=== PATIENT | male | born 1950 | race Caucasian/White ===

== ENCOUNTER → 2017-08-01 | Outpatient (CLI) | payer OTHER ==
--- NOTE | 2017-08-04 07:20 | PE ---
EXAMINATION TYPE: PET CT fusion skull to thigh DATE OF EXAM: 08/01/2017 COMPARISON: 11/01/2016 and priors HISTORY: Lymphoma follow-up examination TECHNIQUE: Following the intravenous administration of 13.95 mCi of F-18 FDG, whole body images are performed from the skull base to the midthigh. Images are reviewed on the computer in the coronal, a xial, and sagittal planes. Reconstructed rotating images are created on independent workstation and reviewed on the computer. A localization and attenuation correction CT is performed in conjunction with the PET scan. FINDINGS: SKULL BASE AND NECK: Cervical adenopathy is again present with hypermetabolic uptake overall decreas ed with a maximum SUV on the right of 2.1 (previously 3.5) and on the left is 2.46 (previously not me asured). Hypermetabolic uptake is again seen diffusely throughout the thyroid gland with a maximum HADLEY V decreased from the prior exam measuring 2.17 and previously measuring 7.3. CHEST, MEDIASTINUM, AND HILAR REGION: Mediastinal background measures a maximum SUV of 1.77. There is overall improvement in the adenopathy within the chest and abdomen. Subcarinal lymph node has a maximum SUV of 1.88 and measures 9 mm in short axis. This previously javier ured max SUV of 10.0 on the prior examination. Mildly prominent lymph node within the prevascular space measures a maximum SUV of 1.15 and is not h ypermetabolic in comparison to the mediastinal background. This measures 6 mm in short axis. Right paratracheal lymph nodes measure maximum SUV of 1.17 and 1.46 with short axis dimensions of 6 m m and 8 mm respectively. Right hilar lymph nodes demonstrate maximum SUV of 1.72 with the largest measuring 9 mm in short axis . Previously described enlarged left internal mammary lymph node is no longer visualized. ABDOMEN AND PELVIS: Hepatic background uptake measures a maximum SUV of 2.78. No enlarged lymph nodes are seen within the abdomen or pelvis. Periaortic lymph nodes are subcentimeter in size, nonenlarged and not hypermetabolic with a maximum SUV of 1.17. No superficial inguinal adenopathy is seen. Uptak e within the bowel is thought to be physiologic. Physiologic excretion within the renal collecting sy stems and urinary bladder is noted. Retrocrural nodes are nonenlarged with no hypermetabolic activity . The spleen is not enlarged with a maximum SUV of 2.13, less than background hepatic uptake. Scatter ed calcifications are seen within the splenic parenchyma. OSSEOUS STRUCTURES: No hypermetabolic uptake. IMPRESSION: Mixed response to treatment -overall improvement from the prior exam. Partial metabolic r esponse in regards to this single subcarinal lymph node with a decrease in avidity of greater than 50 % in comparison to the prior exam of 11/01/2016 and near partial metabolic response of the cervical a denopathy. The remainder of the exam shows complete response with the thoracic adenopathy uptake less than that of mediastinal background and nonenlarged non-FDG avid abdominal nodes.
== END ==
LOC: RADPETMAIN 08:04
PROVIDERS: ATTEND Internal Medicine Hematology & Oncology
DX: C85.98 Non-Hodgkin lymphoma, unspecified, lymph nodes of multiple sites (principal); C83.17 Mantle cell lymphoma, spleen
CPT/HCPCS: 78815; A9552

== ENCOUNTER 2018-01-19 07:51 | Day surgery (SDC) | payer MEDICARE, OTHER ==
[~2018-01-19 07:51] MED LIST: LACTATED RINGERS 1,000 ML IV SCH
[2018-01-19] MEDS ORDERED: LIDOCAINE 1% 20 ML VIAL (10MG/ML) FOR IV START INTRADERMA ONE (08:14)
[2018-01-19 08:25] VITALS: RESP 16; TEMP 96.9
[2018-01-19] MEDS ORDERED: GLYCOPYRROLATE 0.2 MG/ML 2 ML VIAL ONE (09:05)
[2018-01-19] MEDS ORDERED: LIDOCAINE 1% INJ 10MG/ML (20 ML MDV) ONE (09:05)
[2018-01-19] MEDS ORDERED: PROPOFOL 10 MG/ML 20 ML VIAL IV ONE (09:05)
--- NOTE | 2018-01-19 09:36 | P.PCN ---
Date of Procedure: 01/19/18 Procedure(s) Performed: Procedure: Esophagogastroduodenoscopy and biopsy. Preoperative diagnosis: Upper GI complaints and atypical chest pains and suspected reflux disease. Postoperative diagnosis: 1. Small sliding hiatal hernia with LA grade C esophagitis. 2. Mild gastritis and duodenitis. 3. Biopsies obtained from the duodenum, antrum and esophagus. Brief clinical history: The patient is a 67-year-old male who has been experiencing for the last 5-6 months atypical chest pains as well as nausea and stomach upset whenever he is working up his upper body including bending or lifting. Stress test was negative. He has not responded to few months of treatment with [id number] omeprazole. Initially it was thought that perhaps some of his symptoms are related to his chemotherapy which he was receiving for lymphoma. As his symptoms persisted after he successfully completed his treatment, this evaluation is requested to assess for esophagitis , complicated reflux disease or other pathology. Procedure: With the patient on his left lateral decubitus position and after informed consent and adequate sedation, I passed the Olympus-GIF 160 video upper endoscope through the cricopharyngeus down the esophagus. GE junction was around 42-43 cm from the incisors and there was a small sliding hiatal hernia. The esophagus showed multiple linear erosions and short punctate ulcerations consistent with LA grade C esophagitis involving the mid and lower esophagus but there was no strictures, West's esophagus or bleeding. The endoscope was then passed into the stomach which was insufflated with air and inspected in detail including the retroflex view in the cardia. There was some mottling and erythema in the antrum but no ulcers or erosions. Pyloric channel did not show any ulcers. Duodenal bulb, post bulbar area and descending duodenum showed some erythema and minimal friability. I obtained biopsies from the duodenum, antrum and esophagus then the endoscope was withdrawn. The patient tolerated the procedure well. Plan: The patient was reassured. Will await pathology results. In the meantime , I suggested that he continue antireflux diet and measures and to try intensive medical therapy for reflux and make further decisions based on his course and biopsy results.
[2018-01-19 09:58] VITALS: BP 133/86; PULSE 88
== END 2018-01-19 10:22 | disposition home or self-care (01) ==
LOC: ORWHC2ENDO 07:51
DX: K29.80 Duodenitis without bleeding (principal); K29.50 Unspecified chronic gastritis without bleeding; K21.0 Gastro-esophageal reflux disease with esophagitis; K44.9 Diaphragmatic hernia without obstruction or gangrene; E78.5 Hyperlipidemia, unspecified; C85.90 Non-Hodgkin lymphoma, unspecified, unspecified site; H91.92 Unspecified hearing loss, left ear; Z88.1 Allergy status to other antibiotic agents; Z87.01 Personal history of pneumonia (recurrent); Z92.21 Personal history of antineoplastic chemotherapy; Z79.82 Long term (current) use of aspirin; Z79.899 Other long term (current) drug therapy
CPT/HCPCS: 43239; J2001; J2704; 88305; 88312

== ENCOUNTER → 2018-05-05 | Outpatient (CLI) | payer MEDICARE ==
--- NOTE | 2018-05-05 09:22 | CT ---
EXAMINATION TYPE: CT soft tissue neck w con DATE OF EXAM: 05/05/2018 COMPARISON: PET CT 08/01/2017 and 11/01/2016 HISTORY: 67-year-old male Non Hodgkin's Lymphoma TECHNIQUE: Contiguous axial scanning of the soft tissues of the neck performed with IV Contrast, cristina ent injected with 100 ml mL of Isovue 300. Coronal/sagittal reconstructions performed. CT DLP: 381.60 mGycm Automated exposure control for dose reduction was used. FINDINGS: Visualized intracranial structures, orbits and globes, and mastoid air cells appear clear. There is m oderate to severe mucosal thickening left maxillary sinus and suggestion of small air-fluid level in the right maxillary sinus. Correlation can be made for symptoms of sinusitis. The nasopharynx is clear. Slight asymmetric fullness in the region of the left palatine tonsils but without discrete enhancing mass. Dental amalgam artifact is present causing limitation in assessment. The epiglottis and prevertebral soft tissues are normal. Tiny 2 to 3 mm area of mural based nodularity along the mucosal space of the uppermost left lateral t grover wall, axial image 36 is not well seen on the coronal or sagittal reconstructions and probably represents some minimal adherent secretion. Otherwise, the glottic and subglottic structures appear clear. The tracheal column is clear and there is some mild biapical pleural parenchymal scarring noted. The 1 cm area of hypodensity in the mid right lobe of the thyroid gland. Thyroid gland otherwise sati sfactory. The submandibular and bilateral parotid glands are mildly atrophic. A prominent 1.1 cm right supraclavicular lymph node lateral to the internal jugular vein, axial image 32 appears unchanged from 08/01/17. Otherwise, no cervical lymphadenopathy seen. Bones: Moderate disc/endplate degenerative change at C3-C4 with grade 1 retrolisthesis at this level. IMPRESSION: 1. A SOLITARY PROMINENT 1.1 CM RIGHT SUPRACLAVICULAR LYMPH NODE IS STABLE FROM 08/01/2017 AND WAS NOT HYPERMETABOLIC AT THAT TIME. NO NEW CERVICAL LYMPHADENOPATHY. 2. THERE IS SLIGHT ASYMMETRIC FULLNESS TO THE LEFT PALATINE TONSILS BUT WITHOUT DISCRETE MASS, LIKELY SECONDARY TO MILD TONSILLAR HYPERTROPHY. 3. TINY 2 TO 3 MM MURAL BASED NODULARITY ALONG THE MUCOSAL SPACE OF THE UPPER MOST LEFT LATERAL TRACH EAL WALL SUSPECTED TO REPRESENT SOME MINIMAL ADHERENT SECRETIONS. CONSIDER SIX-MONTH FOLLOW-UP IF CLI NICALLY INDICATED. 4. CHRONIC LEFT MAXILLARY SINUS DISEASE. A SMALL AIR FLUID LEVEL IN THE RIGHT MAXILLARY SINUS COULD R EPRESENT ACUTE SINUSITIS.
== END | disposition home or self-care (01) ==
LOC: RADCTMAIN 08:05
PROVIDERS: ATTEND Dentist
DX: C85.90 Non-Hodgkin lymphoma, unspecified, unspecified site (principal)
CPT/HCPCS: 70491; Q9967

== ENCOUNTER → 2018-06-12 | Outpatient (CLI) | payer MEDICARE ==
--- NOTE | 2018-06-14 16:28 | PE ---
EXAMINATION TYPE: PET CT fusion skull to thigh DATE OF EXAM: 06/12/2018 COMPARISON: PET CTs dated 08/01/2017, 11/01/2016 and 09/29/2015. CT soft tissue neck dated 05/05/2018 HISTORY: Follow-up for non-Hodgkin lymphoma. Subsequent treatment strategy. TECHNIQUE: Following the intravenous administration of 14.3 mCi of F-18 FDG, whole body images ar e performed from the skull base to the midthigh. Images are reviewed on the computer in the coronal, axial, and sagittal planes. Reconstructed rotating images are created on independent workstation an d reviewed on the computer. A localization and attenuation correction CT is performed in conjunctio n with the PET scan. SCAN: Subsequent. Ninth seen at this institution dating back to 2010. FINDINGS: Mediastinal background: 1.99 Abdominal background: 2.39 SKULL BASE AND NECK: Within the right buccinator muscle lateral to the right mandible there is focal new hypermetabolic activity with a maximum SUV of 9.0. There is no appreciable abnormality on CT. Ad ditionally along the left lateral aspect of the tongue and within the floor the mouth there is focal hypermetabolic uptake with no corresponding CT abnormality with a maximum SUV of 5.88. CHEST, MEDIASTINUM, AND HILAR REGION: There is hypermetabolic activity in the extensor musculature of the upper extremity with a maximum SUV of 2.56. This could relate to myositis or muscular usage duri ng the examination. There is no discrete CT lesions seen. No other areas of hypermetabolic activity. ABDOMEN AND PELVIS: No suspicious hypermetabolic uptake. OSSEOUS STRUCTURES: No suspicious hypermetabolic uptake. OTHER CT: There is moderate circumferential mucosal thickening of the right maxillary sinus and mild circumferential mucosal thickening of the left maxillary sinus. Remaining paranasal sinuses and masto id air cells are well aerated. Multilevel degenerative change of the spine is seen. No new suspicious osseous lesion is noted. Nonhypermetabolic left common iliac and periaortic lymph nodes are seen with the largest on series 3 image 211 measuring 6 mm in short axis. No increasing or new adenopathy within the abdomen or pelvis. The unenhanced solid viscera of the abdomen are grossly unremarkable other than a punctate benign spl enic granulomatous calcification. Few colonic diverticula are seen without pericolonic fat stranding. Urinary bladder show preferential wall thickening is likely related to incomplete distention althoug h correlation with urinalysis could be performed if there is clinical symptomatology. Ascending thoracic aorta is mildly enlarged measuring 4.3 cm. Mild to moderate coronary calcification s are noted. Scattered shotty mediastinal lymph nodes are seen throughout with no hypermetabolic acti vity. The largest is seen in the right perihilar region measuring 8 mm in short axis on series 3 imag e 107. Calcified right hilar lymph nodes are also noted. Heart is not enlarged. No pericardial effusi on. Multifocal subsegmental atelectasis and biapical pleural parenchymal scarring are present. No new foc al consolidation or pulmonary mass. IMPRESSION: 1. Focal new hypermetabolic activity within the right buccinator muscle and along the left lateral ma rgin of the mid tongue and buckle surface of the floor the mouth. Although findings could relate to m uscular usage during the examination given the maximum SUV of 9.0, direct visualization is recommende d to exclude metastatic involvement or lymph nodes within this region not appreciated on CT. 2. No hypermetabolic adenopathy within the chest, abdomen, or pelvis indicating complete lymphatic re sponse to treatment. 3. No new evidence of visceral or osseous metastasis within the chest, abdomen, or pelvis.
== END | disposition home or self-care (01) ==
LOC: RADPETMAIN 07:54
PROVIDERS: ATTEND Internal Medicine Hematology & Oncology
DX: C85.98 Non-Hodgkin lymphoma, unspecified, lymph nodes of multiple sites (principal); R93.7 Abnormal findings on diagnostic imaging of other parts of musculoskeletal system
CPT/HCPCS: 78815; A9552

== ENCOUNTER 2019-01-04 19:11 | Inpatient (IN) | payer MEDICARE ==
[2019-01-04] MEDS ORDERED: SODIUM CHLORIDE 0.9% 1,000 ML IV STA (19:55)
--- NOTE | 2019-01-04 20:42 | ED ---
GI Bleed HPI - General Source: EMS Mode of arrival: EMS Limitations: no limitations <Adia Arredondo - Last Filed: 01/04/19 22:57> <Yunior Ramirez - Last Filed: 01/06/19 09:06> - General Chief complaint: GI Bleed Stated complaint: GI Bleed Time Seen by Provider: 01/04/19 19:22 - History of Present Illness Initial comments: 68-year-old male patient presents to the emergency department today after having 3 bloody stools. Patient states for the last 3 weeks he has been having lower abdominal pain. Patient states that the pain seemed to resolve yesterday however today had sudden onset of increased cramping to the lower abdomen at 4: 00 and then had 2 bowel movements with bright red and dark red blood present. Patient denies any increased weakness or dizziness. States he does have history of lymphoma so he does generally have malaise. He gets IV immunotherapy every 2 months. Patient states he also has a wound in his mouth and recently developed sore throat with increased mucus production over the last 3 days. Patient states the wound in his mouth occurred when he bit his cheek 3 weeks ago and hasn't healed. Patient does report fever or night sweats. States the temperature has been around 100 degrees on a nightly basis for the last 3 weeks. States he has had a mild irritating cough but denies any sputum production. Patient denies any recent rash, shortness breath, chest pain , nausea, vomiting, diarrhea, constipation, back pain, numbness, tingling, hematuria, dysuria, urinary urgency, urinary frequency, headache, visual changes , or any other complaints. (Adia Arredondo) - Related Data Home Medications Medication Instructions Recorded Confirmed Ascorbic Acid [Vitamin C] 1,000 mg PO DAILY 01/18/18 01/04/19 Aspirin [Adult Low Dose Aspirin EC] 81 mg PO DAILY 01/18/18 01/04/19 Multivitamins, Thera [Multivitamin 1 tab PO DAILY 01/18/18 01/04/19 (formulary)] [place]-3 Fatty Acids/Fish Oil [Fish 1 tab PO DAILY 01/18/18 01/04/19 Oil 1,000 mg Softgel] Simvastatin [Zocor] 20 mg PO HS 01/18/18 01/04/19 Zinc 50 mg PO DAILY 01/18/18 01/04/19 diphenhydrAMINE [Benadryl] 25 mg PO DAILY PRN 01/18/18 01/04/19 Acetaminophen/Diphenhydramine 1 tab PO HS PRN 01/04/19 01/04/19 [Tylenol PM 500-25mg] Guaifen/Phenyleph/Acetaminophn 1 tab PO Q6H PRN 01/04/19 01/04/19 [Tylenol Sinus Severe Caplet] Omeprazole [PriLOSEC] 20 mg PO HS 01/04/19 01/04/19 Allergies Allergy/AdvReac Type Severity Reaction Status Date / Time cephalexin [From Keflex] Allergy Rash/Hives Verified 01/04/19 20:03 Review of Systems ROS Other: All systems not noted in ROS Statement are negative. <Adia Arredondo - Last Filed: 01/04/19 22:57> ROS Other: All systems not noted in ROS Statement are negative. <Yunior Ramirez - Last Filed: 01/06/19 09:06> ROS Statement: Those systems with pertinent positive or pertinent negative responses have been documented in the HPI. Past Medical History Past Medical History: Cancer, GI Bleed, Hearing Disorder / Deafness, Hyperlipidemia, Pneumonia Additional Past Medical History / Comment(s): CURRENT: N & V. 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 cystoscopy History of Any Multi-Drug Resistant Organisms: None Reported Past Surgical History: Orthopedic Surgery Additional Past Surgical History / Comment(s): RIGHT ROTATOR CUFF. VEIN STRIPPING LEFT. spot on tongue removed, sinus surgery Past Anesthesia/Blood Transfusion Reactions: No Reported Reaction Past Psychological History: No Psychological Hx Reported Smoking Status: Never smoker Past Alcohol Use History: Rare Past Drug Use History: None Reported - Past Family History Mother Family Medical History: Unable to Obtain <Adia Arredondo - Last Filed: 01/04/19 22:57> General Exam Limitations: no limitations General appearance: alert, in no apparent distress, other (Physical well- developed, well-nourished, pale appearing adult male patient in no acute distress. Vital signs upon presentation are temperature 101.0F, pulse 94, respirations 18, blood pressure 115/78, pulse ox 100% on room air.) Eye exam: Present: normal appearance, PERRL, EOMI. Absent: scleral icterus, conjunctival injection, periorbital swelling ENT exam: Present: mucous membranes moist, other (Patient has a wound to the left cheek, white plaque noted over this. No drainage.). Absent: normal exam, normal oropharynx (Pharyngeal erythema, white plaques noted to the pharyngeal area, however the uvula.) Respiratory exam: Present: normal lung sounds bilaterally. Absent: respiratory distress, wheezes, rales, rhonchi, stridor Cardiovascular Exam: Present: regular rate, normal rhythm, normal heart sounds. Absent: systolic murmur, diastolic murmur, rubs, gallop, clicks GI/Abdominal exam: Present: soft, normal bowel sounds. Absent: distended, tenderness, guarding, rebound, rigid Neurological exam: Present: alert, oriented X3, CN II-XII intact Psychiatric exam: Present: normal affect, normal mood Skin exam: Present: warm, dry, intact, normal color. Absent: rash <Adia Arredondo - Last Filed: 01/04/19 22:57> Vital Signs 01/04/19 01/04/19 01/04/19 19:16 21:34 23:22 Temperature 101.0 F H 100.3 F H Pulse Rate 94 82 80 Respiratory 18 18 18 Rate Blood Pressure 115/78 113/71 106/71 O2 Sat by Pulse 100 99 98 Oximetry 01/05/19 00:39 Temperature 99.6 F Pulse Rate 78 Respiratory 18 Rate Blood Pressure 106/66 O2 Sat by Pulse 99 Oximetry Medical Decision Making - Lab Data Result diagrams: 01/04/19 19:29 01/04/19 19:29 - Radiology Data Radiology results: report reviewed, image reviewed <Adia Arredondo - Last Filed: 01/04/19 22:57> - Lab Data Result diagrams: 01/06/19 05:27 01/06/19 05:27 <Yunior Ramirez - Last Filed: 01/06/19 09:06> - Medical Decision Making 68-year-old male patient presents to the emergency department today for evaluation of 3 episodes of bloody bowel movements. Patient reports low abdominal pain for the last 3 weeks. Patient is also reporting sore throat and a wound to his mouth. He is had fevers nightly for the last 3 weeks as well. Physical examination did reveal pharyngeal erythema with white plaques. Patient has wound to the left bucchal mucosa. Labs reviewed and did reveal white blood cell count of 3.0, lactic acid 2.2. Chest x-ray negative for any acute cardiopulmonary process. Urinalysis negative for any evidence of infection. He is negative for influenza and straps. Occult blood was positive. Did start Protonix. We'll start IV Zosyn and Levaquin. We'll admit to the hospital as he is immunocompromised due to history of lymphoma and current immune therapy. I did discuss findings, results, plan with the patient , he is agreeable. (Adia Arredondo) I saw this patient in conjunction with the physician wellness assistant. I performed independent history and physical exam. Agree with case management. (Yunior Ramirez) - Lab Data Lab Results 01/04/19 01/04/19 01/04/19 Range/Units 19:29 19:29 19:29 WBC 3.0 L (3.8-10.6) k/uL RBC 3.79 L (4.30-5.90) m/uL Hgb 11.5 L (13.0-17.5) gm/dL Hct 35.8 L (39.0-53.0) % MCV 94.3 (80.0-100.0) fL MCH 30.4 (25.0-35.0) pg MCHC 32.2 (31.0-37.0) g/dL RDW 12.9 (11.5-15.5) % Plt Count 286 (150-450) k/uL Neutrophils % (Manual) 32 % Band Neutrophils % 24 % Lymphocytes % (Manual) 11 % Monocytes % (Manual) 24 % Eosinophils % (Manual) 3 % Metamyelocytes % 2 % Myelocytes % 7 % Neutrophils # (Manual) 1.60 (1.3-7.7) k/uL Lymphocytes # (Manual) 0.33 L (1.0-4.8) k/uL Monocytes # (Manual) 0.72 (0-1.0) k/uL Eosinophils # (Manual) 0.09 (0-0.7) k/uL Metamyelocytes # (Man) 0.06 H (0) k/uL Myelocytes # (Manual) 0.21 H (0) k/uL Nucleated RBCs 0 (0-0) /100 WBC Manual Slide Review Performed Toxic Granulation Present PT (9.0-12.0) sec INR (<1.2) APTT (22.0-30.0) sec Sodium 138 (137-145) mmol/L Potassium 4.5 (3.5-5.1) mmol/L Chloride 105 (98-107) mmol/L Carbon Dioxide 23 (22-30) mmol/L Anion Gap 10 mmol/L BUN 17 (9-20) mg/dL Creatinine 0.95 (0.66-1.25) mg/dL Est GFR (CKD-EPI)AfAm >90 (>60 ml/min/1.73 sqM) Est GFR (CKD-EPI)NonAf 84 (>60 ml/min/1.73 sqM) Glucose 105 H (74-99) mg/dL Lactic Ac Sepsis Rflx Plasma Lactic Acid Ramses (0.7-2.0) mmol/L Calcium 8.6 (8.4-10.2) mg/dL Total Bilirubin 0.8 (0.2-1.3) mg/dL AST 16 L (17-59) U/L ALT 22 (21-72) U/L Alkaline Phosphatase 85 (38-126) U/L Total Creatine Kinase 22 L (55-170) U/L CK-MB (CK-2) <0.2 (0.0-2.4) ng/mL CK-MB (CK-2) Rel Index Troponin I <0.012 (0.000-0.034) ng/mL Total Protein 6.3 (6.3-8.2) g/dL Albumin 3.4 L (3.5-5.0) g/dL Urine Color Urine Appearance (Clear) Urine pH (5.0-8.0) Ur Specific [place] (1.001-1.035) Urine Protein (Negative) Urine Glucose (UA) (Negative) Urine Ketones (Negative) Urine Blood (Negative) Urine Nitrite (Negative) Urine Bilirubin (Negative) Urine Urobilinogen (<2.0) mg/dL Ur Leukocyte Esterase (Negative) Stool Occult Blood (Negative) Influenza Type A RNA (Not Detectd) Influenza Type B (PCR) (Not Detectd) Group A Strep Rapid (Negative) 01/04/19 01/04/19 01/04/19 Range/Units 19:29 20:00 20:00 WBC (3.8-10.6) k/uL RBC (4.30-5.90) m/uL Hgb (13.0-17.5) gm/dL Hct (39.0-53.0) % MCV (80.0-100.0) fL MCH (25.0-35.0) pg MCHC (31.0-37.0) g/dL RDW (11.5-15.5) % Plt Count (150-450) k/uL Neutrophils % (Manual) % Band Neutrophils % % Lymphocytes % (Manual) % Monocytes % (Manual) % Eosinophils % (Manual) % Metamyelocytes % % Myelocytes % % Neutrophils # (Manual) (1.3-7.7) k/uL Lymphocytes # (Manual) (1.0-4.8) k/uL Monocytes # (Manual) (0-1.0) k/uL Eosinophils # (Manual) (0-0.7) k/uL Metamyelocytes # (Man) (0) k/uL Myelocytes # (Manual) (0) k/uL Nucleated RBCs (0-0) /100 WBC Manual Slide Review Toxic Granulation PT 11.0 (9.0-12.0) sec INR 1.0 (<1.2) APTT 22.9 (22.0-30.0) sec Sodium (137-145) mmol/L Potassium (3.5-5.1) mmol/L Chloride (98-107) mmol/L Carbon Dioxide (22-30) mmol/L Anion Gap mmol/L BUN (9-20) mg/dL Creatinine (0.66-1.25) mg/dL Est GFR (CKD-EPI)AfAm (>60 ml/min/1.73 sqM) Est GFR (CKD-EPI)NonAf (>60 ml/min/1.73 sqM) Glucose (74-99) mg/dL Lactic Ac Sepsis Rflx Plasma Lactic Acid Ramses (0.7-2.0) mmol/L Calcium (8.4-10.2) mg/dL Total Bilirubin (0.2-1.3) mg/dL AST (17-59) U/L ALT (21-72) U/L Alkaline Phosphatase (38-126) U/L Total Creatine Kinase (55-170) U/L CK-MB (CK-2) (0.0-2.4) ng/mL CK-MB (CK-2) Rel Index Troponin I (0.000-0.034) ng/mL Total Protein (6.3-8.2) g/dL Albumin (3.5-5.0) g/dL Urine Color Urine Appearance (Clear) Urine pH (5.0-8.0) Ur Specific [place] (1.001-1.035) Urine Protein (Negative) Urine Glucose (UA) (Negative) Urine Ketones (Negative) Urine Blood (Negative) Urine Nitrite (Negative) Urine Bilirubin (Negative) Urine Urobilinogen (<2.0) mg/dL Ur Leukocyte Esterase (Negative) Stool Occult Blood Positive (Negative) Influenza Type A RNA (Not Detectd) Influenza Type B (PCR) (Not Detectd) Group A Strep Rapid Negative (Negative) 01/04/19 01/04/19 01/04/19 Range/Units 20:30 20:30 21:08 WBC (3.8-10.6) k/uL RBC (4.30-5.90) m/uL Hgb (13.0-17.5) gm/dL Hct (39.0-53.0) % MCV (80.0-100.0) fL MCH (25.0-35.0) pg MCHC (31.0-37.0) g/dL RDW (11.5-15.5) % Plt Count (150-450) k/uL Neutrophils % (Manual) % Band Neutrophils % % Lymphocytes % (Manual) % Monocytes % (Manual) % Eosinophils % (Manual) % Metamyelocytes % % Myelocytes % % Neutrophils # (Manual) (1.3-7.7) k/uL Lymphocytes # (Manual) (1.0-4.8) k/uL Monocytes # (Manual) (0-1.0) k/uL Eosinophils # (Manual) (0-0.7) k/uL Metamyelocytes # (Man) (0) k/uL Myelocytes # (Manual) (0) k/uL Nucleated RBCs (0-0) /100 WBC Manual Slide Review Toxic Granulation PT (9.0-12.0) sec INR (<1.2) APTT (22.0-30.0) sec Sodium (137-145) mmol/L Potassium (3.5-5.1) mmol/L Chloride (98-107) mmol/L Carbon Dioxide (22-30) mmol/L Anion Gap mmol/L BUN (9-20) mg/dL Creatinine (0.66-1.25) mg/dL Est GFR (CKD-EPI)AfAm (>60 ml/min/1.73 sqM) Est GFR (CKD-EPI)NonAf (>60 ml/min/1.73 sqM) Glucose (74-99) mg/dL Lactic Ac Sepsis Rflx Y Plasma Lactic Acid Ramses 2.2 H* (0.7-2.0) mmol/L Calcium (8.4-10.2) mg/dL Total Bilirubin (0.2-1.3) mg/dL AST (17-59) U/L ALT (21-72) U/L Alkaline Phosphatase (38-126) U/L Total Creatine Kinase (55-170) U/L CK-MB (CK-2) (0.0-2.4) ng/mL CK-MB (CK-2) Rel Index Troponin I (0.000-0.034) ng/mL Total Protein (6.3-8.2) g/dL Albumin (3.5-5.0) g/dL Urine Color Yellow Urine Appearance Clear (Clear) Urine pH 8.0 (5.0-8.0) Ur Specific [place] 1.011 (1.001-1.035) Urine Protein Negative (Negative) Urine Glucose (UA) Negative (Negative) Urine Ketones 1+ H (Negative) Urine Blood Negative (Negative) Urine Nitrite Negative (Negative) Urine Bilirubin Negative (Negative) Urine Urobilinogen <2.0 (<2.0) mg/dL Ur Leukocyte Esterase Negative (Negative) Stool Occult Blood (Negative) Influenza Type A RNA (Not Detectd) Influenza Type B (PCR) (Not Detectd) Group A Strep Rapid (Negative) 01/04/19 Range/Units 21:52 WBC (3.8-10.6) k/uL RBC (4.30-5.90) m/uL Hgb (13.0-17.5) gm/dL Hct (39.0-53.0) % MCV (80.0-100.0) fL MCH (25.0-35.0) pg MCHC (31.0-37.0) g/dL RDW (11.5-15.5) % Plt Count (150-450) k/uL Neutrophils % (Manual) % Band Neutrophils % % Lymphocytes % (Manual) % Monocytes % (Manual) % Eosinophils % (Manual) % Metamyelocytes % % Myelocytes % % Neutrophils # (Manual) (1.3-7.7) k/uL Lymphocytes # (Manual) (1.0-4.8) k/uL Monocytes # (Manual) (0-1.0) k/uL Eosinophils # (Manual) (0-0.7) k/uL Metamyelocytes # (Man) (0) k/uL Myelocytes # (Manual) (0) k/uL Nucleated RBCs (0-0) /100 WBC Manual Slide Review Toxic Granulation PT (9.0-12.0) sec INR (<1.2) APTT (22.0-30.0) sec Sodium (137-145) mmol/L Potassium (3.5-5.1) mmol/L Chloride (98-107) mmol/L Carbon Dioxide (22-30) mmol/L Anion Gap mmol/L BUN (9-20) mg/dL Creatinine (0.66-1.25) mg/dL Est GFR (CKD-EPI)AfAm (>60 ml/min/1.73 sqM) Est GFR (CKD-EPI)NonAf (>60 ml/min/1.73 sqM) Glucose (74-99) mg/dL Lactic Ac Sepsis Rflx Plasma Lactic Acid Ramses (0.7-2.0) mmol/L Calcium (8.4-10.2) mg/dL Total Bilirubin (0.2-1.3) mg/dL AST (17-59) U/L ALT (21-72) U/L Alkaline Phosphatase (38-126) U/L Total Creatine Kinase (55-170) U/L CK-MB (CK-2) (0.0-2.4) ng/mL CK-MB (CK-2) Rel Index Troponin I (0.000-0.034) ng/mL Total Protein (6.3-8.2) g/dL Albumin (3.5-5.0) g/dL Urine Color Urine Appearance (Clear) Urine pH (5.0-8.0) Ur Specific [place] (1.001-1.035) Urine Protein (Negative) Urine Glucose (UA) (Negative) Urine Ketones (Negative) Urine Blood (Negative) Urine Nitrite (Negative) Urine Bilirubin (Negative) Urine Urobilinogen (<2.0) mg/dL Ur Leukocyte Esterase (Negative) Stool Occult Blood (Negative) Influenza Type A RNA Not Detected (Not Detectd) Influenza Type B (PCR) Not Detected (Not Detectd) Group A Strep Rapid (Negative) - Radiology Data Two-view x-ray of the chest is obtained. Report was reviewed in its entirety. Impression by Dr. Nikki Weinberg shows no acute process. Thoracic aortic tortuosity noted. (Adia Arredondo) Disposition Decision to Admit Reason: Admit from EC Decision Date: 01/04/19 Decision Time: 23:01 <Adia Arredondo - Last Filed: 01/04/19 22:57> <Yunior Ramirez - Last Filed: 01/06/19 09:06> Clinical Impression: Fever, Sepsis, Pharyngitis, GI bleed Disposition: ADMITTED IP TO THIS [facility] Condition: Serious Addendum entered and electronically signed by Adia Arredondo, MAGAZINE DESIGNER-BC, AGACNP -BC 01/04/19 23:43: EKG DOCUMENTATION: EKG obtained at 2036 shows normal sinus rhythm with an incomplete right bundle branch block. Ventricular rate is 86, VA interval 182, QRS duration 94, QT 378, QTC 452. No evidence of ST elevation or depression
[2019-01-04 20:49] LABS: HCT 35.8 % (39.0-53.0); HGB 11.5 gm/dL (13.0-17.5); MCH 30.4 pg (25.0-35.0); MCHC 32.2 g/dL (31.0-37.0); MCV 94.3 fL (80.0-100.0); Mean Platelet Volume 6.7; Platelet Count 286 k/uL (150-450); RBC 3.79 m/uL (4.30-5.90); RDW 12.9 % (11.5-15.5)
[2019-01-04 20:59] LABS: Partial Thromboplastin Time 22.9 sec (22.0-30.0)
[2019-01-04 20:59] LABS: Appearance,Urine Clear (Clear); Bilirubin,Urine Negative (Negative); Blood,Urine Negative (Negative); Color,Urine Yellow; Glucose,Urine (UA) Negative (Negative); Ketones,Urine 1+ (Negative); Leukocyte Esterase,Urine Negative (Negative); Nitrite,Urine Negative (Negative); Protein,Urine Negative (Negative); Specific Gravity,Urine 1.011 (1.001-1.035); Urobilinogen,Urine <2.0 mg/dL (<2.0)
[2019-01-04 21:03] LABS: ALT 22 U/L (21-72); AST 16 U/L (17-59); Albumin 3.4 g/dL (3.5-5.0); Alkaline Phosphatase 85 U/L (38-126); Anion Gap 10 mmol/L; Blood Urea Nitrogen 17 mg/dL (9-20); Calcium 8.6 mg/dL (8.4-10.2); Carbon Dioxide 23 mmol/L (22-30); Chloride 105 mmol/L (98-107); Glucose 105 mg/dL (74-99); Potassium 4.5 mmol/L (3.5-5.1); Sodium 138 mmol/L (137-145); Total Bilirubin 0.8 mg/dL (0.2-1.3); Total Protein 6.3 g/dL (6.3-8.2)
[2019-01-04 21:04] LABS: Creatine Kinase 22 U/L (55-170)
[2019-01-04 21:15] LABS: Creatine Kinase MB <0.2 ng/mL (0.0-2.4); Troponin I <0.012 ng/mL (0.000-0.034)
[2019-01-04 21:26] LABS: Band Neutrophils % 24 %; Eosinophils # (M) 0.09 k/uL (0-0.7); Lymphocytes # (M) 0.33 k/uL (1.0-4.8); Metamyelocytes # (M) 0.06 k/uL (0); Metamyelocytes % 2 %; Monocytes # (M) 0.72 k/uL (0-1.0); Myelocytes # (M) 0.21 k/uL (0); Myelocytes % 7 %; Neutrophils % (M) 32 %; Nucleated Red Blood Cells 0 /100 WBC (0-0); Total Cells Counted 200
--- NOTE | 2019-01-04 21:33 | XR ---
EXAMINATION: XR chest 2V DATE AND TIME: 01/04/2019 9:02 PM CLINICAL INDICATION: PHH; pain TECHNIQUE: Departmental protocol COMPARISON: None FINDINGS: The lungs are clear. The pleural spaces are negative. The cardiac silhouette is not enlarged. Thoracic aorta tortuosity noted. The skeletal structures and soft tissues are negative for acute findings. IMPRESSION: 1. NO ACUTE PROCESS. 2. THORACIC AORTIC TORTUOSITY NOTED.
[2019-01-04] MEDS ORDERED: ACETAMINOPHEN TAB 500 MG TAB PO STA (21:40)
[2019-01-04 21:41] LABS: Toxic Granulation Present
[2019-01-04] MEDS ORDERED: PANTOPRAZOLE 40 MG/10 ML VIAL IVP STA (22:52)
[2019-01-04] MEDS ORDERED: PIPERACILLIN-TAZOBACTAM 3.375 GM in SODIUM CHLORIDE 0.9% 100 ML IVPB STA (22:53)
[2019-01-04] MEDS ORDERED: LEVOFLOXACIN 750MG-D5W PMX 750 MG in DEXTROSE/WATER 1 150ML.BAG IVPB STA (22:55)
[2019-01-04] MEDS ORDERED: LEVOFLOXACIN 750MG-D5W PMX 750 MG in DEXTROSE/WATER 1 150ML.BAG IVPB SCH (23:00)
[2019-01-04] MEDS: SODIUM CHLORIDE 0.9% 1,000 ML IV SCH (23:16)
[2019-01-05] MEDS: PIPERACILLIN-TAZOBACTAM 3.375 GM in SODIUM CHLORIDE 0.9% 100 ML IVPB SCH ×3 (01:41→17:26)
[2019-01-05] MEDS: PANTOPRAZOLE 40 MG/10 ML VIAL IVP SCH (08:42)
--- NOTE | 2019-01-05 13:03 | P.CONS ---
History of Present Illness - Reason for Consult Consult date: 01/05/19 GI bleed Requesting physician: Ela Clement - Chief Complaint Bloody bowel movements abdominal pain - History of Present Illness 68-year-old male past medical history of non-Hodgkin's lymphoma admitted with fever 101, new onset bloody bowel movements 24 hours with lower abdominal pain 3 weeks. Denies hematemesis melena or chills. Patient receives intravenous therapy for his lymphoma every other month last treatment was in November. He is scheduled for PET scan early January to evaluate his lymphoma status. Colonoscopy more than 10 years ago. EGD January 2018 for evaluation of upper GI complaints atypical chest pain suspected reflux of findings of small sliding hiatal hernia with LA grade C esophagitis gastritis duodenitis. Admission hemoglobin 11.5 previously 14.4 in July. White count 3. Platelet 286. INR is 1.0. BUN 17. Creatinine 0.9. Lactic acid 2.2 with hydration 1.0. FOBT positive. Influenza not detected. No alcohol excessive usage of NSAIDs or aspirin. No history of lower GI bleed. No history of inflammatory bowel diseases or colitis. No recent travels changes in diet or weight loss. Review of Systems Constitutional: Admitted with fever, chills, denies sweats, weight gain, or loss. HEENT: Negative for migraines, blurred vision or loss, earaches, drainage, tinnitus, oral mucosal lesions, dysphagia, or odynophagia. Cardiac: Negative for chest pain, arrhythmias, or palpitation. Respiratory: Negative for shortness of breath, hemoptysis, cough, or sputum production. Gastrointestinal: See HPI for pertinent findings. Genitourinary: Negative for hematuria, urgency, frequency, polyuria, dysuria, or penile discharge. Musculoskeletal: Negative for muscle aches, swelling, arthritis, and arthralgias. Neurologic: Negative for stroke or TIA. Endocrine: Negative for thyroid problems. Skin: Negative for rash or itching. Psychiatric: Negative history for depression and anxiety Past Medical History Past Medical History: Cancer, GI Bleed, Hearing Disorder / Deafness, Hyperlipidemia, Pneumonia Additional Past Medical History / Comment(s): CURRENT: N & V. 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 cystoscopy History of Any Multi-Drug Resistant Organisms: None Reported Past Surgical History: Orthopedic Surgery Additional Past Surgical History / Comment(s): RIGHT ROTATOR CUFF. VEIN STRIPPING LEFT. spot on tongue removed, sinus surgery Past Anesthesia/Blood Transfusion Reactions: No Reported Reaction Past Psychological History: No Psychological Hx Reported Smoking Status: Never smoker Past Alcohol Use History: Rare Past Drug Use History: None Reported - Past Family History Mother Family Medical History: Unable to Obtain Medications and Allergies Home Medications Medication Instructions Recorded Confirmed Type Ascorbic Acid [Vitamin C] 1,000 mg PO DAILY 01/18/18 01/04/19 History Aspirin [Adult Low Dose Aspirin EC] 81 mg PO DAILY 01/18/18 01/04/19 History Multivitamins, Thera [Multivitamin 1 tab PO DAILY 01/18/18 01/04/19 History (formulary)] [place]-3 Fatty Acids/Fish Oil [Fish 1 tab PO DAILY 01/18/18 01/04/19 History Oil 1,000 mg Softgel] Simvastatin [Zocor] 20 mg PO HS 01/18/18 01/04/19 History Zinc 50 mg PO DAILY 01/18/18 01/04/19 History diphenhydrAMINE [Benadryl] 25 mg PO DAILY PRN 01/18/18 01/04/19 History Acetaminophen/Diphenhydramine 1 tab PO HS PRN 01/04/19 01/04/19 History [Tylenol PM 500-25mg] Guaifen/Phenyleph/Acetaminophn 1 tab PO Q6H PRN 01/04/19 01/04/19 History [Tylenol Sinus Severe Caplet] Omeprazole [PriLOSEC] 20 mg PO HS 01/04/19 01/04/19 History Allergies Allergy/AdvReac Type Severity Reaction Status Date / Time cephalexin [From Keflex] Allergy Rash/Hives Verified 01/04/19 20:03 Physical Exam Vitals: Vital Signs Temp Pulse Pulse Resp BP BP Pulse Ox 01/05/19 09:32 74 14 01/05/19 07:12 97.7 F 74 16 106/69 97 01/05/19 05:00 97.9 F 73 16 107/68 98 01/05/19 00:58 97.6 F 89 16 122/71 99 01/05/19 00:39 99.6 F 78 18 106/66 99 01/04/19 23:22 80 18 106/71 98 01/04/19 21:34 100.3 F H 82 18 113/71 99 01/04/19 19:16 101.0 F H 94 18 115/78 100 Intake and Output 01/04/19 01/05/19 01/05/19 22:59 06:59 14:59 Intake Total 750 Balance 750 Intake: Intake, IV Titration 650 Amount Levofloxacin 750Mg-D5w 150 Pmx 750 mg In Dextrose/ Water 1 150ml.bag @ 100 mls/hr IVPB Q24H [facility] Rx#: [id number] Piperacillin-Tazobactam 3 100 .375 gm In Sodium Chloride 0.9% 100 ml @ 25 mls/hr IVPB ONCE STA Rx# :[id number] Sodium Chloride 0.9% 1, 400 000 ml @ 100 mls/hr IV . Q10H [facility] Rx#:[id number] Oral 100 Other: Voiding Method Bedside Commode Weight 83.915 kg General appearance: The patient is alert, oriented, in no acute distress. HET: Head is normocephalic and atraumatic. Pupils are equal and reactive. Neck: Supple without lymphadenopathy. Trachea midline. Heart: S1 S2. Regular rate and rhythm. Lungs: No crackles or wheezes are heard. Abdomen: Soft, mildly tender in the bilateral lower abdomen, nondistended with bowel sounds. No peritoneal signs. No palpable organomegaly or masses. Extremities: Normal skin color and turgor. No cyanosis, rash, ulceration, clubbing, or edema. Radial and pedal pulses are 2/4 bilaterally. Neurological: No focal deficits. Strength and sensation are grossly intact. Results CBC & Chem 7: 01/06/19 12:11 01/06/19 05:27 Labs: Abnormal Lab Results - Last 24 Hours (Table) 01/04/19 01/04/19 01/04/19 Range/Units 19:29 19:29 19:29 WBC 3.0 L (3.8-10.6) k/uL RBC 3.79 L (4.30-5.90) m/uL Hgb 11.5 L (13.0-17.5) gm/dL Hct 35.8 L (39.0-53.0) % Lymphocytes # (Manual) 0.33 L (1.0-4.8) k/uL Metamyelocytes # (Man) 0.06 H (0) k/uL Myelocytes # (Manual) 0.21 H (0) k/uL Glucose 105 H (74-99) mg/dL Plasma Lactic Acid Ramses (0.7-2.0) mmol/L AST 16 L (17-59) U/L Total Creatine Kinase 22 L (55-170) U/L Albumin 3.4 L (3.5-5.0) g/dL Urine Ketones (Negative) 01/04/19 01/04/19 Range/Units 20:30 20:30 WBC (3.8-10.6) k/uL RBC (4.30-5.90) m/uL Hgb (13.0-17.5) gm/dL Hct (39.0-53.0) % Lymphocytes # (Manual) (1.0-4.8) k/uL Metamyelocytes # (Man) (0) k/uL Myelocytes # (Manual) (0) k/uL Glucose (74-99) mg/dL Plasma Lactic Acid Ramses 2.2 H* (0.7-2.0) mmol/L AST (17-59) U/L Total Creatine Kinase (55-170) U/L Albumin (3.5-5.0) g/dL Urine Ketones 1+ H (Negative) Microbiology - Last 24 Hours (Table) 01/04/19 20:30 Urine Culture - Preliminary Urine,Clean Catch 01/04/19 20:00 Group A Strep Throat Culture - Preliminary Throat Assessment and Plan (1) Hematochezia Narrative/Plan: 68-year-old male with a history of lymphoma presents with persistent bilateral lower abdominal pain 3 weeks with new onset of gross hematochezia fever differentials include but not limited to acute infectious colitis, ischemic colitis, inflammatory colitis, underlying neoplasm colonic diverticular bleed cannot be excluded. Current Visit: Yes Status: Acute Code(s): K92.1 - MELENA SNOMED Code(s): 143673288 (2) Acute blood loss anemia Current Visit: Yes Status: Acute Code(s): D62 - ACUTE POSTHEMORRHAGIC ANEMIA SNOMED Code(s): 988495159 (3) History of non-Hodgkin's lymphoma Current Visit: Yes Status: Acute Code(s): Z85.72 - PERSONAL HISTORY OF NON- HODGKIN LYMPHOMAS SNOMED Code(s): 917429265 (4) Fever Current Visit: Yes Status: Acute Code(s): R50.9 - FEVER, UNSPECIFIED SNOMED Code(s): 171384479 Plan: 1. Daily CBC monitoring. Protonix 40 mg daily. 2. Inpatient colonoscopy advised will schedule per clinical course. Stool studies. IV antibiotics. CT abdomen and pelvis today. Thank you for this kind referral and the opportunity to participate in the care of your patient. This consultation was discussed with Dr. Horan. The impression and plan of care have been directed as dictated.
[2019-01-05] MEDS ORDERED: GUAIFEN PO PRN (13:30)
[2019-01-05] MEDS ORDERED: NON-FORMULARY DRUG (Acetaminophen/Diphenhydramine [Tylenol Pm 500-25mg] 1 TAB) PO PRN (13:30)
[2019-01-05] MEDS ORDERED: ACETAMINOPHN PO PRN (13:30)
[2019-01-05] MEDS ORDERED: PHENYLEPH PO PRN (13:30)
[2019-01-05] MEDS ORDERED: diphenhydrAMINE 25 MG CAP PO PRN (13:30)
[2019-01-05] MEDS: IOPAMIDOL-300 CONTRAST 30 ML VIAL (ORAL USE) PO PRN ×2 (14:03→15:14)
[2019-01-05] MEDS: SODIUM CHLORIDE 0.9% 1,000 ML IV SCH ×2 (15:14→22:21)
[2019-01-05 15:18] LABS: HCT 32.2 % (39.0-53.0); HGB 10.4 gm/dL (13.0-17.5); MCV 95.4 fL (80.0-100.0); RBC 3.37 m/uL (4.30-5.90)
[2019-01-05 15:19] LABS: MCH 30.9 pg (25.0-35.0); MCHC 32.4 g/dL (31.0-37.0); Mean Platelet Volume 7.3; Platelet Count 248 k/uL (150-450)
[2019-01-05 15:21] LABS: Potassium 3.9 mmol/L (3.5-5.1)
[2019-01-05 15:22] LABS: Calcium 8.7 mg/dL (8.4-10.2)
[2019-01-05 15:56] LABS: Band Neutrophils % 10 %; Eosinophils # (M) 0.08 k/uL (0-0.7); Lymphocytes # (M) 0.24 k/uL (1.0-4.8); Metamyelocytes # (M) 0.02 k/uL (0); Metamyelocytes % 1 %; Myelocytes # (M) 0.08 k/uL (0); Myelocytes % 4 %; Neutrophils % (M) 56 %; Nucleated Red Blood Cells 1 /100 WBC (0-0); Total Cells Counted 200
[2019-01-05 15:58] LABS: Poikilocytosis (M) Present; Polychromasia Present
--- NOTE | 2019-01-05 16:39 | CT ---
EXAMINATION TYPE: CT abdomen pelvis w con DATE OF EXAM: 01/05/2019 COMPARISON: PET/CT dated 06/12/2018 HISTORY: Rectal bleeding, abdominal pain CT DLP: 1263 mGycm Automated exposure control for dose reduction was used. TECHNIQUE: Helical acquisition of images was performed from the lung bases through the pelvis. CONTRAST: Performed with Oral Contrast and with IV Contrast, patient injected with 100 mL of Isovue 300. FINDINGS: LUNG BASES: No significant abnormality is appreciated. LIVER/GB: Gallbladder is nearly hydropic in size measuring approximately 9.7 cm. No common bile duct dilatation is seen. PANCREAS: Slight pancreatic intimal atrophy is present without ductal dilatation to SPLEEN: No significant abnormality is seen. ADRENALS: No significant abnormality is seen. KIDNEYS: The kidneys enhance and excrete symmetrically without hydronephrosis. FREE AIR: No free air is visualized. ADENOPATHY: No greater than 1 cm short axis lymph node is seen in the abdomen or pelvis. REPRODUCTIVE ORGANS: No significant abnormality is seen URINARY BLADDER: Left posterior lateral urinary bladder diverticulum is incidentally noted. OSSEOUS STRUCTURES: Mild multilevel degenerative change of the lumbar spine most pronounced at L4-L5 is noted. BOWEL: Very subtle and mild pericolonic fat stranding is seen adjacent to the sigmoid colon on coron al series 5 image 42. No dilated large or small bowel. Colon is suboptimally evaluated without progre ssion of contrast through the small bowel into the colon. Gastric antrum is decompressed likely secon karen to peristalsis. IMPRESSION: VERY SUBTLE MINIMAL INFLAMMATORY FAT STRANDING SURROUNDING THE SIGMOID COLON RELATE TO VERY MILD COLI TIS OR UNCOMPLICATED DIVERTICULITIS. CORRELATE WITH CLINICAL SYMPTOMS.
--- NOTE | 2019-01-05 17:51 | P.CONS ---
History of Present Illness - Reason for Consult Consult date: 01/05/19 Mantel Cell Lymphoma Requesting physician: Adia Arredondo - Chief Complaint Mouth Sores, GI Bleeding - History of Present Illness Mr. Hilton is a pleasant patient of Dr. 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 He presented to the hospital with difficulty swallowing, throat and mouth pain, and dark tarry stools. His baseline Hemoglobin is greater than 12, 10.4 today. He complains of black tarry stools and bloating the past couple days , no emesis. Review of Systems A 14 point review of systems assessed and completed and all negative except HPI. Past Medical History Past Medical History: Cancer, GI Bleed, Hearing Disorder / Deafness, Hyperlipidemia, Pneumonia Additional Past Medical History / Comment(s): CURRENT: N & V. 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 cystoscopy History of Any Multi-Drug Resistant Organisms: None Reported Past Surgical History: Orthopedic Surgery Additional Past Surgical History / Comment(s): RIGHT ROTATOR CUFF. VEIN STRIPPING LEFT. spot on tongue removed, sinus surgery Past Anesthesia/Blood Transfusion Reactions: No Reported Reaction Past Psychological History: No Psychological Hx Reported Smoking Status: Never smoker Past Alcohol Use History: Rare Past Drug Use History: None Reported - Past Family History Mother Family Medical History: Unable to Obtain Medications and Allergies Home Medications Medication Instructions Recorded Confirmed Type Ascorbic Acid [Vitamin C] 1,000 mg PO DAILY 01/18/18 01/04/19 History Aspirin [Adult Low Dose Aspirin EC] 81 mg PO DAILY 01/18/18 01/04/19 History Multivitamins, Thera [Multivitamin 1 tab PO DAILY 01/18/18 01/04/19 History (formulary)] [place]-3 Fatty Acids/Fish Oil [Fish 1 tab PO DAILY 01/18/18 01/04/19 History Oil 1,000 mg Softgel] Simvastatin [Zocor] 20 mg PO HS 01/18/18 01/04/19 History Zinc 50 mg PO DAILY 01/18/18 01/04/19 History diphenhydrAMINE [Benadryl] 25 mg PO DAILY PRN 01/18/18 01/04/19 History Acetaminophen/Diphenhydramine 1 tab PO HS PRN 01/04/19 01/04/19 History [Tylenol PM 500-25mg] Guaifen/Phenyleph/Acetaminophn 1 tab PO Q6H PRN 01/04/19 01/04/19 History [Tylenol Sinus Severe Caplet] Omeprazole [PriLOSEC] 20 mg PO HS 01/04/19 01/04/19 History Allergies Allergy/AdvReac Type Severity Reaction Status Date / Time cephalexin [From Keflex] Allergy Rash/Hives Verified 01/04/19 20:03 Physical Exam Vitals: Vital Signs Temp Pulse Pulse Resp BP BP Pulse Ox 01/05/19 12:14 98.2 F 76 16 106/67 97 01/05/19 09:32 74 14 01/05/19 07:12 97.7 F 74 16 106/69 97 01/05/19 05:00 97.9 F 73 16 107/68 98 01/05/19 00:58 97.6 F 89 16 122/71 99 01/05/19 00:39 99.6 F 78 18 106/66 99 01/04/19 23:22 80 18 106/71 98 01/04/19 21:34 100.3 F H 82 18 113/71 99 01/04/19 19:16 101.0 F H 94 18 115/78 100 Intake and Output 01/05/19 01/05/19 01/05/19 06:59 14:59 22:59 Intake Total 750 800 Balance 750 800 Intake: Intake, IV Titration 650 800 Amount Levofloxacin 750Mg-D5w 150 Pmx 750 mg In Dextrose/ Water 1 150ml.bag @ 100 mls/hr IVPB Q24H [facility] Rx#: [id number] Piperacillin-Tazobactam 3 100 .375 gm In Sodium Chloride 0.9% 100 ml @ 25 mls/hr IVPB ONCE [facility] Rx# :[id number] Sodium Chloride 0.9% 1, 400 800 000 ml @ 100 mls/hr IV . Q10H [facility] Rx#:[id number] Oral 100 Other: Voiding Method Bedside Commode Gen: Alert, No acute distress Head: NC, NT Neck: No Lymphadenopathy on palpation Mouth: +Left open vesical and posterior pharynx with Oral Candidas Lungs: DIminished bibasilar, No wheezing Heart: Tachy, Reg Abdomen: Soft, ND, NT Ext: Minimal Gen Edema, Pulses notes x4 Neuro: Non Focal Results CBC & Chem 7: 01/05/19 14:53 01/05/19 14:53 Labs: Abnormal Lab Results - Last 24 Hours (Table) 01/04/19 01/04/19 01/04/19 Range/Units 19:29 19:29 19:29 WBC 3.0 L (3.8-10.6) k/uL RBC 3.79 L (4.30-5.90) m/uL Hgb 11.5 L (13.0-17.5) gm/dL Hct 35.8 L (39.0-53.0) % Lymphocytes # (Manual) 0.33 L (1.0-4.8) k/uL Metamyelocytes # (Man) 0.06 H (0) k/uL Myelocytes # (Manual) 0.21 H (0) k/uL Nucleated RBCs (0-0) /100 WBC Chloride (98-107) mmol/L Glucose 105 H (74-99) mg/dL Plasma Lactic Acid Ramses (0.7-2.0) mmol/L AST 16 L (17-59) U/L Total Creatine Kinase 22 L (55-170) U/L Albumin 3.4 L (3.5-5.0) g/dL Urine Ketones (Negative) 01/04/19 01/04/19 01/05/19 Range/Units 20:30 20:30 14:53 WBC 2.0 L (3.8-10.6) k/uL RBC 3.37 L (4.30-5.90) m/uL Hgb 10.4 L (13.0-17.5) gm/dL Hct 32.2 L (39.0-53.0) % Lymphocytes # (Manual) 0.24 L (1.0-4.8) k/uL Metamyelocytes # (Man) 0.02 H (0) k/uL Myelocytes # (Manual) 0.08 H (0) k/uL Nucleated RBCs 1 H (0-0) /100 WBC Chloride (98-107) mmol/L Glucose (74-99) mg/dL Plasma Lactic Acid Ramses 2.2 H* (0.7-2.0) mmol/L AST (17-59) U/L Total Creatine Kinase (55-170) U/L Albumin (3.5-5.0) g/dL Urine Ketones 1+ H (Negative) 01/05/19 Range/Units 14:53 WBC (3.8-10.6) k/uL RBC (4.30-5.90) m/uL Hgb (13.0-17.5) gm/dL Hct (39.0-53.0) % Lymphocytes # (Manual) (1.0-4.8) k/uL Metamyelocytes # (Man) (0) k/uL Myelocytes # (Manual) (0) k/uL Nucleated RBCs (0-0) /100 WBC Chloride 108 H (98-107) mmol/L Glucose (74-99) mg/dL Plasma Lactic Acid Ramses (0.7-2.0) mmol/L AST (17-59) U/L Total Creatine Kinase (55-170) U/L Albumin (3.5-5.0) g/dL Urine Ketones (Negative) Microbiology - Last 24 Hours (Table) 01/04/19 20:30 Urine Culture - Preliminary Urine,Clean Catch 01/04/19 20:00 Group A Strep Throat Culture - Preliminary Throat Chest x-ray: report reviewed Assessment and Plan Plan: Assessment and Recommendations: 1. Mantel Cell Lymphoma: - Status POst Maintenance Rituxan 12/13/18 - Stable 2. Oral Polly: - PO Diflucan 3. Acute Blood Loss Anemia: - GI Blood Loss, Dark Tarry Stools - GI FOllowing and planning on Colonoscopy inpatient - Monitor CBC daily - Check Iron Studies, LDH 4. Oral Mucocytis: - Vinny Physician Attest: I have completed the full history and physical of this patient and developed the complete impression and plan, agree with above dictation, dictated as a scribe.
[2019-01-05 18:52] LABS: Uric Acid 4.3 mg/dL (3.5-8.5)
[2019-01-05] MEDS ORDERED: FUROSEMIDE 10 MG/ML 2 ML VIAL IV ONE (20:15)
[2019-01-05 20:57] LABS: HCT 30.3 % (39.0-53.0); HGB 9.9 gm/dL (13.0-17.5); MCH 30.7 pg (25.0-35.0); MCHC 32.7 g/dL (31.0-37.0); MCV 93.9 fL (80.0-100.0); Mean Platelet Volume 6.5; Platelet Count 245 k/uL (150-450); RBC 3.23 m/uL (4.30-5.90); RDW 12.9 % (11.5-15.5)
[2019-01-05] MEDS ORDERED: PANTOPRAZOLE 40 MG TABLET PO SCH (21:00)
[2019-01-05 21:15] LABS: Glucose,Whole Blood 88 mg/dL (75-99)
[2019-01-05 21:20] LABS: Band Neutrophils % 6 %; Eosinophils # (M) 0.08 k/uL (0-0.7); Lymphocytes # (M) 0.34 k/uL (1.0-4.8); Metamyelocytes # (M) 0.02 k/uL (0); Metamyelocytes % 1 %; Monocytes # (M) 0.46 k/uL (0-1.0); Myelocytes # (M) 0.06 k/uL (0); Myelocytes % 3 %; Neutrophils % (M) 48 %; Nucleated Red Blood Cells 0 /100 WBC (0-0); Total Cells Counted 200
[2019-01-05 21:24] LABS: Poikilocytosis (M) Present; Polychromasia Present
[2019-01-05] MEDS: ATORVASTATIN 10 MG TAB PO SCH (22:19)
[2019-01-05 23:02] LABS: Iron Saturation 40.1 (15.00-50.00)
--- NOTE | 2019-01-05 23:05 | P.HPIM ---
History of Present Illness H&P Date: 01/05/19 Chief Complaint: Fever and generalized weakness Patient is a 68 old male with a known history of non-Hodgkin lymphoma currently on chemotherapy every month last in November 2018, history of GI bleed, hyperlipidemia and hearing disorder/deafness was initially presented to ER with complaints of blood in the stool. Patient says that he had bright red blood in the stool and also followed by dark-colored stool as well. Patient says that he has been having lower abdominal pain for the past 3 weeks. Around 4 PM yesterday patient did have increased lower abdominal pain, cramping type and did have 2 bright red blood and dark red blood. Patient felt some lightheaded dizziness. Patient did have fever and night sweats. T-max was 101.6 on admission. Patient did have cough without sputum production. No chest pain or shortness of breath. No nausea vomiting or diarrhea. No hematemesis. No numbness or tingling. Denied any dysuria or hematuria. Patient does take baby aspirin at home. Denied any other [id number] pain medication use Lactic acid 2.2, WBC 3.0, hemoglobin 11.5 and platelets 286 on admission. T-max 101.6 FOBT positive Chest x-ray showed no acute process. Tortuous thoracic aorta CT of the abdomen pelvis showed very subtle minimal instrumented fast stranding surrounding the sigmoid colon correlate to very mild colitis are uncomplicated diverticulitis. Correlate with clinical symptoms. Review of Systems Constitutional: Patient denies any fever or chills . No generalized weakness or weight loss. Abdomen: Patient denied nausea vomiting and diarrhea . Patient does have cramping abdominal pain. Cardiovascular: Patient denies any chest pain or short of breath no palpitations. Respiratory: patient denied any cough is from production. No shortness of breath Neurologic: Patient denied any numbness or tingling headache. Musculoskeletal: Patient denies any complaints of joint swelling or deformity. Skin: Negative Psychiatric: Negative Endocrine: No heat or cold intolerance. No recent weight gain. Genitourinary: No dysuria or hematuria. All other 14 point ROS negative except the above Past Medical History Past Medical History: Cancer, GI Bleed, Hearing Disorder / Deafness, Hyperlipidemia, Pneumonia Additional Past Medical History / Comment(s): CURRENT: N & V. 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 cystoscopy History of Any Multi-Drug Resistant Organisms: None Reported Past Surgical History: Orthopedic Surgery Additional Past Surgical History / Comment(s): RIGHT ROTATOR CUFF. VEIN STRIPPING LEFT. spot on tongue removed, sinus surgery Past Anesthesia/Blood Transfusion Reactions: No Reported Reaction Past Psychological History: No Psychological Hx Reported Smoking Status: Never smoker Past Alcohol Use History: Rare Past Drug Use History: None Reported - Past Family History Mother Family Medical History: Unable to Obtain Medications and Allergies Home Medications Medication Instructions Recorded Confirmed Type Ascorbic Acid [Vitamin C] 1,000 mg PO DAILY 01/18/18 01/04/19 History Aspirin [Adult Low Dose Aspirin EC] 81 mg PO DAILY 01/18/18 01/04/19 History Multivitamins, Thera [Multivitamin 1 tab PO DAILY 01/18/18 01/04/19 History (formulary)] [place]-3 Fatty Acids/Fish Oil [Fish 1 tab PO DAILY 01/18/18 01/04/19 History Oil 1,000 mg Softgel] Simvastatin [Zocor] 20 mg PO HS 01/18/18 01/04/19 History Zinc 50 mg PO DAILY 01/18/18 01/04/19 History diphenhydrAMINE [Benadryl] 25 mg PO DAILY PRN 01/18/18 01/04/19 History Acetaminophen/Diphenhydramine 1 tab PO HS PRN 01/04/19 01/04/19 History [Tylenol PM 500-25mg] Guaifen/Phenyleph/Acetaminophn 1 tab PO Q6H PRN 01/04/19 01/04/19 History [Tylenol Sinus Severe Caplet] Omeprazole [PriLOSEC] 20 mg PO HS 01/04/19 01/04/19 History Allergies Allergy/AdvReac Type Severity Reaction Status Date / Time cephalexin [From Keflex] Allergy Rash/Hives Verified 01/04/19 20:03 Physical Exam Vitals: Vital Signs Temp Pulse Pulse Resp BP BP Pulse Ox 01/05/19 12:14 98.2 F 76 16 106/67 97 01/05/19 09:32 74 14 01/05/19 07:12 97.7 F 74 16 106/69 97 01/05/19 05:00 97.9 F 73 16 107/68 98 01/05/19 00:58 97.6 F 89 16 122/71 99 01/05/19 00:39 99.6 F 78 18 106/66 99 01/04/19 23:22 80 18 106/71 98 01/04/19 21:34 100.3 F H 82 18 113/71 99 01/04/19 19:16 101.0 F H 94 18 115/78 100 Intake and Output 01/04/19 01/05/19 01/05/19 22:59 06:59 14:59 Intake Total 750 800 Balance 750 800 Intake: Intake, IV Titration 650 800 Amount Levofloxacin 750Mg-D5w 150 Pmx 750 mg In Dextrose/ Water 1 150ml.bag @ 100 mls/hr IVPB Q24H [facility] Rx#: [id number] Piperacillin-Tazobactam 3 100 .375 gm In Sodium Chloride 0.9% 100 ml @ 25 mls/hr IVPB ONCE [facility] Rx# :[id number] Sodium Chloride 0.9% 1, 400 800 000 ml @ 100 mls/hr IV . Q10H [facility] Rx#:[id number] Oral 100 Other: Voiding Method Bedside Commode Weight 83.915 kg PHYSICAL EXAMINATION: Patient is lying in the bed comfortably, no acute distress, awake alert and oriented. Feels weak.. HEENT: Normocephalic. Neck is supple. Pupils reactive. Nostrils clear. Oral cavity is moist. Ears reveal no drainage. Neck reveals no JVD, carotid bruits, or thyromegaly. CHEST EXAMINATION: Trachea is central. Symmetrical expansion. Lung garnica clear to auscultation and percussion. CARDIAC: Normal S1, S2 with no gallops. No murmurs ABDOMEN: Soft. Bowel sounds normal. No organomegaly. No abdominal bruits. Extremities: reveal no edema. No clubbing or cyanosis Neurologically awake, alert, oriented x3 with well-coordinated movements. Hard of hearing. No focal deficits noted Skin: No rash or skin lesions. Psychiatric: Coperative. Nonsuicidal Musculoskeletal: No joint swelling or deformity. Normal range of motion. Results CBC & Chem 7: 01/05/19 20:30 01/05/19 14:53 Labs: Abnormal Lab Results - Last 24 Hours (Table) 01/04/19 01/04/19 01/04/19 Range/Units 19:29 19:29 19:29 WBC 3.0 L (3.8-10.6) k/uL RBC 3.79 L (4.30-5.90) m/uL Hgb 11.5 L (13.0-17.5) gm/dL Hct 35.8 L (39.0-53.0) % Lymphocytes # (Manual) 0.33 L (1.0-4.8) k/uL Metamyelocytes # (Man) 0.06 H (0) k/uL Myelocytes # (Manual) 0.21 H (0) k/uL Glucose 105 H (74-99) mg/dL Plasma Lactic Acid Ramses (0.7-2.0) mmol/L AST 16 L (17-59) U/L Total Creatine Kinase 22 L (55-170) U/L Albumin 3.4 L (3.5-5.0) g/dL Urine Ketones (Negative) 01/04/19 01/04/19 Range/Units 20:30 20:30 WBC (3.8-10.6) k/uL RBC (4.30-5.90) m/uL Hgb (13.0-17.5) gm/dL Hct (39.0-53.0) % Lymphocytes # (Manual) (1.0-4.8) k/uL Metamyelocytes # (Man) (0) k/uL Myelocytes # (Manual) (0) k/uL Glucose (74-99) mg/dL Plasma Lactic Acid Ramses 2.2 H* (0.7-2.0) mmol/L AST (17-59) U/L Total Creatine Kinase (55-170) U/L Albumin (3.5-5.0) g/dL Urine Ketones 1+ H (Negative) Microbiology - Last 24 Hours (Table) 01/04/19 20:30 Urine Culture - Preliminary Urine,Clean Catch 01/04/19 20:00 Group A Strep Throat Culture - Preliminary Throat Thrombosis Risk Factor Assmnt - DVT/VTE Prophylaxis DVT/VTE Prophylaxis: Pharmacologic Prophylaxis ordered - Choose All That Apply Any of the Below Risk Factors Present?: No Other Risk Factors: Yes Each Risk Factor Represents 2 Points: Age 61-74 years, Malignancy Other congenital or acquired thrombophilia - If yes, enter type in comment: No Thrombosis Risk Factor Assessment Total Risk Factor Score: 4 Thrombosis Risk Factor Assessment Level: Moderate Risk Assessment and Plan Assessment: Mild acute blood loss anemia secondary to GI bleed likely lower Abdominal pain likely secondary to Mild colitis and diverticulitis as per CT Sepsis secondary to above Lactic acidosis 2.2 on admission Neutropenia with WBC count 3.0 likely due to chemotherapy Non-Hodgkin lymphoma/mantle lymphoma last chemotherapy with rituximab on 2018 Hyperlipidemia Hearing Disorder / Deafness DVT prophylaxis Plan: Patient be continued on IV hydration. Continue with broad-spectrum antibiotics in the form of Levaquin and Zosyn. Follow up H&H. GI and oncology has been consulted. Continue the current management and follow closely. Further conditions based on the clinical course. Prognosis is guarded. Discussed with the family at bedside in detail. Time with Patient: Greater than 30
[2019-01-05] MEDS: LEVOFLOXACIN 750MG-D5W PMX 750 MG in DEXTROSE/WATER 1 150ML.BAG IVPB SCH (23:49)
[2019-01-06] MEDS: FLUCONAZOLE 100 MG TAB PO SCH ×2 (00:44→09:06)
[2019-01-06] MEDS: PIPERACILLIN-TAZOBACTAM 3.375 GM in SODIUM CHLORIDE 0.9% 100 ML IVPB SCH ×3 (01:53→17:03)
[2019-01-06 05:56] LABS: Basophils % (A) 1 %; Eosinophils # (A) 0.1 k/uL (0-0.7); Eosinophils % (A) 5 %; HGB 11.6 gm/dL (13.0-17.5); Lymphocytes # (A) 0.2 k/uL (1.0-4.8); Lymphocytes % (A) 10 %; MCH 30.9 pg (25.0-35.0); MCHC 33.3 g/dL (31.0-37.0); Mean Platelet Volume 5.9; Monocytes # (A) 0.4 k/uL (0-1.0); Monocytes % (A) 18 %; Neutrophils # (A) 1.5 k/uL (1.3-7.7); Neutrophils % (A) 64 %; Platelet Count 239 k/uL (150-450); RBC 3.76 m/uL (4.30-5.90); RDW 14.1 % (11.5-15.5); WBC 2.4 k/uL (3.8-10.6)
[2019-01-06 06:06] LABS: Albumin 3.5 g/dL (3.5-5.0); Calcium 8.8 mg/dL (8.4-10.2); Potassium 3.8 mmol/L (3.5-5.1); Total Bilirubin 1.5 mg/dL (0.2-1.3); Total Protein 6.2 g/dL (6.3-8.2)
[2019-01-06] MEDS: ASCORBIC ACID 500 MG TAB PO SCH (09:06)
[2019-01-06] MEDS: PANTOPRAZOLE 40 MG/10 ML VIAL IVP SCH (09:07)
[2019-01-06] MEDS: MULTIVITAMINS, THERA 1 EACH TAB PO SCH (09:07)
[2019-01-06] MEDS: ZINC SULFATE 220 MG CAP PO SCH (09:08)
[2019-01-06] MEDS: SODIUM CHLORIDE 0.9% 1,000 ML IV SCH ×2 (09:12→18:45)
[2019-01-06] MEDS: FISH OIL 1000MG PO SCH (09:12)
--- NOTE | 2019-01-06 09:58 | P.CNPUL ---
History of Present Illness Consult date: 01/06/19 Requesting physician: Lucero Montano Reason for consult: other Chief complaint: Lower GI bleeding, symptomatic blood loss anemia History of present illness: This is a 68-year-old white male patient with past medical history of non- Hodgkin's lymphoma receiving immunotherapy in the form of Rituxan, last treatment was in November 2018. Previous history of lower GI bleeding in 2002, hyperlipidemia, hearing disorder, who came into the hospital on 2018 for evaluation of passing some red colored and dark black stools at home. Started on Thursday of this week, she was having some abdominal cramping, feeling weak. He was also having a sore throat, does have a poorly healing ulcer on the inside of his left buccal cavity after he bit the side of his cheek. Was experiencing some lightheadedness and dizziness. Denied any fever or chills. However he was febrile on presentation with a T-max of 101.6 Fahrenheit. Cough , no chest congestion, no complaints of chest pain, shortness of breath, or palpitations, no nausea or vomiting. Patient did have a EGD and colonoscopy back in [address] Aarti Ro, and he was reportedly negative. His GI bleeding at that time resolved on its own. Not on any anticoagulation other than one baby aspirin, does take occasional ibuprofen and Tylenol for general body aches. No excessive amounts of Tylenol or NSAIDs. Chest x-ray showed no acute pulmonary process. It showed thoracic aortic tortuosity. On admission his hemoglobin was 11.5, patient's stools while in the hospital are more red in color, and last night patient started passing larger volume of bright red colored stools with some clotting in it. He was also becoming quite symptomatic, dizzy, lightheaded, pale and clammy, and was transferred to the intensive care unit where he received 2 units of packed red blood cells for hemoglobin of 9.9. Through the night in the intensive care unit he did pass 3 more small bright red colored stools. His hemoglobin this morning is 11.6, white blood cell count is 2.4. Electrolytes were within normal limits, BUN is 12, creatinine is 1.31. LFTs showed total bilirubin of 1.5, AST is 15, ALT was 23. C. difficile was negative. On admission patient did have an elevated lactic acid of 2.2 which improved with IV hydration. Patient does have some white patches on his uvula, throat strep culture was sent, pending. Blood, urine and stool cultures are in process. It is my patient seen in the intensive care unit, resting comfortably in bed, room air pulse ox is 95%, hemodynamically he is stable, no tachycardia, sinus rhythm on the monitor with a rate of 82 BPM, afebrile. Antibiotic coverage includes Diflucan, Levaquin and Zosyn. Maintenance IV fluid is 0.9 normal saline at a rate of 100 ML per hour, patient is on a PPI therapy, GI service is following. No hematemesis. No chest pain, no shortness of breath. Patient has been up to the bedside commode, denied any lightheadedness or dizziness. Review of Systems All systems: negative Constitutional: Reports weakness, Denies chills, Denies fever Eyes: denies blurred vision, denies pain Ears, nose, mouth and throat: Denies headache, Denies sore throat Cardiovascular: Denies chest pain, Denies shortness of breath Respiratory: Denies cough Gastrointestinal: Reports abdominal pain, Denies diarrhea, Denies nausea, Denies vomiting Musculoskeletal: Denies myalgias Integumentary: Denies pruritus, Denies rash Neurological: Denies numbness, Denies weakness Psychiatric: Denies anxiety, Denies depression Endocrine: Denies fatigue, Denies weight change Past Medical History Past Medical History: Cancer, GI Bleed, Hearing Disorder / Deafness, Hyperlipidemia, Pneumonia Additional Past Medical History / Comment(s): CURRENT: N & V. 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 cystoscopy History of Any Multi-Drug Resistant Organisms: None Reported Past Surgical History: Orthopedic Surgery Additional Past Surgical History / Comment(s): RIGHT ROTATOR CUFF. VEIN STRIPPING LEFT. spot on tongue removed, sinus surgery Past Anesthesia/Blood Transfusion Reactions: No Reported Reaction Past Psychological History: No Psychological Hx Reported Smoking Status: Never smoker Past Alcohol Use History: Rare Past Drug Use History: None Reported - Past Family History Mother Family Medical History: Unable to Obtain Medications and Allergies Home Medications Medication Instructions Recorded Confirmed Type Ascorbic Acid [Vitamin C] 1,000 mg PO DAILY 01/18/18 01/04/19 History Aspirin [Adult Low Dose Aspirin EC] 81 mg PO DAILY 01/18/18 01/04/19 History Multivitamins, Thera [Multivitamin 1 tab PO DAILY 01/18/18 01/04/19 History (formulary)] Lesage-3 Fatty Acids/Fish Oil [Fish 1 tab PO DAILY 01/18/18 01/04/19 History Oil 1,000 mg Softgel] Simvastatin [Zocor] 20 mg PO HS 01/18/18 01/04/19 History Zinc 50 mg PO DAILY 01/18/18 01/04/19 History diphenhydrAMINE [Benadryl] 25 mg PO DAILY PRN 01/18/18 01/04/19 History Acetaminophen/Diphenhydramine 1 tab PO HS PRN 01/04/19 01/04/19 History [Tylenol PM 500-25mg] Guaifen/Phenyleph/Acetaminophn 1 tab PO Q6H PRN 01/04/19 01/04/19 History [Tylenol Sinus Severe Caplet] Omeprazole [PriLOSEC] 20 mg PO HS 01/04/19 01/04/19 History Allergies Allergy/AdvReac Type Severity Reaction Status Date / Time cephalexin [From Keflex] Allergy Rash/Hives Verified 01/04/19 20:03 Physical Exam Vitals: Vital Signs Temp Pulse Pulse Resp BP BP Pulse Ox 01/06/19 09:00 99 24 134/97 01/06/19 08:00 98.3 F 16 132/92 95 01/06/19 07:00 82 12 137/87 94 L 01/06/19 06:00 98 20 124/84 96 01/06/19 05:35 98.0 F 79 16 124/84 96 01/06/19 05:00 82 11 L 115/77 95 01/06/19 04:30 83 20 115/77 95 01/06/19 04:00 98.0 F 82 20 130/92 96 01/06/19 03:30 79 20 124/89 96 01/06/19 03:00 78 12 128/84 95 01/06/19 02:41 97.3 F L 85 16 128/64 97 01/06/19 02:30 78 22 135/83 95 01/06/19 02:11 97.9 F 80 14 135/83 97 01/06/19 02:01 97.7 F 86 20 139/91 96 01/06/19 02:00 78 14 137/83 96 01/06/19 01:57 97.6 F 84 16 137/83 97 01/06/19 01:30 76 18 132/84 95 01/06/19 01:00 87 18 111/81 96 01/06/19 00:30 90 12 135/84 96 01/06/19 00:16 98.3 F 85 16 135/84 96 01/06/19 00:00 98.3 F 83 16 123/81 97 01/05/19 23:46 97.6 F 88 16 123/81 95 01/05/19 23:36 98.2 F 90 14 127/83 98 01/05/19 23:30 86 15 133/87 96 01/05/19 23:00 82 14 123/109 96 01/05/19 22:30 90 14 97 01/05/19 22:00 105 H 20 01/05/19 21:30 110 H 20 151/85 98 01/05/19 12:14 98.2 F 76 16 106/67 97 Intake and Output 01/05/19 01/06/19 01/06/19 22:59 06:59 14:59 Intake Total 100 1980 600 Output Total 2275 Balance 100 -295 600 Intake: IV 100 800 300 0.9 100 800 300 Oral 250 300 Blood Product 930 Rc As-1 Unit 310 [id number] Rc Cpda-1 Unit 310 [id number] Output: Urine 2275 Other: Voiding Method Toilet Urinal # Voids 1 1 # Bowel Movements 1 1 Weight 84.8 kg GENERAL EXAM: Alert, pleasant, 68-year-old white male comfortable in no apparent distress. HEAD: Normocephalic/atraumatic. EYES: Normal reaction of pupils, equal size. Conjunctiva pink, sclera white. NOSE: Clear with pink turbinates. THROAT: No erythema, but large white patches noted on the anterior uvula, ulceration on his right inner buccal mucosa noted NECK: No masses, no JVD, no thyroid enlargement, no adenopathy. CHEST: No chest wall deformity. Symmetrical expansion. LUNGS: Equal air entry with no crackles, wheeze, rhonchi or dullness. CVS: Regular rate and rhythm, normal S1 and S2, no gallops, no murmurs, no rubs ABDOMEN: Soft, nontender. No hepatosplenomegaly, normal bowel sounds, no guarding or rigidity. EXTREMITIES: No clubbing, no edema, no cyanosis, 2+ pulses and upper and lower extremities. MUSCULOSKELETAL: Muscle strength and tone normal. SPINE: No scoliosis or deformity SKIN: No rashes CENTRAL NERVOUS SYSTEM: Alert and oriented -3. No focal deficits, tone is normal in all 4 extremities. PSYCHIATRIC: Alert and oriented -3. Appropriate affect. Intact judgment and insight. Results - Laboratory Findings CBC and BMP: 01/06/19 05:27 01/06/19 05:27 PT/INR, D-dimer PT 11.0 sec (9.0-12.0) 01/04/19 19: INR 1.0 (<1.2) 01/04/19 19:29 Abnormal lab findings: Abnormal Labs 01/04/19 01/04/19 01/04/19 19:29 19:29 19:29 WBC 3.0 L RBC 3.79 L Hgb 11.5 L Hct 35.8 L Neutrophils # (Manual) Lymphocytes # Lymphocytes # (Manual) 0.33 L Metamyelocytes # (Man) 0.06 H Myelocytes # (Manual) 0.21 H Nucleated RBCs Chloride Creatinine Glucose 105 H Plasma Lactic Acid Ramses TIBC Ferritin Total Bilirubin AST 16 L Lactate Dehydrogenase Total Creatine Kinase 22 L Total Protein Albumin 3.4 L Urine Ketones Crossmatch 01/04/19 01/04/19 01/05/19 20:30 20:30 14:43 WBC RBC Hgb Hct Neutrophils # (Manual) Lymphocytes # Lymphocytes # (Manual) Metamyelocytes # (Man) Myelocytes # (Manual) Nucleated RBCs Chloride Creatinine Glucose Plasma Lactic Acid Ramses 2.2 H* TIBC Ferritin Total Bilirubin AST Lactate Dehydrogenase 254 L Total Creatine Kinase Total Protein Albumin Urine Ketones 1+ H Crossmatch 01/05/19 01/05/19 01/05/19 14:43 14:53 14:53 WBC 2.0 L RBC 3.37 L Hgb 10.4 L Hct 32.2 L Neutrophils # (Manual) Lymphocytes # Lymphocytes # (Manual) 0.24 L Metamyelocytes # (Man) 0.02 H Myelocytes # (Manual) 0.08 H Nucleated RBCs 1 H Chloride 108 H Creatinine Glucose Plasma Lactic Acid Ramses TIBC 197 L Ferritin 364.9 H Total Bilirubin AST Lactate Dehydrogenase Total Creatine Kinase Total Protein Albumin Urine Ketones Crossmatch 01/05/19 01/05/19 01/06/19 20:30 20:30 05:27 WBC 2.0 L 2.4 L RBC 3.23 L 3.76 L Hgb 9.9 L 11.6 L Hct 30.3 L 35.0 L Neutrophils # (Manual) 1.00 L Lymphocytes # 0.2 L Lymphocytes # (Manual) 0.34 L Metamyelocytes # (Man) 0.02 H Myelocytes # (Manual) 0.06 H Nucleated RBCs Chloride Creatinine Glucose Plasma Lactic Acid Ramses TIBC Ferritin Total Bilirubin AST Lactate Dehydrogenase Total Creatine Kinase Total Protein Albumin Urine Ketones Crossmatch See Detail 01/06/19 05:27 WBC RBC Hgb Hct Neutrophils # (Manual) Lymphocytes # Lymphocytes # (Manual) Metamyelocytes # (Man) Myelocytes # (Manual) Nucleated RBCs Chloride Creatinine 1.31 H Glucose Plasma Lactic Acid Ramses TIBC Ferritin Total Bilirubin 1.5 H AST 15 L Lactate Dehydrogenase Total Creatine Kinase Total Protein 6.2 L Albumin Urine Ketones Crossmatch - Diagnostic Findings Chest x-ray: report reviewed Additional studies: Abdomen/pelvis CT noted, EKG noted Assessment and Plan Plan: Assessment: #1. Acute symptomatic blood loss anemia, secondary to lower GI bleeding. Abdomen/pelvis CT showed minimal inflammatory fat stranding around the sigmoid colon, could relate to mild colitis or uncomplicated diverticulitis #2. Acute kidney injury related to the above #3. Mild lactic acidosis on admission, resolved with IV hydration, rule out infectious cause, could be related to acute GI bleeding #4. Neutropenia #5. Non-Hodgkin's lymphoma/Mantel cell lymphoma, on the Rituxan therapy, asked treatment on 12/13/2018 #6. Oral buccal mucosal ulcer #7. Possible oral candidiasis, large white patch on patient's uvula noted #8. Hyperlipidemia #9. Previous episode of lower GI bleeding back in 2003 and EGD and colonoscopy were reportedly within normal limits #10. Hearing disorder in the left ear #11. Lifetime nonsmoker, no history of EtOH abuse Plan: Patient is currently hemodynamically stable, no lightheadedness or dizziness, no couplets or shortness of breath or chest pain. This morning's hemoglobin is 11.6. Will await recommendations from the GI service for possibility of colonoscopy. Continue PPI therapy, he knew IV fluids, culture data is negative thus far. Continue empiric antibiotics. Will order Piotr's solution, continue Diflucan. I performed a history & physical examination of the patient and discussed their management with my nurse practitioner, Myla Adrian. I reviewed the nurse practitioner's note and agree with the documented findings and plan of care. Lung sounds are positive for clear breath sounds. The findings and the impression was discussed with the patient. I attest to the documentation by the nurse practitioner. Time with Patient: Greater than 30
[2019-01-06] MEDS: ASPIRIN 81 MG PO SCH (10:24)
[2019-01-06] MEDS: ONDANSETRON 4 MG/2 ML VIAL IVP PRN ×2 (10:43→17:04)
[2019-01-06] MEDS: [UNRECOGNIZED DRUG - OTHER] PO SCH ×9 (10:52→21:24)
[2019-01-06] MEDS: DIPHENHYDRAMINE PO SCH ×9 (10:52→21:24)
[2019-01-06] MEDS: SIMETH PO SCH ×9 (10:52→21:24)
[2019-01-06] MEDS: AL HYDROX PO SCH ×9 (10:52→21:24)
[2019-01-06] MEDS: MAG HYDROX PO SCH ×9 (10:52→21:24)
--- NOTE | 2019-01-06 11:02 | P.PN ---
Subjective Progress Note Date: 01/06/19 Principal diagnosis: GI bleed Overnight patient was passing bright red large volumed stools with clots per nursing, he complained of associated symptoms pallor, dizziness, and diaphoretic. He therefore was transferred to ICU for closer management and two units of PRBC transfused. Objective - Vital Signs Vital signs: Vital Signs Temp 98.3 F 01/06/19 08:00 Pulse 86 01/06/19 10:00 Resp 19 01/06/19 10:00 BP 132/93 01/06/19 10:00 Pulse Ox 97 01/06/19 10:00 Intake & Output 01/05/19 01/06/19 01/06/19 18:59 06:59 18:59 Intake Total 800 2080 700 Output Total 2275 100 Balance 800 -195 600 Weight 84.8 kg Intake: IV 900 400 0.9 900 400 Intake, IV Titration 800 Amount Sodium Chloride 0.9% 1, 800 000 ml @ 100 mls/hr IV . Q10H [facility] Rx#:[id number] Oral 250 300 Blood Product 930 Rc As-1 Unit 310 [id number] Rc Cpda-1 Unit 310 [id number] Output: Urine 2275 100 Other: Voiding Method Bedside Commode Toilet Toilet Urinal Urinal # Voids 1 1 # Bowel Movements 1 1 - Exam Gen: Alert, No acute distress Head: NC, NT Neck: No Lymphadenopathy on palpation Mouth: +Left open vesical and posterior pharynx with Oral Candidas Lungs: DIminished bibasilar, No wheezing Heart: Tachy, Reg Abdomen: Soft, ND, NT Ext: Minimal Gen Edema, Pulses notes x4 Neuro: Non Focal - Labs CBC & Chem 7: 01/06/19 05:27 01/06/19 05:27 Labs: Abnormal Lab Results - Last 24 Hours (Table) 01/05/19 01/05/19 01/05/19 Range/Units 14:43 14:43 14:53 WBC 2.0 L (3.8-10.6) k/uL RBC 3.37 L (4.30-5.90) m/uL Hgb 10.4 L (13.0-17.5) gm/dL Hct 32.2 L (39.0-53.0) % Neutrophils # (Manual) (1.3-7.7) k/uL Lymphocytes # (1.0-4.8) k/uL Lymphocytes # (Manual) 0.24 L (1.0-4.8) k/uL Metamyelocytes # (Man) 0.02 H (0) k/uL Myelocytes # (Manual) 0.08 H (0) k/uL Nucleated RBCs 1 H (0-0) /100 WBC Chloride (98-107) mmol/L Creatinine (0.66-1.25) mg/dL TIBC 197 L (228-460) ug/dL Ferritin 364.9 H (22.0-322.0) ng/mL Total Bilirubin (0.2-1.3) mg/dL AST (17-59) U/L Lactate Dehydrogenase 254 L (313-618) U/L Total Protein (6.3-8.2) g/dL Crossmatch 01/05/19 01/05/19 01/05/19 Range/Units 14:53 20:30 20:30 WBC 2.0 L (3.8-10.6) k/uL RBC 3.23 L (4.30-5.90) m/uL Hgb 9.9 L (13.0-17.5) gm/dL Hct 30.3 L (39.0-53.0) % Neutrophils # (Manual) 1.00 L (1.3-7.7) k/uL Lymphocytes # (1.0-4.8) k/uL Lymphocytes # (Manual) 0.34 L (1.0-4.8) k/uL Metamyelocytes # (Man) 0.02 H (0) k/uL Myelocytes # (Manual) 0.06 H (0) k/uL Nucleated RBCs (0-0) /100 WBC Chloride 108 H (98-107) mmol/L Creatinine (0.66-1.25) mg/dL TIBC (228-460) ug/dL Ferritin (22.0-322.0) ng/mL Total Bilirubin (0.2-1.3) mg/dL AST (17-59) U/L Lactate Dehydrogenase (313-618) U/L Total Protein (6.3-8.2) g/dL Crossmatch See Detail 01/06/19 01/06/19 Range/Units 05:27 05:27 WBC 2.4 L (3.8-10.6) k/uL RBC 3.76 L (4.30-5.90) m/uL Hgb 11.6 L (13.0-17.5) gm/dL Hct 35.0 L (39.0-53.0) % Neutrophils # (Manual) (1.3-7.7) k/uL Lymphocytes # 0.2 L (1.0-4.8) k/uL Lymphocytes # (Manual) (1.0-4.8) k/uL Metamyelocytes # (Man) (0) k/uL Myelocytes # (Manual) (0) k/uL Nucleated RBCs (0-0) /100 WBC Chloride (98-107) mmol/L Creatinine 1.31 H (0.66-1.25) mg/dL TIBC (228-460) ug/dL Ferritin (22.0-322.0) ng/mL Total Bilirubin 1.5 H (0.2-1.3) mg/dL AST 15 L (17-59) U/L Lactate Dehydrogenase (313-618) U/L Total Protein 6.2 L (6.3-8.2) g/dL Crossmatch Microbiology - Last 24 Hours (Table) 01/04/19 20:30 Urine Culture - Final Urine,Clean Catch 01/04/19 20:00 Group A Strep Throat Culture - Final Throat 01/05/19 19:50 Stool Culture - Preliminary Stool 01/04/19 20:30 Blood Culture - Preliminary Blood No Growth after 24 hours Assessment and Plan Plan: Assessment and Recommendations: 1. Mantel Cell Lymphoma: - Status POst Maintenance Rituxan 12/13/18 - Stable 2. Oral Polly: - PO Diflucan 3. Acute Blood Loss Anemia: - GI Blood Loss, Dark Tarry Stools then to bright red stools with clots overnight, now in care of ICU. - GI Following and planning on Colonoscopy inpatient - Monitor CBC daily - Check Iron Studies, LDH 4. Oral Mucocytis: - Kools 5. Febrile on admission: - Carreon cultures pending. - Improving, afebrile since admission 6. Leukopenia with mild Neutropenia: - Neutrophils decreased to 1 today - Monitor neutrophils, if less than 1 will add GCSF, lymphoctopenia and leukopenia. Plan: - Await Colonoscopy - Await IgA, IgG, IgM Levels for the potential addition of IVIG to assist in immunity - Monitor Neutrophils and WBC, if concern for infectious etiology continue and Neutrophils fall below 1, will add GCSF - Monitor CBC and GI Bleeding, Transfuse active bleeding with 2 point loss or if less than 7. Physician Attest: I have discussed the completed the full history and physical of this patient and developed the complete impression and plan, agree with above dictation, dictated as a scribe.
[2019-01-06] MEDS ORDERED: PEG 3350-NA SULF,BICARB,CL/KCL 4,000 ML BOTTLE PO ONE ×2 (11:33→17:00)
[2019-01-06] MEDS ORDERED: TRIMETHOBENZAMIDE 300 MG CAP PO PRN (11:33)
[2019-01-06] MEDS ORDERED: PROCHLORPERAZINE 10 MG TAB PO PRN (11:33)
[2019-01-06 12:37] LABS: Immunoglobulin M 29.4 mg/dL (40.0-280.0)
[2019-01-06 12:38] LABS: HCT 34.8 % (39.0-53.0); HGB 11.9 gm/dL (13.0-17.5); MCH 31.8 pg (25.0-35.0); MCHC 34.2 g/dL (31.0-37.0); Mean Platelet Volume 5.9; Platelet Count 260 k/uL (150-450); RBC 3.74 m/uL (4.30-5.90); RDW 14.3 % (11.5-15.5); WBC 2.5 k/uL (3.8-10.6)
[2019-01-06] MEDS ORDERED: LIDOCAINE VISCOUS 2% 15 ML CUP MUCOUS MEM PRN (16:30)
--- NOTE | 2019-01-06 16:40 | P.GSCN ---
History of Present Illness Consult date: 01/06/19 Reason for Consult: Oral lesions Requesting physician: Rolando Medina History of present illness: This is a 68-year-old white male who tells me that about a month ago he bit his left cheek and it has not healed. He also has developed a soreness to the back of his throat. He is currently being treated for lymphoma with Rituxan. His last dose of Rituxan was in November. His mouth is sore because of this lesion. He is scheduled to undergo a PET scan and his next round of Rituxan is in January. He denies any bleeding from the mouth where he denies any hemoptysis. He does have some pain when he swallows. Review of Systems - Constitutional Reports anorexia, Reports chronic pain, Reports lethargy - EENT Ears, nose, mouth and throat: Reports mouth pain - Cardiovascular Denies chest pain - Respiratory Denies cough - Gastrointestinal Denies bloating - Genitourinary Reports as per HPI - Musculoskeletal Reports atrophy - Integumentary Denies boils - Neurological Reports as per HPI - Psychiatric Reports as per HPI - Endocrine Reports as per HPI - Hematologic/Lymphatic Reports as per HPI - Allergic/Immunologic Reports as per HPI Past Medical History Past Medical History: Cancer, GI Bleed, Hearing Disorder / Deafness, Hyperlipidemia, Pneumonia Additional Past Medical History / Comment(s): CURRENT: N & V. 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 cystoscopy History of Any Multi-Drug Resistant Organisms: None Reported Past Surgical History: Orthopedic Surgery Additional Past Surgical History / Comment(s): RIGHT ROTATOR CUFF. VEIN STRIPPING LEFT. spot on tongue removed, sinus surgery Past Anesthesia/Blood Transfusion Reactions: No Reported Reaction Past Psychological History: No Psychological Hx Reported Smoking Status: Never smoker Past Alcohol Use History: Rare Past Drug Use History: None Reported - Past Family History Mother Family Medical History: Unable to Obtain Medications and Allergies Home Medications Medication Instructions Recorded Confirmed Type Ascorbic Acid [Vitamin C] 1,000 mg PO DAILY 01/18/18 01/04/19 History Aspirin [Adult Low Dose Aspirin EC] 81 mg PO DAILY 01/18/18 01/04/19 History Multivitamins, Thera [Multivitamin 1 tab PO DAILY 01/18/18 01/04/19 History (formulary)] [place]-3 Fatty Acids/Fish Oil [Fish 1 tab PO DAILY 01/18/18 01/04/19 History Oil 1,000 mg Softgel] Simvastatin [Zocor] 20 mg PO HS 01/18/18 01/04/19 History Zinc 50 mg PO DAILY 01/18/18 01/04/19 History diphenhydrAMINE [Benadryl] 25 mg PO DAILY PRN 01/18/18 01/04/19 History Acetaminophen/Diphenhydramine 1 tab PO HS PRN 01/04/19 01/04/19 History [Tylenol PM 500-25mg] Guaifen/Phenyleph/Acetaminophn 1 tab PO Q6H PRN 01/04/19 01/04/19 History [Tylenol Sinus Severe Caplet] Omeprazole [PriLOSEC] 20 mg PO HS 01/04/19 01/04/19 History Allergies Allergy/AdvReac Type Severity Reaction Status Date / Time cephalexin [From Keflex] Allergy Rash/Hives Verified 01/04/19 20:03 Surgical - Exam Osteopathic Statement: *. No significant issues noted on an osteopathic structural exam other than those noted in the History and Physical/Consult. Vital Signs Temp Pulse Resp BP Pulse Ox 101.0 F H 94 18 115/78 100 01/04/19 19:16 01/04/19 19:16 01/04/19 19:16 01/04/19 19:16 01/04/19 19:16 - General well developed, well nourished, no distress, moderate pain, chronically ill - Eyes PERRL, normal ocular movement - ENT Patient demonstrates mucositis of the uvula on the left side along with a nonhealing mucositis an ulcerative lesion of the left posterior buccal space measuring approximately 1-1/2 cm. No specific tumors or masses are noted. No friability is seen. normal pinna, normal nares - Neck no masses - Respiratory normal expansion, normal respiratory effort - Integumentary no rash - Neurologic normal coordination - Musculoskeletal normal gait - Psychiatric oriented to time, oriented to person, oriented to place, speech is normal Results - Labs 01/06/19 12:11 01/06/19 05:27 Abnormal Lab Results - Last 24 Hours (Table) 01/05/19 01/05/19 01/05/19 Range/Units 14:43 14:43 19:50 WBC (3.8-10.6) k/uL RBC (4.30-5.90) m/uL Hgb (13.0-17.5) gm/dL Hct (39.0-53.0) % Neutrophils # (Manual) (1.3-7.7) k/uL Lymphocytes # (1.0-4.8) k/uL Lymphocytes # (Manual) (1.0-4.8) k/uL Metamyelocytes # (Man) (0) k/uL Myelocytes # (Manual) (0) k/uL Creatinine (0.66-1.25) mg/dL TIBC 197 L (228-460) ug/dL Ferritin 364.9 H (22.0-322.0) ng/mL Total Bilirubin (0.2-1.3) mg/dL AST (17-59) U/L Lactate Dehydrogenase 254 L (313-618) U/L Total Protein (6.3-8.2) g/dL Stool Lactoferrin POSITIVE H (NEGATIVE) IgM 29.4 L (40.0-280.0) mg/dL Crossmatch 01/05/19 01/05/19 01/06/19 Range/Units 20:30 20:30 05:27 WBC 2.0 L 2.4 L (3.8-10.6) k/uL RBC 3.23 L 3.76 L (4.30-5.90) m/uL Hgb 9.9 L 11.6 L (13.0-17.5) gm/dL Hct 30.3 L 35.0 L (39.0-53.0) % Neutrophils # (Manual) 1.00 L (1.3-7.7) k/uL Lymphocytes # 0.2 L (1.0-4.8) k/uL Lymphocytes # (Manual) 0.34 L (1.0-4.8) k/uL Metamyelocytes # (Man) 0.02 H (0) k/uL Myelocytes # (Manual) 0.06 H (0) k/uL Creatinine (0.66-1.25) mg/dL TIBC (228-460) ug/dL Ferritin (22.0-322.0) ng/mL Total Bilirubin (0.2-1.3) mg/dL AST (17-59) U/L Lactate Dehydrogenase (313-618) U/L Total Protein (6.3-8.2) g/dL Stool Lactoferrin (NEGATIVE) IgM (40.0-280.0) mg/dL Crossmatch See Detail 01/06/19 01/06/19 Range/Units 05:27 12:11 WBC 2.5 L (3.8-10.6) k/uL RBC 3.74 L (4.30-5.90) m/uL Hgb 11.9 L (13.0-17.5) gm/dL Hct 34.8 L (39.0-53.0) % Neutrophils # (Manual) (1.3-7.7) k/uL Lymphocytes # (1.0-4.8) k/uL Lymphocytes # (Manual) (1.0-4.8) k/uL Metamyelocytes # (Man) (0) k/uL Myelocytes # (Manual) (0) k/uL Creatinine 1.31 H (0.66-1.25) mg/dL TIBC (228-460) ug/dL Ferritin (22.0-322.0) ng/mL Total Bilirubin 1.5 H (0.2-1.3) mg/dL AST 15 L (17-59) U/L Lactate Dehydrogenase (313-618) U/L Total Protein 6.2 L (6.3-8.2) g/dL Stool Lactoferrin (NEGATIVE) IgM (40.0-280.0) mg/dL Crossmatch Microbiology - Last 24 Hours (Table) 01/04/19 20:30 Urine Culture - Final Urine,Clean Catch 01/04/19 20:00 Group A Strep Throat Culture - Final Throat 01/05/19 19:50 Stool Culture - Preliminary Stool 01/04/19 20:30 Blood Culture - Preliminary Blood No Growth after 24 hours Diabetes panel 01/06/19 Range/Units 05:27 Sodium 142 (137-145) mmol/L Potassium 3.8 (3.5-5.1) mmol/L Chloride 105 (98-107) mmol/L Carbon Dioxide 27 (22-30) mmol/L BUN 12 (9-20) mg/dL Creatinine 1.31 H (0.66-1.25) mg/dL Glucose 95 (74-99) mg/dL Calcium 8.8 (8.4-10.2) mg/dL AST 15 L (17-59) U/L ALT 23 (21-72) U/L Alkaline Phosphatase 72 (38-126) U/L Total Protein 6.2 L (6.3-8.2) g/dL Albumin 3.5 (3.5-5.0) g/dL Calcium panel 01/06/19 Range/Units 05:27 Calcium 8.8 (8.4-10.2) mg/dL Albumin 3.5 (3.5-5.0) g/dL Pituitary panel 01/06/19 Range/Units 05:27 Sodium 142 (137-145) mmol/L Potassium 3.8 (3.5-5.1) mmol/L Chloride 105 (98-107) mmol/L Carbon Dioxide 27 (22-30) mmol/L BUN 12 (9-20) mg/dL Creatinine 1.31 H (0.66-1.25) mg/dL Glucose 95 (74-99) mg/dL Calcium 8.8 (8.4-10.2) mg/dL Adrenal panel 01/06/19 Range/Units 05:27 Sodium 142 (137-145) mmol/L Potassium 3.8 (3.5-5.1) mmol/L Chloride 105 (98-107) mmol/L Carbon Dioxide 27 (22-30) mmol/L BUN 12 (9-20) mg/dL Creatinine 1.31 H (0.66-1.25) mg/dL Glucose 95 (74-99) mg/dL Calcium 8.8 (8.4-10.2) mg/dL Total Bilirubin 1.5 H (0.2-1.3) mg/dL AST 15 L (17-59) U/L ALT 23 (21-72) U/L Alkaline Phosphatase 72 (38-126) U/L Total Protein 6.2 L (6.3-8.2) g/dL Albumin 3.5 (3.5-5.0) g/dL Assessment and Plan (1) Mucositis due to chemotherapy Current Visit: Yes Status: Acute Code(s): K12.31 - ORAL MUCOSITIS ( ULCERATIVE) DUE TO ANTINEOPLASTIC THERAPY SNOMED Code(s): 474634760 Plan: This patient's mucositis appears to be from his Rituxan. If this lesion does not heal of the left buccal mucosa I would recommend a biopsy on outpatient basis. He is to follow-up with me in the office after discharge. In the meantime we will treat him symptomatically with viscous lidocaine. Over-the- counter benzocaine and the use of Chloraseptic throat lozenges as another option. He is to rest with his head elevated. No crunchy foods. No hot foods. Again follow-up is recommended after discharge at my office. Time with Patient: Greater than 30
[2019-01-06 20:13] LABS: HCT 36.3 % (39.0-53.0); HGB 11.8 gm/dL (13.0-17.5); MCH 30.6 pg (25.0-35.0); MCHC 32.6 g/dL (31.0-37.0); MCV 93.9 fL (80.0-100.0); Mean Platelet Volume 6.9; Platelet Count 286 k/uL (150-450); RBC 3.86 m/uL (4.30-5.90); RDW 14.5 % (11.5-15.5); WBC 2.5 k/uL (3.8-10.6)
[2019-01-06] MEDS: BISACODYL 10 MG SUPP RECTAL SCH (21:23)
[2019-01-06] MEDS: ATORVASTATIN 10 MG TAB PO SCH (21:23)
--- NOTE | 2019-01-06 21:26 | P.PN ---
Subjective Progress Note Date: 01/06/19 Principal diagnosis: Hematochezia Patient is seen lying in bed. He reports multiple episodes of blood per rectum overnight. Does report some lower abdominal cramping. Objective - Vital Signs Vital signs: Vital Signs Temp 98.0 F 01/06/19 16:00 Pulse 90 01/06/19 19:00 Resp 16 01/06/19 19:00 BP 137/85 01/06/19 19:00 Pulse Ox 93 L 01/06/19 19:00 Intake & Output 01/06/19 01/06/19 01/07/19 06:59 18:59 06:59 Intake Total 2080 1960 700 Output Total 2275 1050 Balance -195 910 700 Weight 84.8 kg Intake: IV 900 1200 100 0.9 900 1200 100 Intake, IV Titration 200 Amount Piperacillin-Tazobactam 3 200 .375 gm In Sodium Chloride 0.9% 100 ml @ 25 mls/hr IVPB Q8H [facility] Rx#: [id number] Oral 250 560 600 Blood Product 930 Rc As-1 Unit 310 [id number] Rc Cpda-1 Unit 310 [id number] Output: Urine 2275 450 Urine/Stool Mix 600 Other: Voiding Method Toilet Toilet Urinal Urinal # Voids 1 1 # Bowel Movements 1 3 - Exam On physical examination, patient appears comfortable in no apparent distress. HEAD: Normocephalic, atraumatic. EYES: No scleral icterus. No conjunctival injection. MOUTH: No lesions, tongue midline. NECK: Trachea midline, no gross abnormalities. CHEST: Clear to auscultation with no wheezing or rhonchi appreciated. HEART: Regular rate and rhythm. ABDOMEN: Soft, obese. Bowel sounds are positive. No organomegaly. No guarding or rigidity. EXTREMITIES: No pedal edema. SKIN: No rashes, no jaundice. NEUROLOGIC: Alert and oriented x3. No focal deficits. - Labs CBC & Chem 7: 01/06/19 20:00 01/06/19 05:27 Labs: Abnormal Lab Results - Last 24 Hours (Table) 01/05/19 01/05/19 01/05/19 Range/Units 14:43 19:50 20:30 WBC (3.8-10.6) k/uL RBC (4.30-5.90) m/uL Hgb (13.0-17.5) gm/dL Hct (39.0-53.0) % Neutrophils # (Manual) (1.3-7.7) k/uL Lymphocytes # (1.0-4.8) k/uL Lymphocytes # (Manual) (1.0-4.8) k/uL Metamyelocytes # (Man) (0) k/uL Myelocytes # (Manual) (0) k/uL Creatinine (0.66-1.25) mg/dL TIBC 197 L (228-460) ug/dL Ferritin 364.9 H (22.0-322.0) ng/mL Total Bilirubin (0.2-1.3) mg/dL AST (17-59) U/L Total Protein (6.3-8.2) g/dL Stool Lactoferrin POSITIVE H (NEGATIVE) IgM 29.4 L (40.0-280.0) mg/dL Crossmatch See Detail 01/05/19 01/06/19 01/06/19 Range/Units 20:30 05:27 05:27 WBC 2.4 L (3.8-10.6) k/uL RBC 3.76 L (4.30-5.90) m/uL Hgb 11.6 L (13.0-17.5) gm/dL Hct 35.0 L (39.0-53.0) % Neutrophils # (Manual) 1.00 L (1.3-7.7) k/uL Lymphocytes # 0.2 L (1.0-4.8) k/uL Lymphocytes # (Manual) 0.34 L (1.0-4.8) k/uL Metamyelocytes # (Man) 0.02 H (0) k/uL Myelocytes # (Manual) 0.06 H (0) k/uL Creatinine 1.31 H (0.66-1.25) mg/dL TIBC (228-460) ug/dL Ferritin (22.0-322.0) ng/mL Total Bilirubin 1.5 H (0.2-1.3) mg/dL AST 15 L (17-59) U/L Total Protein 6.2 L (6.3-8.2) g/dL Stool Lactoferrin (NEGATIVE) IgM (40.0-280.0) mg/dL Crossmatch 01/06/19 01/06/19 Range/Units 12:11 20:00 WBC 2.5 L 2.5 L (3.8-10.6) k/uL RBC 3.74 L 3.86 L (4.30-5.90) m/uL Hgb 11.9 L 11.8 L (13.0-17.5) gm/dL Hct 34.8 L 36.3 L (39.0-53.0) % Neutrophils # (Manual) (1.3-7.7) k/uL Lymphocytes # (1.0-4.8) k/uL Lymphocytes # (Manual) (1.0-4.8) k/uL Metamyelocytes # (Man) (0) k/uL Myelocytes # (Manual) (0) k/uL Creatinine (0.66-1.25) mg/dL TIBC (228-460) ug/dL Ferritin (22.0-322.0) ng/mL Total Bilirubin (0.2-1.3) mg/dL AST (17-59) U/L Total Protein (6.3-8.2) g/dL Stool Lactoferrin (NEGATIVE) IgM (40.0-280.0) mg/dL Crossmatch Microbiology - Last 24 Hours (Table) 01/04/19 20:30 Urine Culture - Final Urine,Clean Catch 01/04/19 20:00 Group A Strep Throat Culture - Final Throat 01/05/19 19:50 Stool Culture - Preliminary Stool 01/04/19 20:30 Blood Culture - Preliminary Blood No Growth after 24 hours Assessment and Plan (1) Hematochezia Narrative/Plan: Multiple episodes of hematochezia reported. Differential including diverticular bleed, AVM, ischemic colitis or other etiology. Current Visit: Yes Status: Acute Code(s): K92.1 - MELENA SNOMED Code(s): 177105018 (2) Acute blood loss anemia Current Visit: Yes Status: Acute Code(s): D62 - ACUTE POSTHEMORRHAGIC ANEMIA SNOMED Code(s): 157429670 Plan: Supportive care Clear liquid diet Nothing by mouth after midnight Bowel prep ordered Plan for EGD and colonoscopy for further investigation of GI bleeding Continue Protonix therapy Further recommendations pending findings of endoscopic evaluation Thank you for allowing us to participate in the care of this patient we will continue to follow
--- NOTE | 2019-01-06 22:04 | P.GSCN ---
History of Present Illness Consult date: 01/06/19 Reason for Consult: Rectal bleeding History of present illness: Patient presents to the hospital with complaints of rectal bleeding. No melanotic stools. No abdominal pain. History of similar events 10-15 years ago. No recent endoscopy. Patient was given 2 units of blood during this hospitalization. Hemoglobin has stabilized in the mid 11 range. Scheduled for upper and lower endoscopy tomorrow. Review of Systems The patient denies any acute changes in his vision or hearing, no dysphagia or odynophagia, no chest pain or shortness of breath, no dysuria or hematuria, no headache, no runny nose, no melena, no unexplained weight loss Past Medical History Past Medical History: Cancer, GI Bleed, Hearing Disorder / Deafness, Hyperlipidemia, Pneumonia Additional Past Medical History / Comment(s): CURRENT: N & V. 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 cystoscopy History of Any Multi-Drug Resistant Organisms: None Reported Past Surgical History: Orthopedic Surgery Additional Past Surgical History / Comment(s): RIGHT ROTATOR CUFF. VEIN STRIPPING LEFT. spot on tongue removed, sinus surgery Past Anesthesia/Blood Transfusion Reactions: No Reported Reaction Past Psychological History: No Psychological Hx Reported Smoking Status: Never smoker Past Alcohol Use History: Rare Past Drug Use History: None Reported - Past Family History Mother Family Medical History: Unable to Obtain Medications and Allergies Home Medications Medication Instructions Recorded Confirmed Type Ascorbic Acid [Vitamin C] 1,000 mg PO DAILY 01/18/18 01/04/19 History Aspirin [Adult Low Dose Aspirin EC] 81 mg PO DAILY 01/18/18 01/04/19 History Multivitamins, Thera [Multivitamin 1 tab PO DAILY 01/18/18 01/04/19 History (formulary)] [place]-3 Fatty Acids/Fish Oil [Fish 1 tab PO DAILY 01/18/18 01/04/19 History Oil 1,000 mg Softgel] Simvastatin [Zocor] 20 mg PO HS 01/18/18 01/04/19 History Zinc 50 mg PO DAILY 01/18/18 01/04/19 History diphenhydrAMINE [Benadryl] 25 mg PO DAILY PRN 01/18/18 01/04/19 History Acetaminophen/Diphenhydramine 1 tab PO HS PRN 01/04/19 01/04/19 History [Tylenol PM 500-25mg] Guaifen/Phenyleph/Acetaminophn 1 tab PO Q6H PRN 01/04/19 01/04/19 History [Tylenol Sinus Severe Caplet] Omeprazole [PriLOSEC] 20 mg PO HS 01/04/19 01/04/19 History Allergies Allergy/AdvReac Type Severity Reaction Status Date / Time cephalexin [From Keflex] Allergy Rash/Hives Verified 01/04/19 20:03 Surgical - Exam Vital Signs Temp Pulse Resp BP Pulse Ox 101.0 F H 94 18 115/78 100 01/04/19 19:16 01/04/19 19:16 01/04/19 19:16 01/04/19 19:16 01/04/19 19:16 Physical exam: General: Well-developed, well-nourished HEENT: Normocephalic, sclerae nonicteric Abdomen: Nontender, nondistended Extremities: No edema Neuro: Alert and oriented Results - Labs 01/06/19 20:00 01/06/19 05:27 Abnormal Lab Results - Last 24 Hours (Table) 01/05/19 01/05/19 01/05/19 Range/Units 14:43 19:50 20:30 WBC (3.8-10.6) k/uL RBC (4.30-5.90) m/uL Hgb (13.0-17.5) gm/dL Hct (39.0-53.0) % Lymphocytes # (1.0-4.8) k/uL Creatinine (0.66-1.25) mg/dL TIBC 197 L (228-460) ug/dL Ferritin 364.9 H (22.0-322.0) ng/mL Total Bilirubin (0.2-1.3) mg/dL AST (17-59) U/L Total Protein (6.3-8.2) g/dL Stool Lactoferrin POSITIVE H (NEGATIVE) IgM 29.4 L (40.0-280.0) mg/dL Crossmatch See Detail 01/06/19 01/06/19 01/06/19 Range/Units 05:27 05:27 12:11 WBC 2.4 L 2.5 L (3.8-10.6) k/uL RBC 3.76 L 3.74 L (4.30-5.90) m/uL Hgb 11.6 L 11.9 L (13.0-17.5) gm/dL Hct 35.0 L 34.8 L (39.0-53.0) % Lymphocytes # 0.2 L (1.0-4.8) k/uL Creatinine 1.31 H (0.66-1.25) mg/dL TIBC (228-460) ug/dL Ferritin (22.0-322.0) ng/mL Total Bilirubin 1.5 H (0.2-1.3) mg/dL AST 15 L (17-59) U/L Total Protein 6.2 L (6.3-8.2) g/dL Stool Lactoferrin (NEGATIVE) IgM (40.0-280.0) mg/dL Crossmatch 01/06/19 Range/Units 20:00 WBC 2.5 L (3.8-10.6) k/uL RBC 3.86 L (4.30-5.90) m/uL Hgb 11.8 L (13.0-17.5) gm/dL Hct 36.3 L (39.0-53.0) % Lymphocytes # (1.0-4.8) k/uL Creatinine (0.66-1.25) mg/dL TIBC (228-460) ug/dL Ferritin (22.0-322.0) ng/mL Total Bilirubin (0.2-1.3) mg/dL AST (17-59) U/L Total Protein (6.3-8.2) g/dL Stool Lactoferrin (NEGATIVE) IgM (40.0-280.0) mg/dL Crossmatch Microbiology - Last 24 Hours (Table) 01/04/19 20:30 Urine Culture - Final Urine,Clean Catch 01/04/19 20:00 Group A Strep Throat Culture - Final Throat 01/05/19 19:50 Stool Culture - Preliminary Stool 01/04/19 20:30 Blood Culture - Preliminary Blood No Growth after 24 hours Diabetes panel 01/06/19 Range/Units 05:27 Sodium 142 (137-145) mmol/L Potassium 3.8 (3.5-5.1) mmol/L Chloride 105 (98-107) mmol/L Carbon Dioxide 27 (22-30) mmol/L BUN 12 (9-20) mg/dL Creatinine 1.31 H (0.66-1.25) mg/dL Glucose 95 (74-99) mg/dL Calcium 8.8 (8.4-10.2) mg/dL AST 15 L (17-59) U/L ALT 23 (21-72) U/L Alkaline Phosphatase 72 (38-126) U/L Total Protein 6.2 L (6.3-8.2) g/dL Albumin 3.5 (3.5-5.0) g/dL Calcium panel 01/06/19 Range/Units 05:27 Calcium 8.8 (8.4-10.2) mg/dL Albumin 3.5 (3.5-5.0) g/dL Pituitary panel 01/06/19 Range/Units 05:27 Sodium 142 (137-145) mmol/L Potassium 3.8 (3.5-5.1) mmol/L Chloride 105 (98-107) mmol/L Carbon Dioxide 27 (22-30) mmol/L BUN 12 (9-20) mg/dL Creatinine 1.31 H (0.66-1.25) mg/dL Glucose 95 (74-99) mg/dL Calcium 8.8 (8.4-10.2) mg/dL Adrenal panel 01/06/19 Range/Units 05:27 Sodium 142 (137-145) mmol/L Potassium 3.8 (3.5-5.1) mmol/L Chloride 105 (98-107) mmol/L Carbon Dioxide 27 (22-30) mmol/L BUN 12 (9-20) mg/dL Creatinine 1.31 H (0.66-1.25) mg/dL Glucose 95 (74-99) mg/dL Calcium 8.8 (8.4-10.2) mg/dL Total Bilirubin 1.5 H (0.2-1.3) mg/dL AST 15 L (17-59) U/L ALT 23 (21-72) U/L Alkaline Phosphatase 72 (38-126) U/L Total Protein 6.2 L (6.3-8.2) g/dL Albumin 3.5 (3.5-5.0) g/dL Assessment and Plan (1) GI bleed Narrative/Plan: Patient with presentation of rectal bleeding. Await findings upper and lower endoscopy tomorrow. We'll remain on surgical standby. Current Visit: Yes Status: Acute Code(s): K92.2 - GASTROINTESTINAL HEMORRHAGE, UNSPECIFIED SNOMED Code(s): 37216978
[2019-01-06] MEDS: LEVOFLOXACIN 750MG-D5W PMX 750 MG in DEXTROSE/WATER 1 150ML.BAG IVPB SCH (22:26)
--- NOTE | 2019-01-06 23:22 | P.PN ---
Subjective Progress Note Date: 01/06/19 Principal diagnosis: Acute GI bleed Patient is a 68 old male with a known history of non-Hodgkin lymphoma currently on chemotherapy every month last in November 2018, history of GI bleed, hyperlipidemia and hearing disorder/deafness was initially presented to ER with complaints of blood in the stool. Patient says that he had bright red blood in the stool and also followed by dark-colored stool as well. Patient says that he has been having lower abdominal pain for the past 3 weeks. Around 4 PM yesterday patient did have increased lower abdominal pain, cramping type and did have 2 bright red blood and dark red blood. Patient felt some lightheaded dizziness. Patient did have fever and night sweats. T-max was 101.6 on admission. Patient did have cough without sputum production. No chest pain or shortness of breath. No nausea vomiting or diarrhea. No hematemesis. No numbness or tingling. Denied any dysuria or hematuria. Patient does take baby aspirin at home. Denied any other [id number] pain medication use Lactic acid 2.2, WBC 3.0, hemoglobin 11.5 and platelets 286 on admission. T-max 101.6 FOBT positive Chest x-ray showed no acute process. Tortuous thoracic aorta CT of the abdomen pelvis showed very subtle minimal instrumented fast stranding surrounding the sigmoid colon correlate to very mild colitis are uncomplicated diverticulitis. Correlate with clinical symptoms. 01/06/2019 Patient did have a large bowel movement while in the medical floor yesterday evening and patient was transferred to MICU due to possible active GI bleed. Otherwise hemoglobin is fairly stable at 11.9. Patient denied any complaints of chest pain or shortness of breath. Patient was complaining of pain over the oral ulcers with improvement of symptoms with cool solution. Denied any abdominal pain. No nausea vomiting or hematemesis.. Patient does have maroon colored lying in the stool. GI is planning for EGD and colonoscopy today. Tolerating clear liquids. Patient was seen by ENT as well. Pulmonary and GI on board. No fever no chills. Current medications reviewed. Objective - Vital Signs Vital signs: Vital Signs Temp 98.0 F 01/06/19 20:00 Pulse 97 01/06/19 23:00 Resp 20 01/06/19 23:00 BP 139/93 01/06/19 23:00 Pulse Ox 97 01/06/19 23:00 Intake & Output 01/06/19 01/06/19 01/07/19 06:59 18:59 06:59 Intake Total 2080 1960 1100 Output Total 2275 1050 Balance -039 599 9843 Weight 84.8 kg Intake: IV 900 1200 500 0.9 900 1200 500 Intake, IV Titration 200 Amount Piperacillin-Tazobactam 3 200 .375 gm In Sodium Chloride 0.9% 100 ml @ 25 mls/hr IVPB Q8H [facility] Rx#: [id number] Oral 250 560 600 Blood Product 930 Rc As-1 Unit 310 [id number] Rc Cpda-1 Unit 310 [id number] Output: Urine 2275 450 Urine/Stool Mix 600 Other: Voiding Method Toilet Toilet Toilet Urinal Urinal Urinal # Voids 1 1 # Bowel Movements 1 3 - Exam PHYSICAL EXAMINATION: Patient is lying in the bed comfortably, no acute distress, awake alert and oriented. Feels weak.. HEENT: Normocephalic. Neck is supple. Pupils reactive. Nostrils clear. Oral cavity is moist. Ears reveal no drainage. Neck reveals no JVD, carotid bruits, or thyromegaly. CHEST EXAMINATION: Trachea is central. Symmetrical expansion. Lung garnica clear to auscultation and percussion. CARDIAC: Normal S1, S2 with no gallops. No murmurs ABDOMEN: Soft. Bowel sounds normal. No organomegaly. No abdominal bruits. Extremities: reveal no edema. No clubbing or cyanosis Neurologically awake, alert, oriented x3 with well-coordinated movements. Hard of hearing. No focal deficits noted Skin: No rash or skin lesions. Psychiatric: Coperative. Nonsuicidal Musculoskeletal: No joint swelling or deformity. Normal range of motion. - Labs CBC & Chem 7: 01/06/19 20:00 01/06/19 05:27 Labs: Abnormal Lab Results - Last 24 Hours (Table) 01/05/19 01/05/19 01/05/19 Range/Units 14:43 19:50 20:30 WBC (3.8-10.6) k/uL RBC (4.30-5.90) m/uL Hgb (13.0-17.5) gm/dL Hct (39.0-53.0) % Lymphocytes # (1.0-4.8) k/uL Creatinine (0.66-1.25) mg/dL Ferritin 364.9 H (22.0-322.0) ng/mL Total Bilirubin (0.2-1.3) mg/dL AST (17-59) U/L Total Protein (6.3-8.2) g/dL Stool Lactoferrin POSITIVE H (NEGATIVE) IgM 29.4 L (40.0-280.0) mg/dL Crossmatch See Detail 01/06/19 01/06/19 01/06/19 Range/Units 05:27 05:27 12:11 WBC 2.4 L 2.5 L (3.8-10.6) k/uL RBC 3.76 L 3.74 L (4.30-5.90) m/uL Hgb 11.6 L 11.9 L (13.0-17.5) gm/dL Hct 35.0 L 34.8 L (39.0-53.0) % Lymphocytes # 0.2 L (1.0-4.8) k/uL Creatinine 1.31 H (0.66-1.25) mg/dL Ferritin (22.0-322.0) ng/mL Total Bilirubin 1.5 H (0.2-1.3) mg/dL AST 15 L (17-59) U/L Total Protein 6.2 L (6.3-8.2) g/dL Stool Lactoferrin (NEGATIVE) IgM (40.0-280.0) mg/dL Crossmatch 01/06/19 Range/Units 20:00 WBC 2.5 L (3.8-10.6) k/uL RBC 3.86 L (4.30-5.90) m/uL Hgb 11.8 L (13.0-17.5) gm/dL Hct 36.3 L (39.0-53.0) % Lymphocytes # (1.0-4.8) k/uL Creatinine (0.66-1.25) mg/dL Ferritin (22.0-322.0) ng/mL Total Bilirubin (0.2-1.3) mg/dL AST (17-59) U/L Total Protein (6.3-8.2) g/dL Stool Lactoferrin (NEGATIVE) IgM (40.0-280.0) mg/dL Crossmatch Microbiology - Last 24 Hours (Table) 01/04/19 20:30 Blood Culture - Preliminary Blood No Growth after 48 hours 01/04/19 20:30 Urine Culture - Final Urine,Clean Catch 01/04/19 20:00 Group A Strep Throat Culture - Final Throat 01/05/19 19:50 Stool Culture - Preliminary Stool Assessment and Plan Assessment: Mild acute blood loss anemia secondary to GI bleed likely lower. Abdominal pain likely secondary to Mild colitis and diverticulitis as per CT Sepsis secondary to above Oral/buccal mucosal aphthous ulcer Lactic acidosis 2.2 on admission. 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 Continue with broad-spectrum antibiotics in the form of Levaquin and Zosyn. Follow up H&H. GI and oncology has been consulted. GI is planning for EGD and colonoscopy tomorrow. Continue the current management and follow closely. Further conditions based on the clinical course. Prognosis is guarded. Discussed with the family at bedside in detail. Time with Patient: Greater than 30
[2019-01-07] MEDS: PIPERACILLIN-TAZOBACTAM 3.375 GM in SODIUM CHLORIDE 0.9% 100 ML IVPB SCH ×3 (00:45→16:31)
[2019-01-07 01:18] LABS: HCT 36.3 % (39.0-53.0); HGB 11.7 gm/dL (13.0-17.5); Hypochromasia Slight; MCH 30.7 pg (25.0-35.0); MCHC 32.2 g/dL (31.0-37.0); MCV 95.5 fL (80.0-100.0); Platelet Count 283 k/uL (150-450); RBC 3.81 m/uL (4.30-5.90); RDW 14.2 % (11.5-15.5); WBC 2.4 k/uL (3.8-10.6)
[2019-01-07 05:04] LABS: Basophils % (A) 1 %; Eosinophils # (A) 0.1 k/uL (0-0.7); Eosinophils % (A) 6 %; HCT 32.6 % (39.0-53.0); HGB 10.7 gm/dL (13.0-17.5); Lymphocytes # (A) 0.2 k/uL (1.0-4.8); Lymphocytes % (A) 8 %; MCH 30.5 pg (25.0-35.0); MCHC 32.8 g/dL (31.0-37.0); MCV 93.1 fL (80.0-100.0); Mean Platelet Volume 6.6; Monocytes # (A) 0.4 k/uL (0-1.0); Neutrophils # (A) 1.5 k/uL (1.3-7.7); Neutrophils % (A) 66 %; Platelet Count 234 k/uL (150-450); RDW 14.5 % (11.5-15.5); WBC 2.2 k/uL (3.8-10.6)
[2019-01-07 05:07] LABS: Monocytes % (A) 16 %
[2019-01-07 05:34] LABS: Calcium 8.5 mg/dL (8.4-10.2); Magnesium 1.8 mg/dL (1.6-2.3); Potassium 3.3 mmol/L (3.5-5.1)
[2019-01-07] MEDS: POTASSIUM CHLORIDE 10 MEQ in WATER FOR INJECTION 1 100ML.BAG IVPB SCH ×4 (06:55→12:38)
[2019-01-07] MEDS: SODIUM CHLORIDE 0.9% 1,000 ML IV SCH ×2 (06:57→14:22)
[2019-01-07] MEDS: PANTOPRAZOLE 40 MG/10 ML VIAL IVP SCH (11:16)
--- NOTE | 2019-01-07 13:30 | P.PN ---
Subjective Progress Note Date: 01/07/19 Principal diagnosis: GI bleed Patient underwent his bowel prep last night. No further bleeding. Hemoglobin today is 10.7. No pain. Endoscopies pending. Objective - Vital Signs Vital signs: Vital Signs Temp 98.2 F 01/07/19 08:00 Pulse 70 01/07/19 11:00 Resp 13 01/07/19 12:00 BP 123/81 01/07/19 11:00 Pulse Ox 97 01/07/19 11:00 Intake & Output 01/06/19 01/07/19 01/07/19 18:59 06:59 18:59 Intake Total 1960 5760 1000 Output Total 1050 5200 500 Balance 910 560 500 Weight 87.9 kg Intake: IV 1200 1200 600 0.9 1200 1200 600 Intake, IV Titration 200 400 Amount Piperacillin-Tazobactam 3 200 100 .375 gm In Sodium Chloride 0.9% 100 ml @ 25 mls/hr IVPB Q8H [facility] Rx#: [id number] Potassium Chloride 10 meq 300 In Water For Injection 1 100ml.bag @ 100 mls/hr IVPB Q1HR [facility] Rx#: [id number] Oral 560 4560 Output: Urine 450 500 Stool 200 0 Urine/Stool Mix 600 4500 500 Other: Voiding Method Toilet Toilet Toilet Urinal Urinal Urinal # Voids 1 1 0 # Bowel Movements 3 - Exam Abdomen: Soft, nontender, nondistended - Labs CBC & Chem 7: 01/07/19 04:25 01/07/19 04:25 Labs: Abnormal Lab Results - Last 24 Hours (Table) 01/05/19 01/06/19 01/07/19 Range/Units 19:50 20:00 00:48 WBC 2.5 L 2.4 L (3.8-10.6) k/uL RBC 3.86 L 3.81 L (4.30-5.90) m/uL Hgb 11.8 L 11.7 L (13.0-17.5) gm/dL Hct 36.3 L 36.3 L (39.0-53.0) % Lymphocytes # (1.0-4.8) k/uL Potassium (3.5-5.1) mmol/L BUN (9-20) mg/dL Stool Lactoferrin POSITIVE H (NEGATIVE) 01/07/19 01/07/19 Range/Units 04:25 04:25 WBC 2.2 L (3.8-10.6) k/uL RBC 3.50 L (4.30-5.90) m/uL Hgb 10.7 L (13.0-17.5) gm/dL Hct 32.6 L (39.0-53.0) % Lymphocytes # 0.2 L (1.0-4.8) k/uL Potassium 3.3 L (3.5-5.1) mmol/L BUN 7 L (9-20) mg/dL Stool Lactoferrin (NEGATIVE) Microbiology - Last 24 Hours (Table) 01/04/19 20:30 Blood Culture - Preliminary Blood No Growth after 48 hours 01/04/19 20:30 Urine Culture - Final Urine,Clean Catch 01/04/19 20:00 Group A Strep Throat Culture - Final Throat Assessment and Plan (1) GI bleed Narrative/Plan: Await upper and lower endoscopy findings. Continue antiacids. Current Visit: Yes Status: Acute Code(s): K92.2 - GASTROINTESTINAL HEMORRHAGE, UNSPECIFIED SNOMED Code(s): 10099769
[2019-01-07 14:23] VITALS: BMI 26.2
[2019-01-07] MEDS ORDERED: PROPOFOL 10 MG/ML 20 ML VIAL IV ONE (14:44)
--- NOTE | 2019-01-07 15:06 | P.PN ---
Subjective Progress Note Date: 01/07/19 This is a 68-year-old white male patient with past medical history of non- Hodgkin's lymphoma receiving immunotherapy in the form of Rituxan, last treatment was in November 2018. Previous history of lower GI bleeding in 2002, hyperlipidemia, hearing disorder, who came into the hospital on 2018 for evaluation of passing some red colored and dark black stools at home. Started on Thursday of this week, she was having some abdominal cramping, feeling weak. He was also having a sore throat, does have a poorly healing ulcer on the inside of his left buccal cavity after he bit the side of his cheek. Was experiencing some lightheadedness and dizziness. Denied any fever or chills. However he was febrile on presentation with a T-max of 101.6 Fahrenheit. Cough , no chest congestion, no complaints of chest pain, shortness of breath, or palpitations, no nausea or vomiting. Patient did have a EGD and colonoscopy back in [address] [place] [address] Aarti Ro, and he was reportedly negative. His GI bleeding at that time resolved on its own. Not on any anticoagulation other than one baby aspirin, does take occasional ibuprofen and Tylenol for general body aches. No excessive amounts of Tylenol or NSAIDs. Chest x-ray showed no acute pulmonary process. It showed thoracic aortic tortuosity. On admission his hemoglobin was 11.5, patient's stools while in the hospital are more red in color, and last night patient started passing larger volume of bright red colored stools with some clotting in it. He was also becoming quite symptomatic, dizzy, lightheaded, pale and clammy, and was transferred to the intensive care unit where he received 2 units of packed red blood cells for hemoglobin of 9.9. Through the night in the intensive care unit he did pass 3 more small bright red colored stools. His hemoglobin this morning is 11.6, white blood cell count is 2.4. Electrolytes were within normal limits, BUN is 12, creatinine is 1.31. LFTs showed total bilirubin of 1.5, AST is 15, ALT was 23. C. difficile was negative. On admission patient did have an elevated lactic acid of 2.2 which improved with IV hydration. Patient does have some white patches on his uvula, throat strep culture was sent, pending. Blood, urine and stool cultures are in process. It is my patient seen in the intensive care unit, resting comfortably in bed, room air pulse ox is 95%, hemodynamically he is stable, no tachycardia, sinus rhythm on the monitor with a rate of 82 BPM, afebrile. Antibiotic coverage includes Diflucan, Levaquin and Zosyn. Maintenance IV fluid is 0.9 normal saline at a rate of 100 ML per hour, patient is on a PPI therapy, GI service is following. No hematemesis. No chest pain, no shortness of breath. Patient has been up to the bedside commode, denied any lightheadedness or dizziness. On today's evaluation of 01/07/2019 on seeing this patient for a follow-up. I' m glad to reported the patient not having any further episodes of GI bleeding. Patient is still nothing by mouth. The patient will be having a median a colonoscopy today. The patient remains on PPI. This procedure without in the afternoon. The patient will be kept in the ICU. He was seen by Dr. Park. Oral findings are essentially related to mucositis and there was no need for any further intervention or biopsies. The patient's hemoglobin remains stable at 10.7. White cell count stable at 2.2. Platelet counts are also stable at 234. No respiratory distress. No cough sputum production. No hemodynamic instability. The lung Diflucan for mucositis. Still on IV Zosyn. Objective - Vital Signs Vital signs: Vital Signs Temp 97.8 F 01/07/19 12:00 Pulse 70 01/07/19 14:00 Resp 12 01/07/19 14:00 BP 125/86 01/07/19 14:00 Pulse Ox 96 01/07/19 14:00 Intake & Output 01/06/19 01/07/19 01/07/19 18:59 06:59 18:59 Intake Total 1960 5760 1300 Output Total 1050 5200 500 Balance 910 560 800 Weight 87.9 kg 87.9 kg Intake: IV 1200 1200 800 0.9 1200 1200 800 Intake, IV Titration 200 500 Amount Piperacillin-Tazobactam 3 200 100 .375 gm In Sodium Chloride 0.9% 100 ml @ 25 mls/hr IVPB Q8H [facility] Rx#: [id number] Potassium Chloride 10 meq 400 In Water For Injection 1 100ml.bag @ 100 mls/hr IVPB Q1HR [facility] Rx#: [id number] Oral 560 4560 Output: Urine 450 500 Stool 200 0 Urine/Stool Mix 600 4500 500 Other: Voiding Method Toilet Toilet Toilet Urinal Urinal Urinal # Voids 1 1 0 # Bowel Movements 3 - Exam GENERAL EXAM: Alert, pleasant, 68-year-old white male comfortable in no apparent distress. HEAD: Normocephalic/atraumatic. EYES: Normal reaction of pupils, equal size. Conjunctiva pink, sclera white. NOSE: Clear with pink turbinates. THROAT: No erythema, but large white patches noted on the anterior uvula, ulceration on his right inner buccal mucosa noted NECK: No masses, no JVD, no thyroid enlargement, no adenopathy. CHEST: No chest wall deformity. Symmetrical expansion. LUNGS: Equal air entry with no crackles, wheeze, rhonchi or dullness. CVS: Regular rate and rhythm, normal S1 and S2, no gallops, no murmurs, no rubs ABDOMEN: Soft, nontender. No hepatosplenomegaly, normal bowel sounds, no guarding or rigidity. EXTREMITIES: No clubbing, no edema, no cyanosis, 2+ pulses and upper and lower extremities. MUSCULOSKELETAL: Muscle strength and tone normal. SPINE: No scoliosis or deformity SKIN: No rashes CENTRAL NERVOUS SYSTEM: Alert and oriented -3. No focal deficits, tone is normal in all 4 extremities. PSYCHIATRIC: Alert and oriented -3. Appropriate affect. Intact judgment and insight. - Labs CBC & Chem 7: 01/07/19 04:25 01/07/19 04:25 Labs: Abnormal Lab Results - Last 24 Hours (Table) 01/05/19 01/06/19 01/07/19 Range/Units 19:50 20:00 00:48 WBC 2.5 L 2.4 L (3.8-10.6) k/uL RBC 3.86 L 3.81 L (4.30-5.90) m/uL Hgb 11.8 L 11.7 L (13.0-17.5) gm/dL Hct 36.3 L 36.3 L (39.0-53.0) % Lymphocytes # (1.0-4.8) k/uL Potassium (3.5-5.1) mmol/L BUN (9-20) mg/dL Stool Lactoferrin POSITIVE H (NEGATIVE) 01/07/19 01/07/19 Range/Units 04:25 04:25 WBC 2.2 L (3.8-10.6) k/uL RBC 3.50 L (4.30-5.90) m/uL Hgb 10.7 L (13.0-17.5) gm/dL Hct 32.6 L (39.0-53.0) % Lymphocytes # 0.2 L (1.0-4.8) k/uL Potassium 3.3 L (3.5-5.1) mmol/L BUN 7 L (9-20) mg/dL Stool Lactoferrin (NEGATIVE) Microbiology - Last 24 Hours (Table) 01/04/19 20:30 Blood Culture - Preliminary Blood No Growth after 48 hours 01/04/19 20:30 Urine Culture - Final Urine,Clean Catch 01/04/19 20:00 Group A Strep Throat Culture - Final Throat Assessment and Plan Plan: #1. Acute symptomatic blood loss anemia, secondary to lower GI bleeding. Abdomen/pelvis CT showed minimal inflammatory fat stranding around the sigmoid colon, could relate to mild colitis or uncomplicated diverticulitis. The patient's bleeding is most consistent with a diverticular bleed. The patient would have a EGD and colonoscopy today. Note that the patient has not had over the past 24 hours. Hemoglobin stable at 10.7. #2. Acute kidney injury related to the above, improving and the patient's creatinine is normalized down to 1.1 #3. Mild lactic acidosis on admission, resolved with IV hydration, rule out infectious cause, could be related to acute GI bleeding, improved #4. Neutropenia #5. Non-Hodgkin's lymphoma/Mantel cell lymphoma, on the Rituxan therapy, asked treatment on 12/13/2018 #6. Oral buccal mucosal ulcer, and the patient also has evidence of mucositis #7. Possible oral candidiasis, large white patch on patient's uvula noted #8. Hyperlipidemia #9. Previous episode of lower GI bleeding back in 2002 and EGD and colonoscopy were reportedly within normal limits #10. Hearing disorder in the left ear #11. Lifetime nonsmoker, no history of EtOH abuse pLAN Keep in ICU. Continue colonoscopy today. May leave the ICU following his endoscopies. Till then, keep the patient nothing by mouth. We'll continue to follow. Hemodynamically stable.
[2019-01-07] MEDS ORDERED: IV FLUID CONTINUATION 1,000 ML IV ONE (15:22)
--- NOTE | 2019-01-07 16:06 | P.PCN ---
Date of Procedure: 01/07/19 Description of Procedure: Brief history: Patient is a pleasant 68-year-old male who presented to the hospital with multiple episodes of blood per rectum. The patient reports some associated cramping but denies any jonnie pain with the episodes. He reports maroon and bright red blood per rectum. Initially the patient had reported improvement of his symptoms after hospitalization, however had further episodes yesterday and decision was made for colon prep and to proceed with EGD and colonoscopy for further investigation. The patient also suffers from reflux at baseline and has had upper endoscopy in the past. The patient had associated fall in his hemoglobin. Procedure performed: Esophagogastroduodenoscopy with biopsy Colonoscopy Estimated blood loss: Minimal. Preoperative diagnosis: Hematochezia, anemia of acute blood loss Anesthesia: MAC Procedure: After informed consent was obtained from the patient was brought into the endoscopy unit and IV sedation was administered by anesthesia under continuous monitoring. Initially upper endoscopy was done. The Olympus GF 180 video endoscope was inserted inserted into the mouth and esophagus intubated without any difficulty and was gradually advanced into the stomach and duodenum and carefully examined. The bulb and second part of the duodenum appeared normal. The scope was then withdrawn into the stomach adequately insufflated with air and upon careful examination the antrum and body, cardia and fundus appeared grossly normal, except for some mild scattered erythema in the antrum and body suggestive of mild gastritis which was biopsied. The patient had a small hiatal hernia. The scope was then withdrawn into the esophagus. The GE junction was located at 40 cm to the incisors. It appeared regular with no erythema erosions or ulcerations. Rest of the esophagus appeared normal. Patient tolerated the procedure well. At this time the patient continued to remain sedation. Initial digital rectal examination was normal. Olympus CF 190 video colonoscope was then inserted into the rectum and gradually advanced to the cecum without any difficulty. Careful examination was performed as the scope was gradually being withdrawn. The prep was excellent. The cecum, ascending colon, transverse colon, descending colon, sigmoid colon and rectum appeared normal. Retroflexion was performed in the rectum and no lesions were noted, mild internal hemorrhoids seen. Patient tolerated the procedure well. Impression: 1. Mild gastritis of the antrum and body, biopsies taken. Small hiatal hernia. 2. Mild internal hemorrhoids. 3. No old blood or active bleeding noted. Recommendations: Findings of this examination were discussed with the patient as well as his family. Okay for full liquid diet, advance to GI soft as tolerated. Continue to monitor hemoglobin and hematocrit. Consider video capsule endoscopy if patient has further signs or symptoms of GI bleeding. Suspicion is for diverticular bleed given the patient's symptoms.
[2019-01-07] MEDS: ASPIRIN 81 MG PO SCH (16:17)
[2019-01-07] MEDS: ASCORBIC ACID 500 MG TAB PO SCH (16:29)
[2019-01-07] MEDS: FLUCONAZOLE 100 MG TAB PO SCH (16:30)
[2019-01-07] MEDS: ZINC SULFATE 220 MG CAP PO SCH (16:30)
[2019-01-07] MEDS: MULTIVITAMINS, THERA 1 EACH TAB PO SCH (16:30)
[2019-01-07] MEDS: DIPHENHYDRAMINE PO SCH ×9 (16:41→22:49)
[2019-01-07] MEDS: AL HYDROX PO SCH ×9 (16:41→22:49)
[2019-01-07] MEDS: MAG HYDROX PO SCH ×9 (16:41→22:49)
[2019-01-07] MEDS: SIMETH PO SCH ×9 (16:41→22:49)
[2019-01-07] MEDS: [UNRECOGNIZED DRUG - OTHER] PO SCH ×9 (16:41→22:49)
[2019-01-07] MEDS: FISH OIL 1000MG PO SCH (16:42)
--- NOTE | 2019-01-07 18:31 | P.PN ---
Subjective Progress Note Date: 01/07/19 Principal diagnosis: GI bleed Plan for Endoscopy today, bleeding has improved and labs stable today Objective - Vital Signs Vital signs: Vital Signs Temp 97.5 F L 01/07/19 16:00 Pulse 70 01/07/19 18:15 Resp 13 01/07/19 18:15 BP 127/87 01/07/19 18:15 Pulse Ox 97 01/07/19 18:15 Intake & Output 01/06/19 01/07/19 01/07/19 18:59 06:59 18:59 Intake Total 1960 5760 1600 Output Total 1050 5200 500 Balance 898 306 9877 Weight 87.9 kg 87.9 kg Intake: IV 1200 1200 1100 0.9 1200 1200 800 Intake, IV Titration 200 500 Amount Piperacillin-Tazobactam 3 200 100 .375 gm In Sodium Chloride 0.9% 100 ml @ 25 mls/hr IVPB Q8H [facility] Rx#: [id number] Potassium Chloride 10 meq 400 In Water For Injection 1 100ml.bag @ 100 mls/hr IVPB Q1HR [facility] Rx#: [id number] Oral 560 4560 Output: Urine 450 500 Stool 200 0 Urine/Stool Mix 600 4500 500 Other: Voiding Method Toilet Toilet Toilet Urinal Urinal Urinal # Voids 1 1 0 # Bowel Movements 3 - Exam Gen: Alert, No acute distress Head: NC, NT Neck: No Lymphadenopathy on palpation Mouth: +Left open vesical and posterior pharynx with Oral Cand[place] Lungs: DIminished bibasilar, No wheezing Heart: Tachy, Reg Abdomen: Soft, ND, NT Ext: Minimal Gen Edema, Pulses notes x4 Neuro: Non Focal - Labs CBC & Chem 7: 01/07/19 04:25 01/07/19 04:25 Labs: Abnormal Lab Results - Last 24 Hours (Table) 01/06/19 01/07/19 01/07/19 Range/Units 20:00 00:48 04:25 WBC 2.5 L 2.4 L 2.2 L (3.8-10.6) k/uL RBC 3.86 L 3.81 L 3.50 L (4.30-5.90) m/uL Hgb 11.8 L 11.7 L 10.7 L (13.0-17.5) gm/dL Hct 36.3 L 36.3 L 32.6 L (39.0-53.0) % Lymphocytes # 0.2 L (1.0-4.8) k/uL Potassium (3.5-5.1) mmol/L BUN (9-20) mg/dL 01/07/19 Range/Units 04:25 WBC (3.8-10.6) k/uL RBC (4.30-5.90) m/uL Hgb (13.0-17.5) gm/dL Hct (39.0-53.0) % Lymphocytes # (1.0-4.8) k/uL Potassium 3.3 L (3.5-5.1) mmol/L BUN 7 L (9-20) mg/dL Microbiology - Last 24 Hours (Table) 01/04/19 20:30 Blood Culture - Preliminary Blood No Growth after 48 hours Assessment and Plan Plan: Assessment and Recommendations: 1. Mantel Cell Lymphoma: - Status POst Maintenance Rituxan 12/13/18 - Stable 2. Oral Polly: - PO Diflucan 3. Acute Blood Loss Anemia: - GI Blood Loss, Dark Tarry Stools then to bright red stools with clots overnight, now in care of ICU. - GI Following and planning on Colonoscopy inpatient - Monitor CBC daily - Check Iron Studies, LDH 4. Oral Mucocytis: - Kools 5. Febrile on admission: - Carreon cultures pending. - Improving, afebrile since admission 6. Leukopenia with mild Neutropenia: - Neutrophils decreased to 1 today - Monitor neutrophils, if less than 1 will add GCSF, lymphoctopenia and leukopenia. Plan: - Await Colonoscopy planned today - Continue to monitor daily CBC and Transfusion support for hemoglobin less than 7 or active bleeding. Physician Attest: I have discussed the completed the full history and physical of this patient and developed the complete impression and plan, agree with above dictation, dictated as a scribe.
[2019-01-07 21:40] VITALS: RESP 16
[2019-01-07] MEDS: ATORVASTATIN 10 MG TAB PO SCH (22:48)
[2019-01-07] MEDS: LEVOFLOXACIN 750MG-D5W PMX 750 MG in DEXTROSE/WATER 1 150ML.BAG IVPB SCH (22:49)
[2019-01-07] MEDS: BISACODYL 10 MG SUPP RECTAL SCH (22:49)
[2019-01-08] MEDS: SODIUM CHLORIDE 0.9% 1,000 ML IV SCH ×2 (00:24→09:01)
[2019-01-08] MEDS: PIPERACILLIN-TAZOBACTAM 3.375 GM in SODIUM CHLORIDE 0.9% 100 ML IVPB SCH ×2 (00:24→10:17)
[2019-01-08 08:00] LABS: Basophils % (A) 1 %; Eosinophils # (A) 0.2 k/uL (0-0.7); Eosinophils % (A) 7 %; HGB 11.1 gm/dL (13.0-17.5); Lymphocytes # (A) 0.2 k/uL (1.0-4.8); Lymphocytes % (A) 8 %; MCH 31.3 pg (25.0-35.0); MCHC 33.5 g/dL (31.0-37.0); MCV 93.3 fL (80.0-100.0); Mean Platelet Volume 6.1; Monocytes # (A) 0.2 k/uL (0-1.0); Monocytes % (A) 8 %; Neutrophils # (A) 1.8 k/uL (1.3-7.7); Neutrophils % (A) 75 %; Platelet Count 229 k/uL (150-450); RBC 3.53 m/uL (4.30-5.90); WBC 2.4 k/uL (3.8-10.6)
[2019-01-08] MEDS: FISH OIL 1000MG PO SCH (08:55)
[2019-01-08] MEDS: PANTOPRAZOLE 40 MG/10 ML VIAL IVP SCH (09:02)
[2019-01-08] MEDS: ASPIRIN 81 MG PO SCH (09:03)
[2019-01-08] MEDS: FLUCONAZOLE 100 MG TAB PO SCH (09:03)
[2019-01-08] MEDS: ASCORBIC ACID 500 MG TAB PO SCH (09:03)
[2019-01-08] MEDS: MULTIVITAMINS, THERA 1 EACH TAB PO SCH (09:03)
[2019-01-08] MEDS: MAG HYDROX PO SCH ×6 (09:04→15:46)
[2019-01-08] MEDS: [UNRECOGNIZED DRUG - OTHER] PO SCH ×6 (09:04→15:46)
[2019-01-08] MEDS: DIPHENHYDRAMINE PO SCH ×6 (09:04→15:46)
[2019-01-08] MEDS: AL HYDROX PO SCH ×6 (09:04→15:46)
[2019-01-08] MEDS: SIMETH PO SCH ×6 (09:04→15:46)
[2019-01-08] MEDS: ZINC SULFATE 220 MG CAP PO SCH (09:04)
--- NOTE | 2019-01-08 09:52 | P.PN ---
Subjective Progress Note Date: 01/08/19 Principal diagnosis: GI bleed Patient doing well today. No further bleeding. Hemoglobin stable at 11.1. Objective - Vital Signs Vital signs: Vital Signs Temp 97.4 F L 01/08/19 04:56 Pulse 77 01/08/19 04:56 Resp 16 01/08/19 04:56 BP 175/89 01/08/19 04:56 Pulse Ox 96 01/08/19 04:56 Intake & Output 01/07/19 01/08/19 01/08/19 18:59 06:59 18:59 Intake Total 1600 900 Output Total 500 700 450 Balance 1100 200 -450 Weight 87.9 kg Intake: IV 1100 0.9 800 Intake, IV Titration 500 900 Amount Piperacillin-Tazobactam 3 100 100 .375 gm In Sodium Chloride 0.9% 100 ml @ 25 mls/hr IVPB Q8H [facility] Rx#: [id number] Potassium Chloride 10 meq 400 In Water For Injection 1 100ml.bag @ 100 mls/hr IVPB Q1HR [facility] Rx#: [id number] Sodium Chloride 0.9% 1, 800 000 ml @ 100 mls/hr IV . Q10H [facility] Rx#:[id number] Output: Urine 700 450 Stool 0 Urine/Stool Mix 500 Other: Voiding Method Toilet Urinal # Voids 0 - Exam Abdomen: Soft, nontender, nondistended - Labs CBC & Chem 7: 01/08/19 07:06 01/07/19 04:25 Labs: Abnormal Lab Results - Last 24 Hours (Table) 01/08/19 Range/Units 07:06 WBC 2.4 L (3.8-10.6) k/uL RBC 3.53 L (4.30-5.90) m/uL Hgb 11.1 L (13.0-17.5) gm/dL Hct 33.0 L (39.0-53.0) % Microbiology - Last 24 Hours (Table) 01/04/19 20:30 Blood Culture - Preliminary Blood No Growth after 72 hours Assessment and Plan (1) GI bleed Narrative/Plan: Continue diet as tolerated. Patient's endoscopy showed no obvious source of bleeding. We'll sign off at this point. Please call if needed. Current Visit: Yes Status: Acute Code(s): K92.2 - GASTROINTESTINAL HEMORRHAGE, UNSPECIFIED SNOMED Code(s): 61020917
[2019-01-08 12:16] VITALS: BP 116/69; PULSE 67; TEMP 97.5
--- NOTE | 2019-01-08 15:00 | P.PN ---
Subjective Progress Note Date: 01/08/19 Principal diagnosis: Hematochezia The patient is seen lying in bed, reporting no further bowel movements or blood per rectum since colonoscopy and EGD. He has tolerated his diet. Hemoglobin remained stable. Objective - Vital Signs Vital signs: Vital Signs Temp 97.5 F L 01/08/19 12:00 Pulse 67 01/08/19 12:00 Resp 16 01/08/19 12:00 BP 116/69 01/08/19 12:00 Pulse Ox 94 L 01/08/19 12:00 Intake & Output 01/07/19 01/08/19 01/08/19 18:59 06:59 18:59 Intake Total 1600 900 700 Output Total 500 700 650 Balance 1100 200 50 Weight 87.9 kg Intake: IV 1100 0.9 800 Intake, IV Titration 500 900 700 Amount Piperacillin-Tazobactam 3 100 100 .375 gm In Sodium Chloride 0.9% 100 ml @ 25 mls/hr IVPB Q8H [facility] Rx#: [id number] Potassium Chloride 10 meq 400 In Water For Injection 1 100ml.bag @ 100 mls/hr IVPB Q1HR [facility] Rx#: [id number] Sodium Chloride 0.9% 1, 800 700 000 ml @ 100 mls/hr IV . Q10H [facility] Rx#:[id number] Output: Urine 700 650 Stool 0 Urine/Stool Mix 500 Other: Voiding Method Toilet Toilet Urinal Urinal # Voids 0 # Bowel Movements 0 - Exam On physical examination, patient appears comfortable in no apparent distress. HEAD: Normocephalic, atraumatic. EYES: No scleral icterus. No conjunctival injection. MOUTH: No lesions, tongue midline. NECK: Trachea midline, no gross abnormalities. CHEST: Clear to auscultation with no wheezing or rhonchi appreciated. HEART: Regular rate and rhythm. ABDOMEN: Soft, obese. Bowel sounds are positive. No organomegaly. No guarding or rigidity. EXTREMITIES: No pedal edema. SKIN: No rashes, no jaundice. NEUROLOGIC: Alert and oriented x3. No focal deficits. - Labs CBC & Chem 7: 01/08/19 07:06 01/07/19 04:25 Labs: Abnormal Lab Results - Last 24 Hours (Table) 01/08/19 Range/Units 07:06 WBC 2.4 L (3.8-10.6) k/uL RBC 3.53 L (4.30-5.90) m/uL Hgb 11.1 L (13.0-17.5) gm/dL Hct 33.0 L (39.0-53.0) % Lymphocytes # 0.2 L (1.0-4.8) k/uL Microbiology - Last 24 Hours (Table) 01/04/19 20:30 Blood Culture - Preliminary Blood No Growth after 72 hours Assessment and Plan (1) Hematochezia Narrative/Plan: Multiple episodes of hematochezia reported. EGD and colonoscopy performed with only findings of hiatal hernia, mild gastritis, and internal hemorrhoids. No active bleeding or old blood seen. Suspicion is for diverticular bleed, small bowel AVM or other etiology. Hemoglobin has remained stable and patient has remained asymptomatic. Current Visit: Yes Status: Acute Code(s): K92.1 - MELENA SNOMED Code(s): 635960678 (2) Acute blood loss anemia Current Visit: Yes Status: Acute Code(s): D62 - ACUTE POSTHEMORRHAGIC ANEMIA SNOMED Code(s): 193436397 Plan: Supportive care Diet advance today to GI soft Continue to monitor hemoglobin Continue to monitor for signs or symptoms GI bleeding Okay for discharge from GI standpoint Await pathology from gastric biopsy This patient has further episodes of bleeding inserted endoscopy for further evaluation Thank you for allowing us to participate in the care of this patient
--- NOTE | 2019-01-09 00:41 | P.PN ---
Subjective Progress Note Date: 01/07/19 Principal diagnosis: Acute GI bleed Patient is a 68 old male with a known history of non-Hodgkin lymphoma currently on chemotherapy every month last in November 2018, history of GI bleed, hyperlipidemia and hearing disorder/deafness was initially presented to ER with complaints of blood in the stool. Patient says that he had bright red blood in the stool and also followed by dark-colored stool as well. Patient says that he has been having lower abdominal pain for the past 3 weeks. Around 4 PM yesterday patient did have increased lower abdominal pain, cramping type and did have 2 bright red blood and dark red blood. Patient felt some lightheaded dizziness. Patient did have fever and night sweats. T-max was 101.6 on admission. Patient did have cough without sputum production. No chest pain or shortness of breath. No nausea vomiting or diarrhea. No hematemesis. No numbness or tingling. Denied any dysuria or hematuria. Patient does take baby aspirin at home. Denied any other aekh-eok-eoutjvx pain medication use Lactic acid 2.2, WBC 3.0, hemoglobin 11.5 and platelets 286 on admission. T-max 101.6 FOBT positive Chest x-ray showed no acute process. Tortuous thoracic aorta CT of the abdomen pelvis showed very subtle minimal instrumented fast stranding surrounding the sigmoid colon correlate to very mild colitis are uncomplicated diverticulitis. Correlate with clinical symptoms. 01/06/2019 Patient did have a large bowel movement while in the medical floor yesterday evening and patient was transferred to MICU due to possible active GI bleed. Otherwise hemoglobin is fairly stable at 11.9. Patient denied any complaints of chest pain or shortness of breath. Patient was complaining of pain over the oral ulcers with improvement of symptoms with cool solution. Denied any abdominal pain. No nausea vomiting or hematemesis.. Patient does have maroon colored lying in the stool. GI is planning for EGD and colonoscopy today. Tolerating clear liquids. Patient was seen by ENT as well. Pulmonary and GI on board. No fever no chills. 01/07/2019 Patient denied any complaints of abdominal pain. No nausea vomiting. No further episodes of blood in the stool. Patient underwent EGD and colonoscopy today. Patient was found have mild gastritis and internal hemorrhoids. No active bleeding noted. Hemoglobin is stable. Patient is being transferred to medical floor today. Cultures have been negative so far. Improved pain in the mouth sores. No fever no chills. Current medications reviewed. Objective - Vital Signs Vital signs: Vital Signs Temp 97.8 F 01/07/19 21:39 Pulse 75 01/07/19 21:39 Resp 16 01/07/19 21:39 BP 148/80 01/07/19 21:39 Pulse Ox 100 01/07/19 21:39 Intake & Output 01/07/19 01/07/19 01/08/19 06:59 18:59 06:59 Intake Total 5760 1600 Output Total 5200 500 Balance 560 1100 Weight 87.9 kg 87.9 kg Intake: IV 1200 1100 0.9 1200 800 Intake, IV Titration 500 Amount Piperacillin-Tazobactam 3 100 .375 gm In Sodium Chloride 0.9% 100 ml @ 25 mls/hr IVPB Q8H [facility] Rx#: [id number] Potassium Chloride 10 meq 400 In Water For Injection 1 100ml.bag @ 100 mls/hr IVPB Q1HR [facility] Rx#: [id number] Oral 4560 Output: Urine 500 Stool 200 0 Urine/Stool Mix 4500 500 Other: Voiding Method Toilet Toilet Urinal Urinal # Voids 1 0 - Exam PHYSICAL EXAMINATION: Patient is lying in the bed comfortably, no acute distress, awake alert and oriented. Feels weak.. HEENT: Normocephalic. Neck is supple. Pupils reactive. Nostrils clear. Oral cavity is moist. Ears reveal no drainage. Neck reveals no JVD, carotid bruits, or thyromegaly. CHEST EXAMINATION: Trachea is central. Symmetrical expansion. Lung garnica clear to auscultation and percussion. CARDIAC: Normal S1, S2 with no gallops. No murmurs ABDOMEN: Soft. Bowel sounds normal. No organomegaly. No abdominal bruits. Extremities: reveal no edema. No clubbing or cyanosis Neurologically awake, alert, oriented x3 with well-coordinated movements. Hard of hearing. No focal deficits noted Skin: No rash or skin lesions. Psychiatric: Coperative. Nonsuicidal Musculoskeletal: No joint swelling or deformity. Normal range of motion. - Labs CBC & Chem 7: 01/08/19 07:06 01/07/19 04:25 Labs: Abnormal Lab Results - Last 24 Hours (Table) 01/07/19 01/07/19 01/07/19 Range/Units 00:48 04:25 04:25 WBC 2.4 L 2.2 L (3.8-10.6) k/uL RBC 3.81 L 3.50 L (4.30-5.90) m/uL Hgb 11.7 L 10.7 L (13.0-17.5) gm/dL Hct 36.3 L 32.6 L (39.0-53.0) % Lymphocytes # 0.2 L (1.0-4.8) k/uL Potassium 3.3 L (3.5-5.1) mmol/L BUN 7 L (9-20) mg/dL Microbiology - Last 24 Hours (Table) 01/04/19 20:30 Blood Culture - Preliminary Blood No Growth after 48 hours Assessment and Plan Assessment: Mild acute blood loss anemia secondary to GI bleed likely lower. Status post EGD and colonoscopy showed mild gastritis and internal hemorrhoids. Hemoglobin stable. Abdominal pain likely secondary to Mild colitis and diverticulitis as per CT Sepsis secondary to above Oral/buccal mucosal aphthous ulcer Lactic acidosis 2.2 on admission. 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 Continue with broad-spectrum antibiotics in the form of Levaquin and Zosyn. Follow up H&H. GI and oncology has been consulted. GI is planning for EGD and colonoscopy tomorrow. Continue the current management and follow closely. Further conditions based on the clinical course. Prognosis is guarded. Discussed with the family at bedside in detail. Time with Patient: Greater than 30
--- NOTE | 2019-01-09 00:46 | P.DS ---
Providers Date of admission: 01/04/19 22:34 Expected date of discharge: 01/08/19 Attending physician: Ela Clement Consults: 01/04/19 22:56 Consult Physician Routine Consulting Provider: Navneet Bryant Consult Reason/Comments: Fever; Lymphoma Do you want consulting provider notified?: Yes Consult Physician Routine Consulting Provider: Chan Velasquez Consult Reason/Comments: GI bleed Do you want consulting provider notified?: Yes 01/05/19 20:06 Consult Physician Stat Consulting Provider: Rolando Medina Consult Reason/Comments: icu managment Do you want consulting provider notified?: Already Contacted Consult Physician Stat Consulting Provider: Elvin Chacon Consult Reason/Comments: gi bleed Do you want consulting provider notified?: Yes 01/06/19 14:01 Consult Physician Routine Consulting Provider: Chay Ghotra Consult Reason/Comments: oral/pharyngeal ulceration Do you want consulting provider notified?: Yes Primary care physician: Edward Dodd Hospital Course: Discharge diagnosis Mild acute blood loss anemia secondary to GI bleed likely lower. Status post EGD and colonoscopy showed mild gastritis and internal hemorrhoids. Hemoglobin stable. Abdominal pain likely secondary to Mild colitis and diverticulitis as per CT Sepsis secondary to above Oral/buccal mucosal aphthous ulcer Lactic acidosis 2.2 on admission. 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 Patient says that he had bright red blood in the stool and also followed by dark-colored stool as well. Patient says that he has been having lower abdominal pain for the past 3 weeks. Around 4 PM yesterday patient did have increased lower abdominal pain, cramping type and did have 2 bright red blood and dark red blood. Patient felt some lightheaded dizziness. Patient did have fever and night sweats. T-max was 101.6 on admission. Patient did have cough without sputum production. No chest pain or shortness of breath. No nausea vomiting or diarrhea. No hematemesis. No numbness or tingling. Denied any dysuria or hematuria. Patient does take baby aspirin at home. Denied any other ujvu-[id number] pain medication use Lactic acid 2.2, WBC 3.0, hemoglobin 11.5 and platelets 286 on admission. T-max 101.6 FOBT positive Chest x-ray showed no acute process. Tortuous thoracic aorta CT of the abdomen pelvis showed very subtle minimal instrumented fast stranding surrounding the sigmoid colon correlate to very mild colitis are uncomplicated diverticulitis. Correlate with clinical symptoms. 01/06/2019 Patient did have a large bowel movement while in the medical floor yesterday evening and patient was transferred to MICU due to possible active GI bleed. Otherwise hemoglobin is fairly stable at 11.9. Patient denied any complaints of chest pain or shortness of breath. Patient was complaining of pain over the oral ulcers with improvement of symptoms with cool solution. Denied any abdominal pain. No nausea vomiting or hematemesis.. Patient does have maroon colored lying in the stool. GI is planning for EGD and colonoscopy today. Tolerating clear liquids. Patient was seen by ENT as well. Pulmonary and GI on board. No fever no chills. 01/07/2019 Patient denied any complaints of abdominal pain. No nausea vomiting. No further episodes of blood in the stool. Patient underwent EGD and colonoscopy today. Patient was found have mild gastritis and internal hemorrhoids. No active bleeding noted. Hemoglobin is stable. Patient is being transferred to medical floor today. Cultures have been negative so far. Improved pain in the mouth sores. No fever no chills. Patient be continued on IV hydration. Continue with broad-spectrum antibiotics in the form of Levaquin and Zosyn. Hemoglobin is stable.. GI and oncology has been the patient. Patient is status post EGD and colonoscopy. Showed mild gastritis and internal hemorrhoids. No active bleeding currently. Cultures have been negative. Patient will be continued on 7 day course of antibiotics for colitis and diverticulitis as as per CT. Patient is otherwise stable to be discharged home. Discussed with the family at bedside in detail. PHYSICAL EXAMINATION: Patient is lying in the bed comfortably, no acute distress, awake alert and oriented.. HEENT: Normocephalic. Neck is supple. Pupils reactive. Nostrils clear. Oral cavity is moist. Ears reveal no drainage. Neck reveals no JVD, carotid bruits, or thyromegaly. CHEST EXAMINATION: Trachea is central. Symmetrical expansion. Lung garnica clear to auscultation and percussion. CARDIAC: Normal S1, S2 with no gallops. No murmurs ABDOMEN: Soft. Bowel sounds normal. No organomegaly. No abdominal bruits. Extremities: reveal no edema. No clubbing or cyanosis Neurologically awake, alert, oriented x3 with well-coordinated movements. No focal deficits noted Skin: No rash or skin lesions. Psychiatric: Coperative. Nonsuicidal Musculoskeletal: No joint swelling or deformity. Normal range of motion. Vital Signs - 24 hr 01/08/19 01/08/19 04:56 12:00 Temperature 97.4 F L 97.5 F L Pulse Rate [ 77 Bilateral Dorsalis Pedis] Pulse Rate [ 67 Pulse Oximetery ] Respiratory 16 16 Rate Blood Pressure 175/89 116/69 [Left Arm] O2 Sat by Pulse 96 94 L Oximetry Total time taken greater than 35 minutes including 18 minutes for counseling and coordination of care. Patient Condition at Discharge: Serious Plan - Discharge Summary Discharge Rx Participant: Yes New Discharge Prescriptions: New Lidocaine Viscous 2% [Xylocaine Viscous] 10 ml MUCOUS MEM Q1H PRN #1 bottle PRN Reason: Pain Levofloxacin [Levaquin] 500 mg PO DAILY 3 Days #3 tab metroNIDAZOLE [Flagyl] 500 mg PO Q8HR 3 Days #9 tab Continue diphenhydrAMINE [Benadryl] 25 mg PO DAILY PRN PRN Reason: Itching Simvastatin [Zocor] 20 mg PO HS [place]-3 Fatty Acids/Fish Oil [Fish Oil 1,000 mg Softgel] 1 tab PO DAILY Multivitamins, Thera [Multivitamin (formulary)] 1 tab PO DAILY Aspirin [Adult Low Dose Aspirin EC] 81 mg PO DAILY Ascorbic Acid [Vitamin C] 1,000 mg PO DAILY Zinc 50 mg PO DAILY Omeprazole [PriLOSEC] 20 mg PO HS Acetaminophen/Diphenhydramine [Tylenol PM 500-25mg] 1 tab PO HS PRN PRN Reason: Insomnia Guaifen/Phenyleph/Acetaminophn [Tylenol Sinus Severe Caplet] 1 tab PO Q6H PRN PRN Reason: Cold Symptoms Discharge Medication List Ascorbic Acid [Vitamin C] 1,000 mg PO DAILY 01/18/18 [History] Aspirin [Adult Low Dose Aspirin EC] 81 mg PO DAILY 01/18/18 [History] Multivitamins, Thera [Multivitamin (formulary)] 1 tab PO DAILY 01/18/18 [History ] [place]-3 Fatty Acids/Fish Oil [Fish Oil 1,000 mg Softgel] 1 tab PO DAILY [History] Simvastatin [Zocor] 20 mg PO HS 01/18/18 [History] Zinc 50 mg PO DAILY 01/18/18 [History] diphenhydrAMINE [Benadryl] 25 mg PO DAILY PRN 01/18/18 [History] Acetaminophen/Diphenhydramine [Tylenol PM 500-25mg] 1 tab PO HS PRN 01/04/19 [ History] Guaifen/Phenyleph/Acetaminophn [Tylenol Sinus Severe Caplet] 1 tab PO Q6H PRN [History] Omeprazole [PriLOSEC] 20 mg PO HS 01/04/19 [History] Lidocaine Viscous 2% [Xylocaine Viscous] 10 ml MUCOUS MEM Q1H PRN #1 bottle [Rx] Levofloxacin [Levaquin] 500 mg PO DAILY 3 Days #3 tab 01/09/19 [Rx] metroNIDAZOLE [Flagyl] 500 mg PO Q8HR 3 Days #9 tab 01/09/19 [Rx] Follow up Appointment(s)/Referral(s): Edward Dodd MD [Primary Care Provider] - 1-2 days (please call office on Thursday and schedule follow up appointment. Office is currently closed) Patient Instructions/Handouts: Gastrointestinal Bleeding (DC), Pharyngitis (GEN ), Low Fiber Diet (DC), Fever in Adults (GEN), Sepsis (GEN), Diverticulitis Diet (DC) Discharge Disposition: HOME SELF-CARE
== END 2019-01-08 17:26 | disposition home or self-care (01) | DRG 871 ==
LOC: EC 19:11 → 3NMEDONC 22:34 → 2SICU 01-05 21:04 → 3NMEDONC 01-07 21:03
PROVIDERS: ADMIT Hospitalist; ATTEND Hospitalist
PROC: 30233N1 Transfusion of Nonautologous Red Blood Cells into Peripheral Vein, Percutaneous Approach (ICD-10-PCS; 2019-01-05)
PROC: 0DB78ZX Excision of Stomach, Pylorus, Via Natural or Artificial Opening Endoscopic, Diagnostic (ICD-10-PCS; principal; 2019-01-07 09:20)
PROC: 0DJD8ZZ Inspection of Lower Intestinal Tract, Via Natural or Artificial Opening Endoscopic (ICD-10-PCS; 2019-01-07 09:20)
DX: A41.9 Sepsis, unspecified organism (principal); K57.33 Diverticulitis of large intestine without perforation or abscess with bleeding; K29.71 Gastritis, unspecified, with bleeding; N17.9 Acute kidney failure, unspecified; E87.2 Acidosis; C85.90 Non-Hodgkin lymphoma, unspecified, unspecified site; D62 Acute posthemorrhagic anemia; B37.0 Candidal stomatitis; D70.1 Agranulocytosis secondary to cancer chemotherapy; H91.90 Unspecified hearing loss, unspecified ear; E78.5 Hyperlipidemia, unspecified; J02.9 Acute pharyngitis, unspecified; I45.10 Unspecified right bundle-branch block; K52.9 Noninfective gastroenteritis and colitis, unspecified; K21.9 Gastro-esophageal reflux disease without esophagitis; K44.9 Diaphragmatic hernia without obstruction or gangrene; K64.8 Other hemorrhoids; K12.31 Oral mucositis (ulcerative) due to antineoplastic therapy; T45.1X5A Adverse effect of antineoplastic and immunosuppressive drugs, initial encounter; Z79.82 Long term (current) use of aspirin; Z79.899 Other long term (current) drug therapy; Z87.01 Personal history of pneumonia (recurrent); Z92.21 Personal history of antineoplastic chemotherapy; Z88.1 Allergy status to other antibiotic agents
CPT/HCPCS: 36415; 43239; 45378; 71046; 74177; 80048; 80053; 81003; 82272; 82550; 82553; 82728; 82784; 83540; 83550; 83605; 83615; 83630; 83735; 83993; 84484; 84550; 85025; 85027; 85610; 85730; 86850; 86900; 86901; 86920; 87040; 87045; 87046; 87081; 87086; 87324; 87430; 87502; 88305; 93005; 96360; 96365; 96366; 96375; 99285

== ENCOUNTER → 2019-02-05 | Outpatient (CLI) | payer MEDICARE ==
--- NOTE | 2019-02-05 15:40 | PE ---
EXAMINATION TYPE: PET CT fusion skull to thigh DATE OF EXAM: 02/05/2019 COMPARISON: Prior PET/CT June 12, 2018 and older studies. Most recent CT abdomen and pelvis January 05, 2019. HISTORY: History of lymphoma diagnosed 2010 with widespread involvement completed chemotherapy in Nov. TECHNIQUE: Following the intravenous administration of 14.0 mCi of F-18 FDG, whole body images are p erformed from the skull base to the midthigh. Images are reviewed on the computer in the coronal, ax ial, and sagittal planes. Reconstructed rotating images are created on independent workstation and r eviewed on the computer. A noncontrast CT is performed in conjunction with the PET scan. SCAN: Subsequent Scan FINDINGS: MEDIASTINUM MEAN SUV: 0.77 LIVER MEAN SUV: 1.76 SKULL BASE AND NECK: Symmetric uptake at level of vocal cords. Fairly symmetric uptake anterior lowe r cervical muscles. Interval improvement in right lateral muscular uptake. No new suspicious hypermet abolic uptake or adenopathy present. CHEST, MEDIASTINUM, AND HILAR REGION: Mild hypermetabolic uptake subcarinal region corresponding to s ubcentimeter on short axis lymph node axial image 83, max SUV is 3.11. No new areas of suspicious hyp ermetabolic uptake or adenopathy otherwise seen. ABDOMEN AND PELVIS: Liver and spleen remain normal in size without suspicious new focal increased hyp ermetabolic uptake. No new areas of suspicious hypermetabolic uptake or adenopathy including bilatera l groin region. OSSEOUS STRUCTURES: No new suspicious hypermetabolic uptake. OTHER CT: There are new small to moderate air-fluid levels bilateral maxillary sinuses, right greater than left. Cannot exclude acute sinusitis, correlate clinically. Multilevel spurring of the spine is redemonstrated. Ascending aorta measures up to 4.3 cm in diameter axial image 79. Mild coronary artery calcifications are redemonstrated. Calcified right hilar lymph nodes are redemonstrated. Bladder is poorly distended and thus suboptimally evaluated. IMPRESSION: New mild hypermetabolic uptake, cannot exclude new subcentimeter short axis subcarinal ly mph node otherwise no new suspicious adenopathy or hypermetabolic uptake to suggest active neoplastic progression.
== END | disposition home or self-care (01) ==
LOC: RADPETMAIN 09:57
PROVIDERS: ATTEND Internal Medicine Hematology & Oncology
DX: C85.98 Non-Hodgkin lymphoma, unspecified, lymph nodes of multiple sites (principal); C83.17 Mantle cell lymphoma, spleen; Z92.21 Personal history of antineoplastic chemotherapy
CPT/HCPCS: 78815; A9552

== ENCOUNTER → 2019-02-18 | Outpatient (CLI) | payer MEDICARE ==
[2019-02-21 02:55] LABS: Varicella IgM Antibody 0.22 INDEX (<=0.90)
[2019-02-21 05:49] LABS: Herpes simplex IgG I Ab 28.8 (< or = 0.90); Herpes simplex IgG II Ab 0.12 (< or = 0.90)
== END ==
LOC: LABWHC1 12:57
PROVIDERS: ATTEND Internal Medicine Infectious Disease
DX: K12.2 Cellulitis and abscess of mouth (principal); B01.9 Varicella without complication
CPT/HCPCS: 36415; 86694; 86695; 86696; 86787

== ENCOUNTER → 2019-04-08 | Outpatient (CLI) | payer MEDICARE ==
--- NOTE | 2019-04-08 12:22 | XR ---
EXAMINATION TYPE: XR hand complete RT DATE OF EXAM: 04/08/2019 CLINICAL HISTORY: pain TECHNIQUE: Frontal, lateral and oblique images of the right hand are obtained. COMPARISON: None. FINDINGS: There is no acute fracture/dislocation evident. Mild degenerative narrowing of various DIP joints. The overlying soft tissue appears unremarkable. IMPRESSION: There is no acute fracture or dislocation ICD 10 NO FRACTURE, INITIAL EVALUATION
--- NOTE | 2019-04-08 12:23 | XR ---
EXAMINATION TYPE: XR chest 2V DATE OF EXAM: 04/08/2019 COMPARISON: 01/04/2019 HISTORY: Shortness of breath TECHNIQUE: Frontal and lateral views of the chest are obtained. FINDINGS: Scattered senescent parenchymal changes noted. Hyperinflation compatible with COPD. No evidence for infiltrate. No evidence for atelectasis. Heart size is stable. Mediastinal structures are stable and grossly unremarkable. No evidence for hilar prominence. Degenerative changes dorsal spine. IMPRESSION: 1. No evidence for acute pulmonary disease.
== END | disposition home or self-care (01) ==
LOC: RADXRMAIN 12:01
PROVIDERS: ATTEND Internal Medicine Hematology & Oncology
DX: C85.98 Non-Hodgkin lymphoma, unspecified, lymph nodes of multiple sites (principal); C83.17 Mantle cell lymphoma, spleen; R51 Headache; E78.5 Hyperlipidemia, unspecified
CPT/HCPCS: 71046

== ENCOUNTER → 2019-08-09 | Outpatient (CLI) | payer MEDICARE ==
--- NOTE | 2019-08-09 15:32 | XR ---
EXAMINATION TYPE: XR chest 2V DATE OF EXAM: 08/09/2019 COMPARISON: 04/08/2019 HISTORY: Persistent shortness of breath TECHNIQUE: Frontal and lateral views of the chest are obtained. FINDINGS: There is no focal air space opacity, pleural effusion, or pneumothorax seen. The cardiac silhouette size is within normal limits. Thoracic aorta appears slightly enlarged measuring 4.3 cm. T he osseous structures are intact. Mild multilevel degenerative changes of the thoracic spine. Inciden patti note of pectus excavatum and diaphragmatic eventration. IMPRESSION: 1. No acute cardiopulmonary process. 2. 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 There are be co nsidered for more accurate assessment of degree of dilatation.
== END | disposition home or self-care (01) ==
LOC: RADXRMAIN 15:00
PROVIDERS: ATTEND Nurse Practitioner Adult Health
DX: R06.02 Shortness of breath (principal); D70.8 Other neutropenia; C85.98 Non-Hodgkin lymphoma, unspecified, lymph nodes of multiple sites; R51 Headache; C83.17 Mantle cell lymphoma, spleen
CPT/HCPCS: 71046

== ENCOUNTER → 2019-08-20 | Outpatient (CLI) | payer MEDICARE ==
--- NOTE | 2019-08-22 07:32 | PE ---
EXAMINATION TYPE: PET CT fusion skull to thigh DATE OF EXAM: 08/20/2019 COMPARISON: Prior PET/CT February 05, 2019 and older studies HISTORY: Lymphoma originally diagnosed in the neck 2010 completed chemotherapy December 05, 2018. TECHNIQUE: Following the intravenous administration of 11 mCi of F-18 FDG, whole body images are per formed from the skull base to the midthigh. Images are reviewed on the computer in the coronal, axia l, and sagittal planes. Reconstructed rotating images are created on independent workstation and rev iewed on the computer. A noncontrast CT is performed in conjunction with the PET scan. SCAN: Subsequent Scan FINDINGS: Mediastinum mean SUV: 1.91 Liver mean SUV : 2.02 SKULL BASE AND NECK: No new areas of suspicious hypermetabolic uptake. No suspicious adenopathy iden tified. CHEST, MEDIASTINUM, AND HILAR REGION: No new areas of suspicious hypermetabolic uptake. ABDOMEN AND PELVIS: No new areas of suspicious hypermetabolic uptake. OSSEOUS STRUCTURES: No new areas of suspicious hypermetabolic uptake. OTHER CT: There is some mucosal thickening bilateral maxillary sinuses. Multilevel spurring of the spine is redemonstrated. Ascending aorta measures up to 4.3 cm in diameter axial image 105. Mild coronary artery calcifications are redemonstrated. Calcified right hilar lymph nodes are redemonstrated. Bladder remains poorly distended and thus suboptimally evaluated. Disc space narrowing lower lumbar s pine is redemonstrated. IMPRESSION: No new areas of suspicious hypermetabolic uptake on current study.
== END | disposition home or self-care (01) ==
LOC: RADPETMAIN 07:28
PROVIDERS: ATTEND Internal Medicine Hematology & Oncology
DX: C85.88 Other specified types of non-Hodgkin lymphoma, lymph nodes of multiple sites (principal); C83.17 Mantle cell lymphoma, spleen
CPT/HCPCS: 78815; A9552

== ENCOUNTER 2019-09-08 18:14 | Inpatient (IN) | payer MEDICARE ==
[2019-09-08] MEDS ORDERED: ACETAMINOPHEN TAB 325 MG TAB PO STA (18:35)
[2019-09-08] MEDS: SODIUM CHLORIDE 0.9% 500 ML 500 ML IV SCH (18:49)
--- NOTE | 2019-09-08 19:02 | XR ---
EXAMINATION TYPE: XR chest 1V DATE OF EXAM: 09/08/2019 COMPARISON: 08/09/2019 HISTORY: Fever short of breath TECHNIQUE: Single frontal view of the chest is obtained. FINDINGS: Heart appears slightly enlarged. There is mild infiltrates in the left lower lobe. There i s some mild atelectasis and infiltrate right midlung. There is no heart failure. IMPRESSION: Bilateral pulmonary infiltrates are new compared to last exam and consistent with pneumo destiny. No heart failure.
[2019-09-08 19:03] LABS: Anisocytosis Slight; HCT 30.3 % (39.0-53.0); Hypochromasia Moderate; MCH 32.8 pg (25.0-35.0); MCHC 32.4 g/dL (31.0-37.0); Macrocytosis Moderate; Mean Platelet Volume 6.4; Platelet Count 181 k/uL (150-450); RDW 18.1 % (11.5-15.5)
[2019-09-08 19:06] LABS: WBC 0.2 k/uL (3.8-10.6)
[2019-09-08] MEDS ORDERED: PIPERACILLIN-TAZOBACTAM 3.375 GM in SODIUM CHLORIDE 0.9% 100 ML IVPB STA (19:07)
[2019-09-08] MEDS ORDERED: VANCOMYCIN IV PER PHARMACY 1 EACH MISC MISCELLANE PRN (19:07)
[2019-09-08] MEDS ORDERED: SODIUM CHLORIDE 0.9% 1,000 ML IV STA (19:08)
[2019-09-08] MEDS ORDERED: VANCOMYCIN 1,500 MG in SODIUM CHLORIDE 0.9% 250 ML IVPB STA (19:11)
[2019-09-08 19:16] LABS: Albumin 2.9 g/dL (3.5-5.0); Calcium 7.8 mg/dL (8.4-10.2); Potassium 4.2 mmol/L (3.5-5.1); Total Bilirubin 0.6 mg/dL (0.2-1.3); Total Protein 5.6 g/dL (6.3-8.2)
[2019-09-08 19:18] LABS: Appearance,Urine Clear (Clear); Bilirubin,Urine Negative (Negative); Blood,Urine Negative (Negative); Color,Urine Yellow; Glucose,Urine (UA) Negative (Negative); Granular Casts,Urine 5 /lpf (0); Ketones,Urine Negative (Negative); Leukocyte Esterase,Urine Negative (Negative); Mucus,Urine Rare /hpf; Nitrite,Urine Negative (Negative); PH, Urine 5.5 (5.0-8.0); Protein,Urine 1+ (Negative); RBC,Urine 1 /hpf (0-5); Specific Gravity,Urine 1.013 (1.001-1.035); Urobilinogen,Urine <2.0 mg/dL (<2.0); WBC,Urine 1 /hpf (0-5)
[2019-09-08 19:24] LABS: INR 1.1 (<1.2)
[2019-09-08 19:25] LABS: Prothrombin Time 11.7 sec (9.0-12.0)
[2019-09-08 19:28] LABS: Anisocytosis (M) Present
[2019-09-08 19:29] LABS: Polychromasia Present
[2019-09-08 19:31] LABS: HGB 9.8 gm/dL (13.0-17.5); MCV 101.1 fL (80.0-100.0)
[2019-09-08 19:33] LABS: D-Dimer 4.38 mg/L FEU (<0.60)
[2019-09-08] MEDS ORDERED: ACYCLOVIR SODIUM IV ONE (19:45)
[2019-09-08] MEDS ORDERED: SODIUM CHLORIDE 0.9% IV ONE (19:45)
--- NOTE | 2019-09-08 19:45 | ED ---
General Adult HPI - General Chief complaint: Fever Stated complaint: Sepsis Time Seen by Provider: 09/08/19 18:28 Source: patient, family, EMS, RN notes reviewed, old records reviewed Mode of arrival: EMS Limitations: no limitations - History of Present Illness Initial comments: 68-year-old male patient past history significant for lymphoma, currently in r emission, last chemotherapy November 2018 presents to ED for chief complaint of cough, fever. Patient reports she has not been feeling well the last 3 days, however, much worse today. Patient reports that he has had a cough. Denies any dysuria, chest pain, abdominal pain area patient reports that he has shortness of breath with exertion. He declined any other complaint this time. Patient family do report the patient has a history of neutropenia is currently on Neupogen. Systemic: Pt denies fatigue, rash. Pt denies weakness, night sweats, weight loss. Neuro: Pt denies headache, visual disturbances, syncope or pre-syncope. HEENT: Pt denies ocular discharge or irritation, otalgia, rhinorrhea, pharyngitis or notable lymphadenopathy. Cardiopulmonary: Pt denies chest pain, heart palpitations, dyspnea on exertion. Abdominal/GI: Pt denies abdominal pain, n/v/d. : Pt denies dysuria, burning w/ urination, frequency/urgency. Denies new onset urinary or bowel incontinence. MSK: Pt denies myalgia, loss of strength or function in extremities. Neuro: Pt denies new onset weakness, paresthesias. - Related Data Home Medications Medication Instructions Recorded Confirmed Ascorbic Acid [Vitamin C] 1,000 mg PO DAILY 01/18/18 09/08/19 Multivitamins, Thera [Multivitamin 1 tab PO DAILY 01/18/18 09/08/19 (formulary)] [place]-3 Fatty Acids/Fish Oil [Fish 1 tab PO DAILY 01/18/18 09/08/19 Oil 1,000 mg Softgel] diphenhydrAMINE [Benadryl] 25 mg PO DAILY PRN 01/18/18 09/08/19 Acetaminophen/Diphenhydramine 1 tab PO HS PRN 01/04/19 09/08/19 [Tylenol PM 500-25mg] Guaifen/Phenyleph/Acetaminophn 1 tab PO Q6H PRN 01/04/19 09/08/19 [Tylenol Sinus Severe Caplet] Omeprazole [PriLOSEC] 20 mg PO HS 01/04/19 09/08/19 Acetaminophen Tab [Tylenol Tab] 650 mg PO Q4H PRN 09/08/19 09/08/19 Dexamethasone [Decadron Oral Soln] 1 mg PO QID 09/08/19 09/08/19 Filgrastim Sndz [Neupogen] 480 mcg SQ SUWE 09/08/19 09/08/19 Sulfamethox-Tmp 800-160Mg [Bactrim 1 tab PO BID 09/08/19 09/08/19 DS 800-160 mg] valACYclovir HCL [Valtrex] 1,000 mg PO BID 09/08/19 09/08/19 Allergies Allergy/AdvReac Type Severity Reaction Status Date / Time cephalexin [From Keflex] Allergy Rash/Hives Verified 09/08/19 18:33 Review of Systems ROS Statement: Those systems with pertinent positive or pertinent negative responses have been documented in the HPI. ROS Other: All systems not noted in ROS Statement are negative. Past Medical History Past Medical History: Cancer, GI Bleed, Hearing Disorder / Deafness, Hyperlipidemia, Pneumonia Additional Past Medical History / Comment(s): CURRENT: N & V. LYMPHOMA, PAST CHEMO, last chemo 2016. 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 cystoscopy History of Any Multi-Drug Resistant Organisms: None Reported Past Surgical History: Orthopedic Surgery Additional Past Surgical History / Comment(s): RIGHT ROTATOR CUFF. VEIN STRIPPING LEFT. spot on tongue removed, sinus surgery Past Anesthesia/Blood Transfusion Reactions: No Reported Reaction Past Psychological History: No Psychological Hx Reported Smoking Status: Never smoker Past Alcohol Use History: Rare Past Drug Use History: None Reported - Past Family History Mother Family Medical History: Unable to Obtain General Exam - General Exam Comments Initial Comments: Constitutional: NAD, AOX3, Pt has pleasant affect. HEENT: NC/AT, trachea midline, neck supple, no lymphadenopathy. Posterior pharynx non erythematous, without exudates. External ears appear normal, without discharge. Mucous membranes moist. Eyes PERRLA, EOM intact. There is no scleral icterus. No pallor noted. Cardiopulmonary: RRR, no murmurs, rubs or gallops, no JVD noted. Rhonchi noted in left lower lung field. Moderate respiratory work noted. No peripheral edema. Abdominal exam: Abdomen soft and non-distended. Abdomen non-tender to palpation in all 4 quadrants. Bowel sounds active in LLQ. No hepatosplenomegaly. No ecchymosis Neuro: CN II-XII grossly intact. No nuchal rigidity. No raccon eyes, no johnson sign, no hemotympanum. No cervical spinal tenderness. MSK: No posterior calf tenderness bilaterally, homans sign negative bilaterally. Posterior tibialis and radial pulse +2 bilaterally. Sensation intact in upper and lower extremities. Full active ROM in upper and lower extremities, 5/5 stregnth. Limitations: no limitations Course Vital Signs 09/08/19 09/08/19 09/08/19 18:21 19:28 19:59 Temperature 99.6 F Pulse Rate 111 H 101 H 96 Respiratory 36 H 28 H 26 H Rate Blood Pressure 90/67 85/52 95/60 O2 Sat by Pulse 95 96 96 Oximetry 09/08/19 20:05 Temperature Pulse Rate 96 Respiratory 30 H Rate Blood Pressure 85/57 O2 Sat by Pulse 93 L Oximetry Medical Decision Making - Medical Decision Making 68-year-old male patient past history significant for lymphoma, currently in remission, last chemotherapy November 2018 presents to ED for chief complaint of cough, fever. Patient reports she has not been feeling well the last 3 days, however, much worse today. Patient reports that he has had a cough. Denies any dysuria, chest pain, abdominal pain area patient reports that he has shortness of breath with exertion. He declined any other complaint this time. Patient family do report the patient has a history of neutropenia is currently on Neupogen. Patient was signed displayed tachycardia, hypotension, tachypnea. Physical exam displayed rhonchi noted left lower lung field. Chest protocol initiated. Patient was is 2500 mL normal saline. Initiated on broad-spectrum antibiotics and antivirals. Laboratory investigations revealed neutropenia 0.2. Hemoglobin of 9.8. CMP revealed acute kidney injury, excessive 5. now, very mildly elevated troponin 0.035. UA negative, influenza negative. Chest x-ray displayed bilateral pulmonary infiltrates systemic pneumonia. EKG revealed sinus tachycardia. Central line was placed by turning physician Dr. Olivera. D-dimer is elevated at 4.38. Due to acute kidney injury, VQ scan was ordered. Source of patient's infection and sepsis likely pneumonia as opposed to PE. No chest pain. Patient will be admitted for pneumonia sepsis. Patient will be admitted to Dr. Chance with pulmonology consult. Case discussed in depth and pt evaluated by Dr. Olivera. - Lab Data Result diagrams: 09/08/19 18:40 09/08/19 18:40 Lab Results 09/08/19 09/08/19 09/08/19 Range/Units 18:40 18:40 18:40 WBC 0.2 L* (3.8-10.6) k/uL RBC 3.00 L (4.30-5.90) m/uL Hgb 9.8 L D (13.0-17.5) gm/dL Hct 30.3 L (39.0-53.0) % MCV 101.1 H D (80.0-100.0) fL MCH 32.8 (25.0-35.0) pg MCHC 32.4 (31.0-37.0) g/dL RDW 18.1 H (11.5-15.5) % Plt Count 181 (150-450) k/uL Neutrophils # [employer] Differential Comment Polychromasia Present Hypochromasia Moderate Anisocytosis Slight Anisocytosis (manual) Present Macrocytosis Moderate PT (9.0-12.0) sec INR (<1.2) APTT (22.0-30.0) sec D-Dimer (<0.60) mg/L FEU Sodium 135 L (137-145) mmol/L Potassium 4.2 (3.5-5.1) mmol/L Chloride 103 (98-107) mmol/L Carbon Dioxide 20 L (22-30) mmol/L Anion Gap 12 mmol/L BUN 27 H (9-20) mg/dL Creatinine 2.34 H (0.66-1.25) mg/dL Est GFR (CKD-EPI)AfAm 32 (>60 ml/min/1.73 sqM) Est GFR (CKD-EPI)NonAf 28 (>60 ml/min/1.73 sqM) Glucose 112 H (74-99) mg/dL Plasma Lactic Acid Ramses 5.0 H* (0.7-2.0) mmol/L Calcium 7.8 L (8.4-10.2) mg/dL Total Bilirubin 0.6 (0.2-1.3) mg/dL AST 32 (17-59) U/L ALT 17 L (21-72) U/L Alkaline Phosphatase 93 (38-126) U/L Troponin I (0.000-0.034) ng/mL Total Protein 5.6 L (6.3-8.2) g/dL Albumin 2.9 L (3.5-5.0) g/dL Urine Color Urine Appearance (Clear) Urine pH (5.0-8.0) Ur Specific [place] (1.001-1.035) Urine Protein (Negative) Urine Glucose (UA) (Negative) Urine Ketones (Negative) Urine Blood (Negative) Urine Nitrite (Negative) Urine Bilirubin (Negative) Urine Urobilinogen (<2.0) mg/dL Ur Leukocyte Esterase (Negative) Urine RBC (0-5) /hpf Urine WBC (0-5) /hpf Granular Casts (0) /lpf Urine Mucus (None) /hpf Influenza Type A RNA (Not Detectd) Influenza Type B (PCR) (Not Detectd) 09/08/19 09/08/19 09/08/19 Range/Units 18:40 18:40 19:00 WBC (3.8-10.6) k/uL RBC (4.30-5.90) m/uL Hgb (13.0-17.5) gm/dL Hct (39.0-53.0) % MCV (80.0-100.0) fL MCH (25.0-35.0) pg MCHC (31.0-37.0) g/dL RDW (11.5-15.5) % Plt Count (150-450) k/uL Neutrophils # Differential Comment Polychromasia Hypochromasia Anisocytosis Anisocytosis (manual) Macrocytosis PT 11.7 (9.0-12.0) sec INR 1.1 (<1.2) APTT 28.0 (22.0-30.0) sec D-Dimer 4.38 H (<0.60) mg/L FEU Sodium (137-145) mmol/L Potassium (3.5-5.1) mmol/L Chloride (98-107) mmol/L Carbon Dioxide (22-30) mmol/L Anion Gap mmol/L BUN (9-20) mg/dL Creatinine (0.66-1.25) mg/dL Est GFR (CKD-EPI)AfAm (>60 ml/min/1.73 sqM) Est GFR (CKD-EPI)NonAf (>60 ml/min/1.73 sqM) Glucose (74-99) mg/dL Plasma Lactic Acid Ramses (0.7-2.0) mmol/L Calcium (8.4-10.2) mg/dL Total Bilirubin (0.2-1.3) mg/dL AST (17-59) U/L ALT (21-72) U/L Alkaline Phosphatase (38-126) U/L Troponin I 0.035 H* (0.000-0.034) ng/mL Total Protein (6.3-8.2) g/dL Albumin (3.5-5.0) g/dL Urine Color Yellow Urine Appearance Clear (Clear) Urine pH 5.5 (5.0-8.0) Ur Specific [place] 1.013 (1.001-1.035) Urine Protein 1+ H (Negative) Urine Glucose (UA) Negative (Negative) Urine Ketones Negative (Negative) Urine Blood Negative (Negative) Urine Nitrite Negative (Negative) Urine Bilirubin Negative (Negative) Urine Urobilinogen <2.0 (<2.0) mg/dL Ur Leukocyte Esterase Negative (Negative) Urine RBC 1 (0-5) /hpf Urine WBC 1 (0-5) /hpf Granular Casts 5 (0) /lpf Urine Mucus Rare H (None) /hpf Influenza Type A RNA (Not Detectd) Influenza Type B (PCR) (Not Detectd) 09/08/19 Range/Units 19:00 WBC (3.8-10.6) k/uL RBC (4.30-5.90) m/uL Hgb (13.0-17.5) gm/dL Hct (39.0-53.0) % MCV (80.0-100.0) fL MCH (25.0-35.0) pg MCHC (31.0-37.0) g/dL RDW (11.5-15.5) % Plt Count (150-450) k/uL Neutrophils # Differential Comment Polychromasia Hypochromasia Anisocytosis Anisocytosis (manual) Macrocytosis PT (9.0-12.0) sec INR (<1.2) APTT (22.0-30.0) sec D-Dimer (<0.60) mg/L FEU Sodium (137-145) mmol/L Potassium (3.5-5.1) mmol/L Chloride (98-107) mmol/L Carbon Dioxide (22-30) mmol/L Anion Gap mmol/L BUN (9-20) mg/dL Creatinine (0.66-1.25) mg/dL Est GFR (CKD-EPI)AfAm (>60 ml/min/1.73 sqM) Est GFR (CKD-EPI)NonAf (>60 ml/min/1.73 sqM) Glucose (74-99) mg/dL Plasma Lactic Acid Ramses (0.7-2.0) mmol/L Calcium (8.4-10.2) mg/dL Total Bilirubin (0.2-1.3) mg/dL AST (17-59) U/L ALT (21-72) U/L Alkaline Phosphatase (38-126) U/L Troponin I (0.000-0.034) ng/mL Total Protein (6.3-8.2) g/dL Albumin (3.5-5.0) g/dL Urine Color Urine Appearance (Clear) Urine pH (5.0-8.0) Ur Specific [place] (1.001-1.035) Urine Protein (Negative) Urine Glucose (UA) (Negative) Urine Ketones (Negative) Urine Blood (Negative) Urine Nitrite (Negative) Urine Bilirubin (Negative) Urine Urobilinogen (<2.0) mg/dL Ur Leukocyte Esterase (Negative) Urine RBC (0-5) /hpf Urine WBC (0-5) /hpf Granular Casts (0) /lpf Urine Mucus (None) /hpf Influenza Type A RNA Not Detected (Not Detectd) Influenza Type B (PCR) Not Detected (Not Detectd) Disposition Clinical Impression: Sepsis, Hypotension Disposition: ADMITTED IP TO THIS HOSP Condition: Critical Is patient prescribed a controlled substance at d/c from ED?: No Referrals: Edward Dodd MD [Primary Care Provider] - 1-2 days
--- NOTE | 2019-09-08 19:46 | ED ---
General Adult HPI - General Chief complaint: Fever Stated complaint: Sepsis Time Seen by Provider: 09/08/19 18:28 Source: patient, family, EMS Mode of arrival: EMS Limitations: no limitations - History of Present Illness Initial comments: PA attestation: I, Dr. Tony Olivera, personally saw and examined the patient. I have reviewed and agree with the resident/PA findings, including all diagnostic interpretations and treatment plans as written unless otherwise stated. I was present for the jones portions of any procedures performed and inclusive time noted for any critical care statement. Patient was seen and evaluated with REBEKA Truong. Patient 68-year-old male with past medical history of lymphoma. He's been in and out of the hospital for sections. Most recently he was at [place]. Presents today with fevers 3 days. Patient is hypotensive with a blood pressure 8552 tachypnea of 28. Return evaluation obtained. Patient leukopenia with 0.2. Hemoglobin 9.8. Coag panel is unremarkable. Patient also has findings of acute kidney injury. Lactic acidosis 5.0 troponin 0.035. X-ray shows pneumonia. Clinical presentation concerning for pneumonia sepsis. Given that patient has history of lymphoma and leukopenic. We'll cover patient with broad-spectrum antibiotics and antivirals. Central line was placed. Patient started on IV pressors. - Related Data Home Medications Medication Instructions Recorded Confirmed Ascorbic Acid [Vitamin C] 1,000 mg PO DAILY 01/18/18 09/08/19 Multivitamins, Thera [Multivitamin 1 tab PO DAILY 01/18/18 09/08/19 (formulary)] [place]-3 Fatty Acids/Fish Oil [Fish 1 tab PO DAILY 01/18/18 09/08/19 Oil 1,000 mg Softgel] diphenhydrAMINE [Benadryl] 25 mg PO DAILY PRN 01/18/18 09/08/19 Acetaminophen/Diphenhydramine 1 tab PO HS PRN 01/04/19 09/08/19 [Tylenol PM 500-25mg] Guaifen/Phenyleph/Acetaminophn 1 tab PO Q6H PRN 01/04/19 09/08/19 [Tylenol Sinus Severe Caplet] Omeprazole [PriLOSEC] 20 mg PO HS 01/04/19 09/08/19 Acetaminophen Tab [Tylenol Tab] 650 mg PO Q4H PRN 09/08/19 09/08/19 Dexamethasone [Decadron Oral Soln] 1 mg PO QID 09/08/19 09/08/19 Filgrastim Sndz [Neupogen] 480 mcg SQ SUWE 09/08/19 09/08/19 Sulfamethox-Tmp 800-160Mg [Bactrim 1 tab PO BID 09/08/19 09/08/19 DS 800-160 mg] valACYclovir HCL [Valtrex] 1,000 mg PO BID 09/08/19 09/08/19 Allergies Allergy/AdvReac Type Severity Reaction Status Date / Time cephalexin [From Keflex] Allergy Rash/Hives Verified 09/08/19 18:33 Review of Systems ROS Statement: Those systems with pertinent positive or pertinent negative responses have been documented in the HPI. ROS Other: All systems not noted in ROS Statement are negative. Past Medical History Past Medical History: Cancer, GI Bleed, Hearing Disorder / Deafness, Hyperlipidemia, Pneumonia Additional Past Medical History / Comment(s): CURRENT: N & V. LYMPHOMA, PAST CHEMO, last chemo 2016. 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 cystoscopy History of Any Multi-Drug Resistant Organisms: None Reported Past Surgical History: Orthopedic Surgery Additional Past Surgical History / Comment(s): RIGHT ROTATOR CUFF. VEIN STRIPPING LEFT. spot on tongue removed, sinus surgery Past Anesthesia/Blood Transfusion Reactions: No Reported Reaction Past Psychological History: No Psychological Hx Reported Smoking Status: Never smoker Past Alcohol Use History: Rare Past Drug Use History: None Reported - Past Family History Mother Family Medical History: Unable to Obtain General Exam Limitations: no limitations Course Vital Signs 09/08/19 09/08/19 18:21 19:28 Temperature 99.6 F Pulse Rate 111 H 101 H Respiratory 36 H 28 H Rate Blood Pressure 90/67 85/52 O2 Sat by Pulse 95 96 Oximetry Procedures - Central Line Placement Left IJ Consent Obtained: verbal consent, written consent Patient Placed on Monitor/Pulse Ox: Yes MD Prep: mask, gown, gloves Central Line Prep: Povidone-Iodine 1% Local Anesthesia Used: Lidocaine 1%, with Epi Ultrasound Used for Placement: Yes Central Line Lumen Inserted: triple Bloods Obtained for Lab: No Central Line Position: good blood return, all ports aspirated, flushed, capped Dressing Applied: Tegaderm Post Procedure X-Ray: tip of catheter in good position Patient Tolerated Procedure: well Complications: none Medical Decision Making - Lab Data Result diagrams: 09/08/19 18:40 09/08/19 18:40 Lab Results 09/08/19 09/08/19 09/08/19 Range/Units 18:40 18:40 18:40 WBC 0.2 L* (3.8-10.6) k/uL RBC 3.00 L (4.30-5.90) m/uL Hgb 9.8 L D (13.0-17.5) gm/dL Hct 30.3 L (39.0-53.0) % MCV 101.1 H D (80.0-100.0) fL MCH 32.8 (25.0-35.0) pg MCHC 32.4 (31.0-37.0) g/dL RDW 18.1 H (11.5-15.5) % Plt Count 181 (150-450) k/uL Neutrophils # [employer] Differential Comment Polychromasia Present Hypochromasia Moderate Anisocytosis Slight Anisocytosis (manual) Present Macrocytosis Moderate PT (9.0-12.0) sec INR (<1.2) APTT (22.0-30.0) sec D-Dimer (<0.60) mg/L FEU Sodium 135 L (137-145) mmol/L Potassium 4.2 (3.5-5.1) mmol/L Chloride 103 (98-107) mmol/L Carbon Dioxide 20 L (22-30) mmol/L Anion Gap 12 mmol/L BUN 27 H (9-20) mg/dL Creatinine 2.34 H (0.66-1.25) mg/dL Est GFR (CKD-EPI)AfAm 32 (>60 ml/min/1.73 sqM) Est GFR (CKD-EPI)NonAf 28 (>60 ml/min/1.73 sqM) Glucose 112 H (74-99) mg/dL Plasma Lactic Acid Ramses 5.0 H* (0.7-2.0) mmol/L Calcium 7.8 L (8.4-10.2) mg/dL Total Bilirubin 0.6 (0.2-1.3) mg/dL AST 32 (17-59) U/L ALT 17 L (21-72) U/L Alkaline Phosphatase 93 (38-126) U/L Troponin I (0.000-0.034) ng/mL Total Protein 5.6 L (6.3-8.2) g/dL Albumin 2.9 L (3.5-5.0) g/dL Urine Color Urine Appearance (Clear) Urine pH (5.0-8.0) Ur Specific [place] (1.001-1.035) Urine Protein (Negative) Urine Glucose (UA) (Negative) Urine Ketones (Negative) Urine Blood (Negative) Urine Nitrite (Negative) Urine Bilirubin (Negative) Urine Urobilinogen (<2.0) mg/dL Ur Leukocyte Esterase (Negative) Urine RBC (0-5) /hpf Urine WBC (0-5) /hpf Granular Casts (0) /lpf Urine Mucus (None) /hpf Influenza Type A RNA (Not Detectd) Influenza Type B (PCR) (Not Detectd) 09/08/19 09/08/19 09/08/19 Range/Units 18:40 18:40 19:00 WBC (3.8-10.6) k/uL RBC (4.30-5.90) m/uL Hgb (13.0-17.5) gm/dL Hct (39.0-53.0) % MCV (80.0-100.0) fL MCH (25.0-35.0) pg MCHC (31.0-37.0) g/dL RDW (11.5-15.5) % Plt Count (150-450) k/uL Neutrophils # Differential Comment Polychromasia Hypochromasia Anisocytosis Anisocytosis (manual) Macrocytosis PT 11.7 (9.0-12.0) sec INR 1.1 (<1.2) APTT 28.0 (22.0-30.0) sec D-Dimer 4.38 H (<0.60) mg/L FEU Sodium (137-145) mmol/L Potassium (3.5-5.1) mmol/L Chloride (98-107) mmol/L Carbon Dioxide (22-30) mmol/L Anion Gap mmol/L BUN (9-20) mg/dL Creatinine (0.66-1.25) mg/dL Est GFR (CKD-EPI)AfAm (>60 ml/min/1.73 sqM) Est GFR (CKD-EPI)NonAf (>60 ml/min/1.73 sqM) Glucose (74-99) mg/dL Plasma Lactic Acid [place] (0.7-2.0) mmol/L Calcium (8.4-10.2) mg/dL Total Bilirubin (0.2-1.3) mg/dL AST (17-59) U/L ALT (21-72) U/L Alkaline Phosphatase (38-126) U/L Troponin I 0.035 H* (0.000-0.034) ng/mL Total Protein (6.3-8.2) g/dL Albumin (3.5-5.0) g/dL Urine Color Yellow Urine Appearance Clear (Clear) Urine pH 5.5 (5.0-8.0) Ur Specific [place] 1.013 (1.001-1.035) Urine Protein 1+ H (Negative) Urine Glucose (UA) Negative (Negative) Urine Ketones Negative (Negative) Urine Blood Negative (Negative) Urine Nitrite Negative (Negative) Urine Bilirubin Negative (Negative) Urine Urobilinogen <2.0 (<2.0) mg/dL Ur Leukocyte Esterase Negative (Negative) Urine RBC 1 (0-5) /hpf Urine WBC 1 (0-5) /hpf Granular Casts 5 (0) /lpf Urine Mucus Rare H (None) /hpf Influenza Type A RNA (Not Detectd) Influenza Type B (PCR) (Not Detectd) 09/08/19 Range/Units 19:00 WBC (3.8-10.6) k/uL RBC (4.30-5.90) m/uL Hgb (13.0-17.5) gm/dL Hct (39.0-53.0) % MCV (80.0-100.0) fL MCH (25.0-35.0) pg MCHC (31.0-37.0) g/dL RDW (11.5-15.5) % Plt Count (150-450) k/uL Neutrophils # Differential Comment Polychromasia Hypochromasia Anisocytosis Anisocytosis (manual) Macrocytosis PT (9.0-12.0) sec INR (<1.2) APTT (22.0-30.0) sec D-Dimer (<0.60) mg/L FEU Sodium (137-145) mmol/L Potassium (3.5-5.1) mmol/L Chloride (98-107) mmol/L Carbon Dioxide (22-30) mmol/L Anion Gap mmol/L BUN (9-20) mg/dL Creatinine (0.66-1.25) mg/dL Est GFR (CKD-EPI)AfAm (>60 ml/min/1.73 sqM) Est GFR (CKD-EPI)NonAf (>60 ml/min/1.73 sqM) Glucose (74-99) mg/dL Plasma Lactic Acid [place] (0.7-2.0) mmol/L Calcium (8.4-10.2) mg/dL Total Bilirubin (0.2-1.3) mg/dL AST (17-59) U/L ALT (21-72) U/L Alkaline Phosphatase (38-126) U/L Troponin I (0.000-0.034) ng/mL Total Protein (6.3-8.2) g/dL Albumin (3.5-5.0) g/dL Urine Color Urine Appearance (Clear) Urine pH (5.0-8.0) Ur Specific [place] (1.001-1.035) Urine Protein (Negative) Urine Glucose (UA) (Negative) Urine Ketones (Negative) Urine Blood (Negative) Urine Nitrite (Negative) Urine Bilirubin (Negative) Urine Urobilinogen (<2.0) mg/dL Ur Leukocyte Esterase (Negative) Urine RBC (0-5) /hpf Urine WBC (0-5) /hpf Granular Casts (0) /lpf Urine Mucus (None) /hpf Influenza Type A RNA Not Detected (Not Detectd) Influenza Type B (PCR) Not Detected (Not Detectd) Critical Care Time Critical Care Time: Yes Total Critical Care Time: 42 Disposition Clinical Impression: Sepsis, Hypotension Disposition: ADMITTED IP TO THIS HOSP Condition: Critical Referrals: Edward Dodd MD [Primary Care Provider] - 1-2 days Decision Time: 19:47
--- NOTE | 2019-09-08 20:04 | XR ---
EXAMINATION TYPE: XR chest 1V confirm line [facility] DATE OF EXAM: 09/08/2019 COMPARISON: Today HISTORY: Check line placement TECHNIQUE: Single frontal view of the chest is obtained. FINDINGS: There is left jugular catheter with the tip in the superior vena cava. There are bilateral patchy pulmonary infiltrates in the right midlung and left lower lobe increased slightly compared to exam one hour ago. There is no heart failure. There is no pneumothorax IMPRESSION: Bilateral pulmonary infiltrates increasing compared to recent exam.
[2019-09-08] MEDS: ACYCLOVIR SODIUM 900 MG in SODIUM CHLORIDE 0.9% 250 ML IV ONE ×2 (20:06→20:11)
[2019-09-08] MEDS: NOREPINEPHRINE 32 MG in SODIUM CHLORIDE 0.9% 218 ML IV SCH (20:06)
[2019-09-08] MEDS ORDERED: HYDROCORTISONE SUCCINATE 100 MG/2 ML VIAL IV STA (20:21)
[2019-09-08] MEDS: SODIUM CHLORIDE 0.9% 1,000 ML IV SCH (20:38)
--- NOTE | 2019-09-08 20:48 | CT ---
EXAMINATION TYPE: CT brain wo con DATE OF EXAM: 09/08/2019 COMPARISON: None HISTORY: Neutropenic fever. CT DLP: 1149.4 mGycm Automated exposure control for dose reduction was used. FINDINGS: There is cerebral atrophy. There is no mass effect nor midline shift. There is no sign of intracrania l hemorrhage. Calvarium is intact. There is mucosal thickening in the maxillary sinuses. There is eth moid sinus mucosal thickening. IMPRESSION: MILD CEREBRAL ATROPHY. NO ACUTE INTRACRANIAL ABNORMALITY. MAXILLARY SINUSITIS. ETHMOID SINUSITIS.
[2019-09-08 22:32] LABS: Glucose,Whole Blood 104 mg/dL (75-99)
[2019-09-09] MEDS: IPRATROPIUM-ALBUTEROL 3 ML NEB INHALATION SCH ×6 (04:27→23:08)
[2019-09-09] MEDS: PIPERACILLIN-TAZOBACTAM 3.375 GM in SODIUM CHLORIDE 0.9% 100 ML IVPB SCH ×2 (04:46→12:51)
[2019-09-09] MEDS: SODIUM CHLORIDE 0.9% 1,000 ML IV SCH ×2 (04:47→12:37)
[2019-09-09 05:37] LABS: Anisocytosis Slight; HCT 29.4 % (39.0-53.0); HGB 9.1 gm/dL (13.0-17.5); Hypochromasia Marked; MCH 32.1 pg (25.0-35.0); MCHC 30.8 g/dL (31.0-37.0); MCV 104.1 fL (80.0-100.0); Macrocytosis Moderate; Mean Platelet Volume 6.5; Platelet Count 131 k/uL (150-450); RBC 2.82 m/uL (4.30-5.90); RDW 18.3 % (11.5-15.5)
[2019-09-09 05:42] LABS: WBC 0.1 k/uL (3.8-10.6)
[2019-09-09 05:45] LABS: Calcium 7.3 mg/dL (8.4-10.2); Potassium 4.5 mmol/L (3.5-5.1)
[2019-09-09 06:30] LABS: Glucose,Whole Blood 147 mg/dL (75-99)
[2019-09-09] MEDS: INSULIN ASPART (NovoLOG) 100 UNIT/ML VIAL SQ SCH ×4 (06:31→20:35)
[2019-09-09] MEDS ORDERED: PANTOPRAZOLE 40 MG TABLET PO SCH (07:30)
[2019-09-09] MEDS ORDERED: SODIUM CHLORIDE 0.9% 1,000 ML IV ONE ×2 (08:17→09:25)
--- NOTE | 2019-09-09 08:31 | XR ---
EXAMINATION TYPE: XR chest 1V DATE OF EXAM: 09/09/2019 COMPARISON: Prior chest 09/08/2019 HISTORY: Pneumonia TECHNIQUE: Single frontal view of the chest is obtained. FINDINGS: Left jugular central venous catheter shows the distal tip overlying superior vena cava jeanie r the innominate vein confluence. No evident pneumothorax. Bilateral airspace disease is present. Hea rt size is enlarged and stable. Bones are unremarkable. IMPRESSION: Findings consistent with patient's history of pneumonia. Cardiomegaly. Follow-up recomme nded.
[2019-09-09] MEDS ORDERED: DEXAMETHASONE 0.5 MG TAB PO SCH (09:00)
[2019-09-09] MEDS ORDERED: SULFAMETHOX-TMP 800-160MG 1 EACH TAB PO SCH (09:00)
[2019-09-09 09:11] LABS: ABG Base Excess -7.5 mmol/L; ABG HCO3 17 mmol/L (21-25); ABG Oxygen Saturation 96.5 % (94-97); ABG PCO2 24 mmHg (35-45); ABG PH 7.45 (7.35-7.45); ABG PO2 77 mmHg (83-108); ABG TCO2 17 mmol/L (19-24); Allen Test Performed? Yes
--- NOTE | 2019-09-09 10:16 | P.CNPUL ---
History of Present Illness Consult date: 09/09/19 Requesting physician: Deangelo Chance Reason for consult: dyspnea, cough, hypoxemia, pneumonia Chief complaint: Fever, cough, hypoxemia History of present illness: This is a 68-year-old white male patient of Dr. Dodd, with a speckle history of non-Hodgkin's/Mantell lymphoma, with last treatment of Rituxan in November 2018, and patient has been in remission since then. 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 He states he had been hospitalized at [facility] in [place], he is unsure of the dates, but most recently with the neutropenic colitis. He is currently receiving filgrastim. He had been on Bactrim, Valtrex. Patient presents to the hospital with complaints of three-day history of weakness, fevers, difficulty breathing, cough and congestion. In addition he has had on and off watery diarrhea. Admission blood work revealed white blood cell count of 0.2, hemoglobin of 9.8, d-dimer was 4.38, sodium of 135, potassium is 4.2, chloride is 103, CO2 is 20, BUN of 27, creatinine is 2.34, plasma lactic acid was 4.0, troponins were positive at 0.035, and 0.246, and 0.536. Influenza was negative, urinalysis without signs of infection. he has a congested cough, shortness of breath, able to bring up much sputum. Chest x-ray revealed bilateral pulmonary infiltrates in the left lower lobe, and some atelectasis and infiltrate in the right midlung. EKG showed sinus tachycardia, without acute ischemic changes. Follow-up chest x-ray on 09/08/2019 at 8:00 showed increasing bilateral pulmonary infiltrates. Patient has been having low- grade fevers, and creasing shortness of breath and hypoxemia, and she was subsequently placed on Arava, currently at 55 L and FiO2 of 75%, his pulse ox is 97%. He was quite hypertensive on presentation, with the blood pressure of 67/43, he received a total of 3.5 L in fluid boluses, he did require Levophed for vasopressor support, which had since been weaned off, he received a dose of cortisone 50 mg IV push in the emergency department, he is on chronic dose of dexamethasone 1 mg 4 times a day. Seen in the intensive care unit this morning, he is tachypneic, has a congested cough, he remains on Airvo. The blood gas was reviewed, and revealed pO2 of 77, pCO2 of 24, and pH of 7.45, consistent with metabolic acidosis with respiratory compensation. Today's blood work shows white blood cell, 0.1, sodium of 137, potassium is 4.5, chloride is 109, CO2 is 18, BUN of 29 and creatinine 2.2. Patient is currently off the Levophed, continues on IV hydration, is making urine, Cohn catheter was inserted, denies any abdominal pain, did have an episode of diarrhea which was sent for cultures and C. diff. Cultures pending. Antibiotic coverage is in the form of Zosyn and vancomycin, patient continues on his home dose Valtrex, and Bactrim has been discontinued Review of Systems All systems: negative Constitutional: Denies chills, Denies fever Eyes: denies blurred vision, denies pain Ears, nose, mouth and throat: Denies headache, Denies sore throat Cardiovascular: Denies chest pain, Denies shortness of breath Respiratory: Reports dyspnea, Denies cough Gastrointestinal: Reports diarrhea, Denies abdominal pain, Denies nausea, Denies vomiting Musculoskeletal: Denies myalgias Integumentary: Denies pruritus, Denies rash Neurological: Denies numbness, Denies weakness Psychiatric: Denies anxiety, Denies depression Endocrine: Denies fatigue, Denies weight change Past Medical History Past Medical History: Cancer, GI Bleed, Hearing Disorder / Deafness, Hyperlipidemia, Pneumonia Additional Past Medical History / Comment(s): CURRENT: N & V. LYMPHOMA, PAST CHEMO, last chemo 2016. 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 cystoscopy History of Any Multi-Drug Resistant Organisms: None Reported Past Surgical History: Orthopedic Surgery Additional Past Surgical History / Comment(s): RIGHT ROTATOR CUFF. VEIN STRIPPING LEFT. spot on tongue removed, sinus surgery Past Anesthesia/Blood Transfusion Reactions: No Reported Reaction Past Psychological History: No Psychological Hx Reported Smoking Status: Never smoker Past Alcohol Use History: Rare Past Drug Use History: None Reported - Past Family History Mother Family Medical History: Unable to Obtain Medications and Allergies Home Medications Medication Instructions Recorded Confirmed Type Ascorbic Acid [Vitamin C] 1,000 mg PO DAILY 01/18/18 09/08/19 History Multivitamins, Thera [Multivitamin 1 tab PO DAILY 01/18/18 09/08/19 History (formulary)] [place]-3 Fatty Acids/Fish Oil [Fish 1 tab PO DAILY 01/18/18 09/08/19 History Oil 1,000 mg Softgel] diphenhydrAMINE [Benadryl] 25 mg PO DAILY PRN 01/18/18 09/08/19 History Acetaminophen/Diphenhydramine 1 tab PO HS PRN 01/04/19 09/08/19 History [Tylenol PM 500-25mg] Guaifen/Phenyleph/Acetaminophn 1 tab PO Q6H PRN 01/04/19 09/08/19 History [Tylenol Sinus Severe Caplet] Omeprazole [PriLOSEC] 20 mg PO HS 01/04/19 09/08/19 History Acetaminophen Tab [Tylenol Tab] 650 mg PO Q4H PRN 09/08/19 09/08/19 History Dexamethasone [Decadron Oral Soln] 1 mg PO QID 09/08/19 09/08/19 History Filgrastim Sndz [Neupogen] 480 mcg SQ SUWE 09/08/19 09/08/19 History Sulfamethox-Tmp 800-160Mg [Bactrim 1 tab PO BID 09/08/19 09/08/19 History DS 800-160 mg] valACYclovir HCL [Valtrex] 1,000 mg PO BID 09/08/19 09/08/19 History Allergies Allergy/AdvReac Type Severity Reaction Status Date / Time cephalexin [From Keflex] Allergy Rash/Hives Verified 09/08/19 18:33 Physical Exam Vitals: Vital Signs Temp Pulse Resp BP Pulse Ox 09/09/19 08:30 105 H 41 H 142/91 96 09/09/19 08:00 99.4 F 107 H 37 H 128/83 96 09/09/19 07:30 101 H 33 H 135/88 96 09/09/19 07:00 102 H 45 H 137/90 94 L 09/09/19 06:30 103 H 34 H 120/81 97 09/09/19 06:00 96 32 H 115/80 97 09/09/19 05:30 95 61 H 109/73 93 L 09/09/19 05:23 95 09/09/19 05:00 95 30 H 111/73 09/09/19 04:35 96 09/09/19 04:30 99 36 H 131/88 96 09/09/19 04:24 93 09/09/19 04:00 99.1 F 87 33 H 128/87 94 L 09/09/19 03:30 86 26 H 108/68 97 09/09/19 03:00 84 29 H 113/73 09/09/19 02:30 83 26 H 111/72 09/09/19 02:00 89 24 105/78 95 09/09/19 01:31 94 L 09/09/19 01:30 84 24 111/75 94 L 09/09/19 01:00 85 24 111/81 94 L 09/09/19 00:30 90 21 91/64 09/09/19 00:14 91 25 H 90/65 94 L 09/09/19 00:00 90 25 H 87/62 97 09/08/19 23:30 97 22 87/57 96 09/08/19 23:28 94 L 09/08/19 23:00 92 34 H 147/78 91 L 09/08/19 21:49 96 30 H 91/55 93 L 09/08/19 21:17 98 F 98 32 H 87/55 92 L 09/08/19 20:44 96 29 H 87/51 90 L 09/08/19 20:05 96 30 H 85/57 93 L 09/08/19 20:00 96 43 H 95/60 90 L 09/08/19 19:59 96 26 H 95/60 96 09/08/19 19:30 104 H 17 85/52 96 09/08/19 19:28 101 H 28 H 85/52 96 09/08/19 19:05 67/43 94 L 09/08/19 19:00 106 H 29 H 83/52 97 09/08/19 18:30 90/67 93 L 09/08/19 18:22 90 L 09/08/19 18:21 99.6 F 111 H 36 H 90/67 95 Intake and Output 09/08/19 09/09/19 09/09/19 22:59 06:59 14:59 Intake Total 1.327 6163.313 0498 Output Total 250 400 Balance 1.327 898.255 860 Intake: IV 1040 1260 0.9 IV bolus 1000 Sodium Chloride 0.9% 1, 1040 260 000 ml @ 130 mls/hr IV . [id number] [facility] Rx#:[id number] Intake, IV Titration 1.327 108.255 Amount Norepinephrine 32 mg In 1.327 8.255 Sodium Chloride 0.9% 218 ml @ 0.05 MCG/KG/MIN 2. 041 mls/hr IV .Q24H [facility] Rx#:[id number] Piperacillin-Tazobactam 3 100 .375 gm In Sodium Chloride 0.9% 100 ml @ 25 mls/hr IVPB Q8H [facility] Rx#: [id number] Output: Urine 250 400 Other: Weight 87.09 kg 91 kg GENERAL EXAM: Alert, pleasant, dyspneic, 68-year-old white male, on Airvo at 55l/min or 75% Fio2, tachypneic, with respirations in the upper 30s HEAD: Normocephalic/atraumatic. EYES: Normal reaction of pupils, equal size. Conjunctiva pink, sclera white. NOSE: Clear with pink turbinates. THROAT: No erythema or exudates. MOUTH: Reveals a nonhealing ulcer on the side of the tongue on the right NECK: No masses, no JVD, no thyroid enlargement, no adenopathy. CHEST: No chest wall deformity. Symmetrical expansion. LUNGS: Equal air entry with diffuse rhonchi CVS: Regular rate and rhythm, normal S1 and S2, no gallops, no murmurs, no rubs ABDOMEN: Soft, nontender. No hepatosplenomegaly, normal bowel sounds, no g uarding or rigidity. EXTREMITIES: No clubbing, no edema, no cyanosis, 2+ pulses and upper and lower extremities. MUSCULOSKELETAL: Muscle strength and tone normal. SPINE: No scoliosis or deformity SKIN: No rashes CENTRAL NERVOUS SYSTEM: Alert and oriented -3. No focal deficits, tone is normal in all 4 extremities. PSYCHIATRIC: Alert and oriented -3. Appropriate affect. Intact judgment and insight. Results - Laboratory Findings CBC and BMP: 09/09/19 05:13 09/09/19 05:13 PT/INR, D-dimer PT 11.7 sec (9.0-12.0) 09/08/19 18:40 INR 1.1 (<1.2) 09/08/19 18:40 D-Dimer 4.38 mg/L FEU (<0.60) H 09/08/19 18:40 Abnormal lab findings: Abnormal Labs 09/08/19 09/08/19 09/08/19 18:40 18:40 18:40 WBC 0.2 L* RBC 3.00 L Hgb 9.8 L D Hct 30.3 L MCV 101.1 H D MCHC RDW 18.1 H Plt Count D-Dimer Sodium 135 L Chloride Carbon Dioxide 20 L BUN 27 H Creatinine 2.34 H Glucose 112 H POC Glucose (mg/dL) Plasma Lactic Acid Ramses 5.0 H* Calcium 7.8 L ALT 17 L Troponin I Total Protein 5.6 L Albumin 2.9 L Urine Protein Urine Mucus 09/08/19 09/08/19 09/08/19 18:40 18:40 19:00 WBC RBC Hgb Hct MCV MCHC RDW Plt Count D-Dimer 4.38 H Sodium Chloride Carbon Dioxide BUN Creatinine Glucose POC Glucose (mg/dL) Plasma Lactic Acid Ramses Calcium ALT Troponin I 0.035 H* Total Protein Albumin Urine Protein 1+ H Urine Mucus Rare H 09/08/19 09/08/19 09/09/19 22:06 22:30 01:09 WBC RBC Hgb Hct MCV MCHC RDW Plt Count D-Dimer Sodium Chloride Carbon Dioxide BUN Creatinine Glucose POC Glucose (mg/dL) 104 H Plasma Lactic Acid Ramses 4.0 H* Calcium ALT Troponin I 0.246 H* Total Protein Albumin Urine Protein Urine Mucus 09/09/19 09/09/19 09/09/19 01:22 05:13 05:13 WBC 0.1 L* RBC 2.82 L Hgb 9.1 L Hct 29.4 L MCV 104.1 H MCHC 30.8 L RDW 18.3 H Plt Count 131 L D-Dimer Sodium Chloride Carbon Dioxide BUN Creatinine Glucose POC Glucose (mg/dL) Plasma Lactic Acid Ramses 2.1 H* Calcium ALT Troponin I 0.536 H* Total Protein Albumin Urine Protein Urine Mucus 09/09/19 09/09/19 09/09/19 05:13 05:13 06:28 WBC RBC Hgb Hct MCV MCHC RDW Plt Count D-Dimer Sodium Chloride 109 H Carbon Dioxide 18 L BUN 29 H Creatinine 2.20 H Glucose 147 H POC Glucose (mg/dL) 147 H Plasma Lactic Acid Ramses 3.1 H* Calcium 7.3 L ALT Troponin I Total Protein Albumin Urine Protein Urine Mucus - Diagnostic Findings Chest x-ray: report reviewed, image reviewed Additional studies: Chest x-rays reviewed, brain CT reviewed, EKG reviewed Assessment and Plan Plan: Assessment: #1. Septic shock, related to bilateral pneumonia, chest x-ray shows bilateral airspace disease #2. Neutropenia #3. Mild anion gap and non-anion gap metabolic acidosis, related to lactic acidosis and acute kidney injury #4. Acute kidney injury #5. Chronic anemia #6. Elevated d-dimer, nonspecific #7. Elevated troponin is likely related to sepsis and septic shock, EKG without acute ischemic changes #8. Recent neutropenic colitis #9. Frequent episodes of watery diarrhea, rule out C. diff #10. 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 History of non-Hodgkin's/Mantell cell lymphoma, status post Rituxan, in remission, most recent PET scan on 08/22/2019 showed no new areas of suspicious hypermetabolic uptake #12. Previous history of GI bleeding #13. Hyperlipidemia #14. History of pneumonia #15. Hard of hearing Plan: We'll give the patient and additional dose of IV fluids, for a total of 4,5 liters in fluid boluses, continue 0.9 normal saline at a rate of 25, we'll start D5W with 3 A of bicarbonate infusion at a rate of 100, oral Decadron has been discontinued and patient was placed on stress doses of hydrocortisone, continue with Zosyn and vancomycin, cultures are pending, continue Valtrex, and Bactrim has been discontinued, consult infectious disease service. Consult medical oncology. Chest x-rays have been reviewed, showing bilateral airspace disease related to pneumonia, blood gas has been reviewed showing compensated metabolic acidosis, will continue with Airvo for now, and to closely monitor for signs of decompensation. Patient is a full code. Continue breathing treatments, stool for C. diff has been sent, stool cultures and lactoferrin. Urine analysis without signs of infection, blood cultures and pending. I performed a history & physical examination of the patient and discussed their management with my nurse practitioner, Myla Adrian. I reviewed the nurse practitioner's note and agree with the documented findings and plan of care. Lung sounds are positive for diffuse rhonchi throughout the lung garnica. The findings and the impression was discussed with the patient. I attest to the documentation by the nurse practitioner. Time with Patient: Greater than 30
[2019-09-09] MEDS: ACETAMINOPHEN IV (For NPO) 1,000 MG in EMPTY BAG 1 BAG IVPB PRN ×2 (10:50→18:59)
[2019-09-09 11:52] LABS: Glucose,Whole Blood 130 mg/dL (75-99)
[2019-09-09] MEDS: DEXTROSE 5% IN WATER 1,000 ML with SODIUM BICARB (1 MEQ/ML) 150 ML IV SCH ×2 (11:52→20:33)
[2019-09-09] MEDS: ASCORBIC ACID 500 MG TAB PO SCH (12:37)
[2019-09-09] MEDS: diphenhydrAMINE 25 MG CAP PO SCH ×2 (12:38→20:34)
[2019-09-09] MEDS: MULTIVITAMINS, THERA 1 EACH TAB PO SCH (12:38)
[2019-09-09] MEDS: HEPARIN SODIUM,PORCINE 5,000 UNIT/ML 1 ML VIAL SQ SCH ×2 (12:38→16:52)
[2019-09-09] MEDS: valACYclovir 500 MG TAB PO SCH ×2 (12:51→20:49)
[2019-09-09] MEDS: FILGRASTIM-SNDZ 480 MCG/0.8 ML SYRINGE SQ SCH (15:35)
--- NOTE | 2019-09-09 15:50 | P.CONS ---
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 He then developed progressive disease, with course as noted below: 04/27: He was observed without intervention so far, but he is not feeling well now : C/O rapidly-developing night sweats, that can be severe at times, becoming anorexic, lost 8-10 lbs and is having increasing in cervical LN as he stated with developing LUQ Pain.Started on Rituxan Q wk x 4 with good tolerance, and resolution of symptoms. PET Scan ( Oct 2013) improved. 10/03/15 : Still having weakness and night sweats. PET Scan : definate progression. 11/06/15 : Treated with Rituxan X 4 : Night sweats resolved, feels much better. 09/03/16: Completed Rituxan X 4 1 11/04/16: Follow up PET Scan : Stable to slightly improved. 01/21/17: Not doing well, C/O increasing size of cervical lymph nodes, having dysphagia and feeling of choking. Night sweats are mild and stable. No anorexia or weight loss. He was started on Bendamustine and Rituxan, and completed 6 cycles by 08/02 with improvement. He was then placed on maintenance Rituxan 11/10/17: C/O hear burn & nausea with activities, cardiac work up negative (According to patient&), No B-Symptoms. 01/14/18: Feels Ok, still has severe heart burn, will have EGD next week, no B- Symptoms, tolerating Rituxan well. 03/17/18: Feels well, had EGD by Dr Velasquez: Hital hernia. On Prilosec 20mg Bid. No B-Symptoms. 05/26/18: Had lesion on L side of tongue initially biopsied by Dr Mahan > refered to an oral surgen at [place]> resected 1 week ago,Hyperkeratosis and acanthosis.Losing weight, but claims due to diet modification and eatin healthier. No fever or night sweats. 06/15/18: Feels Well, no B-symptoms, fully active : PET Scan negative (Except tongue area where he had recent surgery). 01/04 ; The pt completed maintenance Rituxan 01/28/19: Was admitted to [facility] with low-grade fever and lower GI bleed > Colonoscopy/EGD failed to identify bleeding site. Given 3 courses of oral antibiotics and continues to have low grade fever of 100-101 with chills, no night sweats. CT Scan of abdomen/Pelvis > No Lymphadenopathy seen on CT Scan. 02/03/19: Still not feeling well > having low-grade fever, sore mouth with open ulcers and now thick coating on tongue. Reported at least one episode of blood per rectum last few days. 02/08/19: Feels a bit better after starting Diflucan, no further chills. PET Scan negative for progressive Lymphoma. 03/22/19: Doing very poorly: progressive ulcerations of mucosa, seen by ENT : Bx : acute/chronic inflamation, no improvements by Valtrex prescribed by Dr White, continues to have fever of 100-102 with chills, decreased oral intake, weight loss. 04/08/19: Black has recently been discharged from [facility], after undergoing EGD, BM Bx, CT C/A/P, and receiving supportive care. He appears to begining to feel stronger, although still with struggles of ADLs and Exertional SOB. His hgb and Lymphocytes remain decreased. Lesions of his oral mucolsa are improved. Increasing PO Intake. No recent blood or dark tarry stools, last while in hospital. Bone Marrow Biopsy is negative for recurrent Lymphoma, 05/02/19: Continues to get stronger since improved lesions in oral mucosa. Although on 04/26/19 WBC decreased. He has been spiking fevers 100.8-101.4 T max 05/17/19: Feels well, gaining weight, stronger, no fever or night sweats. On G-CSF [address] twice weekly. 06/17/19: Feels Ok, continues to recover and gain weight, stronger. Had diffuse vesicular rash > resolved. 06.29.19: Recently Stopped antibiotic and anti-viral for skin rash and WBC was stable so off GCSF. Unfortunetly he presents with worsening and new fungal appearing rash, herpetic lip and tongue lesions and fevers, T-Max 100.4 in evening. 07.06.19: WBC improving, Systemic Rash and mouth sores clearing and afebrile. 07/20/19: C/O abdominal pain & weakness. WBC decreased despite Neupogen twice weekly 08.01.19: Returns with Leukopenia, Neutropenia, systemic rash, mouth sores, and fevers. 08/09/19: Skin biopsy showed suppurative folliculitis 08.16.19: Signs of infection are resolved, WBC and ANC resolved with Neupogen. Re-review of all medications and any potential bone marrow suppressor medications. 08/26/19: Feels a bit better, no further fever, but continues to be tired, anorexia improved and is gaining weight. He was evaluated by Dr Thornton, work up for connective tissue disorder was performed and came back without any definite AI condition defined. PET Scan negative. As above. The patient has had multiple issues, since 02/01, with leukopenia, mouth sores, and skin rash. He has developed recurrent leukopenia with whenever we have attempted to stop his growth factors. Workup for the exact etiology has been negative so far as noted above. The patient presented to the hospital with high fever and progressive weakness that, on over the last 1-2 days. In the hospital fever was up to 104. He was also hypotensive with systolic blood pressure in the 60s. He was noted to be in acute renal failure with creatinine in the 2 range whereas baseline is less than 1. He was also found to be markedly neutropenic. The patient was therefore admitted to the ICU. Workup so far revealed evidence of bilateral lung infiltrates suggestive of pneumonia. The patient states that he had had a cough that wastly dry with minor expectoration over the last few days. He had some upper airway congestion which was overall minor. He denied any specific sick contacts. Consult was therefore placed for further evaluation and recommendations. Review of Systems Constitutional: Reports fever, Reports malaise, Reports poor appetite, Reports weakness Eyes: denies blurred vision, denies pain Ears: deny: decreased hearing, ear discharge, earache, tinnitus Ears, nose, mouth and throat: Reports as per HPI, Reports nasal congestion, Reports sore throat Cardiovascular: Reports shortness of breath Respiratory: Reports cough, Reports dyspnea Gastrointestinal: Denies abdominal pain, Denies diarrhea, Denies nausea, Denies vomiting Genitourinary: Reports as per HPI Musculoskeletal: Reports muscle weakness Integumentary: Reports rash Neurological: Reports weakness Psychiatric: Denies anxiety, Denies depression Endocrine: Reports fatigue Hematologic/Lymphatic: Reports as per HPI Past Medical History Past Medical History: Cancer, GI Bleed, Hearing Disorder / Deafness, Hyperlipidemia, Pneumonia Additional Past Medical History / Comment(s): CURRENT: N & V. LYMPHOMA, PAST CHEMO, last chemo 2016. 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 cystoscopy History of Any Multi-Drug Resistant Organisms: None Reported Past Surgical History: Orthopedic Surgery Additional Past Surgical History / Comment(s): RIGHT ROTATOR CUFF. VEIN STRIPPING LEFT. spot on tongue removed, sinus surgery Past Anesthesia/Blood Transfusion Reactions: No Reported Reaction Past Psychological History: No Psychological Hx Reported Smoking Status: Never smoker Past Alcohol Use History: Rare Past Drug Use History: None Reported - Past Family History Mother Family Medical History: Unable to Obtain Medications and Allergies Home Medications Medication Instructions Recorded Confirmed Type Ascorbic Acid [Vitamin C] 1,000 mg PO DAILY 01/18/18 09/08/19 History Multivitamins, Thera [Multivitamin 1 tab PO DAILY 01/18/18 09/08/19 History (formulary)] [place]-3 Fatty Acids/Fish Oil [Fish 1 tab PO DAILY 01/18/18 09/08/19 History Oil 1,000 mg Softgel] diphenhydrAMINE [Benadryl] 25 mg PO DAILY PRN 01/18/18 09/08/19 History Acetaminophen/Diphenhydramine 1 tab PO HS PRN 01/04/19 09/08/19 History [Tylenol PM 500-25mg] Guaifen/Phenyleph/Acetaminophn 1 tab PO Q6H PRN 01/04/19 09/08/19 History [Tylenol Sinus Severe Caplet] Omeprazole [PriLOSEC] 20 mg PO HS 01/04/19 09/08/19 History Acetaminophen Tab [Tylenol Tab] 650 mg PO Q4H PRN 09/08/19 09/08/19 History Dexamethasone [Decadron Oral Soln] 1 mg PO QID 09/08/19 09/08/19 History Filgrastim Sndz [Neupogen] 480 mcg SQ SUWE 09/08/19 09/08/19 History Sulfamethox-Tmp 800-160Mg [Bactrim 1 tab PO BID 09/08/19 09/08/19 History DS 800-160 mg] valACYclovir HCL [Valtrex] 1,000 mg PO BID 09/08/19 09/08/19 History Allergies Allergy/AdvReac Type Severity Reaction Status Date / Time cephalexin [From Keflex] Allergy Rash/Hives Verified 09/08/19 18:33 Physical Exam Vitals: Vital Signs Temp Pulse Resp BP Pulse Ox 09/09/19 15:11 98 09/09/19 14:00 92 26 H 110/74 99 09/09/19 13:47 90 09/09/19 13:31 89 09/09/19 13:30 93 11 L 107/69 99 09/09/19 13:00 92 33 H 96/70 98 09/09/19 12:30 98 40 H 90/61 98 09/09/19 12:00 100.8 F H 99 36 H 84/57 97 09/09/19 11:50 98 09/09/19 11:30 105 H 32 H 96/59 97 09/09/19 11:00 112 H 30 H 124/74 98 09/09/19 10:30 107 H 20 123/83 95 09/09/19 10:00 104 F H 106 H 35 H 126/81 99 09/09/19 09:58 107 H 09/09/19 09:38 104 H 97 09/09/19 09:30 105 H 33 H 117/84 98 09/09/19 09:00 105 H 40 H 144/127 98 09/09/19 08:30 105 H 41 H 142/91 96 09/09/19 08:00 99.4 F 107 H 37 H 128/83 96 09/09/19 07:30 101 H 33 H 135/88 96 09/09/19 07:15 98 09/09/19 07:00 102 H 45 H 137/90 94 L 09/09/19 06:30 103 H 34 H 120/81 97 09/09/19 06:00 96 32 H 115/80 97 09/09/19 05:30 95 61 H 109/73 93 L 09/09/19 05:23 95 09/09/19 05:00 95 30 H 111/73 09/09/19 04:35 96 09/09/19 04:30 99 36 H 131/88 96 09/09/19 04:24 93 09/09/19 04:00 99.1 F 87 33 H 128/87 94 L 09/09/19 03:30 86 26 H 108/68 97 09/09/19 03:00 84 29 H 113/73 09/09/19 02:30 83 26 H 111/72 09/09/19 02:00 89 24 105/78 95 09/09/19 01:31 94 L 09/09/19 01:30 84 24 111/75 94 L 09/09/19 01:00 85 24 111/81 94 L 09/09/19 00:30 90 21 91/64 09/09/19 00:14 91 25 H 90/65 94 L 09/09/19 00:00 90 25 H 87/62 97 09/08/19 23:30 97 22 87/57 96 09/08/19 23:28 94 L 09/08/19 23:00 92 34 H 147/78 91 L 09/08/19 21:49 96 30 H 91/55 93 L 09/08/19 21:17 98 F 98 32 H 87/55 92 L 09/08/19 20:44 96 29 H 87/51 90 L 09/08/19 20:05 96 30 H 85/57 93 L 09/08/19 20:00 96 43 H 95/60 90 L 09/08/19 19:59 96 26 H 95/60 96 09/08/19 19:30 104 H 17 85/52 96 09/08/19 19:28 101 H 28 H 85/52 96 09/08/19 19:05 67/43 94 L 09/08/19 19:00 106 H 29 H 83/52 97 09/08/19 18:30 90/67 93 L 09/08/19 18:22 90 L 09/08/19 18:21 99.6 F 111 H 36 H 90/67 95 Intake and Output 09/09/19 09/09/19 09/09/19 06:59 14:59 22:59 Intake Total 4197.216 3588.042 Output Total 250 1390 Balance 200.203 8850.042 Intake: IV 1040 3040 0.9 IV bolus 2000 D%W 3 amp HCo3 400 Sodium Chloride 0.9% 1, 1040 640 000 ml @ 50 mls/hr IV . Q20H [facility] Rx#:[id number] Intake, IV Titration 108.255 55.042 Amount Norepinephrine 32 mg In 8.255 55.042 Sodium Chloride 0.9% 218 ml @ 0.05 MCG/KG/MIN 2. 041 mls/hr IV .Q24H [facility] Rx#:[id number] Piperacillin-Tazobactam 3 100 .375 gm In Sodium Chloride 0.9% 100 ml @ 25 mls/hr IVPB Q8H [facility] Rx#: [id number] Output: Urine 250 1390 Other: Weight 91 kg 91 kg - Constitutional General appearance: no acute distress - EENT Eyes: EOMI, PERRLA ENT: hearing grossly normal, normal oropharynx - Neck Neck: no lymphadenopathy Thyroid: bilateral: normal size - Respiratory Respiratory: bilateral: diminished - Cardiovascular Rhythm: regular Heart sounds: normal: S1, S2 - Gastrointestinal General gastrointestinal: normal bowel sounds, soft - Integumentary Integumentary: normal - Neurologic Neurologic: CNII-XII intact - Musculoskeletal Musculoskeletal: generalized weakness, strength equal bilaterally - Psychiatric Psychiatric: A&O x's 3, appropriate affect Results CBC & Chem 7: 09/09/19 05:13 09/09/19 05:13 Labs: Abnormal Lab Results - Last 24 Hours (Table) 09/08/19 09/08/19 09/08/19 Range/Units 18:40 18:40 18:40 WBC 0.2 L* (3.8-10.6) k/uL RBC 3.00 L (4.30-5.90) m/uL Hgb 9.8 L D (13.0-17.5) gm/dL Hct 30.3 L (39.0-53.0) % MCV 101.1 H D (80.0-100.0) fL MCHC (31.0-37.0) g/dL RDW 18.1 H (11.5-15.5) % Plt Count (150-450) k/uL D-Dimer (<0.60) mg/L FEU ABG pCO2 (35-45) mmHg ABG pO2 (83-108) mmHg ABG HCO3 (21-25) mmol/L ABG Total CO2 (19-24) mmol/L Sodium 135 L (137-145) mmol/L Chloride (98-107) mmol/L Carbon Dioxide 20 L (22-30) mmol/L BUN 27 H (9-20) mg/dL Creatinine 2.34 H (0.66-1.25) mg/dL Glucose 112 H (74-99) mg/dL POC Glucose (mg/dL) (75-99) mg/dL Plasma Lactic Acid Ramses 5.0 H* (0.7-2.0) mmol/L Calcium 7.8 L (8.4-10.2) mg/dL ALT 17 L (21-72) U/L Troponin I (0.000-0.034) ng/mL Total Protein 5.6 L (6.3-8.2) g/dL Albumin 2.9 L (3.5-5.0) g/dL Urine Protein (Negative) Urine Mucus (None) /hpf 09/08/19 09/08/19 09/08/19 Range/Units 18:40 18:40 19:00 WBC (3.8-10.6) k/uL RBC (4.30-5.90) m/uL Hgb (13.0-17.5) gm/dL Hct (39.0-53.0) % MCV (80.0-100.0) fL MCHC (31.0-37.0) g/dL RDW (11.5-15.5) % Plt Count (150-450) k/uL D-Dimer 4.38 H (<0.60) mg/L FEU ABG pCO2 (35-45) mmHg ABG pO2 (83-108) mmHg ABG HCO3 (21-25) mmol/L ABG Total CO2 (19-24) mmol/L Sodium (137-145) mmol/L Chloride (98-107) mmol/L Carbon Dioxide (22-30) mmol/L BUN (9-20) mg/dL Creatinine (0.66-1.25) mg/dL Glucose (74-99) mg/dL POC Glucose (mg/dL) (75-99) mg/dL Plasma Lactic Acid Ramses (0.7-2.0) mmol/L Calcium (8.4-10.2) mg/dL ALT (21-72) U/L Troponin I 0.035 H* (0.000-0.034) ng/mL Total Protein (6.3-8.2) g/dL Albumin (3.5-5.0) g/dL Urine Protein 1+ H (Negative) Urine Mucus Rare H (None) /hpf 09/08/19 09/08/19 09/09/19 Range/Units 22:06 22:30 01:09 WBC (3.8-10.6) k/uL RBC (4.30-5.90) m/uL Hgb (13.0-17.5) gm/dL Hct (39.0-53.0) % MCV (80.0-100.0) fL MCHC (31.0-37.0) g/dL RDW (11.5-15.5) % Plt Count (150-450) k/uL D-Dimer (<0.60) mg/L FEU ABG pCO2 (35-45) mmHg ABG pO2 (83-108) mmHg ABG HCO3 (21-25) mmol/L ABG Total CO2 (19-24) mmol/L Sodium (137-145) mmol/L Chloride (98-107) mmol/L Carbon Dioxide (22-30) mmol/L BUN (9-20) mg/dL Creatinine (0.66-1.25) mg/dL Glucose (74-99) mg/dL POC Glucose (mg/dL) 104 H (75-99) mg/dL Plasma Lactic Acid Ramses 4.0 H* (0.7-2.0) mmol/L Calcium (8.4-10.2) mg/dL ALT (21-72) U/L Troponin I 0.246 H* (0.000-0.034) ng/mL Total Protein (6.3-8.2) g/dL Albumin (3.5-5.0) g/dL Urine Protein (Negative) Urine Mucus (None) /hpf 09/09/19 09/09/19 09/09/19 Range/Units 01:22 05:13 05:13 WBC 0.1 L* (3.8-10.6) k/uL RBC 2.82 L (4.30-5.90) m/uL Hgb 9.1 L (13.0-17.5) gm/dL Hct 29.4 L (39.0-53.0) % MCV 104.1 H (80.0-100.0) fL MCHC 30.8 L (31.0-37.0) g/dL RDW 18.3 H (11.5-15.5) % Plt Count 131 L (150-450) k/uL D-Dimer (<0.60) mg/L FEU ABG pCO2 (35-45) mmHg ABG pO2 (83-108) mmHg ABG HCO3 (21-25) mmol/L ABG Total CO2 (19-24) mmol/L Sodium (137-145) mmol/L Chloride (98-107) mmol/L Carbon Dioxide (22-30) mmol/L BUN (9-20) mg/dL Creatinine (0.66-1.25) mg/dL Glucose (74-99) mg/dL POC Glucose (mg/dL) (75-99) mg/dL Plasma Lactic Acid Ramses 2.1 H* (0.7-2.0) mmol/L Calcium (8.4-10.2) mg/dL ALT (21-72) U/L Troponin I 0.536 H* (0.000-0.034) ng/mL Total Protein (6.3-8.2) g/dL Albumin (3.5-5.0) g/dL Urine Protein (Negative) Urine Mucus (None) /hpf 09/09/19 09/09/19 09/09/19 Range/Units 05:13 05:13 06:28 WBC (3.8-10.6) k/uL RBC (4.30-5.90) m/uL Hgb (13.0-17.5) gm/dL Hct (39.0-53.0) % MCV (80.0-100.0) fL MCHC (31.0-37.0) g/dL RDW (11.5-15.5) % Plt Count (150-450) k/uL D-Dimer (<0.60) mg/L FEU ABG pCO2 (35-45) mmHg ABG pO2 (83-108) mmHg ABG HCO3 (21-25) mmol/L ABG Total CO2 (19-24) mmol/L Sodium (137-145) mmol/L Chloride 109 H (98-107) mmol/L Carbon Dioxide 18 L (22-30) mmol/L BUN 29 H (9-20) mg/dL Creatinine 2.20 H (0.66-1.25) mg/dL Glucose 147 H (74-99) mg/dL POC Glucose (mg/dL) 147 H (75-99) mg/dL Plasma Lactic Acid Ramses 3.1 H* (0.7-2.0) mmol/L Calcium 7.3 L (8.4-10.2) mg/dL ALT (21-72) U/L Troponin I (0.000-0.034) ng/mL Total Protein (6.3-8.2) g/dL Albumin (3.5-5.0) g/dL Urine Protein (Negative) Urine Mucus (None) /hpf 09/09/19 09/09/19 Range/Units 09:08 11:50 WBC (3.8-10.6) k/uL RBC (4.30-5.90) m/uL Hgb (13.0-17.5) gm/dL Hct (39.0-53.0) % MCV (80.0-100.0) fL MCHC (31.0-37.0) g/dL RDW (11.5-15.5) % Plt Count (150-450) k/uL D-Dimer (<0.60) mg/L FEU ABG pCO2 24 L (35-45) mmHg ABG pO2 77 L (83-108) mmHg ABG HCO3 17 L (21-25) mmol/L ABG Total CO2 17 L (19-24) mmol/L Sodium (137-145) mmol/L Chloride (98-107) mmol/L Carbon Dioxide (22-30) mmol/L BUN (9-20) mg/dL Creatinine (0.66-1.25) mg/dL Glucose (74-99) mg/dL POC Glucose (mg/dL) 130 H (75-99) mg/dL Plasma Lactic Acid Ramses (0.7-2.0) mmol/L Calcium (8.4-10.2) mg/dL ALT (21-72) U/L Troponin I (0.000-0.034) ng/mL Total Protein (6.3-8.2) g/dL Albumin (3.5-5.0) g/dL Urine Protein (Negative) Urine Mucus (None) /hpf Microbiology - Last 24 Hours (Table) 09/08/19 19:00 Urine Culture - Preliminary Urine,Voided Chest x-ray: report reviewed CT Scan - head: report reviewed Assessment and Plan (1) Sepsis Narrative/Plan: The patient is presenting with severe sepsis in the setting of neutropenia. The patient has been having issues with leukopenia and associated symptoms over the past several months, as described in the HPI. However on his current regimen of growth factors twice a week, WBC has generally been in the safe range. - Source of sepsis in this situation appears to be pneumonia. Influenza test was negative. Given the patient's history, bacterial as well as other etiologies are possible. The patient is being covered with vancomycin and cefepime. He is also on IV acyclovir. Infectious diseases has been consulted. Defer to them, [facility], as well as other attendings for continued management. - The patient has developed severe neutropenia, which is most likely due to marrow suppression from sepsis. His growth factors will be changed to daily. Continue to monitor counts. - I will also check Ig levels. If the patient is low, he could benefit from IVIG administration. However it was discussed with the family that there is currently a national shortage and we could not guarantee he wouldn't be able to get the same. Current Visit: Yes Status: Acute Code(s): A41.9 - SEPSIS, UNSPECIFIED ORGANISM SNOMED Code(s): 79987783 (2) Pancytopenia Narrative/Plan: At this time, the patient has had mild anemia. His WBC has been generally normal or at least in a safe range on growth factors. During this admission a drop in hemoglobin and platelets from baseline is noted, likely due to marrow suppression from sepsis. Currently hemoglobin and platelets are in a safe range. Continue to monitor, with supplementation as needed Current Visit: Yes Status: Acute Code(s): D61.818 - OTHER PANCYTOPENIA SNOMED Code(s): 774276636 (3) Mantle cell lymphoma Narrative/Plan: Diagnostic and therapeutic circumstances as described. While the patient has been having multiple symptoms over the last several months, he has had no evidence whatsoever of recurrent lymphoma, by CAT scans, bone marrow aspiration biopsy and PET scan. Current Visit: Yes Status: Acute Code(s): C83.10 - MANTLE CELL LYMPHOMA, UNSPECIFIED SITE SNOMED Code(s): 290519556
--- NOTE | 2019-09-09 16:06 | P.HPIM ---
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 Initially it was low-grade then progressed to progressive disease. Patient was treated with course of to [address] Saucedo. Later treatment course was complicated by ulcers and her mucous membrane including the mouth with fever. Patient did get treated with Diflucan and Valtrex. Recently's had some fever off and on. Today clinical course of antibiotic. As a beginning of this month patient's symptoms of infection resolved as per his oncologist notes. PET scan was negative. Rather good do cumentation and Dr. Lawson's notes. Patient for 3 days presented with increasing cough fever. Decreased white count. Found to have pneumonia. Admitted to the ICU with septic shock. Per report that. On nasal, 6 L. Patient is on high flow oxygen 55 L including irritable at 75%. Family the bedside. Patient was running low white count. Had been getting Neupogen as an outpatient. Pretty weak and tired. Patient also had intermittent diarrhea felt to be from neutropenic colitis. Review of systems: GEN.: Weak tired febrile decreased appetite EYES: None HEENT: Recent or ulcers NECK: None RESPIRATORY: Cough or sputum CARDIOVASCULAR: None GASTROINTESTINAL: Recent diarrhea GENITOURINARY: None MUSCULOSKELETAL: None LYMPHATICS: None HEMATOLOGICAL: None PSYCHIATRY: None NEUROLOGICAL: None Past medical history: Mantle cell non-Hodgkin's lymphoma, hyperlipidemia, definite the left ear, myel osuppression Social history: Does not smoke. Alcohol rarely. . Family history: Reviewed, noncontributory to presentation Physical examination: VITAL SIGNS: [Fever up to 104, 106, 35, 126/81, 99% on high flow oxygen tired GENERAL: BMI 27.2, sitting up,Airvo in place. EYES: Pupils equal. Conjunctiva normal. HEENT: External appearance of nose and ears normal, oral cavity grossly normal. NECK: JVD unable to assess; masses not palpable. HEART: First and second heart sounds are normal; no edema. LUNGS:[ Respiratory rate increased, decreased breath sounds and coarse crackles. ABDOMEN: Soft, nontender, liver spleen not palpable, no masses palpable. PSYCH: [Alert and oriented x3; mood and affect but anxious l. NEUROLOGICAL: Cranial nerves grossly intact; no facial asymmetry, power and sensation grossly intact. LYMPHATICS: No lymph nodes palpable in the axilla and neck INVESTIGATIONS, reviewed in the clinical context: White count 0.2 hemoglobin 9.8 platelets 181 potassium 4.2 bun 27 creatinine 2.34 lactic acid 5 troponin 0.035 albumin 2.9 Labs from August 22 show. Bun 15, creatinine 0.9 EKG tracing personally reviewed by me-normal sinus rhythm Chest x-ray film personally reviewed by me-bilateral infiltrates Assessment: -Acute bilateral pneumonia in a patient's who is neutropenic immunosuppressed -Acute hypoxic respiratory failure on high flow oxygen, from pneumonia -Mantle cell type non-Hodgkin's lymphoma currently in remission since December of this year -Neutropenic with pancytopenia -Severe sepsis from pneumonia -Lactic acidosis from sepsis -Acute renal failure possibly ATN from underlying sepsis -Troponin leak likely from sepsis from hemodynamic instability, not in acute coronary syndrome -Hypoalbuminemia has an acute phase reactant -Metabolic acidosis -Septic shock requiring at least 6 L of fluid and also on levo fed Plan: -Consultation was made to supervisor machine setter and oncology. Also ID so the case. Patient is on broad-spectrum antibiotics to include vancomycin, IV Zosyn,. Patient is also on filgrastim subcutaneously. Patient also on vancomycin for DVT prophylaxis. Prognosis guarded. Follow closely. Patient with ICU. Past Medical History Past Medical History: Cancer, GI Bleed, Hearing Disorder / Deafness, Hyperlipidemia, Pneumonia Additional Past Medical History / Comment(s): CURRENT: N & V. LYMPHOMA, PAST CHEMO, last chemo 2016. 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 cystoscopy History of Any Multi-Drug Resistant Organisms: None Reported Past Surgical History: Orthopedic Surgery Additional Past Surgical History / Comment(s): RIGHT ROTATOR CUFF. VEIN STRIPPING LEFT. spot on tongue removed, sinus surgery Past Anesthesia/Blood Transfusion Reactions: No Reported Reaction Past Psychological History: No Psychological Hx Reported Smoking Status: Never smoker Past Alcohol Use History: Rare Past Drug Use History: None Reported - Past Family History Mother Family Medical History: Unable to Obtain Medications and Allergies Home Medications Medication Instructions Recorded Confirmed Type Ascorbic Acid [Vitamin C] 1,000 mg PO DAILY 01/18/18 09/08/19 History Multivitamins, Thera [Multivitamin 1 tab PO DAILY 01/18/18 09/08/19 History (formulary)] [place]-3 Fatty Acids/Fish Oil [Fish 1 tab PO DAILY 01/18/18 09/08/19 History Oil 1,000 mg Softgel] diphenhydrAMINE [Benadryl] 25 mg PO DAILY PRN 01/18/18 09/08/19 History Acetaminophen/Diphenhydramine 1 tab PO HS PRN 01/04/19 09/08/19 History [Tylenol PM 500-25mg] Guaifen/Phenyleph/Acetaminophn 1 tab PO Q6H PRN 01/04/19 09/08/19 History [Tylenol Sinus Severe Caplet] Omeprazole [PriLOSEC] 20 mg PO HS 01/04/19 09/08/19 History Acetaminophen Tab [Tylenol Tab] 650 mg PO Q4H PRN 09/08/19 09/08/19 History Dexamethasone [Decadron Oral Soln] 1 mg PO QID 09/08/19 09/08/19 History Filgrastim Sndz [Neupogen] 480 mcg SQ SUWE 09/08/19 09/08/19 History Sulfamethox-Tmp 800-160Mg [Bactrim 1 tab PO BID 09/08/19 09/08/19 History DS 800-160 mg] valACYclovir HCL [Valtrex] 1,000 mg PO BID 09/08/19 09/08/19 History Allergies Allergy/AdvReac Type Severity Reaction Status Date / Time cephalexin [From Keflex] Allergy Rash/Hives Verified 09/08/19 18:33 Physical Exam Vitals: Vital Signs Temp Pulse Resp BP Pulse Ox 09/09/19 08:30 105 H 41 H 142/91 96 09/09/19 08:00 99.4 F 107 H 37 H 128/83 96 09/09/19 07:30 101 H 33 H 135/88 96 09/09/19 07:15 98 09/09/19 07:00 102 H 45 H 137/90 94 L 09/09/19 06:30 103 H 34 H 120/81 97 09/09/19 06:00 96 32 H 115/80 97 09/09/19 05:30 95 61 H 109/73 93 L 09/09/19 05:23 95 09/09/19 05:00 95 30 H 111/73 09/09/19 04:35 96 09/09/19 04:30 99 36 H 131/88 96 09/09/19 04:24 93 09/09/19 04:00 99.1 F 87 33 H 128/87 94 L 09/09/19 03:30 86 26 H 108/68 97 09/09/19 03:00 84 29 H 113/73 09/09/19 02:30 83 26 H 111/72 09/09/19 02:00 89 24 105/78 95 09/09/19 01:31 94 L 09/09/19 01:30 84 24 111/75 94 L 09/09/19 01:00 85 24 111/81 94 L 09/09/19 00:30 90 21 91/64 09/09/19 00:14 91 25 H 90/65 94 L 09/09/19 00:00 90 25 H 87/62 97 09/08/19 23:30 97 22 87/57 96 09/08/19 23:28 94 L 09/08/19 23:00 92 34 H 147/78 91 L 09/08/19 21:49 96 30 H 91/55 93 L 09/08/19 21:17 98 F 98 32 H 87/55 92 L 09/08/19 20:44 96 29 H 87/51 90 L 09/08/19 20:05 96 30 H 85/57 93 L 09/08/19 20:00 96 43 H 95/60 90 L 09/08/19 19:59 96 26 H 95/60 96 09/08/19 19:30 104 H 17 85/52 96 09/08/19 19:28 101 H 28 H 85/52 96 09/08/19 19:05 67/43 94 L 09/08/19 19:00 106 H 29 H 83/52 97 09/08/19 18:30 90/67 93 L 09/08/19 18:22 90 L 09/08/19 18:21 99.6 F 111 H 36 H 90/67 95 Intake and Output 09/08/19 09/09/19 09/09/19 22:59 06:59 14:59 Intake Total 1.327 3282.439 9609 Output Total 250 440 Balance 1.327 898.255 950 Intake: IV 1040 1390 0.9 IV bolus 1000 Sodium Chloride 0.9% 1, 1040 390 000 ml @ 130 mls/hr IV . Q7H42M [facility] Rx#:[id number] Intake, IV Titration 1.327 108.255 Amount Norepinephrine 32 mg In 1.327 8.255 Sodium Chloride 0.9% 218 ml @ 0.05 MCG/KG/MIN 2. 041 mls/hr IV .Q24H [facility] Rx#:[id number] Piperacillin-Tazobactam 3 100 .375 gm In Sodium Chloride 0.9% 100 ml @ 25 mls/hr IVPB Q8H [facility] Rx#: [id number] Output: Urine 250 440 Other: Weight 87.09 kg 91 kg Results CBC & Chem 7: 09/09/19 05:13 09/09/19 05:13 Labs: Abnormal Lab Results - Last 24 Hours (Table) 09/08/19 09/08/19 09/08/19 Range/Units 18:40 18:40 18:40 WBC 0.2 L* (3.8-10.6) k/uL RBC 3.00 L (4.30-5.90) m/uL Hgb 9.8 L D (13.0-17.5) gm/dL Hct 30.3 L (39.0-53.0) % MCV 101.1 H D (80.0-100.0) fL MCHC (31.0-37.0) g/dL RDW 18.1 H (11.5-15.5) % Plt Count (150-450) k/uL D-Dimer (<0.60) mg/L FEU Sodium 135 L (137-145) mmol/L Chloride (98-107) mmol/L Carbon Dioxide 20 L (22-30) mmol/L BUN 27 H (9-20) mg/dL Creatinine 2.34 H (0.66-1.25) mg/dL Glucose 112 H (74-99) mg/dL POC Glucose (mg/dL) (75-99) mg/dL Plasma Lactic Acid Ramses 5.0 H* (0.7-2.0) mmol/L Calcium 7.8 L (8.4-10.2) mg/dL ALT 17 L (21-72) U/L Troponin I (0.000-0.034) ng/mL Total Protein 5.6 L (6.3-8.2) g/dL Albumin 2.9 L (3.5-5.0) g/dL Urine Protein (Negative) Urine Mucus (None) /hpf 09/08/19 09/08/19 09/08/19 Range/Units 18:40 18:40 19:00 WBC (3.8-10.6) k/uL RBC (4.30-5.90) m/uL Hgb (13.0-17.5) gm/dL Hct (39.0-53.0) % MCV (80.0-100.0) fL MCHC (31.0-37.0) g/dL RDW (11.5-15.5) % Plt Count (150-450) k/uL D-Dimer 4.38 H (<0.60) mg/L FEU Sodium (137-145) mmol/L Chloride (98-107) mmol/L Carbon Dioxide (22-30) mmol/L BUN (9-20) mg/dL Creatinine (0.66-1.25) mg/dL Glucose (74-99) mg/dL POC Glucose (mg/dL) (75-99) mg/dL Plasma Lactic Acid Ramses (0.7-2.0) mmol/L Calcium (8.4-10.2) mg/dL ALT (21-72) U/L Troponin I 0.035 H* (0.000-0.034) ng/mL Total Protein (6.3-8.2) g/dL Albumin (3.5-5.0) g/dL Urine Protein 1+ H (Negative) Urine Mucus Rare H (None) /hpf 09/08/19 09/08/19 09/09/19 Range/Units 22:06 22:30 01:09 WBC (3.8-10.6) k/uL RBC (4.30-5.90) m/uL Hgb (13.0-17.5) gm/dL Hct (39.0-53.0) % MCV (80.0-100.0) fL MCHC (31.0-37.0) g/dL RDW (11.5-15.5) % Plt Count (150-450) k/uL D-Dimer (<0.60) mg/L FEU Sodium (137-145) mmol/L Chloride (98-107) mmol/L Carbon Dioxide (22-30) mmol/L BUN (9-20) mg/dL Creatinine (0.66-1.25) mg/dL Glucose (74-99) mg/dL POC Glucose (mg/dL) 104 H (75-99) mg/dL Plasma Lactic Acid Ramses 4.0 H* (0.7-2.0) mmol/L Calcium (8.4-10.2) mg/dL ALT (21-72) U/L Troponin I 0.246 H* (0.000-0.034) ng/mL Total Protein (6.3-8.2) g/dL Albumin (3.5-5.0) g/dL Urine Protein (Negative) Urine Mucus (None) /hpf 09/09/19 09/09/19 09/09/19 Range/Units 01:22 05:13 05:13 WBC 0.1 L* (3.8-10.6) k/uL RBC 2.82 L (4.30-5.90) m/uL Hgb 9.1 L (13.0-17.5) gm/dL Hct 29.4 L (39.0-53.0) % MCV 104.1 H (80.0-100.0) fL MCHC 30.8 L (31.0-37.0) g/dL RDW 18.3 H (11.5-15.5) % Plt Count 131 L (150-450) k/uL D-Dimer (<0.60) mg/L FEU Sodium (137-145) mmol/L Chloride (98-107) mmol/L Carbon Dioxide (22-30) mmol/L BUN (9-20) mg/dL Creatinine (0.66-1.25) mg/dL Glucose (74-99) mg/dL POC Glucose (mg/dL) (75-99) mg/dL Plasma Lactic Acid Ramses 2.1 H* (0.7-2.0) mmol/L Calcium (8.4-10.2) mg/dL ALT (21-72) U/L Troponin I 0.536 H* (0.000-0.034) ng/mL Total Protein (6.3-8.2) g/dL Albumin (3.5-5.0) g/dL Urine Protein (Negative) Urine Mucus (None) /hpf 09/09/19 09/09/19 09/09/19 Range/Units 05:13 05:13 06:28 WBC (3.8-10.6) k/uL RBC (4.30-5.90) m/uL Hgb (13.0-17.5) gm/dL Hct (39.0-53.0) % MCV (80.0-100.0) fL MCHC (31.0-37.0) g/dL RDW (11.5-15.5) % Plt Count (150-450) k/uL D-Dimer (<0.60) mg/L FEU Sodium (137-145) mmol/L Chloride 109 H (98-107) mmol/L Carbon Dioxide 18 L (22-30) mmol/L BUN 29 H (9-20) mg/dL Creatinine 2.20 H (0.66-1.25) mg/dL Glucose 147 H (74-99) mg/dL POC Glucose (mg/dL) 147 H (75-99) mg/dL Plasma Lactic Acid Ramses 3.1 H* (0.7-2.0) mmol/L Calcium 7.3 L (8.4-10.2) mg/dL ALT (21-72) U/L Troponin I (0.000-0.034) ng/mL Total Protein (6.3-8.2) g/dL Albumin (3.5-5.0) g/dL Urine Protein (Negative) Urine Mucus (None) /hpf Microbiology - Last 24 Hours (Table) 09/08/19 19:00 Urine Culture - Preliminary Urine,Voided Thrombosis Risk Factor Assmnt - Choose All That Apply Each Factor Represents 1 point: Sepsis (< 1month), Serious lung disease incl. pneumonia (< 1month) Other Risk Factors: Yes Each Risk Factor Represents 2 Points: Age 61-74 years, Central venous access, Malignancy Other congenital or acquired thrombophilia - If yes, enter type in comment: No Thrombosis Risk Factor Assessment Total Risk Factor Score: 8 Thrombosis Risk Factor Assessment Level: High Risk
[2019-09-09] MEDS: HYDROCORTISONE SUCCINATE 100 MG/2 ML VIAL IV SCH (16:52)
[2019-09-09] MEDS ORDERED: CEFEPIME 2 GM in SODIUM CHLORIDE 0.9% 100 ML IVPB SCH (17:00)
[2019-09-09 17:11] LABS: Glucose,Whole Blood 170 mg/dL (75-99)
[2019-09-09] MEDS: SALT AND SODA MOUTHWASH 1,000 ML PO SCH ×2 (18:31→20:34)
[2019-09-09 20:11] LABS: Glucose,Whole Blood 185 mg/dL (75-99)
[2019-09-09] MEDS: NOREPINEPHRINE 32 MG in SODIUM CHLORIDE 0.9% 218 ML IV SCH (20:32)
[2019-09-09] MEDS ORDERED: VANCOMYCIN 1,500 MG in SODIUM CHLORIDE 0.9% 250 ML IVPB SCH (21:00)
--- NOTE | 2019-09-09 23:52 | P.CONS ---
History of Present Illness - Reason for Consult Consult date: 09/09/19 - History of Present Illness 68-year-old male seen in the office regarding his history of his mantle cell lymphoma and evidence of chronic oral ulceration which is painful. He has been treated with Rituxan over the last several years with his last maintenance dose in November 2018. Since that time he started modestly well except for the ongoing chronic oral ulceration. This is been evaluated by neurosurgery and ENT, has had biopsies in the past that were all nonspecific. He's been treated with antiviral therapy with some slight improvement but does well with just a topical antiseptic. Oncology reveals that his PET scan is been stable with no recent evidence of advancement of disease. However he is now had significant difficulty with leukopenia and much less anemia and thrombocytopenia. He is not been having high-grade fevers chills rigors or sweats for an ongoing basis until this presentation. Upon his arrival to the ER he was weak and ill with fever of 104 he was having increasing weakness for at least 48 hours. Was having relative hypotension acute renal failure significant fatigue and malaise and shortness of breath. As noted imaging study revealed evidence of bilateral pneumonia and he was admitted. With his febrile neutropenia and pneumonia the consultation was requested. Review of Systems HEENT:Denies headache or acute visual change. chronic oral lesions mostly at the tongue.Denies neck stiffness or pain. has ongoing oral cavity pain. Denies difficulty on swallowing. Lungs: has felt shortness of breath cough, no sputum production or hemoptysis Cardiovascular: Denies significant shortness of breath, chest pain, chest wall pain, orthopnea, dyspnea on exertion, syncope Gastrointestinal:Denies nausea, vomiting, diarrhea, constipation, hematemesis, melena, hematochezia. No no significant change of bowel habit noticed. Musculoskeletal: denies significant myalgias or arthralgias. No new joint swelling. Denies new back pain. Skin: Denies new rash or lesions. No new ulcers or wounds are related.. Neuro: Denies headache or visual change. Denies any new onset weakness or difficulty with ambulation. Denies falls or seizures. Psychiatric:Denies anxiety or depression. Endocrine: progressive fatigue he has had weight partly due to dietary changes Past Medical History Past Medical History: Cancer, GI Bleed, Hearing Disorder / Deafness, Hyperlipidemia, Pneumonia Additional Past Medical History / Comment(s): CURRENT: N & V. LYMPHOMA, PAST CHEMO, last chemo 2016. 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 cystoscopy History of Any Multi-Drug Resistant Organisms: None Reported Past Surgical History: Orthopedic Surgery Additional Past Surgical History / Comment(s): RIGHT ROTATOR CUFF. VEIN S TRIPPING LEFT. spot on tongue removed, sinus surgery Past Anesthesia/Blood Transfusion Reactions: No Reported Reaction Past Psychological History: No Psychological Hx Reported Additional Psychological History / Comment(s): . Good family support. Retired. . No new animals Smoking Status: Never smoker Past Alcohol Use History: Rare Past Drug Use History: None Reported - Past Family History Mother Family Medical History: Unable to Obtain Medications and Allergies Home Medications and Allergies Comment(s): Current Medications Acetaminophen (Tylenol Tab) 650 mg PO Q4HR PRN PRN Reason: Fever and/ or Pain Albuterol/Ipratropium (Duoneb 0.5 Mg-3 Mg/3 Ml Soln) 3 ml INHALATION RT-Q4H [facility] Last Admin: 09/09/19 23:08 Dose: 3 ml Documented by: Ascorbic Acid (Vitamin C) 1,000 mg PO DAILY [facility] Last Admin: 09/09/19 12:37 Dose: 1,000 mg Documented by: Diphenhydramine HCl (Benadryl) 25 mg PO BID [facility] Last Admin: 09/09/19 20:34 Dose: 25 mg Documented by: Filgrastim (Zarxio) 480 mcg SQ DAILY [facility] Last Admin: 09/09/19 15:35 Dose: 480 mcg Documented by: Heparin Sodium (Porcine) (Heparin) 5,000 unit SQ Q8HR [facility] Last Admin: 09/09/19 16:52 Dose: 5,000 unit Documented by: Hydrocortisone Sodium Succinate (Solu-Cortef) 100 mg IV Q8HR [facility] Last Admin: 09/09/19 16:52 Dose: 100 mg Documented by: Vancomycin HCl 1,500 mg/ (Sodium Chloride) 250 mls @ 125 mls/hr IVPB Q24H [facility] Last Admin: 09/09/19 20:33 Dose: 125 mls/hr Documented by: Norepinephrine Bitartrate 32 (mg/ Sodium Chloride) 250 mls @ 2.041 mls/hr IV .Q24H [facility]; Protocol Last Admin: 09/09/19 20:32 Dose: Not Given Documented by: Sodium Chloride (Saline 0.9%) 1,000 mls @ 50 mls/hr IV .Q20H [facility] Last Admin: 09/09/19 12:37 Dose: 50 mls/hr Documented by: Sodium Bicarbonate 150 ml/ (Dextrose/Water) 1,150 mls @ 100 mls/hr IV .[id number] [facility] Last Admin: 09/09/19 20:33 Dose: 100 mls/hr Documented by: Acetaminophen 1,000 mg/ IV (Solution) 100 mls @ 400 mls/hr IVPB Q6HR PRN PRN Reason: Fever Last Admin: 09/09/19 18:59 Dose: 400 mls/hr Documented by: Cefepime HCl 2 gm/ Sodium (Chloride) 100 mls @ 200 mls/hr IVPB DAILY@1700 [facility] Last Admin: 09/09/19 16:52 Dose: 200 mls/hr Documented by: Insulin Aspart (Novolog) 0 unit SQ ACHS [facility]; Protocol Last Admin: 09/09/19 20:35 Dose: 2 unit Documented by: Multivitamins (Theragran) 1 each PO DAILY [facility] Last Admin: 09/09/19 12:38 Dose: 1 each Documented by: Pantoprazole Sodium (Protonix) 40 mg IVP DAILY [facility] Sodium Bicarbonate () 10 ml PO 5XD [facility] Last Admin: 09/09/19 20:34 Dose: 10 ml Documented by: Valacyclovir HCl (Valtrex) 1,000 mg PO BID [facility] Last Admin: 09/09/19 20:49 Dose: 1,000 mg Documented by: Home Medications Medication Instructions Recorded Confirmed Type Ascorbic Acid [Vitamin C] 1,000 mg PO DAILY 01/18/18 09/08/19 History Multivitamins, Thera [Multivitamin 1 tab PO DAILY 01/18/18 09/08/19 History (formulary)] [place]-3 Fatty Acids/Fish Oil [Fish 1 tab PO DAILY 01/18/18 09/08/19 History Oil 1,000 mg Softgel] diphenhydrAMINE [Benadryl] 25 mg PO DAILY PRN 01/18/18 09/08/19 History Acetaminophen/Diphenhydramine 1 tab PO HS PRN 01/04/19 09/08/19 History [Tylenol PM 500-25mg] Guaifen/Phenyleph/Acetaminophn 1 tab PO Q6H PRN 01/04/19 09/08/19 History [Tylenol Sinus Severe Caplet] Omeprazole [PriLOSEC] 20 mg PO HS 01/04/19 09/08/19 History Acetaminophen Tab [Tylenol Tab] 650 mg PO Q4H PRN 09/08/19 09/08/19 History Dexamethasone [Decadron Oral Soln] 1 mg PO QID 09/08/19 09/08/19 History Filgrastim Sndz [Neupogen] 480 mcg SQ SUWE 09/08/19 09/08/19 History Sulfamethox-Tmp 800-160Mg [Bactrim 1 tab PO BID 09/08/19 09/08/19 History DS 800-160 mg] valACYclovir HCL [Valtrex] 1,000 mg PO BID 09/08/19 09/08/19 History Allergies Allergy/AdvReac Type Severity Reaction Status Date / Time cephalexin [From Keflex] Allergy Rash/Hives Verified 09/08/19 18:33 Physical Exam Vitals: Vital Signs Temp Pulse Resp BP Pulse Ox 09/09/19 23:08 86 09/09/19 22:00 98.2 F 117 H 19 96/61 100 09/09/19 21:30 88 29 H 97/70 99 09/09/19 21:00 99.5 F 91 27 H 99/67 99 09/09/19 20:30 92 27 H 101/61 99 09/09/19 20:00 101.3 F H 97 26 H 97/62 98 09/09/19 19:30 97 27 H 107/64 98 09/09/19 19:27 94 09/09/19 19:21 100 09/09/19 19:00 98 26 H 110/70 99 09/09/19 18:30 101 H 18 99/68 99 09/09/19 18:00 101.1 F H 98 26 H 122/73 99 09/09/19 17:30 101 H 32 H 116/83 99 09/09/19 17:00 96 30 H 101/68 100 09/09/19 16:52 96 99 09/09/19 16:30 93 20 105/70 100 09/09/19 16:00 99.5 F 93 21 109/91 100 09/09/19 15:30 92 28 H 107/76 99 09/09/19 15:11 98 09/09/19 15:00 87 27 H 107/74 96 09/09/19 14:30 100.8 F H 90 27 H 96/69 100 09/09/19 14:00 92 26 H 110/74 99 09/09/19 13:47 90 09/09/19 13:31 89 09/09/19 13:30 93 11 L 107/69 99 09/09/19 13:00 92 33 H 96/70 98 09/09/19 12:30 98 40 H 90/61 98 09/09/19 12:00 100.8 F H 99 36 H 84/57 97 09/09/19 11:50 98 09/09/19 11:30 105 H 32 H 96/59 97 09/09/19 11:00 112 H 30 H 124/74 98 09/09/19 10:30 107 H 20 123/83 95 09/09/19 10:00 104 F H 106 H 35 H 126/81 99 09/09/19 09:58 107 H 09/09/19 09:38 104 H 97 09/09/19 09:30 105 H 33 H 117/84 98 09/09/19 09:00 105 H 40 H 144/127 98 09/09/19 08:30 105 H 41 H 142/91 96 09/09/19 08:00 99.4 F 107 H 37 H 128/83 96 09/09/19 07:30 101 H 33 H 135/88 96 09/09/19 07:15 98 09/09/19 07:00 102 H 45 H 137/90 94 L 09/09/19 06:30 103 H 34 H 120/81 97 09/09/19 06:00 96 32 H 115/80 97 09/09/19 05:30 95 61 H 109/73 93 L 09/09/19 05:23 95 09/09/19 05:00 95 30 H 111/73 09/09/19 04:35 96 09/09/19 04:30 99 36 H 131/88 96 09/09/19 04:24 93 09/09/19 04:00 99.1 F 87 33 H 128/87 94 L 09/09/19 03:30 86 26 H 108/68 97 09/09/19 03:00 84 29 H 113/73 09/09/19 02:30 83 26 H 111/72 09/09/19 02:00 89 24 105/78 95 09/09/19 01:31 94 L 09/09/19 01:30 84 24 111/75 94 L 09/09/19 01:00 85 24 111/81 94 L 09/09/19 00:30 90 21 91/64 09/09/19 00:14 91 25 H 90/65 94 L 09/09/19 00:00 90 25 H 87/62 97 09/08/19 23:30 97 22 87/57 96 09/08/19 23:28 94 L Intake and Output 09/09/19 09/09/19 09/10/19 14:59 22:59 06:59 Intake Total 3095.042 1450 Output Total 1390 935 Balance 1705.042 515 Intake: IV 3040 1200 0.9 IV bolus 2000 D%W 3 amp HCo3 400 800 Sodium Chloride 0.9% 1, 640 400 000 ml @ 50 mls/hr IV . Q20H [facility] Rx#:[id number] Intake, IV Titration 55.042 250 Amount Norepinephrine 32 mg In 55.042 Sodium Chloride 0.9% 218 ml @ 0.05 MCG/KG/MIN 2. 041 mls/hr IV .Q24H [facility] Rx#:[id number] Vancomycin 1,500 mg In 250 Sodium Chloride 0.9% 250 ml @ 125 mls/hr IVPB Q24H [facility] Rx#:[id number] Output: Urine 1390 935 Other: Voiding Method Indwelling Catheter Weight 91 kg patient has had significant fever 104,101.8 with a cooling blanket his temp as low as 99.8. HEENT: Anicteric conjunctiva are pink and moist nasal mucosa grossly intact without significant lesions, there is no thrush. Neck: The neck is supple without significant lymphadenopathy or thyromegaly. Lungs: Good bilateral air entry bibasilar crackles few bronchial sounds at the right base no significant dullness, minimal coughing to the right base no change in tactile fremitus Heart: Regular rate and rhythm with an audible S1-S2, oft S4.There is no significant murmur click or rub, PMI was nondisplaced. Abdomen: Positive bowel sounds soft and nontender without palpable masses or organomegaly. There was no guarding or rebound. Extremities: The upper extremities have excellent pulses they are symmetric, no significant petechiae or telangiectasia. No splinter hemorrhages were noted. The lower extremities are free from significant edema. The peripheral pulses were 2+ and symmetric. Neuro: Awake alert oriented to person place and time. There are no acute new gross focal sensory motor deficits.does have some difficulty with his hearing, not new Results CBC & Chem 7: 09/09/19 05:13 09/09/19 05:13 Labs: Abnormal Lab Results - Last 24 Hours (Table) 09/09/19 09/09/19 09/09/19 Range/Units 01:09 01:22 05:13 WBC (3.8-10.6) k/uL RBC (4.30-5.90) m/uL Hgb (13.0-17.5) gm/dL Hct (39.0-53.0) % MCV (80.0-100.0) fL MCHC (31.0-37.0) g/dL RDW (11.5-15.5) % Plt Count (150-450) k/uL ABG pCO2 (35-45) mmHg ABG pO2 (83-108) mmHg ABG HCO3 (21-25) mmol/L ABG Total CO2 (19-24) mmol/L Chloride (98-107) mmol/L Carbon Dioxide (22-30) mmol/L BUN (9-20) mg/dL Creatinine (0.66-1.25) mg/dL Glucose (74-99) mg/dL POC Glucose (mg/dL) (75-99) mg/dL Plasma Lactic Acid Ramses 2.1 H* (0.7-2.0) mmol/L Calcium (8.4-10.2) mg/dL Troponin I 0.246 H* 0.536 H* (0.000-0.034) ng/mL 09/09/19 09/09/19 09/09/19 Range/Units 05:13 05:13 05:13 WBC 0.1 L* (3.8-10.6) k/uL RBC 2.82 L (4.30-5.90) m/uL Hgb 9.1 L (13.0-17.5) gm/dL Hct 29.4 L (39.0-53.0) % MCV 104.1 H (80.0-100.0) fL MCHC 30.8 L (31.0-37.0) g/dL RDW 18.3 H (11.5-15.5) % Plt Count 131 L (150-450) k/uL ABG pCO2 (35-45) mmHg ABG pO2 (83-108) mmHg ABG HCO3 (21-25) mmol/L ABG Total CO2 (19-24) mmol/L Chloride 109 H (98-107) mmol/L Carbon Dioxide 18 L (22-30) mmol/L BUN 29 H (9-20) mg/dL Creatinine 2.20 H (0.66-1.25) mg/dL Glucose 147 H (74-99) mg/dL POC Glucose (mg/dL) (75-99) mg/dL Plasma Lactic Acid Ramses 3.1 H* (0.7-2.0) mmol/L Calcium 7.3 L (8.4-10.2) mg/dL Troponin I (0.000-0.034) ng/mL 09/09/19 09/09/19 09/09/19 Range/Units 06:28 09:08 11:50 WBC (3.8-10.6) k/uL RBC (4.30-5.90) m/uL Hgb (13.0-17.5) gm/dL Hct (39.0-53.0) % MCV (80.0-100.0) fL MCHC (31.0-37.0) g/dL RDW (11.5-15.5) % Plt Count (150-450) k/uL ABG pCO2 24 L (35-45) mmHg ABG pO2 77 L (83-108) mmHg ABG HCO3 17 L (21-25) mmol/L ABG Total CO2 17 L (19-24) mmol/L Chloride (98-107) mmol/L Carbon Dioxide (22-30) mmol/L BUN (9-20) mg/dL Creatinine (0.66-1.25) mg/dL Glucose (74-99) mg/dL POC Glucose (mg/dL) 147 H 130 H (75-99) mg/dL Plasma Lactic Acid Ramses (0.7-2.0) mmol/L Calcium (8.4-10.2) mg/dL Troponin I (0.000-0.034) ng/mL 09/09/19 09/09/19 Range/Units 16:59 20:09 WBC (3.8-10.6) k/uL RBC (4.30-5.90) m/uL Hgb (13.0-17.5) gm/dL Hct (39.0-53.0) % MCV (80.0-100.0) fL MCHC (31.0-37.0) g/dL RDW (11.5-15.5) % Plt Count (150-450) k/uL ABG pCO2 (35-45) mmHg ABG pO2 (83-108) mmHg ABG HCO3 (21-25) mmol/L ABG Total CO2 (19-24) mmol/L Chloride (98-107) mmol/L Carbon Dioxide (22-30) mmol/L BUN (9-20) mg/dL Creatinine (0.66-1.25) mg/dL Glucose (74-99) mg/dL POC Glucose (mg/dL) 170 H 185 H (75-99) mg/dL Plasma Lactic Acid Ramses (0.7-2.0) mmol/L Calcium (8.4-10.2) mg/dL Troponin I (0.000-0.034) ng/mL Microbiology - Last 24 Hours (Table) 09/08/19 19:11 Blood Culture - Preliminary Blood No Growth after 24 hours 09/09/19 08:25 Stool Culture - Preliminary Stool 09/08/19 19:00 Urine Culture - Preliminary Urine,Voided Laboratory Results WBC 0.1 k/uL (3.8-10.6) L* 09/09/19 05:13 RBC 2.82 m/uL (4.30-5.90) L 09/09/19 05:13 Hgb 9.1 gm/dL (13.0-17.5) L 09/09/19 05:13 Hct 29.4 % (39.0-53.0) L 09/09/19 05:13 MCV 104.1 fL (80.0-100.0) H 09/09/19 05:13 MCH 32.1 pg (25.0-35.0) 09/09/19 05:13 MCHC 30.8 g/dL (31.0-37.0) L 09/09/19 05:13 RDW 18.3 % (11.5-15.5) H 09/09/19 05:13 Plt Count 131 k/uL (150-450) L 09/09/19 05:13 Neutrophils # SUPERVISOR PAINT 09/08/19 18:40 Differential Comment 09/09/19 05:13 Manual Slide Review Performed 09/09/19 05:13 Polychromasia Present 09/08/19 18:40 Hypochromasia Marked 09/09/19 05:13 Anisocytosis Slight 09/09/19 05:13 Anisocytosis (manual) Present 09/08/19 18:40 Macrocytosis Moderate 09/09/19 05:13 PT 11.7 sec (9.0-12.0) 09/08/19 18:40 INR 1.1 (<1.2) 09/08/19 18:40 APTT 28.0 sec (22.0-30.0) 09/08/19 18:40 D-Dimer 4.38 mg/L FEU (<0.60) H 09/08/19 18:40 Sample Site rrad 09/09/19 09:08 ABG pH 7.45 (7.35-7.45) 09/09/19 09:08 ABG pCO2 24 mmHg (35-45) L 09/09/19 09:08 ABG pO2 77 mmHg (83-108) L 09/09/19 09:08 ABG HCO3 17 mmol/L (21-25) L 09/09/19 09:08 ABG Total CO2 17 mmol/L (19-24) L 09/09/19 09:08 ABG O2 Saturation 96.5 % (94-97) 09/09/19 09:08 ABG Base Excess -7.5 mmol/L 09/09/19 09:08 Claudio Test Yes 09/09/19 09:08 FiO2 75 % 09/09/19 09:08 Sodium 137 mmol/L (137-145) 09/09/19 05:13 Potassium 4.5 mmol/L (3.5-5.1) 09/09/19 05:13 Chloride 109 mmol/L (98-107) H 09/09/19 05:13 Carbon Dioxide 18 mmol/L (22-30) L 09/09/19 05:13 Anion Gap 10 mmol/L 09/09/19 05:13 BUN 29 mg/dL (9-20) H 09/09/19 05:13 Creatinine 2.20 mg/dL (0.66-1.25) H 09/09/19 05:13 Est GFR (CKD-EPI)AfAm 35 (>60 ml/min/1.73 sqM) 09/09/19 05:13 Est GFR (CKD-EPI)NonAf 30 (>60 ml/min/1.73 sqM) 09/09/19 05:13 Glucose 147 mg/dL (74-99) H 09/09/19 05:13 POC Glucose (mg/dL) 185 mg/dL (75-99) H 09/09/19 20:09 POC Glu Fire Warden ID 09/09/19 20:09 Lactic Ac Sepsis Rflx Y 09/09/19 05:53 Plasma Lactic Acid Ramses 1.7 mmol/L (0.7-2.0) 09/09/19 10:59 Calcium 7.3 mg/dL (8.4-10.2) L 09/09/19 05:13 Total Bilirubin 0.6 mg/dL (0.2-1.3) 09/08/19 18:40 AST 32 U/L (17-59) 09/08/19 18:40 ALT 17 U/L (21-72) L 09/08/19 18:40 Alkaline Phosphatase 93 U/L (38-126) 09/08/19 18:40 Troponin I 0.536 ng/mL (0.000-0.034) H* 09/09/19 05:13 Total Protein 5.6 g/dL (6.3-8.2) L 09/08/19 18:40 Albumin 2.9 g/dL (3.5-5.0) L 09/08/19 18:40 Cortisol 34 ug/dL 09/09/19 05:13 Urine Color Yellow 09/08/19 19:00 Urine Appearance Clear (Clear) 09/08/19 19:00 Urine pH 5.5 (5.0-8.0) 09/08/19 19:00 Ur Specific [place] 1.013 (1.001-1.035) 09/08/19 19:00 Urine Protein 1+ (Negative) H 09/08/19 19:00 Urine Glucose (UA) Negative (Negative) 09/08/19 19:00 Urine Ketones Negative (Negative) 09/08/19 19:00 Urine Blood Negative (Negative) 09/08/19 19:00 Urine Nitrite Negative (Negative) 09/08/19 19:00 Urine Bilirubin Negative (Negative) 09/08/19 19:00 Urine Urobilinogen <2.0 mg/dL (<2.0) 09/08/19 19:00 Ur Leukocyte Esterase Negative (Negative) 09/08/19 19:00 Urine RBC 1 /hpf (0-5) 09/08/19 19:00 Urine WBC 1 /hpf (0-5) 09/08/19 19:00 Granular Casts 5 /lpf (0) 09/08/19 19:00 Urine Mucus Rare /hpf (None) H 09/08/19 19:00 C. difficile (EIA) Intrp Negative (Negative) 09/09/19 08:25 Influenza Type A RNA Not Detected (Not Detectd) 09/08/19 19:00 Influenza Type B (PCR) Not Detected (Not Detectd) 09/08/19 19:00 Microbiology 09/08/19 19:11 Blood Blood Culture - Preliminary No Growth after 24 hours 09/09/19 08:25 Stool Stool Culture - Preliminary 09/08/19 19:00 Urine,Voided Urine Culture - Preliminary Assessment and Plan (1) Septic shock Current Visit: Yes Status: Acute Code(s): A41.9 - SEPSIS, UNSPECIFIED ORGANISM; R65.21 - SEVERE SEPSIS WITH SEPTIC SHOCK SNOMED Code(s): 29366141 (2) Mantle cell lymphoma Current Visit: Yes Status: Acute Code(s): C83.10 - MANTLE CELL LYMPHOMA, UNSPECIFIED SITE SNOMED Code(s): 322162508 (3) Pancytopenia Current Visit: Yes Status: Acute Code(s): D61.818 - OTHER PANCYTOPENIA SNOMED Code(s): 404392986 (4) Pneumonia due to suspected gram-negative bacteria Narrative/Plan: 68-year-old male who has a very complex history of his mantle cell lymphoma. In having ongoing difficulties with oral lesion. He has had evaluat ion by different surgeons and has had biopsy without evidence of the mantle cell lymphoma within the oral cavity. He is treated with Valtrex with some improvement and a topical antiseptic sometimes is also helpful. He presents to Hospital with high-grade fever chill hypotension and evidence of new infiltrates on his chest x-ray highly consistent with pneumonia, suspect gram negatives given his immunocompromised status and ongoing neutropenia. He has been seen by oncology and growth factors have been given and will be transfused as indicated. Immunoglobulin levels have been requested and if IgG is low we'll work to see if he can be supplemented. For antibiotic therapy with vancomycin and cefepime have been requested as cultures are in process. Will adjust antibiotic therapy as indicated. For his pneumonia he is receiving high flow oxygen. We discussed the family present that if he has any worsening of his status. The next steps need to be while clarified. We've asked them to clarify with the intensive care unit team with her plans would be and if he has to be intubated as her expectation of how long would happen 4. We describe long-term ventilator care with tracheostomy, PEG tube placement and ventilator facility which they do not seem to be wanting but they may allow short-term intervention. They are having a family meeting to determine this. Current Visit: Yes Status: Acute Code(s): J18.9 - PNEUMONIA, UNSPECIFIED ORGANISM SNOMED Code(s): 780583951
[2019-09-10] MEDS: HYDROCORTISONE SUCCINATE 100 MG/2 ML VIAL IV SCH ×5 (00:03→23:16)
[2019-09-10] MEDS: HEPARIN SODIUM,PORCINE 5,000 UNIT/ML 1 ML VIAL SQ SCH ×4 (00:03→23:16)
[2019-09-10] MEDS: SALT AND SODA MOUTHWASH 1,000 ML PO SCH ×6 (00:03→23:17)
[2019-09-10] MEDS: IPRATROPIUM-ALBUTEROL 3 ML NEB INHALATION SCH ×6 (03:04→23:45)
[2019-09-10 05:06] LABS: Anisocytosis Slight; HCT 25.6 % (39.0-53.0); HGB 8.1 gm/dL (13.0-17.5); Hypochromasia Moderate; MCH 32.2 pg (25.0-35.0); MCHC 31.7 g/dL (31.0-37.0); MCV 101.4 fL (80.0-100.0); Macrocytosis Moderate; Mean Platelet Volume 6.7; RBC 2.53 m/uL (4.30-5.90); RDW 18.3 % (11.5-15.5)
[2019-09-10 05:07] LABS: WBC 0.1 k/uL (3.8-10.6)
[2019-09-10 05:27] LABS: Platelet Count 93 k/uL (150-450)
[2019-09-10 05:45] LABS: Calcium 7.7 mg/dL (8.4-10.2); Potassium 3.5 mmol/L (3.5-5.1)
--- NOTE | 2019-09-10 05:57 | XR ---
EXAMINATION TYPE: XR chest 1V DATE OF EXAM: 09/10/2019 HISTORY: PNA. REFERENCE: Previous study dated 09/09/2019. FINDINGS: Left internal jugular catheter remains in place. Its tip is in the superior vena cava. Cont inues to be bilateral airspace disease in the right midlung and the left lower lung. Heart size upper limits of normal. I could not exclude a small left effusion. Overall aeration may have improved. IMPRESSION: PROBABLE SLIGHT IMPROVEMENT IN THE APPEARANCE OF CHEST.
[2019-09-10 06:10] LABS: Glucose,Whole Blood 162 mg/dL (75-99)
[2019-09-10] MEDS: INSULIN ASPART (NovoLOG) 100 UNIT/ML VIAL SQ SCH ×4 (06:27→21:17)
[2019-09-10] MEDS: ASCORBIC ACID 500 MG TAB PO SCH (08:28)
[2019-09-10] MEDS: PANTOPRAZOLE 40 MG/10 ML VIAL IVP SCH (08:28)
[2019-09-10] MEDS: FILGRASTIM-SNDZ 480 MCG/0.8 ML SYRINGE SQ SCH (08:28)
[2019-09-10] MEDS: valACYclovir 500 MG TAB PO SCH ×2 (08:28→21:16)
[2019-09-10] MEDS: MULTIVITAMINS, THERA 1 EACH TAB PO SCH (08:28)
[2019-09-10] MEDS: diphenhydrAMINE 25 MG CAP PO SCH ×2 (08:37→21:16)
[2019-09-10] MEDS: SODIUM CHLORIDE 0.9% 1,000 ML IV SCH (09:00)
[2019-09-10] MEDS: DEXTROSE 5% IN WATER 1,000 ML with SODIUM BICARB (1 MEQ/ML) 150 ML IV SCH (09:51)
[2019-09-10] MEDS: VANCOMYCIN 1,750 MG in SODIUM CHLORIDE 0.9% 500 ML 500 ML IVPB SCH ×2 (11:05→21:17)
[2019-09-10] MEDS ORDERED: Potassium Replacement Protocol 1 EACH MISC MISCELLANE PRN (11:11)
[2019-09-10 11:31] LABS: Immunoglobulin M 17.9 mg/dL (40.0-280.0)
[2019-09-10 12:09] LABS: Glucose,Whole Blood 220 mg/dL (75-99)
[2019-09-10] MEDS: POTASSIUM CHLORIDE ER 20 MEQ TAB.ER PO SCH ×4 (12:15→19:03)
--- NOTE | 2019-09-10 12:53 | P.PN ---
Subjective Progress Note Date: 09/10/19 Principal diagnosis: Septic shock, pancytopenia and pneumonia This is a 68-year-old white male patient of Dr. Dodd, with a speckle history of non-Hodgkin's/Mantell lymphoma, with last treatment of Rituxan in November 2018, and patient has been in remission since then. 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 He states he had been hospitalized at [facility] in [place], he is unsure of the dates, but most recently with the neutropenic colitis. He is currently receiving filgrastim. He had been on Bactrim, Valtrex. Patient presents to the hospital with complaints of three-day history of weakness, fevers, difficulty breathing, cough and congestion. In addition he has had on and off watery diarrhea. Admission blood work revealed white blood cell count of 0.2, hemoglobin of 9.8, d-dimer was 4.38, sodium of 135, potassium is 4.2, chloride is 103, CO2 is 20, BUN of 27, creatinine is 2.34, plasma lactic acid was 4.0, troponins were positive at 0.035, and 0.246, and 0.536. Influenza was negative, urinalysis without signs of infection. he has a congested cough, shortness of breath, able to bring up much sputum. Chest x-ray revealed bilateral pulmonary infiltrates in the left lower lobe, and some atelectasis and infiltrate in the right midlung. EKG showed sinus tachycardia, without acute ischemic changes. Follow-up chest x-ray on 09/08/2019 at 8:00 showed increasing bilateral pulmonary infiltrates. Patient has been having low- grade fevers, and creasing shortness of breath and hypoxemia, and she was subsequently placed on Arava, currently at 55 L and FiO2 of 75%, his pulse ox is 97%. He was quite hypertensive on presentation, with the blood pressure of 67/43, he received a total of 3.5 L in fluid boluses, he did require Levophed for vasopressor support, which had since been weaned off, he received a dose of cortisone 50 mg IV push in the emergency department, he is on chronic dose of dexamethasone 1 mg 4 times a day. Seen in the intensive care unit this morning, he is tachypneic, has a congested cough, he remains on Airvo. The blood gas was reviewed, and revealed pO2 of 77, pCO2 of 24, and pH of 7.45, consistent with metabolic acidosis with respiratory compensation. Today's blood work shows white blood cell, 0.1, sodium of 137, potassium is 4.5, chloride is 109, CO2 is 18, BUN of 29 and creatinine 2.2. Patient is currently off the Levophed, continues on IV hydration, is making urine, Cohn catheter was inserted, denies any abdominal pain, did have an episode of diarrhea which was sent for cultures and C. diff. Cultures pending. Antibiotic coverage is in the form of Zosyn and vancomycin, patient continues on his home dose Valtrex, and Bactrim has been discontinued Patient was reevaluated today on 09/10/2019, remains in the ICU, he is on broad-spectrum antibiotics, he is on norepinephrine for slightly low blood pressure, he is also on cefepime and vancomycin as well as Valtrex. Patient is on zarxio for his neutropenia, he is also on bicarb drip which I will discontinue today since his bicarb level is up to 22. Patient is also on hydrocortisone/stress doses since the patient was recently on cortisone. Definite clinical improvement noted, chest x-ray continues to show bilateral infiltrates. And multifocal pneumonia. A is feeling a bit better, his temperature is 97.7 today, and his T-max was 99.5. Earlier on admission, the patient had temps as high as 104. We'll cultures blood cultures and urine cultures are pending. Patient was already seen by infectious disease on consultation, he was also seen by oncology on consultation. Objective - Vital Signs Vital signs: Vital Signs Temp 97.7 F 09/10/19 03:00 Pulse 106 H 09/10/19 12:09 Resp 17 09/10/19 07:00 BP 120/79 09/10/19 07:00 Pulse Ox 99 09/10/19 07:00 Intake & Output 09/09/19 09/10/19 09/10/19 18:59 06:59 18:59 Intake Total 3695.042 2200 178.543 Output Total 1989 910 50 Balance 8570.376 7188 128.543 Weight 91 kg 97.6 kg Intake: IV 3640 1950 150 0.9 IV bolus 2000 D%W 3 amp HCo3 800 1300 100 Sodium Chloride 0.9% 1, 840 650 50 000 ml @ 50 mls/hr IV . Q20H [facility] Rx#:[id number] Intake, IV Titration 55.042 250 28.543 Amount Norepinephrine 32 mg In 55.042 28.543 Sodium Chloride 0.9% 218 ml @ 0.05 MCG/KG/MIN 2. 041 mls/hr IV .Q24H [facility] Rx#:[id number] Vancomycin 1,500 mg In 250 Sodium Chloride 0.9% 250 ml @ 125 mls/hr IVPB Q24H [facility] Rx#:[id number] Output: Urine 1989 910 50 Other: Voiding Method Indwelling Catheter Indwelling Catheter - Exam GENERAL EXAM: Revealed a 68-year-old white male in no distress. Very pleasant. HEENT: PERRLA, EOMI, no icterus, dry mucous membranes, ulcerations noted at the bottom of his tongue. CHEST: No chest wall deformity. Symmetrical expansion. LUNGS: Crackles and rhonchi noted bilaterally. CVS: Regular rate and rhythm, normal S1 and S2, no gallops, no murmurs, no rubs ABDOMEN: Soft, nontender. No hepatosplenomegaly, normal bowel sounds, no guar ding or rigidity. EXTREMITIES: No clubbing edema or cyanosis, good pulses bilaterally. MUSCULOSKELETAL: Muscle strength and tone normal. SPINE: No scoliosis or deformity SKIN: No rashes CENTRAL NERVOUS SYSTEM: Alert and oriented 3, no gross focal neurologic deficits. PSYCHIATRIC: Normal mood, affect and normal mental status examination. - Labs CBC & Chem 7: 09/10/19 04:45 09/10/19 04:45 Labs: Abnormal Lab Results - Last 24 Hours (Table) 09/09/19 09/09/19 09/09/19 Range/Units 05:13 08:25 16:59 WBC (3.8-10.6) k/uL RBC (4.30-5.90) m/uL Hgb (13.0-17.5) gm/dL Hct (39.0-53.0) % MCV (80.0-100.0) fL RDW (11.5-15.5) % Plt Count (150-450) k/uL Chloride (98-107) mmol/L BUN (9-20) mg/dL Glucose (74-99) mg/dL POC Glucose (mg/dL) 170 H (75-99) mg/dL Calcium (8.4-10.2) mg/dL Stool Lactoferrin POSITIVE H (NEGATIVE) IgG 667.0 L (700.0-1600.0) mg/dL IgM 17.9 L (40.0-280.0) mg/dL 09/09/19 09/10/19 09/10/19 Range/Units 20:09 04:45 04:45 WBC 0.1 L* (3.8-10.6) k/uL RBC 2.53 L (4.30-5.90) m/uL Hgb 8.1 L (13.0-17.5) gm/dL Hct 25.6 L (39.0-53.0) % MCV 101.4 H (80.0-100.0) fL RDW 18.3 H (11.5-15.5) % Plt Count 93 L (150-450) k/uL Chloride 110 H (98-107) mmol/L BUN 24 H (9-20) mg/dL Glucose 190 H (74-99) mg/dL POC Glucose (mg/dL) 185 H (75-99) mg/dL Calcium 7.7 L (8.4-10.2) mg/dL Stool Lactoferrin (NEGATIVE) IgG (700.0-1600.0) mg/dL IgM (40.0-280.0) mg/dL 09/10/19 09/10/19 Range/Units 06:08 12:07 WBC (3.8-10.6) k/uL RBC (4.30-5.90) m/uL Hgb (13.0-17.5) gm/dL Hct (39.0-53.0) % MCV (80.0-100.0) fL RDW (11.5-15.5) % Plt Count (150-450) k/uL Chloride (98-107) mmol/L BUN (9-20) mg/dL Glucose (74-99) mg/dL POC Glucose (mg/dL) 162 H 220 H (75-99) mg/dL Calcium (8.4-10.2) mg/dL Stool Lactoferrin (NEGATIVE) IgG (700.0-1600.0) mg/dL IgM (40.0-280.0) mg/dL Microbiology - Last 24 Hours (Table) 09/08/19 19:00 Urine Culture - Final Urine,Voided 09/08/19 19:11 Blood Culture - Preliminary Blood No Growth after 24 hours 09/09/19 08:25 Stool Culture - Preliminary Stool Assessment and Plan Assessment: #1. Septic shock, secondary to bilateral multifocal pneumonia, patient is immunosuppressed, this is pneumonia in a compromised host, likely gram-negative, however many other possibilities do exist considering the patient has very suppressed immune status. #2. Neutropenia, being addressed by oncology/hematology on the case. #3. Acute lactic acidosis secondary to sepsis, resolved. #4. Acute kidney injury, secondary to sepsis and septic shock, improving, his creatinine went down from 2.34 on admission and today is 1.19 point #5. Chronic anemia #6. Elevated d-dimer, nonspecific #7. Elevated troponin is likely related to sepsis and septic shock, EKG without acute ischemic changes #8. Recent neutropenic colitis, stool cultures are pending. #9. Frequent episodes of watery diarrhea, rule out C. diff #10. 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 #11. History of non-Hodgkin's/Mantell cell lymphoma, status post Rituxan, in remission, most recent PET scan on 08/22/2019 showed no new areas of suspicious hypermetabolic uptake #12. Previous history of GI bleeding #13. Hyperlipidemia #14. History of pneumonia #15. Hard of hearing Recommendation: Continue to monitor the patient in the intensive care unit. Continue antibiotics. Patient is on broad-spectrum antibiotics in the form of cefepime and vancomycin. Continue GI and DVT prophylaxis. Continue bronchodilators. Nutritional support, patient is on regular diet at present, seems to be fairly well tolerated. Continue zarxio, his WBC count today is 0.1. Discontinue sodium bicarb. Continue insulin as per protocol. Titrate and possibly discontinue epinephrine his mean arterial pressure is excellent this morning. And we are in the process of titrating down and possibly discontinuing norepinephrine. Continue Valtrex. Patient will remain in the ICU, and I will continue to follow. Prognosis is relatively guarded, being followed by many other consultants. Time with Patient: Less than 30
--- NOTE | 2019-09-10 14:21 | P.PN ---
Subjective Patient is a pleasant 68-year-old gentleman was admitted for septic shock secondary to bilateral extensive pneumonia patient is neutropenic etiology of neutropenia is not clear and present neutropenia is believed to be secondary to sepsis although patient has chronic neutropenia and etiology was not clear patient had history of non-Hodgkin's lymphoma for which patient was on rituxin earlier this year, patient underwent extensive workup at [facility] for neutropenia including bone marrow biopsy. Etiology of neutropenia is apparently not clear and patient the had a recent neutropenic colitis as well. Patient is being treated with cefepime and vancomycin patient has walked oral nonhealing ulcers with positive HSV because of which patient is on Valtrex as well. Patient was on pressor support which was discontinued patient is also on hydrocortisone for septic shock. Patient urine output is better patient is on IV fluids. Troponins are elevated secondary to sepsis. Patient is on high flow nasal cannula oxygen with significant expiratory wheezing on exam doesn't have any history of COPD or asthma patient's serum creatinine did improve. Objective - Vital Signs Vital signs: Vital Signs Temp 97.7 F 09/10/19 03:00 Pulse 106 H 09/10/19 12:09 Resp 17 09/10/19 07:00 BP 120/79 09/10/19 07:00 Pulse Ox 99 09/10/19 07:00 Intake & Output 09/09/19 09/10/19 09/10/19 18:59 06:59 18:59 Intake Total 3695.042 2200 178.543 Output Total 19890 50 Balance 3326.932 7160 128.543 Weight 91 kg 97.6 kg Intake: IV 3640 1950 150 0.9 IV bolus 2000 D%W 3 amp HCo3 800 1300 100 Sodium Chloride 0.9% 1, 840 650 50 000 ml @ 50 mls/hr IV . Q20H [facility] Rx#:[id number] Intake, IV Titration 55.042 250 28.543 Amount Norepinephrine 32 mg In 55.042 28.543 Sodium Chloride 0.9% 218 ml @ 0.05 MCG/KG/MIN 2. 041 mls/hr IV .Q24H [facility] Rx#:[id number] Vancomycin 1,500 mg In 250 Sodium Chloride 0.9% 250 ml @ 125 mls/hr IVPB Q24H [facility] Rx#:[id number] Output: Urine 1989 910 50 Other: Voiding Method Indwelling Catheter Indwelling Catheter - Exam PHYSICAL EXAMINATION: GENERAL: The patient is alert and oriented x3, not in any acute distress. Well developed, well nourished. Patient appears to be tired and fatigued HEENT: Pupils are round and equally reacting to light. EOMI. No scleral icterus. No conjunctival pallor. Normocephalic, atraumatic. No pharyngeal erythema. No thyromegaly. CARDIOVASCULAR: S1 and S2 present. No murmurs, rubs, or gallops. PULMONARY: Decreased air entry with significant expiratory wheezing on exam occasional crackles ABDOMEN: Soft, nontender, nondistended, normoactive bowel sounds. No palpable organomegaly. MUSCULOSKELETAL: No joint swelling or deformity. EXTREMITIES: No cyanosis, clubbing, or pedal edema. NEUROLOGICAL: Gross neurological examination did not reveal any focal deficits. SKIN: No rashes. - Labs CBC & Chem 7: 09/10/19 04:45 09/10/19 04:45 Labs: Abnormal Lab Results - Last 24 Hours (Table) 09/09/19 09/09/19 09/09/19 Range/Units 05:13 08:25 16:59 WBC (3.8-10.6) k/uL RBC (4.30-5.90) m/uL Hgb (13.0-17.5) gm/dL Hct (39.0-53.0) % MCV (80.0-100.0) fL RDW (11.5-15.5) % Plt Count (150-450) k/uL Chloride (98-107) mmol/L BUN (9-20) mg/dL Glucose (74-99) mg/dL POC Glucose (mg/dL) 170 H (75-99) mg/dL Calcium (8.4-10.2) mg/dL Stool Lactoferrin POSITIVE H (NEGATIVE) IgG 667.0 L (700.0-1600.0) mg/dL IgM 17.9 L (40.0-280.0) mg/dL 09/09/19 09/10/19 09/10/19 Range/Units 20:09 04:45 04:45 WBC 0.1 L* (3.8-10.6) k/uL RBC 2.53 L (4.30-5.90) m/uL Hgb 8.1 L (13.0-17.5) gm/dL Hct 25.6 L (39.0-53.0) % MCV 101.4 H (80.0-100.0) fL RDW 18.3 H (11.5-15.5) % Plt Count 93 L (150-450) k/uL Chloride 110 H (98-107) mmol/L BUN 24 H (9-20) mg/dL Glucose 190 H (74-99) mg/dL POC Glucose (mg/dL) 185 H (75-99) mg/dL Calcium 7.7 L (8.4-10.2) mg/dL Stool Lactoferrin (NEGATIVE) IgG (700.0-1600.0) mg/dL IgM (40.0-280.0) mg/dL 09/10/19 09/10/19 Range/Units 06:08 12:07 WBC (3.8-10.6) k/uL RBC (4.30-5.90) m/uL Hgb (13.0-17.5) gm/dL Hct (39.0-53.0) % MCV (80.0-100.0) fL RDW (11.5-15.5) % Plt Count (150-450) k/uL Chloride (98-107) mmol/L BUN (9-20) mg/dL Glucose (74-99) mg/dL POC Glucose (mg/dL) 162 H 220 H (75-99) mg/dL Calcium (8.4-10.2) mg/dL Stool Lactoferrin (NEGATIVE) IgG (700.0-1600.0) mg/dL IgM (40.0-280.0) mg/dL Microbiology - Last 24 Hours (Table) 09/08/19 19:00 Urine Culture - Final Urine,Voided 09/08/19 19:11 Blood Culture - Preliminary Blood No Growth after 24 hours 09/09/19 08:25 Stool Culture - Preliminary Stool Assessment and Plan Plan: Septic shock: Secondary to bilateral multifocal pneumonia patient is immunocompromised, because of neutropenia, continue with the IV fluids shock improved patient is also on acyclovir, cefepime and vancomycin -Neutropenia etiology is not clear at present neutropenia appears to be sepsis s econdary to sepsis and patient is receiving filgrastim every day -Acute renal failure secondary to acute tubular necrosis from septic shock which is improving -Elevated troponins and d-dimer secondary to sepsis -History of non-Hodgkin's lymphoma/mantle cell lymphoma for which patient completed chemotherapy -Hyperlipidemia -Acute hypoxic respiratory failure secondary to right leg bilateral multifocal pneumonia.
[2019-09-10] MEDS: CEFEPIME 2 GM in SODIUM CHLORIDE 0.9% 100 ML IVPB SCH (16:29)
[2019-09-10 16:58] LABS: Glucose,Whole Blood 153 mg/dL (75-99)
[2019-09-10 20:42] LABS: Glucose,Whole Blood 159 mg/dL (75-99)
[2019-09-10] MEDS: NOREPINEPHRINE 32 MG in SODIUM CHLORIDE 0.9% 218 ML IV SCH (21:17)
[2019-09-10] MEDS ORDERED: POTASSIUM CHLORIDE ER 20 MEQ TAB.ER PO SCH (23:00)
[2019-09-11] MEDS: CEFEPIME 2 GM in SODIUM CHLORIDE 0.9% 100 ML IVPB SCH ×2 (03:13→14:54)
[2019-09-11] MEDS: SODIUM CHLORIDE 0.9% 1,000 ML IV SCH ×2 (03:13→23:46)
[2019-09-11] MEDS: IPRATROPIUM-ALBUTEROL 3 ML NEB INHALATION SCH ×6 (03:40→23:15)
[2019-09-11 05:34] LABS: Anisocytosis Slight; HCT 22.5 % (39.0-53.0); Hypochromasia Marked; MCH 32.1 pg (25.0-35.0); MCHC 31.2 g/dL (31.0-37.0); MCV 102.8 fL (80.0-100.0); Macrocytosis Moderate; Mean Platelet Volume 7.5; RBC 2.19 m/uL (4.30-5.90); RDW 17.8 % (11.5-15.5)
[2019-09-11 05:37] LABS: WBC 0.1 k/uL (3.8-10.6)
[2019-09-11 05:38] LABS: Platelet Count 60 k/uL (150-450)
[2019-09-11 06:07] LABS: Calcium 7.9 mg/dL (8.4-10.2)
[2019-09-11 06:58] LABS: Glucose,Whole Blood 125 mg/dL (75-99)
[2019-09-11] MEDS: INSULIN ASPART (NovoLOG) 100 UNIT/ML VIAL SQ SCH ×4 (07:05→20:49)
--- NOTE | 2019-09-11 07:06 | XR ---
EXAMINATION TYPE: XR chest 1V DATE OF EXAM: 09/11/2019 HISTORY: PNA. REFERENCE: Previous study dated 09/10/2019. FINDINGS: left internal jugular catheter remains in place. Its tip is in the superior vena cava. Heart size upper limits of normal. There is mild vascular congestion. There is continuing left basila r airspace disease and a lesser degree of airspace disease in the right midlung. Overall aeration is improved slightly. There is a small left effusion. IMPRESSION: SLIGHT IMPROVEMENT IN THE APPEARANCE OF THE CHEST.
[2019-09-11] MEDS: SALT AND SODA MOUTHWASH 1,000 ML PO SCH ×5 (08:31→23:42)
[2019-09-11] MEDS: HEPARIN SODIUM,PORCINE 5,000 UNIT/ML 1 ML VIAL SQ SCH ×3 (08:46→23:43)
[2019-09-11] MEDS: HYDROCORTISONE SUCCINATE 100 MG/2 ML VIAL IV SCH ×3 (08:46→23:43)
[2019-09-11] MEDS: valACYclovir 500 MG TAB PO SCH ×2 (08:48→20:48)
[2019-09-11] MEDS: MULTIVITAMINS, THERA 1 EACH TAB PO SCH (08:48)
[2019-09-11] MEDS: PANTOPRAZOLE 40 MG/10 ML VIAL IVP SCH (08:48)
[2019-09-11] MEDS: ASCORBIC ACID 500 MG TAB PO SCH (08:49)
[2019-09-11] MEDS: diphenhydrAMINE 25 MG CAP PO SCH ×2 (08:49→20:45)
[2019-09-11] MEDS ORDERED: FILGRASTIM-SNDZ 480 MCG/0.8 ML SYRINGE SQ SCH (09:00)
[2019-09-11] MEDS: FILGRASTIM-SNDZ 480 MCG/0.8 ML SYRINGE SQ SCH (09:34)
[2019-09-11] MEDS: VANCOMYCIN 1,750 MG in SODIUM CHLORIDE 0.9% 500 ML 500 ML IVPB SCH ×2 (09:34→22:16)
[2019-09-11 10:36] LABS: Appearance,Urine Cloudy (Clear); Bacteria,Urine Occasional /hpf; Bilirubin,Urine Negative (Negative); Blood,Urine Trace (Negative); Color,Urine Yellow; Glucose,Urine (UA) Negative (Negative); Granular Casts,Urine 11 /lpf (0); Ketones,Urine Negative (Negative); Leukocyte Esterase,Urine Negative (Negative); Mucus,Urine Rare /hpf; Nitrite,Urine Negative (Negative); Protein,Urine 1+ (Negative); RBC,Urine 2 /hpf (0-5); Urobilinogen,Urine <2.0 mg/dL (<2.0)
--- NOTE | 2019-09-11 11:05 | P.PN ---
Subjective Progress Note Date: 09/11/19 Principal diagnosis: Septic shock, pancytopenia and pneumonia This is a 68-year-old white male patient of Dr. Dodd, with a speckle history of non-Hodgkin's/Mantell lymphoma, with last treatment of Rituxan in November 2018, and patient has been in remission since then. 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 He states he had been hospitalized at [facility] in [place], he is unsure of the dates, but most recently with the neutropenic colitis. He is currently receiving filgrastim. He had been on Bactrim, Valtrex. Patient presents to the hospital with complaints of three-day history of weakness, fevers, difficulty breathing, cough and congestion. In addition he has had on and off watery diarrhea. Admission blood work revealed white blood cell count of 0.2, hemoglobin of 9.8, d-dimer was 4.38, sodium of 135, potassium is 4.2, chloride is 103, CO2 is 20, BUN of 27, creatinine is 2.34, plasma lactic acid was 4.0, troponins were positive at 0.035, and 0.246, and 0.536. Influenza was negative, urinalysis without signs of infection. he has a congested cough, shortness of breath, able to bring up much sputum. Chest x-ray revealed bilateral pulmonary infiltrates in the left lower lobe, and some atelectasis and infiltrate in the right midlung. EKG showed sinus tachycardia, without acute ischemic changes. Follow-up chest x-ray on 09/08/2019 at 8:00 showed increasing bilateral pulmonary infiltrates. Patient has been having low- grade fevers, and creasing shortness of breath and hypoxemia, and she was subsequently placed on Arava, currently at 55 L and FiO2 of 75%, his pulse ox is 97%. He was quite hypertensive on presentation, with the blood pressure of 67/43, he received a total of 3.5 L in fluid boluses, he did require Levophed for vasopressor support, which had since been weaned off, he received a dose of cortisone 50 mg IV push in the emergency department, he is on chronic dose of dexamethasone 1 mg 4 times a day. Seen in the intensive care unit this morning, he is tachypneic, has a congested cough, he remains on Airvo. The blood gas was reviewed, and revealed pO2 of 77, pCO2 of 24, and pH of 7.45, consistent with metabolic acidosis with respiratory compensation. Today's blood work shows white blood cell, 0.1, sodium of 137, potassium is 4.5, chloride is 109, CO2 is 18, BUN of 29 and creatinine 2.2. Patient is currently off the Levophed, continues on IV hydration, is making urine, Cohn catheter was inserted, denies any abdominal pain, did have an episode of diarrhea which was sent for cultures and C. diff. Cultures pending. Antibiotic coverage is in the form of Zosyn and vancomycin, patient continues on his home dose Valtrex, and Bactrim has been discontinued Patient was reevaluated today on 09/10/2019, remains in the ICU, he is on broad-spectrum antibiotics, he is on norepinephrine for slightly low blood pressure, he is also on cefepime and vancomycin as well as Valtrex. Patient is on zarxio for his neutropenia, he is also on bicarb drip which I will discontinue today since his bicarb level is up to 22. Patient is also on hydrocortisone/stress doses since the patient was recently on cortisone. Definite clinical improvement noted, chest x-ray continues to show bilateral infiltrates. And multifocal pneumonia. A is feeling a bit better, his temperature is 97.7 today, and his T-max was 99.5. Earlier on admission, the patient had temps as high as 104. We'll cultures blood cultures and urine cultures are pending. Patient was already seen by infectious disease on consultation, he was also seen by oncology on consultation. Reevaluated today on 09/11/2019, patient is still in the ICU, he is off norepinephrine completely. He is hemodynamically stable. Remains on broad- spectrum antibiotics in the form of cefepime and vancomycin and Valtrex. Blood cultures urine cultures and stool cultures are so far nondiagnostic. Chest x- ray continues to show bilateral multilobar infiltrates. But improving. Remains on stress doses of hydrocortisone and I will be cutting that down today. He is off bicarb since yesterday. Urine output is excellent. Clinically the patient is feeling better. He is on high flow airvo at 50 L/m flow on 50% FiO2. O2 saturation is in the high 90s, hence his FiO2 will be titrated in the flow will be titrated. Significant improvement noted over the last 2 days, but the patient remains marginal specially with his pancytopenia. And that is being addressed by hematology/oncology on the case. His diarrhea has completely resolved. WBC count today is 0.1 hemoglobin is 7 platelets are 60,000. Basic metabolic profile is normal renal profile is significantly improved. And his acute kidney injury is improving Objective - Vital Signs Vital signs: Vital Signs Temp 99.7 F H 09/11/19 04:00 Pulse 88 09/11/19 08:13 Resp 20 09/11/19 07:00 BP 108/73 09/11/19 07:00 Pulse Ox 95 09/11/19 07:00 Intake & Output 09/10/19 09/11/19 09/11/19 18:59 06:59 18:59 Intake Total 2336.543 583 53 Output Total 647 620 65 Balance 1689.543 -37 -12 Weight 92.1 kg Intake: IV 733 583 53 D%W 3 amp HCo3 100 Normal Saline Pressure 33 33 3 Bag Sodium Chloride 0.9% 1, 600 550 50 000 ml @ 50 mls/hr IV . Q20H [facility] Rx#:[id number] Intake, IV Titration 1203.543 Amount Cefepime 2 gm In Sodium 100 Chloride 0.9% 100 ml @ 200 mls/hr IVPB Q12H [facility] Rx#:[id number] Dextrose 5% in Water 1, 575 000 ml @ 100 mls/hr IV . [id number] [facility] with Sodium Bicarb (1 Meq/ml) 150 ml Rx#:[id number] Norepinephrine 32 mg In 28.543 Sodium Chloride 0.9% 218 ml @ 0.05 MCG/KG/MIN 2. 041 mls/hr IV .Q24H [facility] Rx#:[id number] Vancomycin 1,750 mg In 500 Sodium Chloride 0.9% 500 ml 500 ml @ 167 mls/hr IVPB Q12H [facility] Rx#: [id number] Oral 400 Output: Urine 647 620 65 Other: Voiding Method Indwelling Catheter Indwelling Catheter Indwelling Catheter - Exam GENERAL EXAM: Revealed a 68-year-old white male in no distress. HEENT: PERRLA, EOMI, no icterus, dry mucous membranes, ulcerations noted at the bottom of his tongue. Left IJ central line is noted. CHEST: No chest wall deformity. Symmetrical expansion. LUNGS: Minimal fine crackles at the bases, no rhonchi and no wheezes. CVS: Regular rate and rhythm, normal S1 and S2, no gallops, no murmurs, no rubs ABDOMEN: Soft, nontender. No hepatosplenomegaly, normal bowel sounds, no guarding or rigidity. EXTREMITIES: No clubbing edema or cyanosis, good pulses bilaterally. MUSCULOSKELETAL: Muscle strength and tone normal. SPINE: No scoliosis or deformity SKIN: No rashes CENTRAL NERVOUS SYSTEM: Alert and oriented 3, no gross focal neurologic deficits. PSYCHIATRIC: Normal mood, affect and normal mental status examination. - Labs CBC & Chem 7: 09/11/19 05:25 09/11/19 05:25 Labs: Abnormal Lab Results - Last 24 Hours (Table) 09/09/19 09/10/19 09/10/19 Range/Units 05:13 12:07 16:57 WBC (3.8-10.6) k/uL RBC (4.30-5.90) m/uL Hgb (13.0-17.5) gm/dL Hct (39.0-53.0) % MCV (80.0-100.0) fL RDW (11.5-15.5) % Plt Count (150-450) k/uL Chloride (98-107) mmol/L BUN (9-20) mg/dL Glucose (74-99) mg/dL POC Glucose (mg/dL) 220 H 153 H (75-99) mg/dL Calcium (8.4-10.2) mg/dL Urine Protein (Negative) Urine Blood (Negative) Urine WBC (0-5) /hpf Urine Bacteria (None) /hpf Urine Mucus (None) /hpf IgG 667.0 L (700.0-1600.0) mg/dL IgM 17.9 L (40.0-280.0) mg/dL 09/10/19 09/11/19 09/11/19 Range/Units 20:41 05:25 05:25 WBC 0.1 L* (3.8-10.6) k/uL RBC 2.19 L (4.30-5.90) m/uL Hgb 7.0 L (13.0-17.5) gm/dL Hct 22.5 L (39.0-53.0) % MCV 102.8 H (80.0-100.0) fL RDW 17.8 H (11.5-15.5) % Plt Count 60 L (150-450) k/uL Chloride 111 H (98-107) mmol/L BUN 29 H (9-20) mg/dL Glucose 118 H (74-99) mg/dL POC Glucose (mg/dL) 159 H (75-99) mg/dL Calcium 7.9 L (8.4-10.2) mg/dL Urine Protein (Negative) Urine Blood (Negative) Urine WBC (0-5) /hpf Urine Bacteria (None) /hpf Urine Mucus (None) /hpf IgG (700.0-1600.0) mg/dL IgM (40.0-280.0) mg/dL 09/11/19 09/11/19 Range/Units 06:57 09:30 WBC (3.8-10.6) k/uL RBC (4.30-5.90) m/uL Hgb (13.0-17.5) gm/dL Hct (39.0-53.0) % MCV (80.0-100.0) fL RDW (11.5-15.5) % Plt Count (150-450) k/uL Chloride (98-107) mmol/L BUN (9-20) mg/dL Glucose (74-99) mg/dL POC Glucose (mg/dL) 125 H (75-99) mg/dL Calcium (8.4-10.2) mg/dL Urine Protein 1+ H (Negative) Urine Blood Trace H (Negative) Urine WBC 6 H (0-5) /hpf Urine Bacteria Occasional H (None) /hpf Urine Mucus Rare H (None) /hpf IgG (700.0-1600.0) mg/dL IgM (40.0-280.0) mg/dL Microbiology - Last 24 Hours (Table) 09/08/19 19:11 Blood Culture - Preliminary Blood No Growth after 48 hours Assessment and Plan Assessment: #1. Septic shock, secondary to bilateral multifocal pneumonia, patient is immunosuppressed, this is pneumonia in a compromised host, likely gram-negative, however many other possibilities do exist considering the patient has very suppressed immune status. #2. Neutropenia, being addressed by oncology/hematology on the case. #3. Acute lactic acidosis secondary to sepsis, resolved. #4. Acute kidney injury, secondary to sepsis and septic shock, improving, his creatinine went down from 2.34 on admission and today is 1.19 point #5. Chronic anemia #6. Elevated d-dimer, nonspecific #7. Elevated troponin is likely related to sepsis and septic shock, EKG without acute ischemic changes #8. Recent neutropenic colitis, stool cultures are pending. #9. Frequent episodes of watery diarrhea, rule out C. diff #10. 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 #11. History of non-Hodgkin's/Mantell cell lymphoma, status post Rituxan, in remission, most recent PET scan on 08/22/2019 showed no new areas of suspicious hypermetabolic uptake #12. Previous history of GI bleeding #13. Hyperlipidemia #14. History of pneumonia #15. Hard of hearing Recommendation: Continue to monitor the patient in the intensive care unit. Continue antibiotics. Continue vancomycin and cefepime. Continue GI and DVT prophylaxis. Continue bronchodilators. Seems to be tolerating a regular diet, continue nutritional support. Continue zarxio, his WBC count remains low, hemoglobin is low, and platelets are low. Off bicarb and off norepinephrine. Keep patient in the ICU for the next 24 hours, we'll continue to follow. Overall the patient is improving, but remains critically ill, and prognosis is still guarded. Discussed his condition with him and his at bedside. Time with Patient: Less than 30
[2019-09-11 11:54] LABS: Glucose,Whole Blood 141 mg/dL (75-99)
--- NOTE | 2019-09-11 14:21 | P.PN ---
Subjective Patient is a pleasant 68-year-old gentleman was admitted for septic shock secondary to bilateral extensive pneumonia patient is neutropenic etiology of neutropenia is not clear and present neutropenia is believed to be secondary to sepsis although patient has chronic neutropenia and etiology was not clear patient had history of non-Hodgkin's lymphoma for which patient was on rituxin earlier this year, patient underwent extensive workup at [facility] for neutropenia including bone marrow biopsy. Etiology of neutropenia is apparently not clear and patient the had a recent neutropenic colitis as well. Patient is being treated with cefepime and vancomycin patient has walked oral nonhealing ulcers with positive HSV because of which patient is on Valtrex as well. Patient was on pressor support which was discontinued patient is also on hydrocortisone for septic shock. Patient urine output is better patient is on IV fluids. Troponins are elevated secondary to sepsis. Patient is on high flow nasal cannula oxygen with significant expiratory wheezing on exam doesn't have any history of COPD or asthma patient's serum creatinine did improve. 09/11/2019 Patient remains on arveo, no overnight events patient is off pressor support. Wheezing although significantly improved Constitutional: Denied any fatigue denied any fever. Cardio vascular: denied any chest pain, palpitations Gastrointestinal denied any nausea vomiting Pulmonary: Denied any shortness of breath cough Neurologic denied any new focal deficits All inpatient medications were reviewed and appropriate changes in these medications as dictated in the interval history and assessment and plan. Objective - Vital Signs Vital signs: Vital Signs Temp 99.7 F H 09/11/19 04:00 Pulse 82 09/11/19 11:34 Resp 20 09/11/19 07:00 BP 108/73 09/11/19 07:00 Pulse Ox 95 09/11/19 07:00 Intake & Output 09/10/19 09/11/19 09/11/19 18:59 06:59 18:59 Intake Total 2336.543 583 53 Output Total 647 620 65 Balance 1689.543 -37 -12 Weight 92.1 kg Intake: IV 733 583 53 D%W 3 amp HCo3 100 Normal Saline Pressure 33 33 3 Bag Sodium Chloride 0.9% 1, 600 550 50 000 ml @ 50 mls/hr IV . Q20H [facility] Rx#:[id number] Intake, IV Titration 1203.543 Amount Cefepime 2 gm In Sodium 100 Chloride 0.9% 100 ml @ 200 mls/hr IVPB Q12H [facility] Rx#:[id number] Dextrose 5% in Water 1, 575 000 ml @ 100 mls/hr IV . [id number] [facility] with Sodium Bicarb (1 Meq/ml) 150 ml Rx#:[id number] Norepinephrine 32 mg In 28.543 Sodium Chloride 0.9% 218 ml @ 0.05 MCG/KG/MIN 2. 041 mls/hr IV .Q24H [facility] Rx#:[id number] Vancomycin 1,750 mg In 500 Sodium Chloride 0.9% 500 ml 500 ml @ 167 mls/hr IVPB Q12H [facility] Rx#: [id number] Oral 400 Output: Urine 647 620 65 Other: Voiding Method Indwelling Catheter Indwelling Catheter Indwelling Catheter - Exam PHYSICAL EXAMINATION: GENERAL: The patient is alert and oriented x3, not in any acute distress. Well developed, well nourished. Patient appears to be tired and fatigued HEENT: Pupils are round and equally reacting to light. EOMI. No scleral icterus. No conjunctival pallor. Normocephalic, atraumatic. No pharyngeal erythema. No thyromegaly. CARDIOVASCULAR: S1 and S2 present. No murmurs, rubs, or gallops. PULMONARY: Mildly decreased air entry into bilateral lung garnica wheezing completely resolved ABDOMEN: Soft, nontender, nondistended, normoactive bowel sounds. No palpable organomegaly. MUSCULOSKELETAL: No joint swelling or deformity. EXTREMITIES: No cyanosis, clubbing, or pedal edema. NEUROLOGICAL: Gross neurological examination did not reveal any focal deficits. SKIN: No rashes. - Labs CBC & Chem 7: 09/11/19 05:25 09/11/19 05:25 Labs: Abnormal Lab Results - Last 24 Hours (Table) 09/10/19 09/10/19 09/11/19 Range/Units 16:57 20:41 05:25 WBC 0.1 L* (3.8-10.6) k/uL RBC 2.19 L (4.30-5.90) m/uL Hgb 7.0 L (13.0-17.5) gm/dL Hct 22.5 L (39.0-53.0) % MCV 102.8 H (80.0-100.0) fL RDW 17.8 H (11.5-15.5) % Plt Count 60 L (150-450) k/uL Chloride (98-107) mmol/L BUN (9-20) mg/dL Glucose (74-99) mg/dL POC Glucose (mg/dL) 153 H 159 H (75-99) mg/dL Calcium (8.4-10.2) mg/dL Urine Protein (Negative) Urine Blood (Negative) Urine WBC (0-5) /hpf Urine Bacteria (None) /hpf Urine Mucus (None) /hpf 09/11/19 09/11/19 09/11/19 Range/Units 05:25 06:57 09:30 WBC (3.8-10.6) k/uL RBC (4.30-5.90) m/uL Hgb (13.0-17.5) gm/dL Hct (39.0-53.0) % MCV (80.0-100.0) fL RDW (11.5-15.5) % Plt Count (150-450) k/uL Chloride 111 H (98-107) mmol/L BUN 29 H (9-20) mg/dL Glucose 118 H (74-99) mg/dL POC Glucose (mg/dL) 125 H (75-99) mg/dL Calcium 7.9 L (8.4-10.2) mg/dL Urine Protein 1+ H (Negative) Urine Blood Trace H (Negative) Urine WBC 6 H (0-5) /hpf Urine Bacteria Occasional H (None) /hpf Urine Mucus Rare H (None) /hpf 09/11/19 Range/Units 11:52 WBC (3.8-10.6) k/uL RBC (4.30-5.90) m/uL Hgb (13.0-17.5) gm/dL Hct (39.0-53.0) % MCV (80.0-100.0) fL RDW (11.5-15.5) % Plt Count (150-450) k/uL Chloride (98-107) mmol/L BUN (9-20) mg/dL Glucose (74-99) mg/dL POC Glucose (mg/dL) 141 H (75-99) mg/dL Calcium (8.4-10.2) mg/dL Urine Protein (Negative) Urine Blood (Negative) Urine WBC (0-5) /hpf Urine Bacteria (None) /hpf Urine Mucus (None) /hpf Microbiology - Last 24 Hours (Table) 09/08/19 19:11 Blood Culture - Preliminary Blood No Growth after 48 hours Assessment and Plan Plan: Septic shock: Secondary to bilateral multifocal pneumonia patient is immunocompromised, because of neutropenia, continue with the IV fluids shock improved patient is also on acyclovir, cefepime and vancomycin -Neutropenia etiology is not clear at present neutropenia appears to be sepsis secondary to sepsis and patient is receiving filgrastim every day -Acute renal failure secondary to acute tubular necrosis from septic shock which is improving -Elevated troponins and d-dimer secondary to sepsis -History of non-Hodgkin's lymphoma/mantle cell lymphoma for which patient completed chemotherapy -Hyperlipidemia -Acute hypoxic respiratory failure secondary to right leg bilateral multifocal pneumonia.
[2019-09-11 16:44] LABS: Glucose,Whole Blood 131 mg/dL (75-99)
[2019-09-11 20:41] LABS: Glucose,Whole Blood 132 mg/dL (75-99)
[2019-09-11] MEDS: NOREPINEPHRINE 32 MG in SODIUM CHLORIDE 0.9% 218 ML IV SCH (20:44)
[2019-09-11] MEDS: ACETAMINOPHEN TAB 325 MG TAB PO PRN (20:48)
[2019-09-11] MEDS ORDERED: VANCOMYCIN TROUGH DUE 1 EACH MISC MISCELLANE ONE (21:00)
[2019-09-12] MEDS: CEFEPIME 2 GM in SODIUM CHLORIDE 0.9% 100 ML IVPB SCH ×2 (01:38→13:34)
[2019-09-12] MEDS: IPRATROPIUM-ALBUTEROL 3 ML NEB INHALATION SCH ×6 (03:16→23:14)
[2019-09-12 04:42] LABS: Anisocytosis Slight; HCT 23.7 % (39.0-53.0); HGB 7.4 gm/dL (13.0-17.5); Hypochromasia Marked; MCH 32.2 pg (25.0-35.0); MCHC 31.1 g/dL (31.0-37.0); MCV 103.6 fL (80.0-100.0); Macrocytosis Moderate; Mean Platelet Volume 7.4; RBC 2.29 m/uL (4.30-5.90); RDW 18.1 % (11.5-15.5)
[2019-09-12 04:43] LABS: Platelet Count 75 k/uL (150-450); WBC 0.2 k/uL (3.8-10.6)
[2019-09-12 05:02] LABS: Calcium 8.1 mg/dL (8.4-10.2); Potassium 3.7 mmol/L (3.5-5.1)
[2019-09-12] MEDS: SALT AND SODA MOUTHWASH 1,000 ML PO SCH ×5 (05:39→23:27)
[2019-09-12] MEDS ORDERED: POTASSIUM CHLORIDE ER 20 MEQ TAB.ER PO SCH (06:00)
[2019-09-12 06:51] LABS: Glucose,Whole Blood 112 mg/dL (75-99)
[2019-09-12] MEDS: INSULIN ASPART (NovoLOG) 100 UNIT/ML VIAL SQ SCH ×4 (06:52→20:09)
[2019-09-12] MEDS ORDERED: FUROSEMIDE 10 MG/ML 4 ML VIAL IV STA (08:09)
[2019-09-12] MEDS: diphenhydrAMINE 25 MG CAP PO SCH ×2 (08:44→19:52)
[2019-09-12] MEDS: HEPARIN SODIUM,PORCINE 5,000 UNIT/ML 1 ML VIAL SQ SCH ×3 (08:44→23:28)
[2019-09-12] MEDS: ASCORBIC ACID 500 MG TAB PO SCH (08:45)
[2019-09-12] MEDS: MULTIVITAMINS, THERA 1 EACH TAB PO SCH (08:46)
[2019-09-12] MEDS: valACYclovir 500 MG TAB PO SCH ×2 (08:46→20:09)
[2019-09-12] MEDS: FILGRASTIM-SNDZ 480 MCG/0.8 ML SYRINGE SQ SCH (08:46)
[2019-09-12] MEDS: DEXAMETHASONE 0.5 MG TAB PO SCH ×4 (08:46→22:15)
[2019-09-12] MEDS: PANTOPRAZOLE 40 MG/10 ML VIAL IVP SCH (08:47)
[2019-09-12] MEDS: HYDROCORTISONE SUCCINATE 100 MG/2 ML VIAL IV SCH (09:11)
--- NOTE | 2019-09-12 09:23 | P.PN ---
Subjective Progress Note Date: 09/12/19 Principal diagnosis: Septic shock, pancytopenia and pneumonia This is a 68-year-old white male patient of Dr. Dodd, with a past history of non-Hodgkin's/Mantell lymphoma, with last treatment of Rituxan in November 2018, and patient has been in remission since then. 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 He states he had been hospitalized at [facility] in [place], he is unsure of the dates, but most recently with the neutropenic colitis. He is currently receiving filgrastim. He had been on Bactrim, Valtrex. Patient presents to the hospital with complaints of three-day history of weakness, fevers, difficulty breathing, cough and congestion. In addition he has had on and off watery diarrhea. Admission blood work revealed white blood cell count of 0.2, hemoglobin of 9.8, d-dimer was 4.38, sodium of 135, potassium is 4.2, chloride is 103, CO2 is 20, BUN of 27, creatinine is 2.34, plasma lactic acid was 4.0, troponins were positive at 0.035, and 0.246, and 0.536. Influenza was negative, urinalysis without signs of infection. he has a congested cough, shortness of breath, able to bring up much sputum. Chest x-ray revealed bilateral pulmonary infiltrates in the left lower lobe, and some atelectasis and infiltrate in the right midlung. EKG showed sinus tachycardia, without acute ischemic changes. Follow-up chest x-ray on 09/08/2019 at 8:00 showed increasing bilateral pulmonary infiltrates. Patient has been having low- grade fevers, and creasing shortness of breath and hypoxemia, and she was subsequently placed on Arava, currently at 55 L and FiO2 of 75%, his pulse ox is 97%. He was quite hypertensive on presentation, with the blood pressure of 67/43, he received a total of 3.5 L in fluid boluses, he did require Levophed for vasopressor support, which had since been weaned off, he received a dose of cortisone 50 mg IV push in the emergency department, he is on chronic dose of dexamethasone 1 mg 4 times a day. Seen in the intensive care unit this morning, he is tachypneic, has a congested cough, he remains on Airvo. The blood gas was reviewed, and revealed pO2 of 77, pCO2 of 24, and pH of 7.45, consistent with metabolic acidosis with respiratory compensation. Today's blood work shows white blood cell, 0.1, sodium of 137, potassium is 4.5, chloride is 109, CO2 is 18, BUN of 29 and creatinine 2.2. Patient is currently off the Levophed, continues on IV hydration, is making urine, Cohn catheter was inserted, denies any abdominal pain, did have an episode of diarrhea which was sent for cultures and C. diff. Cultures pending. Antibiotic coverage is in the form of Zosyn and vancomycin, patient continues on his home dose Valtrex, and Bactrim has been discontinued Patient was reevaluated today on 09/10/2019, remains in the ICU, he is on broad-spectrum antibiotics, he is on norepinephrine for slightly low blood pressure, he is also on cefepime and vancomycin as well as Valtrex. Patient is on zarxio for his neutropenia, he is also on bicarb drip which I will discontinue today since his bicarb level is up to 22. Patient is also on hydrocortisone/stress doses since the patient was recently on cortisone. Definite clinical improvement noted, chest x-ray continues to show bilateral infiltrates. And multifocal pneumonia. A is feeling a bit better, his temperature is 97.7 today, and his T-max was 99.5. Earlier on admission, the patient had temps as high as 104. We'll cultures blood cultures and urine cultures are pending. Patient was already seen by infectious disease on consultation, he was also seen by oncology on consultation. Reevaluated today on 09/11/2019, patient is still in the ICU, he is off norepinephrine completely. He is hemodynamically stable. Remains on broad- spectrum antibiotics in the form of cefepime and vancomycin and Valtrex. Blood cultures urine cultures and stool cultures are so far nondiagnostic. Chest x- ray continues to show bilateral multilobar infiltrates. But improving. Remains on stress doses of hydrocortisone and I will be cutting that down today. He is off bicarb since yesterday. Urine output is excellent. Clinically the patient is feeling better. He is on high flow airvo at 50 L/m flow on 50% FiO2. O2 saturation is in the high 90s, hence his FiO2 will be titrated in the flow will be titrated. Significant improvement noted over the last 2 days, but the patient remains marginal specially with his pancytopenia. And that is being addressed by hematology/oncology on the case. His diarrhea has completely resolved. WBC count today is 0.1 hemoglobin is 7 platelets are 60,000. Basic metabolic profile is normal renal profile is significantly improved. And his acute kidney injury is improving On 09/04/2019 patient seen in follow-up in the intensive care unit, he is awake and alert, oriented 3, he is sitting up in the recliner, remains on Airvo at 45 L/m, or 42% FiO2. 0.9 normal saline at a rate of 50, no other drips, no vasoactive drips. Hemodynamically patient is stable, denies any worsening shortness of breath, current antibiotic coverage includes cefepime, vancomycin, and Valtrex. ID service is following. Urine, stool and blood cultures are negative thus far. Yesterday's urinalysis without signs of infection. His diarrhea has resolved. Immunoglobulin levels were found to be low, patient may need supplementation. Patient denies any oral pain, he is elevating oral diet, his appetite is improving. His blood work has been reviewed, his white blood c ell, 0.2, hemoglobin is 7.4, and he remains on filgrastim. Kidney function has improved from admission, BUN is 35 and creatinine is 1.1 on today's labs, remains on stress doses of hydrocortisone, and we can switch him back to his home dose dexamethasone. Did have a low-grade fevers last night, with a temp of 100.9F. Afebrile this morning. Yesterday's chest x-ray has been reviewed showing some improvement in the appearance of the bilateral airspace disease. Objective - Vital Signs Vital signs: Vital Signs Temp 98.6 F 09/12/19 06:01 Pulse 82 09/12/19 07:02 Resp 22 09/12/19 07:00 BP 121/80 09/12/19 07:00 Pulse Ox 96 09/12/19 07:00 Intake & Output 09/11/19 09/12/19 09/12/19 18:59 06:59 18:59 Intake Total 1836 1003 53 Output Total 5787 815 50 Balance -3951 188 3 Weight 99.8 kg Intake: IV 636 636 53 Normal Saline Pressure 36 36 3 Bag Sodium Chloride 0.9% 1, 600 600 50 000 ml @ 50 mls/hr IV . Q20H [facility] Rx#:[id number] Intake, IV Titration 600 167 Amount Cefepime 2 gm In Sodium 100 Chloride 0.9% 100 ml @ 200 mls/hr IVPB Q12H [facility] Rx#:[id number] Vancomycin 1,750 mg In 500 167 Sodium Chloride 0.9% 500 ml 500 ml @ 167 mls/hr IVPB Q12H [facility] Rx#: [id number] Oral 600 200 Output: Urine 5787 815 50 Other: Voiding Method Indwelling Catheter Indwelling Catheter - Exam GENERAL EXAM: Alert, pleasant, dyspneic, 68-year-old white male, on Airvo at 45l/min or 42% Fio2 HEAD: Normocephalic/atraumatic. EYES: Normal reaction of pupils, equal size. Conjunctiva pink, sclera white. NOSE: Clear with pink turbinates. THROAT: No erythema or exudates. MOUTH: Reveals a nonhealing ulcer on the side of the tongue on the right NECK: No masses, no JVD, no thyroid enlargement, no adenopathy. CHEST: No chest wall deformity. Symmetrical expansion. LUNGS: Equal air entry with diffuse wheezes CVS: Regular rate and rhythm, normal S1 and S2, no gallops, no murmurs, no rubs ABDOMEN: Soft, nontender. No hepatosplenomegaly, normal bowel sounds, no guarding or rigidity. EXTREMITIES: No clubbing, plus nonpitting edema in upper and lower extremities, no cyanosis, 2+ pulses and upper and lower extremities. MUSCULOSKELETAL: Muscle strength and tone normal. SPINE: No scoliosis or deformity SKIN: No rashes CENTRAL NERVOUS SYSTEM: Alert and oriented -3. No focal deficits, tone is normal in all 4 extremities. PSYCHIATRIC: Alert and oriented -3. Appropriate affect. Intact judgment and insight. - Labs CBC & Chem 7: 09/12/19 04:25 09/12/19 04:25 Labs: Abnormal Lab Results - Last 24 Hours (Table) 09/11/19 09/11/19 09/11/19 Range/Units 09:30 11:52 16:42 WBC (3.8-10.6) k/uL RBC (4.30-5.90) m/uL Hgb (13.0-17.5) gm/dL Hct (39.0-53.0) % MCV (80.0-100.0) fL RDW (11.5-15.5) % Plt Count (150-450) k/uL Chloride (98-107) mmol/L BUN (9-20) mg/dL Glucose (74-99) mg/dL POC Glucose (mg/dL) 141 H 131 H (75-99) mg/dL Calcium (8.4-10.2) mg/dL Urine Protein 1+ H (Negative) Urine Blood Trace H (Negative) Urine WBC 6 H (0-5) /hpf Urine Bacteria Occasional H (None) /hpf Urine Mucus Rare H (None) /hpf 09/11/19 09/12/19 09/12/19 Range/Units 20:35 04:25 04:25 WBC 0.2 L* (3.8-10.6) k/uL RBC 2.29 L (4.30-5.90) m/uL Hgb 7.4 L (13.0-17.5) gm/dL Hct 23.7 L (39.0-53.0) % MCV 103.6 H (80.0-100.0) fL RDW 18.1 H (11.5-15.5) % Plt Count 75 L (150-450) k/uL Chloride 113 H (98-107) mmol/L BUN 35 H (9-20) mg/dL Glucose 110 H (74-99) mg/dL POC Glucose (mg/dL) 132 H (75-99) mg/dL Calcium 8.1 L (8.4-10.2) mg/dL Urine Protein (Negative) Urine Blood (Negative) Urine WBC (0-5) /hpf Urine Bacteria (None) /hpf Urine Mucus (None) /hpf 09/12/19 Range/Units 06:50 WBC (3.8-10.6) k/uL RBC (4.30-5.90) m/uL Hgb (13.0-17.5) gm/dL Hct (39.0-53.0) % MCV (80.0-100.0) fL RDW (11.5-15.5) % Plt Count (150-450) k/uL Chloride (98-107) mmol/L BUN (9-20) mg/dL Glucose (74-99) mg/dL POC Glucose (mg/dL) 112 H (75-99) mg/dL Calcium (8.4-10.2) mg/dL Urine Protein (Negative) Urine Blood (Negative) Urine WBC (0-5) /hpf Urine Bacteria (None) /hpf Urine Mucus (None) /hpf Microbiology - Last 24 Hours (Table) 09/09/19 08:25 Stool Culture - Preliminary Stool 09/08/19 19:11 Blood Culture - Preliminary Blood No Growth after 72 hours Assessment and Plan Plan: Assessment: #1. Septic shock, related to bilateral pneumonia, in immunosuppressed host, likely gram-negative, chest x-ray shows bilateral airspace disease #2. Neutropenia, on filgrastim, being followed by oncology/hematology #3. Mild anion gap and non-anion gap metabolic acidosis, related to lactic acidosis and acute kidney injury, resolved #4. Acute kidney injury, improved #5. Chronic anemia #6. Elevated d-dimer, nonspecific #7. Elevated troponin is likely related to sepsis and septic shock, EKG without acute ischemic changes #8. Recent neutropenic colitis #9. Frequent episodes of watery diarrhea, ruled out C. diff #10. 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 History of non-Hodgkin's/Mantle cell lymphoma, status post Rituxan, in remission, most recent PET scan on 08/22/2019 showed no new areas of suspicious hypermetabolic uptake #12. Previous history of GI bleeding #13. Hyperlipidemia #14. History of pneumonia #15. Hard of hearing #16. Hypogammaglobulinemia Plan: Continue weaning FiO2, patient seems to be generally swollen, his been off vasopressor support, his been aggressively fluid resuscitated and initial stages of septic shock, we will give him a dose of IV Lasix, his renal function has recovered, he is tolerating oral intake, diarrhea has resolved, no nausea or vomiting, no worsening shortness of breath, yesterday chest x-ray shows some improvement in the appearance of bilateral lung airspace disease. Continue with antibiotics per ID service recommendations, so far the cultures remain negative, he still having some intermittent low-grade fevers, overall he is clinically improving, encourage deep breathing and coughing, encourage sitting up in the chair. Will await further recommendations as far as the immunoglobulin supplementation from ID service. Continue with nebulized bronchodilators. GI and DVT prophylaxis, will follow I performed a history & physical examination of the patient and discussed their management with my nurse practitioner, Myla Adrian. I reviewed the nurse practitioner's note and agree with the documented findings and plan of care. Lung sounds are positive for diffuse rhonchi throughout the lung garnica. The findings and the impression was discussed with the patient. I attest to the documentation by the nurse practitioner. Time with Patient: Less than 30
[2019-09-12] MEDS: VANCOMYCIN 1,500 MG in SODIUM CHLORIDE 0.9% 250 ML IVPB SCH ×2 (11:00→22:14)
[2019-09-12 11:44] LABS: Glucose,Whole Blood 113 mg/dL (75-99)
--- NOTE | 2019-09-12 14:18 | P.PN ---
Subjective Patient is a pleasant 68-year-old gentleman was admitted for septic shock secondary to bilateral extensive pneumonia patient is neutropenic etiology of neutropenia is not clear and present neutropenia is believed to be secondary to sepsis although patient has chronic neutropenia and etiology was not clear patient had history of non-Hodgkin's lymphoma for which patient was on rituxin earlier this year, patient underwent extensive workup at [facility] for neutropenia including bone marrow biopsy. Etiology of neutropenia is apparently not clear and patient the had a recent neutropenic colitis as well. Patient is being treated with cefepime and vancomycin patient has walked oral nonhealing ulcers with positive HSV because of which patient is on Valtrex as well. Patient was on pressor support which was discontinued patient is also on hydrocortisone for septic shock. Patient urine output is better patient is on IV fluids. Troponins are elevated secondary to sepsis. Patient is on high flow nasal cannula oxygen with significant expiratory wheezing on exam doesn't have any history of COPD or asthma patient's serum creatinine did improve. 09/11/2019 Patient remains on airvo, no overnight events patient is off pressor support. Wheezing although significantly improved 09/12/2019 Patient is on high flow nasal cannula oxygen Constitutional: Denied any fatigue denied any fever. Cardio vascular: denied any chest pain, palpitations Gastrointestinal denied any nausea vomiting Pulmonary: Denied any shortness of breath cough Neurologic denied any new focal deficits All inpatient medications were reviewed and appropriate changes in these medications as dictated in the interval history and assessment and plan. Objective - Vital Signs Vital signs: Vital Signs Temp 98.7 F 09/12/19 12:00 Pulse 90 09/12/19 12:00 Resp 21 09/12/19 12:00 BP 116/74 09/12/19 12:00 Pulse Ox 95 09/12/19 12:00 Intake & Output 09/11/19 09/12/19 09/12/19 18:59 06:59 18:59 Intake Total 1836 1003 603 Output Total 5781 815 2200 Balance -3951 188 -1597 Weight 99.8 kg Intake: IV 636 636 303 Normal Saline Pressure 36 36 3 Bag Sodium Chloride 0.9% 1, 600 600 300 000 ml @ 50 mls/hr IV . Q20H [facility] Rx#:[id number] Intake, IV Titration 600 167 Amount Cefepime 2 gm In Sodium 100 Chloride 0.9% 100 ml @ 200 mls/hr IVPB Q12H [facility] Rx#:[id number] Vancomycin 1,750 mg In 500 167 Sodium Chloride 0.9% 500 ml 500 ml @ 167 mls/hr IVPB Q12H [facility] Rx#: [id number] Oral 600 200 300 Output: Urine 5787 815 2200 Other: Voiding Method Indwelling Catheter Indwelling Catheter Indwelling Catheter - Exam PHYSICAL EXAMINATION: GENERAL: The patient is alert and oriented x3, not in any acute distress. Well developed, well nourished. Patient appears to be tired and fatigued HEENT: Pupils are round and equally reacting to light. EOMI. No scleral icterus. No conjunctival pallor. Normocephalic, atraumatic. No pharyngeal erythema. No thyromegaly. CARDIOVASCULAR: S1 and S2 present. No murmurs, rubs, or gallops. PULMONARY: Mildly decreased air entry into bilateral lung garnica wheezing completely resolved ABDOMEN: Soft, nontender, nondistended, normoactive bowel sounds. No palpable organomegaly. MUSCULOSKELETAL: No joint swelling or deformity. EXTREMITIES: No cyanosis, clubbing, or pedal edema. NEUROLOGICAL: Gross neurological examination did not reveal any focal deficits. SKIN: No rashes. - Labs CBC & Chem 7: 09/12/19 04:25 09/12/19 04:25 Labs: Abnormal Lab Results - Last 24 Hours (Table) 09/11/19 09/11/19 09/12/19 Range/Units 16:42 20:35 04:25 WBC (3.8-10.6) k/uL RBC (4.30-5.90) m/uL Hgb (13.0-17.5) gm/dL Hct (39.0-53.0) % MCV (80.0-100.0) fL RDW (11.5-15.5) % Plt Count (150-450) k/uL Chloride 113 H (98-107) mmol/L BUN 35 H (9-20) mg/dL Glucose 110 H (74-99) mg/dL POC Glucose (mg/dL) 131 H 132 H (75-99) mg/dL Calcium 8.1 L (8.4-10.2) mg/dL 09/12/19 09/12/19 09/12/19 Range/Units 04:25 06:50 11:42 WBC 0.2 L* (3.8-10.6) k/uL RBC 2.29 L (4.30-5.90) m/uL Hgb 7.4 L (13.0-17.5) gm/dL Hct 23.7 L (39.0-53.0) % MCV 103.6 H (80.0-100.0) fL RDW 18.1 H (11.5-15.5) % Plt Count 75 L (150-450) k/uL Chloride (98-107) mmol/L BUN (9-20) mg/dL Glucose (74-99) mg/dL POC Glucose (mg/dL) 112 H 113 H (75-99) mg/dL Calcium (8.4-10.2) mg/dL Microbiology - Last 24 Hours (Table) 09/09/19 08:25 Stool Culture - Preliminary Stool 09/08/19 19:11 Blood Culture - Preliminary Blood No Growth after 72 hours Assessment and Plan Plan: Septic shock: Secondary to bilateral multifocal pneumonia patient is immunocompromised, because of neutropenia, continue with the IV fluids shock improved patient is also on acyclovir, cefepime and vancomycin -Neutropenia etiology is not clear at present neutropenia appears to be sepsis secondary to sepsis and patient is receiving filgrastim every day -Acute renal failure secondary to acute tubular necrosis from septic shock which is improving -Elevated troponins and d-dimer secondary to sepsis -History of non-Hodgkin's lymphoma/mantle cell lymphoma for which patient completed chemotherapy -Hyperlipidemia -Acute hypoxic respiratory failure secondary to right leg bilateral multifocal pneumonia. Improving now
[2019-09-12 15:59] LABS: CMV DNA Qualitative Not detected (Not detected); CMV DNA, Quantitative <50 IU/mL (<50); Log Cytomegalovirus <1.70 (<1.70)
[2019-09-12 16:54] LABS: Glucose,Whole Blood 164 mg/dL (75-99)
[2019-09-12] MEDS: SODIUM CHLORIDE 0.9% 1,000 ML IV SCH (19:51)
[2019-09-12] MEDS: NOREPINEPHRINE 32 MG in SODIUM CHLORIDE 0.9% 218 ML IV SCH (19:52)
--- NOTE | 2019-09-12 20:00 | P.PN ---
Subjective Progress Note Date: 09/12/19 68-year-old male seen in the office regarding his history of his mantle cell lymphoma and evidence of chronic oral ulceration which is painful. He has been treated with Rituxan over the last several years with his last maintenance dose in November 2018. Since that time he started modestly well except for the ongoing chronic oral ulceration. This is been evaluated by neurosurgery and ENT, has had biopsies in the past that were all nonspecific. He's been treated with antiviral therapy with some slight improvement but does well with just a topical antiseptic. Oncology reveals that his PET scan is been stable with no recent evidence of advancement of disease. However he is now had significant difficulty with leukopenia and much less anemia and thrombocytopenia. He is not been having high-grade fevers chills rigors or sweats for an ongoing basis until this presentation. Upon his arrival to the ER he was weak and ill with fever of 104 he was having increasing weakness for at least 48 hours. Was having relative hypotension acute renal failure significant fatigue and malaise and shortness of breath. As noted imaging study revealed evidence of bilateral pneumonia and he was admitted. With his febrile neutropenia and pneumonia the consultation was requested. 09/12/2019 the patient has had significant improvement. His respiratory failure is improved and he is now off of Airvo and tolerating nasal cannula oxygen therapy well. He is much more comfortable. Relates that he stilling having some discomfort with eating otherwise he feels better. He has no cough or hemoptysis. He has no nausea or emesis, no hematemesis significant diarrhea. No dysuria with Cohn. Denies new skin rashes. Objective - Vital Signs Vital signs: Vital Signs Temp 98.7 F 09/12/19 12:00 Pulse 91 09/12/19 19:00 Resp 22 09/12/19 19:00 BP 124/78 09/12/19 19:00 Pulse Ox 96 09/12/19 19:00 Intake & Output 09/12/19 09/12/19 09/13/19 06:59 18:59 06:59 Intake Total 1003 753 50 Output Total 815 3100 50 Balance 188 -2347 0 Weight 99.8 kg Intake: IV 636 453 Normal Saline Pressure 36 3 Bag Sodium Chloride 0.9% 1, 600 450 000 ml @ 50 mls/hr IV . Q20H [facility] Rx#:[id number] Intake, IV Titration 167 50 Amount Sodium Chloride 0.9% 1, 50 000 ml @ 50 mls/hr IV . Q20H [facility] Rx#:[id number] Vancomycin 1,750 mg In 167 Sodium Chloride 0.9% 500 ml 500 ml @ 167 mls/hr IVPB Q12H [facility] Rx#: [id number] Oral 200 300 Output: Urine 815 3100 50 Other: Voiding Method Indwelling Catheter Indwelling Catheter - Exam Patient is now afebrile and off of Airvo high flow O2 HEENT: Anicteric conjunctiva are pink and moist nasal mucosa grossly intact without significant lesions, there is no thrush. Neck: The neck is supple without significant lymphadenopathy or thyromegaly. Lungs: Good bilateral air entry bibasilar crackles without significant bronchial sounds no egophony or changes of tactile fremitus Heart: Regular rate and rhythm with an audible S1-S2, oft S4.There is no significant murmur click or rub, PMI was nondisplaced. Abdomen: Positive bowel sounds soft and nontender without palpable masses or organomegaly. There was no guarding or rebound. Extremities: The upper extremities have excellent pulses they are symmetric, no significant petechiae or telangiectasia. No splinter hemorrhages were noted. The lower extremities reveal Bilateral Edema The peripheral pulses were 2+ and symmetric. Neuro: Awake alert oriented to person place and time. There are no acute new gross focal sensory motor deficits.does have some difficulty with his hearing, not new - Labs CBC & Chem 7: 09/12/19 04:25 09/12/19 04:25 Labs: Abnormal Lab Results - Last 24 Hours (Table) 09/11/19 09/12/19 09/12/19 Range/Units 20:35 04:25 04:25 WBC 0.2 L* (3.8-10.6) k/uL RBC 2.29 L (4.30-5.90) m/uL Hgb 7.4 L (13.0-17.5) gm/dL Hct 23.7 L (39.0-53.0) % MCV 103.6 H (80.0-100.0) fL RDW 18.1 H (11.5-15.5) % Plt Count 75 L (150-450) k/uL Chloride 113 H (98-107) mmol/L BUN 35 H (9-20) mg/dL Glucose 110 H (74-99) mg/dL POC Glucose (mg/dL) 132 H (75-99) mg/dL Calcium 8.1 L (8.4-10.2) mg/dL 09/12/19 09/12/19 09/12/19 Range/Units 06:50 11:42 16:52 WBC (3.8-10.6) k/uL RBC (4.30-5.90) m/uL Hgb (13.0-17.5) gm/dL Hct (39.0-53.0) % MCV (80.0-100.0) fL RDW (11.5-15.5) % Plt Count (150-450) k/uL Chloride (98-107) mmol/L BUN (9-20) mg/dL Glucose (74-99) mg/dL POC Glucose (mg/dL) 112 H 113 H 164 H (75-99) mg/dL Calcium (8.4-10.2) mg/dL Microbiology - Last 24 Hours (Table) 09/09/19 08:25 Stool Culture - Final Stool 09/08/19 19:11 Blood Culture - Preliminary Blood No Growth after 72 hours Laboratory Results WBC 0.2 k/uL (3.8-10.6) L* 09/12/19 04:25 RBC 2.29 m/uL (4.30-5.90) L 09/12/19 04:25 Hgb 7.4 gm/dL (13.0-17.5) L 09/12/19 04:25 Hct 23.7 % (39.0-53.0) L 09/12/19 04:25 MCV 103.6 fL (80.0-100.0) H 09/12/19 04:25 MCH 32.2 pg (25.0-35.0) 09/12/19 04:25 MCHC 31.1 g/dL (31.0-37.0) 09/12/19 04:25 RDW 18.1 % (11.5-15.5) H 09/12/19 04:25 Plt Count 75 k/uL (150-450) L 09/12/19 04:25 Neutrophils # BLOCK SPLITTER OPERATOR 09/11/19 05:25 Differential Comment 09/11/19 05:25 Manual Slide Review Performed 09/11/19 05:25 Polychromasia Present 09/08/19 18:40 Hypochromasia Marked 09/12/19 04:25 Anisocytosis Slight 09/12/19 04:25 Anisocytosis (manual) Present 09/08/19 18:40 Macrocytosis Moderate 09/12/19 04:25 PT 11.7 sec (9.0-12.0) 09/08/19 18:40 INR 1.1 (<1.2) 09/08/19 18:40 APTT 28.0 sec (22.0-30.0) 09/08/19 18:40 D-Dimer 4.38 mg/L FEU (<0.60) H 09/08/19 18:40 Sample Site rrad 09/09/19 09:08 ABG pH 7.45 (7.35-7.45) 09/09/19 09:08 ABG pCO2 24 mmHg (35-45) L 09/09/19 09:08 ABG pO2 77 mmHg (83-108) L 09/09/19 09:08 ABG HCO3 17 mmol/L (21-25) L 09/09/19 09:08 ABG Total CO2 17 mmol/L (19-24) L 09/09/19 09:08 ABG O2 Saturation 96.5 % (94-97) 09/09/19 09:08 ABG Base Excess -7.5 mmol/L 09/09/19 09:08 Claudio Test Yes 09/09/19 09:08 FiO2 75 % 09/09/19 09:08 Sodium 140 mmol/L (137-145) 09/12/19 04:25 Potassium 3.7 mmol/L (3.5-5.1) 09/12/19 04:25 Chloride 113 mmol/L (98-107) H 09/12/19 04:25 Carbon Dioxide 24 mmol/L (22-30) 09/12/19 04:25 Anion Gap 3 mmol/L 09/12/19 04:25 BUN 35 mg/dL (9-20) H 09/12/19 04:25 Creatinine 1.10 mg/dL (0.66-1.25) 09/12/19 04:25 Est GFR (CKD-EPI)AfAm 81 (>60 ml/min/1.73 sqM) 09/12/19 04:25 Est GFR (CKD-EPI)NonAf 70 (>60 ml/min/1.73 sqM) 09/12/19 04:25 Glucose 110 mg/dL (74-99) H 09/12/19 04:25 POC Glucose (mg/dL) 164 mg/dL (75-99) H 09/12/19 16:52 POC Glu Nut Grinder ID Aguilar Anton 09/12/19 16:52 Lactic Ac Sepsis Rflx Y 09/09/19 05:53 Plasma Lactic Acid Ramses 1.7 mmol/L (0.7-2.0) 09/09/19 10:59 Calcium 8.1 mg/dL (8.4-10.2) L 09/12/19 04:25 Total Bilirubin 0.6 mg/dL (0.2-1.3) 09/08/19 18:40 AST 32 U/L (17-59) 09/08/19 18:40 ALT 17 U/L (21-72) L 09/08/19 18:40 Alkaline Phosphatase 93 U/L (38-126) 09/08/19 18:40 Troponin I 0.536 ng/mL (0.000-0.034) H* 09/09/19 05:13 Total Protein 5.6 g/dL (6.3-8.2) L 09/08/19 18:40 Albumin 2.9 g/dL (3.5-5.0) L 09/08/19 18:40 Cortisol 34 ug/dL 09/09/19 05:13 Urine Color Yellow 09/11/19 09:30 Urine Appearance Cloudy (Clear) 09/11/19 09:30 Urine pH 6.0 (5.0-8.0) 09/11/19 09:30 Ur Specific Cedar 1.020 (1.001-1.035) 09/11/19 09:30 Urine Protein 1+ (Negative) H 09/11/19 09:30 Urine Glucose (UA) Negative (Negative) 09/11/19 09:30 Urine Ketones Negative (Negative) 09/11/19 09:30 Urine Blood Trace (Negative) H 09/11/19 09:30 Urine Nitrite Negative (Negative) 09/11/19 09:30 Urine Bilirubin Negative (Negative) 09/11/19 09:30 Urine Urobilinogen <2.0 mg/dL (<2.0) 09/11/19 09:30 Ur Leukocyte Esterase Negative (Negative) 09/11/19 09:30 Urine RBC 2 /hpf (0-5) 09/11/19 09:30 Urine WBC 6 /hpf (0-5) H 09/11/19 09:30 Urine Bacteria Occasional /hpf (None) H 09/11/19 09:30 Granular Casts 11 /lpf (0) 09/11/19 09:30 Urine Mucus Rare /hpf (None) H 09/11/19 09:30 Stool Lactoferrin POSITIVE (NEGATIVE) H 09/09/19 08:25 Vancomycin Trough 22.4 ug/mL 09/11/19 20:35 IgG 667.0 mg/dL (700.0-1600.0) L 09/09/19 05:13 IgA 178.0 mg/dL (60.0-350.0) 09/09/19 05:13 IgM 17.9 mg/dL (40.0-280.0) L 09/09/19 05:13 C. difficile (EIA) Intrp Negative (Negative) 09/09/19 08:25 CMV DNA Qual PCR Not detected (Not detected) 09/10/19 04:45 CMV DNA Quant PCR <50 IU/mL (<50) 09/10/19 04:45 CMV DNA PCR copies/ml <126 Copies/mL (<126) 09/10/19 04:45 CMV DNA PCR log IU/mL <1.70 (<1.70) 09/10/19 04:45 Influenza Type A RNA Not Detected (Not Detectd) 09/08/19 19:00 Influenza Type B (PCR) Not Detected (Not Detectd) 09/08/19 19:00 Microbiology 09/09/19 08:25 Stool Stool Culture - Final 09/08/19 19:11 Blood Blood Culture - Preliminary No Growth after 72 hours 09/08/19 19:00 Urine,Voided Urine Culture - Final - Imaging and Cardiology Chest x-ray: image reviewed (Improved basilar infiltrates especially to the right) Assessment and Plan (1) Septic shock Current Visit: Yes Status: Acute Code(s): A41.9 - SEPSIS, UNSPECIFIED ORGANISM; R65.21 - SEVERE SEPSIS WITH SEPTIC SHOCK SNOMED Code(s): 61561565 (2) Mantle cell lymphoma Current Visit: Yes Status: Acute Code(s): C83.10 - MANTLE CELL LYMPHOMA, UNSPECIFIED SITE SNOMED Code(s): 643999631 (3) Pancytopenia Current Visit: Yes Status: Acute Code(s): D61.818 - OTHER PANCYTOPENIA SNOMED Code(s): 229699360 (4) Pneumonia due to suspected gram-negative bacteria Narrative/Plan: 68-year-old male who has a very complex history of his mantle cell lymphoma. In having ongoing difficulties with oral lesion. He has had evaluation by different surgeons and has had biopsy without evidence of the mantle cell lymphoma within the oral cavity. He is treated with Valtrex with some improvement and a topical antiseptic sometimes is also helpful. He presents to Hospital with high-grade fever chill hypotension and evidence of new infiltrates on his chest x-ray highly consistent with pneumonia, suspect gram negatives given his immunocompromised status and ongoing neutropenia. He has been seen by oncology and growth factors have been given and will be transfused as indicated. Immunoglobulin levels have been requested and if IgG is low we'll work to see if he can be supplemented. For antibiotic therapy with vancomycin and cefepime have been requested as cultures are in process. Will adjust antibiotic therapy as indicated. For his pneumonia he is receiving high flow oxygen. We discussed the family present that if he has any worsening of his status. The next steps need to be while clarified. We've asked them to clarify with the intensive care unit team with her plans would be and if he has to be intubated as her expectation of how long would happen 4. We describe long-term ventilator care with tracheostomy, PEG tube placement and ventilator facility which they do not seem to be wanting but they may allow short-term intervention. They are having a family meeting to determine this. 09/04/2019 the patient has had a significant improvement of his status, is off of Airvo and is much less short of breath. He'll be no further fevers. Other than some discomfort she was oral cavity and epigastrium he relates that he is definitely doing better. He's been able to eat although his appetite is poor. He showed an excellent response to antibiotic therapy. Cultures remain negative at this time. Will continue current antimicrobials. Oncology is following it is still with a significant low white blood cell count showing his ongoing neutropenia. Despite that he has had a clinical response. We'll continue to monitor. His IgG level is at 667 which is minimally low and not in need of IVIG infusions at this time. 40 mg of Lasix as was given a 2-1/2 L diuresis occurred and this is definitely improved his respiratory status. Current Visit: Yes Status: Acute Code(s): J18.9 - PNEUMONIA, UNSPECIFIED ORGANISM SNOMED Code(s): 796487640
[2019-09-12 20:03] LABS: Glucose,Whole Blood 134 mg/dL (75-99)
[2019-09-12] MEDS: ACETAMINOPHEN TAB 325 MG TAB PO PRN (20:08)
[2019-09-12] MEDS: POTASSIUM CHLORIDE ER 20 MEQ TAB.ER PO SCH ×2 (22:15→23:26)
[2019-09-13] MEDS: CEFEPIME 2 GM in SODIUM CHLORIDE 0.9% 100 ML IVPB SCH ×2 (01:42→14:16)
[2019-09-13] MEDS: IPRATROPIUM-ALBUTEROL 3 ML NEB INHALATION SCH ×6 (03:07→23:21)
[2019-09-13 05:03] LABS: Anisocytosis Slight; HCT 26.1 % (39.0-53.0); HGB 8.1 gm/dL (13.0-17.5); Hypochromasia Marked; MCH 32.4 pg (25.0-35.0); MCHC 31.2 g/dL (31.0-37.0); MCV 103.9 fL (80.0-100.0); Macrocytosis Moderate; Mean Platelet Volume 7.8; Platelet Count 105 k/uL (150-450); RBC 2.51 m/uL (4.30-5.90); RDW 18.1 % (11.5-15.5)
[2019-09-13 05:06] LABS: WBC 0.8 k/uL (3.8-10.6)
[2019-09-13 05:34] LABS: Calcium 8.7 mg/dL (8.4-10.2); Potassium 3.7 mmol/L (3.5-5.1)
[2019-09-13 07:00] LABS: Glucose,Whole Blood 147 mg/dL (75-99)
[2019-09-13] MEDS ORDERED: POTASSIUM CHLORIDE ER 20 MEQ TAB.ER PO SCH (07:00)
[2019-09-13] MEDS: SALT AND SODA MOUTHWASH 1,000 ML PO SCH ×5 (07:05→23:43)
[2019-09-13] MEDS: INSULIN ASPART (NovoLOG) 100 UNIT/ML VIAL SQ SCH ×4 (07:08→20:58)
--- NOTE | 2019-09-13 09:09 | P.PN ---
Subjective Progress Note Date: 09/13/19 Principal diagnosis: Septic shock, pancytopenia and pneumonia This is a 68-year-old white male patient of Dr. Dodd, with a past history of non-Hodgkin's/Mantell lymphoma, with last treatment of Rituxan in November 2018, and patient has been in remission since then. 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 He states he had been hospitalized at [facility] in [place], he is unsure of the dates, but most recently with the neutropenic colitis. He is currently receiving filgrastim. He had been on Bactrim, Valtrex. Patient presents to the hospital with complaints of three-day history of weakness, fevers, difficulty breathing, cough and congestion. In addition he has had on and off watery diarrhea. Admission blood work revealed white blood cell count of 0.2, hemoglobin of 9.8, d-dimer was 4.38, sodium of 135, potassium is 4.2, chloride is 103, CO2 is 20, BUN of 27, creatinine is 2.34, plasma lactic acid was 4.0, troponins were positive at 0.035, and 0.246, and 0.536. Influenza was negative, urinalysis without signs of infection. he has a congested cough, shortness of breath, able to bring up much sputum. Chest x-ray revealed bilateral pulmonary infiltrates in the left lower lobe, and some atelectasis and infiltrate in the right midlung. EKG showed sinus tachycardia, without acute ischemic changes. Follow-up chest x-ray on 09/08/2019 at 8:00 showed increasing bilateral pulmonary infiltrates. Patient has been having low- grade fevers, and creasing shortness of breath and hypoxemia, and she was subsequently placed on Arava, currently at 55 L and FiO2 of 75%, his pulse ox is 97%. He was quite hypertensive on presentation, with the blood pressure of 67/43, he received a total of 3.5 L in fluid boluses, he did require Levophed for vasopressor support, which had since been weaned off, he received a dose of cortisone 50 mg IV push in the emergency department, he is on chronic dose of dexamethasone 1 mg 4 times a day. Seen in the intensive care unit this morning, he is tachypneic, has a congested cough, he remains on Airvo. The blood gas was reviewed, and revealed pO2 of 77, pCO2 of 24, and pH of 7.45, consistent with metabolic acidosis with respiratory compensation. Today's blood work shows white blood cell, 0.1, sodium of 137, potassium is 4.5, chloride is 109, CO2 is 18, BUN of 29 and creatinine 2.2. Patient is currently off the Levophed, continues on IV hydration, is making urine, Cohn catheter was inserted, denies any abdominal pain, did have an episode of diarrhea which was sent for cultures and C. diff. Cultures pending. Antibiotic coverage is in the form of Zosyn and vancomycin, patient continues on his home dose Valtrex, and Bactrim has been discontinued Patient was reevaluated today on 09/10/2019, remains in the ICU, he is on broad-spectrum antibiotics, he is on norepinephrine for slightly low blood pressure, he is also on cefepime and vancomycin as well as Valtrex. Patient is on zarxio for his neutropenia, he is also on bicarb drip which I will discontinue today since his bicarb level is up to 22. Patient is also on hydrocortisone/stress doses since the patient was recently on cortisone. Definite clinical improvement noted, chest x-ray continues to show bilateral infiltrates. And multifocal pneumonia. A is feeling a bit better, his temperature is 97.7 today, and his T-max was 99.5. Earlier on admission, the patient had temps as high as 104. We'll cultures blood cultures and urine cultures are pending. Patient was already seen by infectious disease on consultation, he was also seen by oncology on consultation. Reevaluated today on 09/11/2019, patient is still in the ICU, he is off norepinephrine completely. He is hemodynamically stable. Remains on broad- spectrum antibiotics in the form of cefepime and vancomycin and Valtrex. Blood cultures urine cultures and stool cultures are so far nondiagnostic. Chest x- ray continues to show bilateral multilobar infiltrates. But improving. Remains on stress doses of hydrocortisone and I will be cutting that down today. He is off bicarb since yesterday. Urine output is excellent. Clinically the patient is feeling better. He is on high flow airvo at 50 L/m flow on 50% FiO2. O2 saturation is in the high 90s, hence his FiO2 will be titrated in the flow will be titrated. Significant improvement noted over the last 2 days, but the patient remains marginal specially with his pancytopenia. And that is being addressed by hematology/oncology on the case. His diarrhea has completely resolved. WBC count today is 0.1 hemoglobin is 7 platelets are 60,000. Basic metabolic profile is normal renal profile is significantly improved. And his acute kidney injury is improving On 09/12/2019 patient seen in follow-up in the intensive care unit, he is awake and alert, oriented 3, he is sitting up in the recliner, remains on Airvo at 45 L/m, or 42% FiO2. 0.9 normal saline at a rate of 50, no other drips, no vasoactive drips. Hemodynamically patient is stable, denies any worsening shortness of breath, current antibiotic coverage includes cefepime, vancomycin, and Valtrex. ID service is following. Urine, stool and blood cultures are negative thus far. Yesterday's urinalysis without signs of infection. His diarrhea has resolved. Immunoglobulin levels were found to be low, patient may need supplementation. Patient denies any oral pain, he is elevating oral diet, his appetite is improving. His blood work has been reviewed, his white blood c ell, 0.2, hemoglobin is 7.4, and he remains on filgrastim. Kidney function has improved from admission, BUN is 35 and creatinine is 1.1 on today's labs, remains on stress doses of hydrocortisone, and we can switch him back to his home dose dexamethasone. Did have a low-grade fevers last night, with a temp of 100.9F. Afebrile this morning. Yesterday's chest x-ray has been reviewed showing some improvement in the appearance of the bilateral airspace disease. On 09/13/2019 patient seen in follow-up in intensive care unit, he is up in the recliner, FiO2 is down to 10 L per high flow nasal cannula, and his pulse ox is 96-99%, patient states he is feeling better today, today we added down a dose of IV Lasix, due to generalized edema, and patient diuresed over 4 L, is in -2267 mL fluid balance over the last 24 hours. The appearance of generalized edema has improved, still has some residual pitting edema in his lower extremities, and mild edema in his upper extremities, lung sounds are positive for some scattered crackles, no wheezes on today's exam. Still had some low-grade fevers last night, with a T-max of 100.8F, afebrile this morning. Culture data including urine and blood and stool cultures are negative. Today's labs have been reviewed, showing white blood cell count of 0.8, hemoglobin of 8.1, sodium is 141, potassium 3.7, chloride is 111, CO2 is 25, B1 is 36 and creatinine is 1.2. Chest x-ray today. No nausea, vomiting no diarrhea, patient is tolerating oral intake, appetite is improving. He continues on a combination of cefepime, vancomycin and Valtrex Objective - Vital Signs Vital signs: Vital Signs Temp 98.2 F 09/13/19 04:00 Pulse 80 09/13/19 07:47 Resp 21 09/13/19 07:00 BP 137/75 09/13/19 07:00 Pulse Ox 96 09/13/19 07:00 Intake & Output 09/12/19 09/13/19 09/13/19 18:59 06:59 18:59 Intake Total 753 1205 50 Output Total 3100 1125 100 Balance -2347 80 -50 Weight 100.2 kg Intake: IV 453 550 50 Normal Saline Pressure 3 Bag Sodium Chloride 0.9% 1, 450 550 50 000 ml @ 50 mls/hr IV . Q20H [facility] Rx#:[id number] Intake, IV Titration 175 Amount Sodium Chloride 0.9% 1, 50 000 ml @ 50 mls/hr IV . Q20H [facility] Rx#:[id number] Vancomycin 1,500 mg In 125 Sodium Chloride 0.9% 250 ml @ 125 mls/hr IVPB Q12H [facility] Rx#:[id number] Oral 300 480 Output: Urine 3100 1125 100 Other: Voiding Method Indwelling Catheter Indwelling Catheter - Exam GENERAL EXAM: Alert, pleasant, dyspneic, 68-year-old white male, on 10 L per high flow nasal cannula, with pulse ox of 96-99% HEAD: Normocephalic/atraumatic. EYES: Normal reaction of pupils, equal size. Conjunctiva pink, sclera white. NOSE: Clear with pink turbinates. THROAT: No erythema or exudates. MOUTH: Reveals a nonhealing ulcer on the side of the tongue on the right NECK: No masses, no JVD, no thyroid enlargement, no adenopathy. CHEST: No chest wall deformity. Symmetrical expansion. LUNGS: Equal air entry with scattered crackles CVS: Regular rate and rhythm, normal S1 and S2, no gallops, no murmurs, no rubs ABDOMEN: Soft, nontender. No hepatosplenomegaly, normal bowel sounds, no guarding or rigidity. EXTREMITIES: No clubbing, 1+ plus nonpitting edema in upper and lower extremities, no cyanosis, 2+ pulses and upper and lower extremities. MUSCULOSKELETAL: Muscle strength and tone normal. SPINE: No scoliosis or deformity SKIN: No rashes CENTRAL NERVOUS SYSTEM: Alert and oriented -3. No focal deficits, tone is normal in all 4 extremities. PSYCHIATRIC: Alert and oriented -3. Appropriate affect. Intact judgment and insight. - Labs CBC & Chem 7: 09/13/19 04:50 09/13/19 04:50 Labs: Abnormal Lab Results - Last 24 Hours (Table) 09/12/19 09/12/19 09/12/19 Range/Units 11:42 16:52 20:00 WBC (3.8-10.6) k/uL RBC (4.30-5.90) m/uL Hgb (13.0-17.5) gm/dL Hct (39.0-53.0) % MCV (80.0-100.0) fL RDW (11.5-15.5) % Plt Count (150-450) k/uL Potassium 3.4 L (3.5-5.1) mmol/L Chloride (98-107) mmol/L BUN (9-20) mg/dL Glucose (74-99) mg/dL POC Glucose (mg/dL) 113 H 164 H (75-99) mg/dL 09/12/19 09/13/19 09/13/19 Range/Units 20:01 04:50 04:50 WBC 0.8 L* (3.8-10.6) k/uL RBC 2.51 L (4.30-5.90) m/uL Hgb 8.1 L (13.0-17.5) gm/dL Hct 26.1 L (39.0-53.0) % MCV 103.9 H (80.0-100.0) fL RDW 18.1 H (11.5-15.5) % Plt Count 105 L (150-450) k/uL Potassium (3.5-5.1) mmol/L Chloride 111 H (98-107) mmol/L BUN 36 H (9-20) mg/dL Glucose 141 H (74-99) mg/dL POC Glucose (mg/dL) 134 H (75-99) mg/dL 09/13/19 Range/Units 06:59 WBC (3.8-10.6) k/uL RBC (4.30-5.90) m/uL Hgb (13.0-17.5) gm/dL Hct (39.0-53.0) % MCV (80.0-100.0) fL RDW (11.5-15.5) % Plt Count (150-450) k/uL Potassium (3.5-5.1) mmol/L Chloride (98-107) mmol/L BUN (9-20) mg/dL Glucose (74-99) mg/dL POC Glucose (mg/dL) 147 H (75-99) mg/dL Microbiology - Last 24 Hours (Table) 09/09/19 08:25 Stool Culture - Final Stool 09/08/19 19:11 Blood Culture - Preliminary Blood No Growth after 96 hours Assessment and Plan Plan: Assessment: #1. Septic shock, related to bilateral pneumonia, in immunosuppressed host, likely gram-negative, chest x-ray shows bilateral airspace disease, resolved #2. Neutropenia, on filgrastim, being followed by oncology/hematology, improving #3. Mild anion gap and non-anion gap metabolic acidosis, related to lactic acidosis and acute kidney injury, resolved #4. Acute kidney injury, resolved #5. Chronic anemia #6. Elevated d-dimer, nonspecific #7. Elevated troponin is likely related to sepsis and septic shock, EKG without acute ischemic changes #8. Recent neutropenic colitis #9. Frequent episodes of watery diarrhea, ruled out C. diff #10. 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 History of non-Hodgkin's/Mantle cell lymphoma, status post Rituxan, in remission, most recent PET scan on 08/22/2019 showed no new areas of suspicious hypermetabolic uptake #12. Previous history of GI bleeding #13. Hyperlipidemia #14. History of pneumonia #15. Hard of hearing #16. Hypogammaglobulinemia Plan: Continue weaning FiO2, encourage deep breathing and coughing, patient is diuresing, he is in negative fluid balance, no nausea, vomiting no diarrhea, tolerating oral intake, still episodes of low-grade fever, he continues on cefep emre and vancomycin and Valtrex, culture data is negative thus far. Hemodynamically patient remains stable, no acute issues overnight, stable for transfer out of the intensive care unit to oncology. I performed a history & physical examination of the patient and discussed their management with my nurse practitioner, Myla Adrian. I reviewed the nurse practitioner's note and agree with the documented findings and plan of care. Lung sounds are positive for diffuse rhonchi throughout the lung garnica. The findings and the impression was discussed with the patient. I attest to the documentation by the nurse practitioner. Time with Patient: Less than 30
[2019-09-13] MEDS: FILGRASTIM-SNDZ 480 MCG/0.8 ML SYRINGE SQ SCH (09:22)
[2019-09-13] MEDS: HEPARIN SODIUM,PORCINE 5,000 UNIT/ML 1 ML VIAL SQ SCH ×3 (09:23→23:44)
[2019-09-13] MEDS: VANCOMYCIN 1,500 MG in SODIUM CHLORIDE 0.9% 250 ML IVPB SCH ×2 (09:23→22:30)
[2019-09-13] MEDS: PANTOPRAZOLE 40 MG/10 ML VIAL IVP SCH (09:23)
[2019-09-13] MEDS: MULTIVITAMINS, THERA 1 EACH TAB PO SCH (09:23)
[2019-09-13] MEDS: ASCORBIC ACID 500 MG TAB PO SCH (09:23)
[2019-09-13] MEDS: DEXAMETHASONE 0.5 MG TAB PO SCH ×4 (09:24→20:58)
[2019-09-13] MEDS: valACYclovir 500 MG TAB PO SCH ×2 (09:24→20:58)
[2019-09-13] MEDS: diphenhydrAMINE 25 MG CAP PO SCH (09:35)
[2019-09-13 11:48] LABS: Glucose,Whole Blood 91 mg/dL (75-99)
--- NOTE | 2019-09-13 15:15 | P.PN ---
Subjective Patient is a pleasant 68-year-old gentleman was admitted for septic shock secondary to bilateral extensive pneumonia patient is neutropenic etiology of neutropenia is not clear and present neutropenia is believed to be secondary to sepsis although patient has chronic neutropenia and etiology was not clear patient had history of non-Hodgkin's lymphoma for which patient was on rituxin earlier this year, patient underwent extensive workup at [facility] for neutropenia including bone marrow biopsy. Etiology of neutropenia is apparently not clear and patient the had a recent neutropenic colitis as well. Patient is being treated with cefepime and vancomycin patient has walked oral nonhealing ulcers with positive HSV because of which patient is on Valtrex as well. Patient was on pressor support which was discontinued patient is also on hydrocortisone for septic shock. Patient urine output is better patient is on IV fluids. Troponins are elevated secondary to sepsis. Patient is on high flow nasal cannula oxygen with significant expiratory wheezing on exam doesn't have any history of COPD or asthma patient's serum creatinine did improve. 09/11/2019 Patient remains on airvo, no overnight events patient is off pressor support. Wheezing although significantly improved 09/12/2019 Patient is on high flow nasal cannula oxygen 09/13/2019 Patient is presently on the 10 L of oxygen Constitutional: Denied any fatigue denied any fever. Cardio vascular: denied any chest pain, palpitations Gastrointestinal denied any nausea vomiting Pulmonary: Denied any shortness of breath cough Neurologic denied any new focal deficits All inpatient medications were reviewed and appropriate changes in these medications as dictated in the interval history and assessment and plan. Objective - Vital Signs Vital signs: Vital Signs Temp 98.2 F 09/13/19 04:00 Pulse 95 09/13/19 12:00 Resp 14 09/13/19 12:00 BP 130/87 09/13/19 12:00 Pulse Ox 93 L 09/13/19 12:00 Intake & Output 09/12/19 09/13/19 09/13/19 18:59 06:59 18:59 Intake Total 753 1205 800 Output Total 3100 1125 525 Balance -2347 80 275 Weight 100.2 kg Intake: IV 453 550 250 Normal Saline Pressure 3 Bag Sodium Chloride 0.9% 1, 450 550 250 000 ml @ 50 mls/hr IV . Q20H [facility] Rx#:[id number] Intake, IV Titration 175 250 Amount Sodium Chloride 0.9% 1, 50 000 ml @ 50 mls/hr IV . Q20H [facility] Rx#:[id number] Vancomycin 1,500 mg In 125 250 Sodium Chloride 0.9% 250 ml @ 125 mls/hr IVPB Q12H [facility] Rx#:[id number] Oral 300 480 300 Output: Urine 3100 1125 525 Other: Voiding Method Indwelling Catheter Indwelling Catheter Indwelling Catheter - Exam PHYSICAL EXAMINATION: GENERAL: The patient is alert and oriented x3, not in any acute distress. Well developed, well nourished. Patient appears to be tired and fatigued HEENT: Pupils are round and equally reacting to light. EOMI. No scleral icterus. No conjunctival pallor. Normocephalic, atraumatic. No pharyngeal erythema. No thyromegaly. CARDIOVASCULAR: S1 and S2 present. No murmurs, rubs, or gallops. PULMONARY: Mildly decreased air entry into bilateral lung garnica wheezing completely resolved ABDOMEN: Soft, nontender, nondistended, normoactive bowel sounds. No palpable organomegaly. MUSCULOSKELETAL: No joint swelling or deformity. EXTREMITIES: No cyanosis, clubbing, or pedal edema. NEUROLOGICAL: Gross neurological examination did not reveal any focal deficits. SKIN: No rashes. - Labs CBC & Chem 7: 09/13/19 04:50 09/13/19 04:50 Labs: Abnormal Lab Results - Last 24 Hours (Table) 09/12/19 09/12/19 09/12/19 Range/Units 16:52 20:00 20:01 WBC (3.8-10.6) k/uL RBC (4.30-5.90) m/uL Hgb (13.0-17.5) gm/dL Hct (39.0-53.0) % MCV (80.0-100.0) fL RDW (11.5-15.5) % Plt Count (150-450) k/uL Potassium 3.4 L (3.5-5.1) mmol/L Chloride (98-107) mmol/L BUN (9-20) mg/dL Glucose (74-99) mg/dL POC Glucose (mg/dL) 164 H 134 H (75-99) mg/dL 09/13/19 09/13/19 09/13/19 Range/Units 04:50 04:50 06:59 WBC 0.8 L* (3.8-10.6) k/uL RBC 2.51 L (4.30-5.90) m/uL Hgb 8.1 L (13.0-17.5) gm/dL Hct 26.1 L (39.0-53.0) % MCV 103.9 H (80.0-100.0) fL RDW 18.1 H (11.5-15.5) % Plt Count 105 L (150-450) k/uL Potassium (3.5-5.1) mmol/L Chloride 111 H (98-107) mmol/L BUN 36 H (9-20) mg/dL Glucose 141 H (74-99) mg/dL POC Glucose (mg/dL) 147 H (75-99) mg/dL Microbiology - Last 24 Hours (Table) 09/09/19 08:25 Stool Culture - Final Stool 09/08/19 19:11 Blood Culture - Preliminary Blood No Growth after 96 hours Assessment and Plan Plan: Septic shock: Secondary to bilateral multifocal pneumonia patient is immunocompromised, because of neutropenia, continue with the IV fluids shock improved patient is also on acyclovir, cefepime and vancomycin -Neutropenia etiology is not clear at present neutropenia appears to be sepsis secondary to sepsis and patient is receiving filgrastim every day -Acute renal failure secondary to acute tubular necrosis from septic shock which is improving -Elevated troponins and d-dimer secondary to sepsis -History of non-Hodgkin's lymphoma/mantle cell lymphoma for which patient completed chemotherapy -Hyperlipidemia -Acute hypoxic respiratory failure secondary to right leg bilateral multifocal pneumonia. Improving now
[2019-09-13 17:22] LABS: Glucose,Whole Blood 113 mg/dL (75-99)
[2019-09-13] MEDS: BENZOCAINE 20 % GEL 15 GM TUBE MM SCH ×4 (17:24→23:43)
[2019-09-13] MEDS: SODIUM CHLORIDE 0.9% 1,000 ML IV SCH (17:29)
--- NOTE | 2019-09-13 18:11 | P.PN ---
Subjective Progress Note Date: 09/13/19 68-year-old male seen in the office regarding his history of his mantle cell lymphoma and evidence of chronic oral ulceration which is painful. He has been treated with Rituxan over the last several years with his last maintenance dose in November 2018. Since that time he started modestly well except for the ongoing chronic oral ulceration. This is been evaluated by neurosurgery and ENT, has had biopsies in the past that were all nonspecific. He's been treated with antiviral therapy with some slight improvement but does well with just a topical antiseptic. Oncology reveals that his PET scan is been stable with no recent evidence of advancement of disease. However he is now had significant difficulty with leukopenia and much less anemia and thrombocytopenia. He is not been having high-grade fevers chills rigors or sweats for an ongoing basis until this presentation. Upon his arrival to the ER he was weak and ill with fever of 104 he was having increasing weakness for at least 48 hours. Was having relative hypotension acute renal failure significant fatigue and malaise and shortness of breath. As noted imaging study revealed evidence of bilateral pneumonia and he was admitted. With his febrile neutropenia and pneumonia the consultation was requested. 09/12/2019 the patient has had significant improvement. His respiratory failure is improved and he is now off of Airvo and tolerating nasal cannula oxygen therapy well. He is much more comfortable. Relates that he stilling having some discomfort with eating otherwise he feels better. He has no cough or hemoptysis. He has no nausea or emesis, no hematemesis significant diarrhea. No dysuria with Cohn. Denies new skin rashes. 09/13/2019 Patient feels slightly better today less short of breath, still feels weak and ill. Objective - Vital Signs Vital signs: Vital Signs Temp 98.2 F 09/13/19 04:00 Pulse 90 09/13/19 15:24 Resp 16 09/13/19 15:24 BP 130/87 09/13/19 12:00 Pulse Ox 93 L 09/13/19 12:00 Intake & Output 09/12/19 09/13/19 09/13/19 18:59 06:59 18:59 Intake Total 753 1205 800 Output Total 3100 1125 525 Balance -2347 80 275 Weight 100.2 kg Intake: IV 453 550 250 Normal Saline Pressure 3 Bag Sodium Chloride 0.9% 1, 450 550 250 000 ml @ 50 mls/hr IV . Q20H [facility] Rx#:[id number] Intake, IV Titration 175 250 Amount Sodium Chloride 0.9% 1, 50 000 ml @ 50 mls/hr IV . Q20H [facility] Rx#:[id number] Vancomycin 1,500 mg In 125 250 Sodium Chloride 0.9% 250 ml @ 125 mls/hr IVPB Q12H [facility] Rx#:[id number] Oral 300 480 300 Output: Urine 3100 1125 525 Other: Voiding Method Indwelling Catheter Indwelling Catheter Indwelling Catheter - Exam Patient is now afebrile and off of Airvo high flow O2,NC at 10L no change HEENT: Anicteric conjunctiva are pink and moist nasal mucosa grossly intact without significant lesions, there is no thrush. Neck: The neck is supple without significant lymphadenopathy or thyromegaly. Lungs: Good bilateral air entry bibasilar crackles without significant bronchial sounds no egophony or changes of tactile fremitus Heart: Regular rate and rhythm with an audible S1-S2, oft S4.There is no significant murmur click or rub, PMI was nondisplaced. Abdomen: Positive bowel sounds soft and nontender without palpable masses or organomegaly. There was no guarding or rebound. Extremities: The upper extremities have excellent pulses they are symmetric, no significant petechiae or telangiectasia. No splinter hemorrhages were noted. The lower extremities reveal Bilateral Edema The peripheral pulses were 2+ and symmetric. Neuro: Awake alert oriented to person place and time. There are no acute new gross focal sensory motor deficits.does have some difficulty with his hearing, not new - Labs CBC & Chem 7: 09/13/19 04:50 09/13/19 04:50 Labs: Abnormal Lab Results - Last 24 Hours (Table) 09/12/19 09/12/19 09/13/19 Range/Units 20:00 20:01 04:50 WBC 0.8 L* (3.8-10.6) k/uL RBC 2.51 L (4.30-5.90) m/uL Hgb 8.1 L (13.0-17.5) gm/dL Hct 26.1 L (39.0-53.0) % MCV 103.9 H (80.0-100.0) fL RDW 18.1 H (11.5-15.5) % Plt Count 105 L (150-450) k/uL Potassium 3.4 L (3.5-5.1) mmol/L Chloride (98-107) mmol/L BUN (9-20) mg/dL Glucose (74-99) mg/dL POC Glucose (mg/dL) 134 H (75-99) mg/dL 09/13/19 09/13/19 09/13/19 Range/Units 04:50 06:59 17:21 WBC (3.8-10.6) k/uL RBC (4.30-5.90) m/uL Hgb (13.0-17.5) gm/dL Hct (39.0-53.0) % MCV (80.0-100.0) fL RDW (11.5-15.5) % Plt Count (150-450) k/uL Potassium (3.5-5.1) mmol/L Chloride 111 H (98-107) mmol/L BUN 36 H (9-20) mg/dL Glucose 141 H (74-99) mg/dL POC Glucose (mg/dL) 147 H 113 H (75-99) mg/dL Microbiology - Last 24 Hours (Table) 09/09/19 08:25 Stool Culture - Final Stool 09/08/19 19:11 Blood Culture - Preliminary Blood No Growth after 96 hours Laboratory Results WBC 0.8 k/uL (3.8-10.6) L* 09/13/19 04:50 RBC 2.51 m/uL (4.30-5.90) L 09/13/19 04:50 Hgb 8.1 gm/dL (13.0-17.5) L 09/13/19 04:50 Hct 26.1 % (39.0-53.0) L 09/13/19 04:50 MCV 103.9 fL (80.0-100.0) H 09/13/19 04:50 MCH 32.4 pg (25.0-35.0) 09/13/19 04:50 MCHC 31.2 g/dL (31.0-37.0) 09/13/19 04:50 RDW 18.1 % (11.5-15.5) H 09/13/19 04:50 Plt Count 105 k/uL (150-450) L 09/13/19 04:50 Neutrophils # AUTOMATION TECHNOLOGIST 09/11/19 05:25 Differential Comment 09/13/19 04:50 Manual Slide Review Performed 09/13/19 04:50 Polychromasia Present 09/08/19 18:40 Hypochromasia Marked 09/13/19 04:50 Anisocytosis Slight 09/13/19 04:50 Anisocytosis (manual) Present 09/08/19 18:40 Macrocytosis Moderate 09/13/19 04:50 PT 11.7 sec (9.0-12.0) 09/08/19 18:40 INR 1.1 (<1.2) 09/08/19 18:40 APTT 28.0 sec (22.0-30.0) 09/08/19 18:40 D-Dimer 4.38 mg/L FEU (<0.60) H 09/08/19 18:40 Sample Site rrad 09/09/19 09:08 ABG pH 7.45 (7.35-7.45) 09/09/19 09:08 ABG pCO2 24 mmHg (35-45) L 09/09/19 09:08 ABG pO2 77 mmHg (83-108) L 09/09/19 09:08 ABG HCO3 17 mmol/L (21-25) L 09/09/19 09:08 ABG Total CO2 17 mmol/L (19-24) L 09/09/19 09:08 ABG O2 Saturation 96.5 % (94-97) 09/09/19 09:08 ABG Base Excess -7.5 mmol/L 09/09/19 09:08 Claudio Test Yes 09/09/19 09:08 FiO2 75 % 09/09/19 09:08 Sodium 141 mmol/L (137-145) 09/13/19 04:50 Potassium 3.7 mmol/L (3.5-5.1) 09/13/19 04:50 Chloride 111 mmol/L (98-107) H 09/13/19 04:50 Carbon Dioxide 25 mmol/L (22-30) 09/13/19 04:50 Anion Gap 5 mmol/L 09/13/19 04:50 BUN 36 mg/dL (9-20) H 09/13/19 04:50 Creatinine 1.20 mg/dL (0.66-1.25) 09/13/19 04:50 Est GFR (CKD-EPI)AfAm 73 (>60 ml/min/1.73 sqM) 09/13/19 04:50 Est GFR (CKD-EPI)NonAf 63 (>60 ml/min/1.73 sqM) 09/13/19 04:50 Glucose 141 mg/dL (74-99) H 09/13/19 04:50 POC Glucose (mg/dL) 113 mg/dL (75-99) H 09/13/19 17:21 POC Glu Manager Strategy ID Iliana De La Vega 09/13/19 17:21 Lactic Ac Sepsis Rflx Y 09/09/19 05:53 Plasma Lactic Acid Ramses 1.7 mmol/L (0.7-2.0) 09/09/19 10:59 Calcium 8.7 mg/dL (8.4-10.2) 09/13/19 04:50 Total Bilirubin 0.6 mg/dL (0.2-1.3) 09/08/19 18:40 AST 32 U/L (17-59) 09/08/19 18:40 ALT 17 U/L (21-72) L 09/08/19 18:40 Alkaline Phosphatase 93 U/L (38-126) 09/08/19 18:40 Troponin I 0.536 ng/mL (0.000-0.034) H* 09/09/19 05:13 Total Protein 5.6 g/dL (6.3-8.2) L 09/08/19 18:40 Albumin 2.9 g/dL (3.5-5.0) L 09/08/19 18:40 Cortisol 34 ug/dL 09/09/19 05:13 Urine Color Yellow 09/11/19 09:30 Urine Appearance Cloudy (Clear) 09/11/19 09:30 Urine pH 6.0 (5.0-8.0) 09/11/19 09:30 Ur Specific Albert 1.020 (1.001-1.035) 09/11/19 09:30 Urine Protein 1+ (Negative) H 09/11/19 09:30 Urine Glucose (UA) Negative (Negative) 09/11/19 09:30 Urine Ketones Negative (Negative) 09/11/19 09:30 Urine Blood Trace (Negative) H 09/11/19 09:30 Urine Nitrite Negative (Negative) 09/11/19 09:30 Urine Bilirubin Negative (Negative) 09/11/19 09:30 Urine Urobilinogen <2.0 mg/dL (<2.0) 09/11/19 09:30 Ur Leukocyte Esterase Negative (Negative) 09/11/19 09:30 Urine RBC 2 /hpf (0-5) 09/11/19 09:30 Urine WBC 6 /hpf (0-5) H 09/11/19 09:30 Urine Bacteria Occasional /hpf (None) H 09/11/19 09:30 Granular Casts 11 /lpf (0) 09/11/19 09:30 Urine Mucus Rare /hpf (None) H 09/11/19 09:30 Stool Lactoferrin POSITIVE (NEGATIVE) H 09/09/19 08:25 Vancomycin Trough 22.4 ug/mL 09/11/19 20:35 IgG 667.0 mg/dL (700.0-1600.0) L 09/09/19 05:13 IgA 178.0 mg/dL (60.0-350.0) 09/09/19 05:13 IgM 17.9 mg/dL (40.0-280.0) L 09/09/19 05:13 C. difficile (EIA) Intrp Negative (Negative) 09/09/19 08:25 CMV DNA Qual PCR Not detected (Not detected) 09/10/19 04:45 CMV DNA Quant PCR <50 IU/mL (<50) 09/10/19 04:45 CMV DNA PCR copies/ml <126 Copies/mL (<126) 09/10/19 04:45 CMV DNA PCR log IU/mL <1.70 (<1.70) 09/10/19 04:45 Influenza Type A RNA Not Detected (Not Detectd) 09/08/19 19:00 Influenza Type B (PCR) Not Detected (Not Detectd) 09/08/19 19:00 - Imaging and Cardiology Chest x-ray: report reviewed (n) no acute change Assessment and Plan (1) Septic shock Current Visit: Yes Status: Acute Code(s): A41.9 - SEPSIS, UNSPECIFIED ORGANISM; R65.21 - SEVERE SEPSIS WITH SEPTIC SHOCK SNOMED Code(s): 92872216 (2) Mantle cell lymphoma Current Visit: Yes Status: Acute Code(s): C83.10 - MANTLE CELL LYMPHOMA, UNSPECIFIED SITE SNOMED Code(s): 081786583 (3) Pancytopenia Current Visit: Yes Status: Acute Code(s): D61.818 - OTHER PANCYTOPENIA SNOMED Code(s): 757812334 (4) Pneumonia due to suspected gram-negative bacteria Narrative/Plan: 68-year-old male who has a very complex history of his mantle cell lymphoma. In having ongoing difficulties with oral lesion. He has had evaluation by different surgeons and has had biopsy without evidence of the mantle cell lymphoma within the oral cavity. He is treated with Valtrex with some improvement and a topical antiseptic sometimes is also helpful. He presents to Hospital with high-grade fever chill hypotension and evidence of new infiltrates on his chest x-ray highly consistent with pneumonia, suspect gram negatives given his immunocompromised status and ongoing neutropenia. He has been seen by oncology and growth factors have been given and will be transfused as indicated. Immunoglobulin levels have been requested and if IgG is low we'll work to see if he can be supplemented. For antibiotic therapy with vancomycin and cefepime have been requested as cultures are in process. Will adjust antibiotic therapy as indicated. For his pneumonia he is receiving high flow oxygen. We discussed the family present that if he has any worsening of his status. The next steps need to be while clarified. We've asked them to clarify with the intensive care unit team with her plans would be and if he has to be intubated as her expectation of how long would happen 4. We describe long-term ventilator care with tracheostomy, PEG tube placement and ventilator facility which they do not seem to be wanting but they may allow short-term intervention. They are having a family meeting to determine this. 09/04/2019 the patient has had a significant improvement of his status, is off of Airvo and is much less short of breath. He'll be no further fevers. Other than some discomfort she was oral cavity and epigastrium he relates that he is definitely doing better. He's been able to eat although his appetite is poor. He showed an excellent response to antibiotic therapy. Cultures remain negative at this time. Will continue current antimicrobials. Oncology is following it is still with a significant low white blood cell count showing his ongoing neutropenia. Despite that he has had a clinical response. We'll continue to monitor. His IgG level is at 667 which is minimally low and not in need of IVIG infusions at this time. 40 mg of Lasix as was given a 2-1/2 L diuresis occurred and this is definitely improved his respiratory status. 09/13/2019 little change in the last day family does inquire as to why the WBC has not improved and he has had multiple infecitons. I direct the questions to the Oncologist and look forward to direction and and any new plan, repeat bone marrow analysis or referral to [facility]. Plan to treat the gram negative pneumonia for 14 days with cefepime and midline requested and IV at [facility]CF likely being planned. Current Visit: Yes Status: Acute Code(s): J18.9 - PNEUMONIA, UNSPECIFIED ORGANISM SNOMED Code(s): 672238111
[2019-09-13 20:43] LABS: Glucose,Whole Blood 160 mg/dL (75-99)
[2019-09-13] MEDS: ACETAMINOPHEN TAB 325 MG TAB PO PRN (20:57)
[2019-09-14] MEDS: CEFEPIME 2 GM in SODIUM CHLORIDE 0.9% 100 ML IVPB SCH ×2 (02:04→14:23)
[2019-09-14] MEDS: IPRATROPIUM-ALBUTEROL 3 ML NEB INHALATION SCH ×6 (03:11→23:34)
[2019-09-14 05:15] LABS: Anisocytosis Slight; HCT 25.4 % (39.0-53.0); HGB 7.8 gm/dL (13.0-17.5); Hypochromasia Marked; MCHC 30.9 g/dL (31.0-37.0); MCV 103.4 fL (80.0-100.0); Macrocytosis Moderate; Mean Platelet Volume 8.3; Platelet Count 116 k/uL (150-450); RBC 2.45 m/uL (4.30-5.90); RDW 18.6 % (11.5-15.5); WBC 3.1 k/uL (3.8-10.6)
[2019-09-14 05:25] LABS: Potassium 3.9 mmol/L (3.5-5.1)
[2019-09-14] MEDS ORDERED: POTASSIUM CHLORIDE ER 20 MEQ TAB.ER PO SCH (06:00)
[2019-09-14 06:34] LABS: Glucose,Whole Blood 106 mg/dL (75-99)
[2019-09-14] MEDS: SALT AND SODA MOUTHWASH 1,000 ML PO SCH ×4 (06:40→20:36)
[2019-09-14] MEDS: INSULIN ASPART (NovoLOG) 100 UNIT/ML VIAL SQ SCH ×4 (06:42→20:36)
[2019-09-14] MEDS: BENZOCAINE 20 % GEL 15 GM TUBE MM SCH ×4 (06:42→20:37)
[2019-09-14 07:35] LABS: Band Neutrophils % 43 %; Eosinophils # (M) 0.03 k/uL (0-0.7); Lymphocytes # (M) 0.09 k/uL (1.0-4.8); Metamyelocytes # (M) 0.09 k/uL (0); Metamyelocytes % 3 %; Monocytes # (M) 0.03 k/uL (0-1.0); Myelocytes # (M) 0.03 k/uL (0); Myelocytes % 1 %; Neutrophils % (M) 50 %; Nucleated Red Blood Cells 0 /100 WBC (0-0); Total Cells Counted 200
[2019-09-14 07:36] LABS: Poikilocytosis (M) Present
[2019-09-14 07:37] LABS: Polychromasia Present
[2019-09-14] MEDS: HEPARIN SODIUM,PORCINE 5,000 UNIT/ML 1 ML VIAL SQ SCH ×2 (08:51→15:58)
[2019-09-14] MEDS: DEXAMETHASONE 0.5 MG TAB PO SCH ×4 (08:52→20:36)
[2019-09-14] MEDS: ASCORBIC ACID 500 MG TAB PO SCH (08:52)
[2019-09-14] MEDS: MULTIVITAMINS, THERA 1 EACH TAB PO SCH (08:53)
[2019-09-14] MEDS: PANTOPRAZOLE 40 MG TABLET PO SCH (08:53)
[2019-09-14] MEDS: valACYclovir 500 MG TAB PO SCH ×2 (08:53→20:36)
--- NOTE | 2019-09-14 08:59 | P.PN ---
Subjective Progress Note Date: 09/14/19 Principal diagnosis: Septic shock, pancytopenia and pneumonia This is a 68-year-old white male patient of Dr. Dodd, with a past history of non-Hodgkin's/Mantell lymphoma, with last treatment of Rituxan in November 2018, and patient has been in remission since then. 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 He states he had been hospitalized at [facility] in [place], he is unsure of the dates, but most recently with the neutropenic colitis. He is currently receiving filgrastim. He had been on Bactrim, Valtrex. Patient presents to the hospital with complaints of three-day history of weakness, fevers, difficulty breathing, cough and congestion. In addition he has had on and off watery diarrhea. Admission blood work revealed white blood cell count of 0.2, hemoglobin of 9.8, d-dimer was 4.38, sodium of 135, potassium is 4.2, chloride is 103, CO2 is 20, BUN of 27, creatinine is 2.34, plasma lactic acid was 4.0, troponins were positive at 0.035, and 0.246, and 0.536. Influenza was negative, urinalysis without signs of infection. he has a congested cough, shortness of breath, able to bring up much sputum. Chest x-ray revealed bilateral pulmonary infiltrates in the left lower lobe, and some atelectasis and infiltrate in the right midlung. EKG showed sinus tachycardia, without acute ischemic changes. Follow-up chest x-ray on 09/08/2019 at 8:00 showed increasing bilateral pulmonary infiltrates. Patient has been having low- grade fevers, and creasing shortness of breath and hypoxemia, and she was subsequently placed on Arava, currently at 55 L and FiO2 of 75%, his pulse ox is 97%. He was quite hypertensive on presentation, with the blood pressure of 67/43, he received a total of 3.5 L in fluid boluses, he did require Levophed for vasopressor support, which had since been weaned off, he received a dose of cortisone 50 mg IV push in the emergency department, he is on chronic dose of dexamethasone 1 mg 4 times a day. Seen in the intensive care unit this morning, he is tachypneic, has a congested cough, he remains on Airvo. The blood gas was reviewed, and revealed pO2 of 77, pCO2 of 24, and pH of 7.45, consistent with metabolic acidosis with respiratory compensation. Today's blood work shows white blood cell, 0.1, sodium of 137, potassium is 4.5, chloride is 109, CO2 is 18, BUN of 29 and creatinine 2.2. Patient is currently off the Levophed, continues on IV hydration, is making urine, Cohn catheter was inserted, denies any abdominal pain, did have an episode of diarrhea which was sent for cultures and C. diff. Cultures pending. Antibiotic coverage is in the form of Zosyn and vancomycin, patient continues on his home dose Valtrex, and Bactrim has been discontinued Patient was reevaluated today on 09/10/2019, remains in the ICU, he is on broad-spectrum antibiotics, he is on norepinephrine for slightly low blood pressure, he is also on cefepime and vancomycin as well as Valtrex. Patient is on zarxio for his neutropenia, he is also on bicarb drip which I will discontinue today since his bicarb level is up to 22. Patient is also on hydrocortisone/stress doses since the patient was recently on cortisone. Definite clinical improvement noted, chest x-ray continues to show bilateral infiltrates. And multifocal pneumonia. A is feeling a bit better, his temperature is 97.7 today, and his T-max was 99.5. Earlier on admission, the patient had temps as high as 104. We'll cultures blood cultures and urine cultures are pending. Patient was already seen by infectious disease on consultation, he was also seen by oncology on consultation. Reevaluated today on 09/11/2019, patient is still in the ICU, he is off norepinephrine completely. He is hemodynamically stable. Remains on broad- spectrum antibiotics in the form of cefepime and vancomycin and Valtrex. Blood cultures urine cultures and stool cultures are so far nondiagnostic. Chest x- ray continues to show bilateral multilobar infiltrates. But improving. Remains on stress doses of hydrocortisone and I will be cutting that down today. He is off bicarb since yesterday. Urine output is excellent. Clinically the patient is feeling better. He is on high flow airvo at 50 L/m flow on 50% FiO2. O2 saturation is in the high 90s, hence his FiO2 will be titrated in the flow will be titrated. Significant improvement noted over the last 2 days, but the patient remains marginal specially with his pancytopenia. And that is being addressed by hematology/oncology on the case. His diarrhea has completely resolved. WBC count today is 0.1 hemoglobin is 7 platelets are 60,000. Basic metabolic profile is normal renal profile is significantly improved. And his acute kidney injury is improving On 09/12/2019 patient seen in follow-up in the intensive care unit, he is awake and alert, oriented 3, he is sitting up in the recliner, remains on Airvo at 45 L/m, or 42% FiO2. 0.9 normal saline at a rate of 50, no other drips, no vasoactive drips. Hemodynamically patient is stable, denies any worsening shortness of breath, current antibiotic coverage includes cefepime, vancomycin, and Valtrex. ID service is following. Urine, stool and blood cultures are negative thus far. Yesterday's urinalysis without signs of infection. His diarrhea has resolved. Immunoglobulin levels were found to be low, patient may need supplementation. Patient denies any oral pain, he is elevating oral diet, his appetite is improving. His blood work has been reviewed, his white blood c ell, 0.2, hemoglobin is 7.4, and he remains on filgrastim. Kidney function has improved from admission, BUN is 35 and creatinine is 1.1 on today's labs, remains on stress doses of hydrocortisone, and we can switch him back to his home dose dexamethasone. Did have a low-grade fevers last night, with a temp of 100.9F. Afebrile this morning. Yesterday's chest x-ray has been reviewed showing some improvement in the appearance of the bilateral airspace disease. On 09/13/2019 patient seen in follow-up in intensive care unit, he is up in the recliner, FiO2 is down to 10 L per high flow nasal cannula, and his pulse ox is 96-99%, patient states he is feeling better today, today we added down a dose of IV Lasix, due to generalized edema, and patient diuresed over 4 L, is in -2267 mL fluid balance over the last 24 hours. The appearance of generalized edema has improved, still has some residual pitting edema in his lower extremities, and mild edema in his upper extremities, lung sounds are positive for some scattered crackles, no wheezes on today's exam. Still had some low-grade fevers last night, with a T-max of 100.8F, afebrile this morning. Culture data including urine and blood and stool cultures are negative. Today's labs have been reviewed, showing white blood cell count of 0.8, hemoglobin of 8.1, sodium is 141, potassium 3.7, chloride is 111, CO2 is 25, B1 is 36 and creatinine is 1.2. Chest x-ray today. No nausea, vomiting no diarrhea, patient is tolerating oral intake, appetite is improving. He continues on a combination of cefepime, vancomycin and Valtrex. On 09/14/2019 patient seen in follow-up in the intensive care unit, he is awake and alert, is currently on 6 L per high flow nasal cannula, pulse ox is 94-97%, denies any difficulty breathing, lung sounds are positive for scattered rales at bilateral bases, patient continues to diurese, he is an 2100 negative fluid balance over the last 24 hours, on today's labs his white blood cell count is up to 3.1, hemoglobin is 7.8, sodium is 140, potassium 3.9, cortisone 09, BUN 33 creatinine is 1.13. No culture data including urine and blood and stool cultures remain negative, diarrhea has resolved, patient is tolerating oral intake, no nausea, vomiting. Marleen on examination of cefepime and vancomycin. Did have one episode of low-grade fever last night at 8:00 in the evening, with the temp of 100.8F. ID service is following, clinical patient is improving, he has been up out of bed, sitting up in the chair, increase activity as tolerated. Wean FiO2. Objective - Vital Signs Vital signs: Vital Signs Temp 98.5 F 09/14/19 08:00 Pulse 81 09/14/19 08:00 Resp 26 H 09/14/19 08:00 BP 116/68 09/14/19 08:00 Pulse Ox 94 L 09/14/19 08:00 Intake & Output 09/13/19 09/14/19 09/14/19 18:59 06:59 18:59 Intake Total 1200 880 300 Output Total 2525 1750 275 Balance -1325 -870 25 Weight 98.9 kg Intake: IV 250 200 0 Sodium Chloride 0.9% 1, 250 200 0 000 ml @ 50 mls/hr IV . Q20H [facility] Rx#:[id number] Intake, IV Titration 250 200 Amount Vancomycin 1,500 mg In 250 200 Sodium Chloride 0.9% 250 ml @ 125 mls/hr IVPB Q12H [facility] Rx#:[id number] Oral 700 480 300 Output: Urine 2525 1750 275 Other: Voiding Method Indwelling Catheter Indwelling Catheter Indwelling Catheter - Exam GENERAL EXAM: Alert, pleasant, dyspneic, 68-year-old white male, on 6 L per high flow nasal cannula, with pulse ox of 96-99% HEAD: Normocephalic/atraumatic. EYES: Normal reaction of pupils, equal size. Conjunctiva pink, sclera white. NOSE: Clear with pink turbinates. THROAT: No erythema or exudates. MOUTH: Reveals a nonhealing ulcer on the side of the tongue on the right NECK: No masses, no JVD, no thyroid enlargement, no adenopathy. CHEST: No chest wall deformity. Symmetrical expansion. LUNGS: Equal air entry with scattered crackles CVS: Regular rate and rhythm, normal S1 and S2, no gallops, no murmurs, no rubs ABDOMEN: Soft, nontender. No hepatosplenomegaly, normal bowel sounds, no guarding or rigidity. EXTREMITIES: No clubbing, 1+ plus nonpitting edema in upper and lower extremities, no cyanosis, 2+ pulses and upper and lower extremities. MUSCULOSKELETAL: Muscle strength and tone normal. SPINE: No scoliosis or deformity SKIN: No rashes CENTRAL NERVOUS SYSTEM: Alert and oriented -3. No focal deficits, tone is normal in all 4 extremities. PSYCHIATRIC: Alert and oriented -3. Appropriate affect. Intact judgment and insight. - Labs CBC & Chem 7: 09/14/19 04:08 09/14/19 04:22 Labs: Abnormal Lab Results - Last 24 Hours (Table) 09/13/19 09/13/19 09/14/19 Range/Units 17:21 20:42 04:08 WBC 3.1 L (3.8-10.6) k/uL RBC 2.45 L (4.30-5.90) m/uL Hgb 7.8 L (13.0-17.5) gm/dL Hct 25.4 L (39.0-53.0) % MCV 103.4 H (80.0-100.0) fL MCHC 30.9 L (31.0-37.0) g/dL RDW 18.6 H (11.5-15.5) % Plt Count 116 L (150-450) k/uL Lymphocytes # (Manual) 0.09 L (1.0-4.8) k/uL Metamyelocytes # (Man) 0.09 H (0) k/uL Myelocytes # (Manual) 0.03 H (0) k/uL Chloride (98-107) mmol/L BUN (9-20) mg/dL Glucose (74-99) mg/dL POC Glucose (mg/dL) 113 H 160 H (75-99) mg/dL 09/14/19 09/14/19 Range/Units 04:22 06:33 WBC (3.8-10.6) k/uL RBC (4.30-5.90) m/uL Hgb (13.0-17.5) gm/dL Hct (39.0-53.0) % MCV (80.0-100.0) fL MCHC (31.0-37.0) g/dL RDW (11.5-15.5) % Plt Count (150-450) k/uL Lymphocytes # (Manual) (1.0-4.8) k/uL Metamyelocytes # (Man) (0) k/uL Myelocytes # (Manual) (0) k/uL Chloride 109 H (98-107) mmol/L BUN 33 H (9-20) mg/dL Glucose 118 H (74-99) mg/dL POC Glucose (mg/dL) 106 H (75-99) mg/dL Microbiology - Last 24 Hours (Table) 09/08/19 19:11 Blood Culture - Preliminary Blood No Growth after 120 hours 09/09/19 08:25 Stool Culture - Final Stool Assessment and Plan Plan: Assessment: #1. Septic shock, related to bilateral pneumonia, in immunosuppressed host, likely gram-negative, chest x-ray shows bilateral airspace disease, resolved #2. Neutropenia, on filgrastim, being followed by oncology/hematology, improving #3. Mild anion gap and non-anion gap metabolic acidosis, related to lactic acidosis and acute kidney injury, resolved #4. Acute kidney injury, resolved #5. Chronic anemia #6. Elevated d-dimer, nonspecific #7. Elevated troponin is likely related to sepsis and septic shock, EKG without acute ischemic changes #8. Recent neutropenic colitis #9. Frequent episodes of watery diarrhea, ruled out C. diff #10. 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 History of non-Hodgkin's/Mantle cell lymphoma, status post Rituxan, in remission, most recent PET scan on 08/22/2019 showed no new areas of suspicious hypermetabolic uptake #12. Previous history of GI bleeding #13. Hyperlipidemia #14. History of pneumonia #15. Hard of hearing #16. Hypogammaglobulinemia Plan: Continue weaning FiO2, encourage deep breathing and coughing, provided incentive spirometry, patient continues to diurese, he is in -2100 mL fluid balance. Hemodynamically patient remains stable, increase activity as tolerated, still has some residual edema in his upper and lower extremities, but overall status is improving. Patient is stable for transfer out of the intensive care unit today to oncology floor. I performed a history & physical examination of the patient and discussed their management with my nurse practitioner, Myla Adrian. I reviewed the nurse practitioner's note and agree with the documented findings and plan of care. Lung sounds are positive for diffuse rhonchi throughout the lung garnica. The findings and the impression was discussed with the patient. I attest to the documentation by the nurse practitioner. Time with Patient: Less than 30
[2019-09-14] MEDS ORDERED: VANCOMYCIN TROUGH DUE 1 EACH MISC MISCELLANE ONE (09:00)
[2019-09-14] MEDS: FILGRASTIM-SNDZ 480 MCG/0.8 ML SYRINGE SQ SCH (09:17)
[2019-09-14] MEDS: VANCOMYCIN 1,500 MG in SODIUM CHLORIDE 0.9% 250 ML IVPB SCH (10:09)
[2019-09-14 10:28] VITALS: BMI 29.5
[2019-09-14 11:38] LABS: Glucose,Whole Blood 97 mg/dL (75-99)
--- NOTE | 2019-09-14 14:08 | P.PN ---
Subjective Patient is a pleasant 68-year-old gentleman was admitted for septic shock secondary to bilateral extensive pneumonia patient is neutropenic etiology of neutropenia is not clear and present neutropenia is believed to be secondary to sepsis although patient has chronic neutropenia and etiology was not clear patient had history of non-Hodgkin's lymphoma for which patient was on rituxin earlier this year, patient underwent extensive workup at [facility] for neutropenia including bone marrow biopsy. Etiology of neutropenia is apparently not clear and patient the had a recent neutropenic colitis as well. Patient is being treated with cefepime and vancomycin patient has walked oral nonhealing ulcers with positive HSV because of which patient is on Valtrex as well. Patient was on pressor support which was discontinued patient is also on hydrocortisone for septic shock. Patient urine output is better patient is on IV fluids. Troponins are elevated secondary to sepsis. Patient is on high flow nasal cannula oxygen with significant expiratory wheezing on exam doesn't have any history of COPD or asthma patient's serum creatinine did improve. 09/11/2019 Patient remains on airvo, no overnight events patient is off pressor support. Wheezing although significantly improved 09/12/2019 Patient is on high flow nasal cannula oxygen 09/13/2019 Patient is presently on the 10 L of oxygen 09/14/2019 Patient's white blood cell counts improved. Now normal. Patient on 5 L of oxygen still has significant rhonchi bilaterally with minimal expiratory wheeze patient is quite weak sitting in the chair may need subacute rehabilitation w henever he is ready to be discharged. Constitutional: Denied any fatigue denied any fever. Cardio vascular: denied any chest pain, palpitations Gastrointestinal denied any nausea vomiting Pulmonary: Denied any shortness of breath cough Neurologic denied any new focal deficits All inpatient medications were reviewed and appropriate changes in these medications as dictated in the interval history and assessment and plan. Objective - Vital Signs Vital signs: Vital Signs Temp 98.5 F 09/14/19 08:00 Pulse 101 H 09/14/19 13:30 Resp 22 09/14/19 12:00 BP 145/91 09/14/19 12:00 Pulse Ox 92 L 09/14/19 12:00 Intake & Output 09/13/19 09/14/19 09/14/19 18:59 06:59 18:59 Intake Total 1200 880 800 Output Total 2525 1750 875 Balance -1325 -870 -75 Weight 98.9 kg 98.9 kg Intake: IV 250 200 0 Sodium Chloride 0.9% 1, 250 200 0 000 ml @ 50 mls/hr IV . Q20H [facility] Rx#:[id number] Intake, IV Titration 250 200 250 Amount Vancomycin 1,500 mg In 250 200 Sodium Chloride 0.9% 250 ml @ 125 mls/hr IVPB Q12H [facility] Rx#:[id number] Vancomycin 1,500 mg In 250 Sodium Chloride 0.9% 250 ml @ 125 mls/hr IVPB Q18H [facility] Rx#:[id number] Oral 700 480 550 Output: Urine 2525 1750 875 Other: Voiding Method Indwelling Catheter Indwelling Catheter Indwelling Catheter # Bowel Movements 1 - Exam PHYSICAL EXAMINATION: GENERAL: The patient is alert and oriented x3, not in any acute distress. Well developed, well nourished. Obese HEENT: Pupils are round and equally reacting to light. EOMI. No scleral icterus. No conjunctival pallor. Normocephalic, atraumatic. No pharyngeal erythema. No thyromegaly. CARDIOVASCULAR: S1 and S2 present. No murmurs, rubs, or gallops. PULMONARY: Significant rhonchi bilaterally fairly good air entry bilateral lung garnica ABDOMEN: Soft, nontender, nondistended, normoactive bowel sounds. No palpable organomegaly. MUSCULOSKELETAL: No joint swelling or deformity. EXTREMITIES: No cyanosis, clubbing, or pedal edema. NEUROLOGICAL: Gross neurological examination did not reveal any focal deficits. SKIN: No rashes. - Labs CBC & Chem 7: 09/14/19 04:08 09/14/19 04:22 Labs: Abnormal Lab Results - Last 24 Hours (Table) 09/13/19 09/13/19 09/14/19 Range/Units 17:21 20:42 04:08 WBC 3.1 L (3.8-10.6) k/uL RBC 2.45 L (4.30-5.90) m/uL Hgb 7.8 L (13.0-17.5) gm/dL Hct 25.4 L (39.0-53.0) % MCV 103.4 H (80.0-100.0) fL MCHC 30.9 L (31.0-37.0) g/dL RDW 18.6 H (11.5-15.5) % Plt Count 116 L (150-450) k/uL Lymphocytes # (Manual) 0.09 L (1.0-4.8) k/uL Metamyelocytes # (Man) 0.09 H (0) k/uL Myelocytes # (Manual) 0.03 H (0) k/uL Chloride (98-107) mmol/L BUN (9-20) mg/dL Glucose (74-99) mg/dL POC Glucose (mg/dL) 113 H 160 H (75-99) mg/dL 09/14/19 09/14/19 Range/Units 04:22 06:33 WBC (3.8-10.6) k/uL RBC (4.30-5.90) m/uL Hgb (13.0-17.5) gm/dL Hct (39.0-53.0) % MCV (80.0-100.0) fL MCHC (31.0-37.0) g/dL RDW (11.5-15.5) % Plt Count (150-450) k/uL Lymphocytes # (Manual) (1.0-4.8) k/uL Metamyelocytes # (Man) (0) k/uL Myelocytes # (Manual) (0) k/uL Chloride 109 H (98-107) mmol/L BUN 33 H (9-20) mg/dL Glucose 118 H (74-99) mg/dL POC Glucose (mg/dL) 106 H (75-99) mg/dL Microbiology - Last 24 Hours (Table) 09/08/19 19:11 Blood Culture - Preliminary Blood No Growth after 120 hours Assessment and Plan Plan: Septic shock: Secondary to bilateral multifocal pneumonia patient is immunocompromised, because of neutropenia, continue with the IV fluids shock improved patient is also on acyclovir, cefepime and vancomycin. Improving slowly improvement -Neutropenia etiology is not clear at present neutropenia appears to be sepsis secondary to sepsis and patient is receiving filgrastim every day, improved a white blood cell count -Acute renal failure secondary to acute tubular necrosis from septic shock which is improving -Elevated troponins and d-dimer secondary to sepsis -History of non-Hodgkin's lymphoma/mantle cell lymphoma for which patient completed chemotherapy -Hyperlipidemia -Acute hypoxic respiratory failure secondary to right leg bilateral multifocal pneumonia. Improving now, patient is presently on 5 L of oxygen
[2019-09-14 16:37] LABS: Glucose,Whole Blood 127 mg/dL (75-99)
[2019-09-14 20:06] LABS: Glucose,Whole Blood 141 mg/dL (75-99)
[2019-09-15] MEDS: BENZOCAINE 20 % GEL 15 GM TUBE MM SCH ×5 (00:54→22:02)
[2019-09-15] MEDS: SALT AND SODA MOUTHWASH 1,000 ML PO SCH ×5 (00:54→22:02)
[2019-09-15] MEDS: CEFEPIME 2 GM in SODIUM CHLORIDE 0.9% 100 ML IVPB SCH ×2 (00:55→16:23)
[2019-09-15] MEDS: HEPARIN SODIUM,PORCINE 5,000 UNIT/ML 1 ML VIAL SQ SCH ×3 (00:55→16:23)
[2019-09-15] MEDS: IPRATROPIUM-ALBUTEROL 3 ML NEB INHALATION SCH ×6 (03:26→23:38)
[2019-09-15 05:45] LABS: Anisocytosis Slight; HCT 24.8 % (39.0-53.0); HGB 7.9 gm/dL (13.0-17.5); Hypochromasia Moderate; MCH 32.5 pg (25.0-35.0); MCHC 31.7 g/dL (31.0-37.0); MCV 102.3 fL (80.0-100.0); Macrocytosis Moderate; Mean Platelet Volume 7.1; Platelet Count 153 k/uL (150-450); RBC 2.42 m/uL (4.30-5.90); RDW 18.5 % (11.5-15.5); WBC 8.9 k/uL (3.8-10.6)
[2019-09-15] MEDS ORDERED: VANCOMYCIN 1,500 MG in SODIUM CHLORIDE 0.9% 250 ML IVPB SCH (06:00)
[2019-09-15 06:06] LABS: Calcium 9.2 mg/dL (8.4-10.2); Potassium 3.9 mmol/L (3.5-5.1)
[2019-09-15 06:36] LABS: Glucose,Whole Blood 118 mg/dL (75-99)
[2019-09-15] MEDS: INSULIN ASPART (NovoLOG) 100 UNIT/ML VIAL SQ SCH ×4 (06:40→21:39)
--- NOTE | 2019-09-15 08:44 | P.PN ---
Subjective Progress Note Date: 09/15/19 Principal diagnosis: Septic shock, pancytopenia and pneumonia This is a 68-year-old white male patient of Dr. Dodd, with a past history of non-Hodgkin's/Mantell lymphoma, with last treatment of Rituxan in November 2018, and patient has been in remission since then. 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 He states he had been hospitalized at [facility] in [place], he is unsure of the dates, but most recently with the neutropenic colitis. He is currently receiving filgrastim. He had been on Bactrim, Valtrex. Patient presents to the hospital with complaints of three-day history of weakness, fevers, difficulty breathing, cough and congestion. In addition he has had on and off watery diarrhea. Admission blood work revealed white blood cell count of 0.2, hemoglobin of 9.8, d-dimer was 4.38, sodium of 135, potassium is 4.2, chloride is 103, CO2 is 20, BUN of 27, creatinine is 2.34, plasma lactic acid was 4.0, troponins were positive at 0.035, and 0.246, and 0.536. Influenza was negative, urinalysis without signs of infection. he has a congested cough, shortness of breath, able to bring up much sputum. Chest x-ray revealed bilateral pulmonary infiltrates in the left lower lobe, and some atelectasis and infiltrate in the right midlung. EKG showed sinus tachycardia, without acute ischemic changes. Follow-up chest x-ray on 09/08/2019 at 8:00 showed increasing bilateral pulmonary infiltrates. Patient has been having low- grade fevers, and creasing shortness of breath and hypoxemia, and she was subsequently placed on Arava, currently at 55 L and FiO2 of 75%, his pulse ox is 97%. He was quite hypertensive on presentation, with the blood pressure of 67/43, he received a total of 3.5 L in fluid boluses, he did require Levophed for vasopressor support, which had since been weaned off, he received a dose of cortisone 50 mg IV push in the emergency department, he is on chronic dose of dexamethasone 1 mg 4 times a day. Seen in the intensive care unit this morning, he is tachypneic, has a congested cough, he remains on Airvo. The blood gas was reviewed, and revealed pO2 of 77, pCO2 of 24, and pH of 7.45, consistent with metabolic acidosis with respiratory compensation. Today's blood work shows white blood cell, 0.1, sodium of 137, potassium is 4.5, chloride is 109, CO2 is 18, BUN of 29 and creatinine 2.2. Patient is currently off the Levophed, continues on IV hydration, is making urine, Cohn catheter was inserted, denies any abdominal pain, did have an episode of diarrhea which was sent for cultures and C. diff. Cultures pending. Antibiotic coverage is in the form of Zosyn and vancomycin, patient continues on his home dose Valtrex, and Bactrim has been discontinued Patient was reevaluated today on 09/10/2019, remains in the ICU, he is on broad-spectrum antibiotics, he is on norepinephrine for slightly low blood pressure, he is also on cefepime and vancomycin as well as Valtrex. Patient is on zarxio for his neutropenia, he is also on bicarb drip which I will discontinue today since his bicarb level is up to 22. Patient is also on hydrocortisone/stress doses since the patient was recently on cortisone. Definite clinical improvement noted, chest x-ray continues to show bilateral infiltrates. And multifocal pneumonia. A is feeling a bit better, his temperature is 97.7 today, and his T-max was 99.5. Earlier on admission, the patient had temps as high as 104. We'll cultures blood cultures and urine cultures are pending. Patient was already seen by infectious disease on consultation, he was also seen by oncology on consultation. Reevaluated today on 09/11/2019, patient is still in the ICU, he is off norepinephrine completely. He is hemodynamically stable. Remains on broad- spectrum antibiotics in the form of cefepime and vancomycin and Valtrex. Blood cultures urine cultures and stool cultures are so far nondiagnostic. Chest x- ray continues to show bilateral multilobar infiltrates. But improving. Remains on stress doses of hydrocortisone and I will be cutting that down today. He is off bicarb since yesterday. Urine output is excellent. Clinically the patient is feeling better. He is on high flow airvo at 50 L/m flow on 50% FiO2. O2 saturation is in the high 90s, hence his FiO2 will be titrated in the flow will be titrated. Significant improvement noted over the last 2 days, but the patient remains marginal specially with his pancytopenia. And that is being addressed by hematology/oncology on the case. His diarrhea has completely resolved. WBC count today is 0.1 hemoglobin is 7 platelets are 60,000. Basic metabolic profile is normal renal profile is significantly improved. And his acute kidney injury is improving On 09/12/2019 patient seen in follow-up in the intensive care unit, he is awake and alert, oriented 3, he is sitting up in the recliner, remains on Airvo at 45 L/m, or 42% FiO2. 0.9 normal saline at a rate of 50, no other drips, no vasoactive drips. Hemodynamically patient is stable, denies any worsening shortness of breath, current antibiotic coverage includes cefepime, vancomycin, and Valtrex. ID service is following. Urine, stool and blood cultures are negative thus far. Yesterday's urinalysis without signs of infection. His diarrhea has resolved. Immunoglobulin levels were found to be low, patient may need supplementation. Patient denies any oral pain, he is elevating oral diet, his appetite is improving. His blood work has been reviewed, his white blood c ell, 0.2, hemoglobin is 7.4, and he remains on filgrastim. Kidney function has improved from admission, BUN is 35 and creatinine is 1.1 on today's labs, remains on stress doses of hydrocortisone, and we can switch him back to his home dose dexamethasone. Did have a low-grade fevers last night, with a temp of 100.9F. Afebrile this morning. Yesterday's chest x-ray has been reviewed showing some improvement in the appearance of the bilateral airspace disease. On 09/13/2019 patient seen in follow-up in intensive care unit, he is up in the recliner, FiO2 is down to 10 L per high flow nasal cannula, and his pulse ox is 96-99%, patient states he is feeling better today, today we added down a dose of IV Lasix, due to generalized edema, and patient diuresed over 4 L, is in -2267 mL fluid balance over the last 24 hours. The appearance of generalized edema has improved, still has some residual pitting edema in his lower extremities, and mild edema in his upper extremities, lung sounds are positive for some scattered crackles, no wheezes on today's exam. Still had some low-grade fevers last night, with a T-max of 100.8F, afebrile this morning. Culture data including urine and blood and stool cultures are negative. Today's labs have been reviewed, showing white blood cell count of 0.8, hemoglobin of 8.1, sodium is 141, potassium 3.7, chloride is 111, CO2 is 25, B1 is 36 and creatinine is 1.2. Chest x-ray today. No nausea, vomiting no diarrhea, patient is tolerating oral intake, appetite is improving. He continues on a combination of cefepime, vancomycin and Valtrex. On 09/14/2019 patient seen in follow-up in the intensive care unit, he is awake and alert, is currently on 6 L per high flow nasal cannula, pulse ox is 94-97%, denies any difficulty breathing, lung sounds are positive for scattered rales at bilateral bases, patient continues to diurese, he is an 2100 negative fluid balance over the last 24 hours, on today's labs his white blood cell count is up to 3.1, hemoglobin is 7.8, sodium is 140, potassium 3.9, cortisone 09, BUN 33 creatinine is 1.13. No culture data including urine and blood and stool cultures remain negative, diarrhea has resolved, patient is tolerating oral intake, no nausea, vomiting. Marleen on examination of cefepime and vancomycin. Did have one episode of low-grade fever last night at 8:00 in the evening, with the temp of 100.8F. ID service is following, clinical patient is improving, he has been up out of bed, sitting up in the chair, increase activity as tolerated. Wean FiO2. On 09/15/2019 patient seen in follow-up in the intensive care unit, he has been waiting for a bed on medical surgical oncology floor for last 48 hours, he has been stable, currently on 4 L of oxygen and his pulse ox is 98%, low-grade fever last night with a temp of 100.8F. O2 data remains negative thus far, including urine, blood and stool culture. She remains on cefepime and vancomycin, ID service is following, today's lab 7 reviewed, with blood cell count is 8.9, hemoglobin is 7.9, electrolytes within normal limits, BUN is 32 and creatinine is 1.14. Hemodynamically stable, patient is diuresing, maintaining negative fluid balance, -2195 ML over last 24 hours, the appearance of generalized edema in his upper and lower extremities is improving, no new chest x-rays, denies any shortness of breath, denies any chest pain, his appetite is improving, no nausea, vomiting or diarrhea. No acute events overnight Objective - Vital Signs Vital signs: Vital Signs Temp 99.0 F 09/15/19 08:00 Pulse 81 09/15/19 08:34 Resp 16 09/15/19 08:00 BP 102/62 09/15/19 08:00 Pulse Ox 98 09/15/19 08:00 Intake & Output 09/14/19 09/15/19 09/15/19 18:59 06:59 18:59 Intake Total 1400 870 Output Total 1925 1550 Balance -525 -680 Intake: IV 0 350 Cefepime 2 gm In Sodium 100 Chloride 0.9% 100 ml @ 200 mls/hr IVPB Q12H [facility] Rx#:[id number] Sodium Chloride 0.9% 1, 0 000 ml @ 50 mls/hr IV . Q20H [facility] Rx#:[id number] Vancomycin 1,500 mg In 250 Sodium Chloride 0.9% 250 ml @ 125 mls/hr IVPB Q12H [facility] Rx#:[id number] Intake, IV Titration 350 Amount Cefepime 2 gm In Sodium 100 Chloride 0.9% 100 ml @ 200 mls/hr IVPB Q12H [facility] Rx#:[id number] Vancomycin 1,500 mg In 250 Sodium Chloride 0.9% 250 ml @ 125 mls/hr IVPB Q18H [facility] Rx#:[id number] Oral 1050 520 Output: Urine 1925 1550 Other: Voiding Method Indwelling Catheter Indwelling Catheter # Voids 3 # Bowel Movements 1 - Exam GENERAL EXAM: Alert, pleasant, dyspneic, 68-year-old white male, on 4 L per high flow nasal cannula, with pulse ox of 98% HEAD: Normocephalic/atraumatic. EYES: Normal reaction of pupils, equal size. Conjunctiva pink, sclera white. NOSE: Clear with pink turbinates. THROAT: No erythema or exudates. MOUTH: Reveals a nonhealing ulcer on the side of the tongue on the right NECK: No masses, no JVD, no thyroid enlargement, no adenopathy. CHEST: No chest wall deformity. Symmetrical expansion. LUNGS: Equal air entry with scattered crackles CVS: Regular rate and rhythm, normal S1 and S2, no gallops, no murmurs, no rubs ABDOMEN: Soft, nontender. No hepatosplenomegaly, normal bowel sounds, no guarding or rigidity. EXTREMITIES: No clubbing, 1+ plus nonpitting edema in upper and lower extremities, no cyanosis, 2+ pulses and upper and lower extremities. MUSCULOSKELETAL: Muscle strength and tone normal. SPINE: No scoliosis or deformity SKIN: No rashes CENTRAL NERVOUS SYSTEM: Alert and oriented -3. No focal deficits, tone is normal in all 4 extremities. PSYCHIATRIC: Alert and oriented -3. Appropriate affect. Intact judgment and insight. - Labs CBC & Chem 7: 09/15/19 04:50 09/15/19 04:50 Labs: Abnormal Lab Results - Last 24 Hours (Table) 09/14/19 09/14/19 09/15/19 Range/Units 16:36 20:05 04:50 RBC 2.42 L (4.30-5.90) m/uL Hgb 7.9 L (13.0-17.5) gm/dL Hct 24.8 L (39.0-53.0) % MCV 102.3 H (80.0-100.0) fL RDW 18.5 H (11.5-15.5) % BUN (9-20) mg/dL Glucose (74-99) mg/dL POC Glucose (mg/dL) 127 H 141 H (75-99) mg/dL 09/15/19 09/15/19 Range/Units 04:50 06:35 RBC (4.30-5.90) m/uL Hgb (13.0-17.5) gm/dL Hct (39.0-53.0) % MCV (80.0-100.0) fL RDW (11.5-15.5) % BUN 32 H (9-20) mg/dL Glucose 115 H (74-99) mg/dL POC Glucose (mg/dL) 118 H (75-99) mg/dL Microbiology - Last 24 Hours (Table) 09/08/19 19:11 Blood Culture - Final Blood No Growth after 144 hours Assessment and Plan Plan: Assessment: #1. Septic shock, related to bilateral pneumonia, in immunosuppressed host, likely gram-negative, chest x-ray shows bilateral airspace disease, resolved #2. Neutropenia, on filgrastim, being followed by oncology/hematology, improving #3. Mild anion gap and non-anion gap metabolic acidosis, related to lactic acidosis and acute kidney injury, resolved #4. Acute kidney injury, resolved #5. Chronic anemia #6. Elevated d-dimer, nonspecific #7. Elevated troponin is likely related to sepsis and septic shock, EKG without acute ischemic changes #8. Recent neutropenic colitis #9. Frequent episodes of watery diarrhea, ruled out C. diff #10. 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 History of non-Hodgkin's/Mantle cell lymphoma, status post Rituxan, in remission, most recent PET scan on 08/22/2019 showed no new areas of suspicious hypermetabolic uptake #12. Previous history of GI bleeding #13. Hyperlipidemia #14. History of pneumonia #15. 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 Per ID service recommendations patient will need 14 days of IV cefepime after discharge from the hospital, the plan is for ECF placement at the [facility]. From pulmonary perspective patient is stable for discharge today, he will likely need a midline IV catheter before discharge. We will check with ID service for any additional recommendations. I performed a history & physical examination of the patient and discussed their management with my nurse practitioner, Myla Adrian. I reviewed the nurse practitioner's note and agree with the documented findings and plan of care. Lung sounds are positive for diffuse rhonchi throughout the lung garnica. The findings and the impression was discussed with the patient. I attest to the documentation by the nurse practitioner. Time with Patient: Less than 30
[2019-09-15] MEDS: ASCORBIC ACID 500 MG TAB PO SCH (10:03)
[2019-09-15] MEDS: DEXAMETHASONE 0.5 MG TAB PO SCH ×4 (10:04→21:39)
[2019-09-15] MEDS: PANTOPRAZOLE 40 MG TABLET PO SCH (10:04)
[2019-09-15] MEDS: MULTIVITAMINS, THERA 1 EACH TAB PO SCH (10:04)
[2019-09-15] MEDS: valACYclovir 500 MG TAB PO SCH ×2 (10:04→21:39)
[2019-09-15 11:50] LABS: Glucose,Whole Blood 115 mg/dL (75-99)
--- NOTE | 2019-09-15 15:15 | P.PN ---
Subjective Progress Note Date: 09/15/19 68-year-old male seen in the office regarding his history of his mantle cell lymphoma and evidence of chronic oral ulceration which is painful. He has been treated with Rituxan over the last several years with his last maintenance dose in November 2018. Since that time he started modestly well except for the ongoing chronic oral ulceration. This is been evaluated by neurosurgery and ENT, has had biopsies in the past that were all nonspecific. He's been treated with antiviral therapy with some slight improvement but does well with just a topical antiseptic. Oncology reveals that his PET scan is been stable with no recent evidence of advancement of disease. However he is now had significant difficulty with leukopenia and much less anemia and thrombocytopenia. He is not been having high-grade fevers chills rigors or sweats for an ongoing basis until this presentation. Upon his arrival to the ER he was weak and ill with fever of 104 he was having increasing weakness for at least 48 hours. Was having relative hypotension acute renal failure significant fatigue and malaise and shortness of breath. As noted imaging study revealed evidence of bilateral pneumonia and he was admitted. With his febrile neutropenia and pneumonia the consultation was requested. 09/12/2019 the patient has had significant improvement. His respiratory failure is improved and he is now off of Airvo and tolerating nasal cannula oxygen therapy well. He is much more comfortable. Relates that he stilling having some discomfort with eating otherwise he feels better. He has no cough or hemoptysis. He has no nausea or emesis, no hematemesis significant diarrhea. No dysuria with Cohn. Denies new skin rashes. 09/13/2019 Patient feels slightly better today less short of breath, still feels weak and ill. 09/15/2019 the patient has had further improvement. He is down to 4 L nasal cannula. Physical therapy is antibleeding to 108 feet which is a significant improvement over the last several days. The patient's strength is improved, his mood is still poor. Objective - Vital Signs Vital signs: Vital Signs Temp 99.3 F 09/15/19 12:00 Pulse 86 09/15/19 15:09 Resp 18 09/15/19 15:09 BP 109/67 09/15/19 12:00 Pulse Ox 96 09/15/19 12:00 Intake & Output 09/14/19 09/15/19 09/15/19 18:59 06:59 18:59 Intake Total 1400 870 Output Total 1925 1550 Balance -525 -680 Intake: IV 0 350 Cefepime 2 gm In Sodium 100 Chloride 0.9% 100 ml @ 200 mls/hr IVPB Q12H [facility] Rx#:[id number] Sodium Chloride 0.9% 1, 0 000 ml @ 50 mls/hr IV . Q20H [facility] Rx#:[id number] Vancomycin 1,500 mg In 250 Sodium Chloride 0.9% 250 ml @ 125 mls/hr IVPB Q12H [facility] Rx#:[id number] Intake, IV Titration 350 Amount Cefepime 2 gm In Sodium 100 Chloride 0.9% 100 ml @ 200 mls/hr IVPB Q12H [facility] Rx#:[id number] Vancomycin 1,500 mg In 250 Sodium Chloride 0.9% 250 ml @ 125 mls/hr IVPB Q18H [facility] Rx#:[id number] Oral 1050 520 Output: Urine 1925 1550 Other: Voiding Method Indwelling Catheter Indwelling Catheter Indwelling Catheter # Voids 3 # Bowel Movements 1 - Exam Patient is now afebrile and off of Airvo high flow O2,NC at 10L no change HEENT: Anicteric conjunctiva are pink and moist nasal mucosa grossly intact without significant lesions, there is no thrush. Neck: The neck is supple without significant lymphadenopathy or thyromegaly. Lungs: Good bilateral air entry bibasilar crackles without significant bronchial sounds no egophony or changes of tactile fremitus Heart: Regular rate and rhythm with an audible S1-S2, oft S4.There is no significant murmur click or rub, PMI was nondisplaced. Abdomen: Positive bowel sounds soft and nontender without palpable masses or organomegaly. There was no guarding or rebound. Extremities: The upper extremities have excellent pulses they are symmetric, no significant petechiae or telangiectasia. No splinter hemorrhages were noted. The lower extremities reveal Bilateral Edema The peripheral pulses were 2+ and symmetric. Neuro: Awake alert oriented to person place and time. There are no acute new gross focal sensory motor deficits.does have some difficulty with his hearing, not new - Labs CBC & Chem 7: 09/15/19 04:50 09/15/19 04:50 Labs: Abnormal Lab Results - Last 24 Hours (Table) 09/14/19 09/14/19 09/15/19 Range/Units 16:36 20:05 04:50 RBC 2.42 L (4.30-5.90) m/uL Hgb 7.9 L (13.0-17.5) gm/dL Hct 24.8 L (39.0-53.0) % MCV 102.3 H (80.0-100.0) fL RDW 18.5 H (11.5-15.5) % BUN (9-20) mg/dL Glucose (74-99) mg/dL POC Glucose (mg/dL) 127 H 141 H (75-99) mg/dL 09/15/19 09/15/19 09/15/19 Range/Units 04:50 06:35 11:49 RBC (4.30-5.90) m/uL Hgb (13.0-17.5) gm/dL Hct (39.0-53.0) % MCV (80.0-100.0) fL RDW (11.5-15.5) % BUN 32 H (9-20) mg/dL Glucose 115 H (74-99) mg/dL POC Glucose (mg/dL) 118 H 115 H (75-99) mg/dL Microbiology - Last 24 Hours (Table) 09/08/19 19:11 Blood Culture - Final Blood No Growth after 144 hours Laboratory Results WBC 8.9 k/uL (3.8-10.6) 09/15/19 04:50 RBC 2.42 m/uL (4.30-5.90) L 09/15/19 04:50 Hgb 7.9 gm/dL (13.0-17.5) L 09/15/19 04:50 Hct 24.8 % (39.0-53.0) L 09/15/19 04:50 MCV 102.3 fL (80.0-100.0) H 09/15/19 04:50 MCH 32.5 pg (25.0-35.0) 09/15/19 04:50 MCHC 31.7 g/dL (31.0-37.0) 09/15/19 04:50 RDW 18.5 % (11.5-15.5) H 09/15/19 04:50 Plt Count 153 k/uL (150-450) 09/15/19 04:50 Neutrophils % (Manual) 50 % 09/14/19 04:08 Band Neutrophils % 43 % 09/14/19 04:08 Lymphocytes % (Manual) 3 % 09/14/19 04:08 Monocytes % (Manual) 1 % 09/14/19 04:08 Eosinophils % (Manual) 1 % 09/14/19 04:08 Metamyelocytes % 3 % 09/14/19 04:08 Myelocytes % 1 % 09/14/19 04:08 Neutrophils # [employer] 09/11/19 05:25 Neutrophils # (Manual) 2.80 k/uL (1.3-7.7) 09/14/19 04:08 Lymphocytes # (Manual) 0.09 k/uL (1.0-4.8) L 09/14/19 04:08 Monocytes # (Manual) 0.03 k/uL (0-1.0) 09/14/19 04:08 Eosinophils # (Manual) 0.03 k/uL (0-0.7) 09/14/19 04:08 Metamyelocytes # (Man) 0.09 k/uL (0) H 09/14/19 04:08 Myelocytes # (Manual) 0.03 k/uL (0) H 09/14/19 04:08 Nucleated RBCs 0 /100 WBC (0-0) 09/14/19 04:08 Differential Comment 09/13/19 04:50 Manual Slide Review Performed 09/14/19 04:08 Polychromasia Present 09/14/19 04:08 Hypochromasia Moderate 09/15/19 04:50 Poikilocytosis (manual Present 09/14/19 04:08 Anisocytosis Slight 09/15/19 04:50 Anisocytosis (manual) Present 09/08/19 18:40 Macrocytosis Moderate 09/15/19 04:50 PT 11.7 sec (9.0-12.0) 09/08/19 18:40 INR 1.1 (<1.2) 09/08/19 18:40 APTT 28.0 sec (22.0-30.0) 09/08/19 18:40 D-Dimer 4.38 mg/L FEU (<0.60) H 09/08/19 18:40 Sample Site rrad 09/09/19 09:08 ABG pH 7.45 (7.35-7.45) 09/09/19 09:08 ABG pCO2 24 mmHg (35-45) L 09/09/19 09:08 ABG pO2 77 mmHg (83-108) L 09/09/19 09:08 ABG HCO3 17 mmol/L (21-25) L 09/09/19 09:08 ABG Total CO2 17 mmol/L (19-24) L 09/09/19 09:08 ABG O2 Saturation 96.5 % (94-97) 09/09/19 09:08 ABG Base Excess -7.5 mmol/L 09/09/19 09:08 Claudio Test Yes 09/09/19 09:08 FiO2 75 % 09/09/19 09:08 Sodium 138 mmol/L (137-145) 09/15/19 04:50 Potassium 3.9 mmol/L (3.5-5.1) 09/15/19 04:50 Chloride 106 mmol/L (98-107) 09/15/19 04:50 Carbon Dioxide 27 mmol/L (22-30) 09/15/19 04:50 Anion Gap 5 mmol/L 09/15/19 04:50 BUN 32 mg/dL (9-20) H 09/15/19 04:50 Creatinine 1.14 mg/dL (0.66-1.25) 09/15/19 04:50 Est GFR (CKD-EPI)AfAm 78 (>60 ml/min/1.73 sqM) 09/15/19 04:50 Est GFR (CKD-EPI)NonAf 67 (>60 ml/min/1.73 sqM) 09/15/19 04:50 Glucose 115 mg/dL (74-99) H 09/15/19 04:50 POC Glucose (mg/dL) 115 mg/dL (75-99) H 09/15/19 11:49 POC Glu Etl [employer] Developer ID Elsa Felton 09/15/19 11:49 Lactic Ac Sepsis Rflx Y 09/09/19 05:53 Plasma Lactic Acid Ramses 1.7 mmol/L (0.7-2.0) 09/09/19 10:59 Calcium 9.2 mg/dL (8.4-10.2) 09/15/19 04:50 Total Bilirubin 0.6 mg/dL (0.2-1.3) 09/08/19 18:40 AST 32 U/L (17-59) 09/08/19 18:40 ALT 17 U/L (21-72) L 09/08/19 18:40 Alkaline Phosphatase 93 U/L (38-126) 09/08/19 18:40 Troponin I 0.536 ng/mL (0.000-0.034) H* 09/09/19 05:13 Total Protein 5.6 g/dL (6.3-8.2) L 09/08/19 18:40 Albumin 2.9 g/dL (3.5-5.0) L 09/08/19 18:40 Cortisol 34 ug/dL 09/09/19 05:13 Urine Color Yellow 09/11/19 09:30 Urine Appearance Cloudy (Clear) 09/11/19 09:30 Urine pH 6.0 (5.0-8.0) 09/11/19 09:30 Ur Specific [place] 1.020 (1.001-1.035) 09/11/19 09:30 Urine Protein 1+ (Negative) H 09/11/19 09:30 Urine Glucose (UA) Negative (Negative) 09/11/19 09:30 Urine Ketones Negative (Negative) 09/11/19 09:30 Urine Blood Trace (Negative) H 09/11/19 09:30 Urine Nitrite Negative (Negative) 09/11/19 09:30 Urine Bilirubin Negative (Negative) 09/11/19 09:30 Urine Urobilinogen <2.0 mg/dL (<2.0) 09/11/19 09:30 Ur Leukocyte Esterase Negative (Negative) 09/11/19 09:30 Urine RBC 2 /hpf (0-5) 09/11/19 09:30 Urine WBC 6 /hpf (0-5) H 09/11/19 09:30 Urine Bacteria Occasional /hpf (None) H 09/11/19 09:30 Granular Casts 11 /lpf (0) 09/11/19 09:30 Urine Mucus Rare /hpf (None) H 09/11/19 09:30 Stool Lactoferrin POSITIVE (NEGATIVE) H 09/09/19 08:25 Vancomycin Trough 29.2 ug/mL 09/14/19 09:14 IgG 667.0 mg/dL (700.0-1600.0) L 09/09/19 05:13 IgA 178.0 mg/dL (60.0-350.0) 09/09/19 05:13 IgM 17.9 mg/dL (40.0-280.0) L 09/09/19 05:13 C. difficile (EIA) Intrp Negative (Negative) 09/09/19 08:25 CMV DNA Qual PCR Not detected (Not detected) 09/10/19 04:45 CMV DNA Quant PCR <50 IU/mL (<50) 09/10/19 04:45 CMV DNA PCR copies/ml <126 Copies/mL (<126) 09/10/19 04:45 CMV DNA PCR log IU/mL <1.70 (<1.70) 09/10/19 04:45 Influenza Type A RNA Not Detected (Not Detectd) 09/08/19 19:00 Influenza Type B (PCR) Not Detected (Not Detectd) 09/08/19 19:00 Microbiology 09/08/19 19:11 Blood Blood Culture - Final No Growth after 144 hours 09/09/19 08:25 Stool Stool Culture - Final 09/08/19 19:00 Urine,Voided Urine Culture - Final Assessment and Plan (1) Septic shock Current Visit: Yes Status: Acute Code(s): A41.9 - SEPSIS, UNSPECIFIED ORGANISM; R65.21 - SEVERE SEPSIS WITH SEPTIC SHOCK SNOMED Code(s): 56620642 (2) Mantle cell lymphoma Current Visit: Yes Status: Acute Code(s): C83.10 - MANTLE CELL LYMPHOMA, UNSPECIFIED SITE SNOMED Code(s): 449416030 (3) Pancytopenia Current Visit: Yes Status: Acute Code(s): D61.818 - OTHER PANCYTOPENIA SNOMED Code(s): 797975118 (4) Pneumonia due to suspected gram-negative bacteria Narrative/Plan: 68-year-old male who has a very complex history of his mantle cell lymphoma. In having ongoing difficulties with oral lesion. He has had evaluation by different surgeons and has had biopsy without evidence of the mantle cell lymphoma within the oral cavity. He is treated with Valtrex with some improvement and a topical antiseptic sometimes is also helpful. He presents to Hospital with high-grade fever chill hypotension and evidence of new infiltrates on his chest x-ray highly consistent with pneumonia, suspect gram negatives given his immunocompromised status and ongoing neutropenia. He has been seen by oncology and growth factors have been given and will be transfused as indicated. Immunoglobulin levels have been requested and if IgG is low we'll work to see if he can be supplemented. For antibiotic therapy with vancomycin and cefepime have been requested as cultures are in process. Will adjust antibiotic therapy as indicated. For his pneumonia he is receiving high flow oxygen. We discussed the family present that if he has any worsening of his status. The next steps need to be while clarified. We've asked them to clarify with the intensive care unit team with her plans would be and if he has to be intubated as her expectation of how long would happen 4. We describe long-term ventilator care with tracheostomy, PEG tube placement and ventilator facility which they do not seem to be wanting but they may allow short-term intervention. They are having a family meeting to determine this. 09/04/2019 the patient has had a significant improvement of his status, is off of Airvo and is much less short of breath. He'll be no further fevers. Other than some discomfort she was oral cavity and epigastrium he relates that he is definitely doing better. He's been able to eat although his appetite is poor. He showed an excellent response to antibiotic therapy. Cultures remain negative at this time. Will continue current antimicrobials. Oncology is following it is still with a significant low white blood cell count showing his ongoing neutropenia. Despite that he has had a clinical response. We'll continue to monitor. His IgG level is at 667 which is minimally low and not in need of IVIG infusions at this time. 40 mg of Lasix as was given a 2-1/2 L diuresis occurred and this is definitely improved his respiratory status. 09/13/2019 little change in the last day family does inquire as to why the WBC has not improved and he has had multiple infecitons. I direct the questions to the Oncologist and look forward to direction and and any new plan, repeat bone marrow analysis or referral to [facility]. Plan to treat the gram negative pneumonia for 14 days with cefepime and midline requested and IV at ECF likely being planned. 09/15/2019 the patient has now had further improvement. With the many days of granulocyte colony-stimulating factor is with a white blood cell count of 8.9. Clinically the patient started to show improvement of his gram-negative pneumonia and is tolerating the current intervention is therapy well. He did have diuresis which is also help his pulmonary status. As of tomorrow 11 days cefepime 2 g IV piggyback every 12 hours to complete his course of therapy. His midline catheter was repleted and is working well. Vancomycin discontinued. Likely to transfer to swing bed tomorrow. Current Visit: Yes Status: Acute Code(s): J18.9 - PNEUMONIA, UNSPECIFIED ORGANISM SNOMED Code(s): 928987501
[2019-09-15 16:55] LABS: Glucose,Whole Blood 129 mg/dL (75-99)
--- NOTE | 2019-09-15 18:43 | P.PN ---
Progress Note - Text Progress Note Date: 09/15/19 Chief Complaint: Fever or cough Interval history: This is a pleasant 68-year-old gentleman with long history of mantle cell non- Hodgkin's lymphoma. Initially it was low-grade then progressed to progressive disease. Patient was treated with course of to [address] Saucedo. Later treatment course was complicated by ulcers and her mucous membrane including the mouth with fever. Patient did get treated with Diflucan and Valtrex. Recently's had some fever off and on. Today clinical course of antibiotic. As a beginning of this month patient's symptoms of infection resolved as per his oncologist notes. PET scan was negative. Rather good documentation in Dr. Lawson's notes. Patient for 3 days presented with increasing cough fever. Decreased white count. Found to have pneumonia. Admitted to the ICU with septic shock, Neutropenic colitis, acute hypoxic respiratory failure, pancytopenia, acute kidney injury, oral ulcers. Patient was treated with IV vancomycin and IV cefepime. Initially was requiring very high flow oxygen. Responded well. Today-in the ICU. Sitting up on the bed. Did tolerate some diet. Had a bowel movement. Oxygen down to nasal cannula. Breathing improved. Review of systems: Was done for constitutional, cardiovascular, GI, pulmonary. relevant finding as above Active Medications Acetaminophen (Tylenol Tab) 650 mg PO Q4HR PRN PRN Reason: Fever and/ or Pain Last Admin: 09/13/19 20:57 Dose: 650 mg Documented by: Albuterol/Ipratropium (Duoneb 0.5 Mg-3 Mg/3 Ml Soln) 3 ml INHALATION RT-Q4H [facility] Last Admin: 09/15/19 15:09 Dose: 3 ml Documented by: Ascorbic Acid (Vitamin C) 1,000 mg PO DAILY [facility] Last Admin: 09/15/19 10:03 Dose: 1,000 mg Documented by: Benzocaine (Orajel) 0.5 gm MM 5XD [facility] Last Admin: 09/15/19 18:29 Dose: Not Given Documented by: Dexamethasone (Hexadrol) 1 mg PO QID [facility] Last Admin: 09/15/19 12:19 Dose: 1 mg Documented by: Filgrastim (Zarxio) 480 mcg SQ SuWe [facility] Heparin Sodium (Porcine) (Heparin) 5,000 unit SQ Q8HR [facility] Last Admin: 09/15/19 16:23 Dose: 5,000 unit Documented by: Cefepime HCl 2 gm/ Sodium (Chloride) 100 mls @ 200 mls/hr IVPB Q12H [facility] Last Admin: 09/15/19 16:23 Dose: 200 mls/hr Documented by: Insulin Aspart (Novolog) 0 unit SQ ACHS [facility]; Protocol Last Admin: 09/15/19 18:30 Dose: Not Given Documented by: Miscellaneous Information (Potassium Per Protocol) 1 each MISCELLANE DAILY PRN; Protocol PRN Reason: Per Protocol Multivitamins (Theragran) 1 each PO DAILY [facility] Last Admin: 09/15/19 10:04 Dose: 1 each Documented by: Pantoprazole Sodium (Protonix) 40 mg PO DAILY [facility] Last Admin: 09/15/19 10:04 Dose: 40 mg Documented by: Sodium Bicarbonate () 10 ml PO 5XD [facility] Last Admin: 09/15/19 18:29 Dose: Not Given Documented by: Valacyclovir HCl (Valtrex) 1,000 mg PO BID [facility] Last Admin: 09/15/19 10:04 Dose: 1,000 mg Documented by: Physical examination: VITAL SIGNS: 100.4, 17, 11 6/71, 90% on 3 L GENERAL: Sitting up in the bed, wake up is comfortable EYES: Pupils equal. Conjunctiva normal. HEENT: External appearance of nose and ears normal, oral cavity grossly normal. NECK: JVD unable to assess; masses not palpable. HEART: First and second heart sounds are normal; mild edema. LUNGS:[ Respiratory rate increased, decreased breath sounds ABDOMEN: Soft, nontender, liver spleen not palpable, no masses palpable. PSYCH: Alert and oriented x3; mood and affect normal. INVESTIGATIONS, reviewed in the clinical context: White count 8.9, hemoglobin 7.9 platelets 153 potassium 3.9 crit 1.14 White count 0.2 hemoglobin 9.8 platelets 181 potassium 4.2 bun 27 creatinine 2.34 lactic acid 5 troponin 0.035 albumin 2.9 Labs from August 22 show. Bun 15, creatinine 0.9 EKG tracing personally reviewed by me-normal sinus rhythm Chest x-ray film personally reviewed by me-bilateral infiltrates Blood, Urine culture negative Assessment: -Acute bilateral pneumonia in a patient's who is neutropenic immunosuppressed, improved on IV cefepime and vancomycin -Acute hypoxic respiratory failure on high flow oxygen, from pneumonia, improved -Mantle cell type non-Hodgkin's lymphoma currently in remission since December of this year -Neutropenic with pancytopenia -Severe sepsis from pneumonia, improved -Lactic acidosis from sepsis -Acute renal failure possibly ATN from underlying sepsis, improved -Troponin leak likely from sepsis from hemodynamic instability, not in acute coronary syndrome -Hypoalbuminemia has an acute phase reactant -Metabolic acidosis -Septic shock requiring at least 6 L of fluid and also on levo fed, resolved Plan: Patient is significantly improved. Tolerating diet.. Vancomycin has been discontinued. Did work with therapies. Looking to go to [facility], [place], operated by [facility] for rehab
[2019-09-15 20:23] LABS: Glucose,Whole Blood 145 mg/dL (75-99)
--- NOTE | 2019-09-15 20:27 | P.PN ---
Subjective Progress Note Date: 09/14/19 The patient was sitting up in bed on nasal cannula. He was fairly comfortable on about 6 it is of oxygen. He denied any subjective fevers or chills. No nausea or vomiting. Diarrhea has improved. Generalized weakness persists but has also improved. Oral intake is slowly increasing Objective - Vital Signs Vital signs: Vital Signs Temp 99.5 F 09/15/19 20:00 Pulse 82 09/15/19 20:00 Resp 20 09/15/19 20:00 BP 110/60 09/15/19 20:00 Pulse Ox 94 L 09/15/19 20:00 Intake & Output 09/15/19 09/15/19 09/16/19 06:59 18:59 06:59 Intake Total 870 350 Output Total 1550 Balance -680 350 Intake: IV 350 100 Cefepime 2 gm In Sodium 100 100 Chloride 0.9% 100 ml @ 200 mls/hr IVPB Q12H [facility] Rx#:[id number] Vancomycin 1,500 mg In 250 Sodium Chloride 0.9% 250 ml @ 125 mls/hr IVPB Q12H [facility] Rx#:[id number] Intake, IV Titration 250 Amount Vancomycin 1,500 mg In 250 Sodium Chloride 0.9% 250 ml @ 125 mls/hr IVPB Q18H [facility] Rx#:[id number] Oral 520 Output: Urine 1550 Other: Voiding Method Indwelling Catheter Indwelling Catheter - Constitutional General appearance: Present: no acute distress - EENT Eyes: Present: EOMI ENT: Present: hearing grossly normal, normal oropharynx - Respiratory Respiratory: bilateral: rales - Cardiovascular Rhythm: regular Heart sounds: normal: S1, S2 - Gastrointestinal General gastrointestinal: Present: normal bowel sounds, soft - Integumentary Integumentary: Present: normal - Neurologic Neurologic: Present: CNII-XII intact - Musculoskeletal Musculoskeletal: Present: generalized weakness, strength equal bilaterally - Psychiatric Psychiatric: Present: A&O x's 3, appropriate affect - Labs CBC & Chem 7: 09/15/19 04:50 09/15/19 04:50 Labs: Abnormal Lab Results - Last 24 Hours (Table) 09/15/19 09/15/19 09/15/19 Range/Units 04:50 04:50 06:35 RBC 2.42 L (4.30-5.90) m/uL Hgb 7.9 L (13.0-17.5) gm/dL Hct 24.8 L (39.0-53.0) % MCV 102.3 H (80.0-100.0) fL RDW 18.5 H (11.5-15.5) % BUN 32 H (9-20) mg/dL Glucose 115 H (74-99) mg/dL POC Glucose (mg/dL) 118 H (75-99) mg/dL 09/15/19 09/15/19 Range/Units 11:49 16:54 RBC (4.30-5.90) m/uL Hgb (13.0-17.5) gm/dL Hct (39.0-53.0) % MCV (80.0-100.0) fL RDW (11.5-15.5) % BUN (9-20) mg/dL Glucose (74-99) mg/dL POC Glucose (mg/dL) 115 H 129 H (75-99) mg/dL Microbiology - Last 24 Hours (Table) 09/08/19 19:11 Blood Culture - Final Blood No Growth after 144 hours Assessment and Plan (1) Sepsis Narrative/Plan: There has been significant improvement in his hemodynamics and respiratory status. Fever has mostly resolved other than a mild low-grade 100.8 last p.m. Patient is fairly comfortable at rest on 6 L by nasal cannula. Cultures remained negative. CMV PCR was also negative. Continue antibiotics according to ID. immunoglobulin levels were checked . IgG was greater than 600. Therefore Ig infusion was not indicated. in any case, the patient has improved with IV antibiotics Current Visit: Yes Status: Acute Code(s): A41.9 - SEPSIS, UNSPECIFIED ORGANISM SNOMED Code(s): 29538833 (2) Pancytopenia Narrative/Plan: WBC has improved into the normal range. Filgrastim will be change home dosing of Thursday and Thursday /week. Hemoglobin and platelets are in a safe range. continue to monitor Current Visit: Yes Status: Acute Code(s): D61.818 - OTHER PANCYTOPENIA SNOMED Code(s): 869428070 (3) Mantle cell lymphoma Current Visit: Yes Status: Acute Code(s): C83.10 - MANTLE CELL LYMPHOMA, UNSPECIFIED SITE SNOMED Code(s): 494350803
[2019-09-16] MEDS: SALT AND SODA MOUTHWASH 1,000 ML PO SCH ×3 (00:08→11:33)
[2019-09-16] MEDS: BENZOCAINE 20 % GEL 15 GM TUBE MM SCH ×3 (00:08→11:33)
[2019-09-16] MEDS: HEPARIN SODIUM,PORCINE 5,000 UNIT/ML 1 ML VIAL SQ SCH ×2 (00:08→08:42)
[2019-09-16] MEDS: CEFEPIME 2 GM in SODIUM CHLORIDE 0.9% 100 ML IVPB SCH (02:08)
[2019-09-16] MEDS: IPRATROPIUM-ALBUTEROL 3 ML NEB INHALATION SCH ×3 (03:31→11:56)
[2019-09-16 05:45] LABS: Anisocytosis Slight; HCT 24.5 % (39.0-53.0); HGB 7.7 gm/dL (13.0-17.5); Hypochromasia Slight; MCH 31.6 pg (25.0-35.0); MCHC 31.3 g/dL (31.0-37.0); MCV 101.1 fL (80.0-100.0); Macrocytosis Moderate; Mean Platelet Volume 7.9; Platelet Count 187 k/uL (150-450); RBC 2.42 m/uL (4.30-5.90); RDW 18.8 % (11.5-15.5); WBC 11.9 k/uL (3.8-10.6)
[2019-09-16 06:04] LABS: Calcium 9.1 mg/dL (8.4-10.2); Potassium 3.7 mmol/L (3.5-5.1)
[2019-09-16 06:34] LABS: Band Neutrophils % 38 %; Eosinophils # (M) 0.12 k/uL (0-0.7); Lymphocytes # (M) 0.36 k/uL (1.0-4.8); Metamyelocytes # (M) 0.24 k/uL (0); Metamyelocytes % 2 %; Neutrophils % (M) 57 %; Nucleated Red Blood Cells 0 /100 WBC (0-0); Total Cells Counted 200
[2019-09-16 06:36] LABS: Large Platelets Present; Polychromasia Present
[2019-09-16 06:52] LABS: Glucose,Whole Blood 109 mg/dL (75-99)
[2019-09-16] MEDS: INSULIN ASPART (NovoLOG) 100 UNIT/ML VIAL SQ SCH ×2 (06:54→11:28)
--- NOTE | 2019-09-16 08:41 | P.PN ---
Subjective Progress Note Date: 09/16/19 Principal diagnosis: Septic shock, pancytopenia and pneumonia This is a 68-year-old white male patient of Dr. Dodd, with a past history of non-Hodgkin's/Mantell lymphoma, with last treatment of Rituxan in November 2018, and patient has been in remission since then. 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 He states he had been hospitalized at [facility] in [place], he is unsure of the dates, but most recently with the neutropenic colitis. He is currently receiving filgrastim. He had been on Bactrim, Valtrex. Patient presents to the hospital with complaints of three-day history of weakness, fevers, difficulty breathing, cough and congestion. In addition he has had on and off watery diarrhea. Admission blood work revealed white blood cell count of 0.2, hemoglobin of 9.8, d-dimer was 4.38, sodium of 135, potassium is 4.2, chloride is 103, CO2 is 20, BUN of 27, creatinine is 2.34, plasma lactic acid was 4.0, troponins were positive at 0.035, and 0.246, and 0.536. Influenza was negative, urinalysis without signs of infection. he has a congested cough, shortness of breath, able to bring up much sputum. Chest x-ray revealed bilateral pulmonary infiltrates in the left lower lobe, and some atelectasis and infiltrate in the right midlung. EKG showed sinus tachycardia, without acute ischemic changes. Follow-up chest x-ray on 09/08/2019 at 8:00 showed increasing bilateral pulmonary infiltrates. Patient has been having low- grade fevers, and creasing shortness of breath and hypoxemia, and she was subsequently placed on Arava, currently at 55 L and FiO2 of 75%, his pulse ox is 97%. He was quite hypertensive on presentation, with the blood pressure of 67/43, he received a total of 3.5 L in fluid boluses, he did require Levophed for vasopressor support, which had since been weaned off, he received a dose of cortisone 50 mg IV push in the emergency department, he is on chronic dose of dexamethasone 1 mg 4 times a day. Seen in the intensive care unit this morning, he is tachypneic, has a congested cough, he remains on Airvo. The blood gas was reviewed, and revealed pO2 of 77, pCO2 of 24, and pH of 7.45, consistent with metabolic acidosis with respiratory compensation. Today's blood work shows white blood cell, 0.1, sodium of 137, potassium is 4.5, chloride is 109, CO2 is 18, BUN of 29 and creatinine 2.2. Patient is currently off the Levophed, continues on IV hydration, is making urine, Cohn catheter was inserted, denies any abdominal pain, did have an episode of diarrhea which was sent for cultures and C. diff. Cultures pending. Antibiotic coverage is in the form of Zosyn and vancomycin, patient continues on his home dose Valtrex, and Bactrim has been discontinued Patient was reevaluated today on 09/10/2019, remains in the ICU, he is on broad-spectrum antibiotics, he is on norepinephrine for slightly low blood pressure, he is also on cefepime and vancomycin as well as Valtrex. Patient is on zarxio for his neutropenia, he is also on bicarb drip which I will discontinue today since his bicarb level is up to 22. Patient is also on hydrocortisone/stress doses since the patient was recently on cortisone. Definite clinical improvement noted, chest x-ray continues to show bilateral infiltrates. And multifocal pneumonia. A is feeling a bit better, his temperature is 97.7 today, and his T-max was 99.5. Earlier on admission, the patient had temps as high as 104. We'll cultures blood cultures and urine cultures are pending. Patient was already seen by infectious disease on consultation, he was also seen by oncology on consultation. Reevaluated today on 09/11/2019, patient is still in the ICU, he is off norepinephrine completely. He is hemodynamically stable. Remains on broad- spectrum antibiotics in the form of cefepime and vancomycin and Valtrex. Blood cultures urine cultures and stool cultures are so far nondiagnostic. Chest x- ray continues to show bilateral multilobar infiltrates. But improving. Remains on stress doses of hydrocortisone and I will be cutting that down today. He is off bicarb since yesterday. Urine output is excellent. Clinically the patient is feeling better. He is on high flow airvo at 50 L/m flow on 50% FiO2. O2 saturation is in the high 90s, hence his FiO2 will be titrated in the flow will be titrated. Significant improvement noted over the last 2 days, but the patient remains marginal specially with his pancytopenia. And that is being addressed by hematology/oncology on the case. His diarrhea has completely resolved. WBC count today is 0.1 hemoglobin is 7 platelets are 60,000. Basic metabolic profile is normal renal profile is significantly improved. And his acute kidney injury is improving On 09/12/2019 patient seen in follow-up in the intensive care unit, he is awake and alert, oriented 3, he is sitting up in the recliner, remains on Airvo at 45 L/m, or 42% FiO2. 0.9 normal saline at a rate of 50, no other drips, no vasoactive drips. Hemodynamically patient is stable, denies any worsening shortness of breath, current antibiotic coverage includes cefepime, vancomycin, and Valtrex. ID service is following. Urine, stool and blood cultures are negative thus far. Yesterday's urinalysis without signs of infection. His diarrhea has resolved. Immunoglobulin levels were found to be low, patient may need supplementation. Patient denies any oral pain, he is elevating oral diet, his appetite is improving. His blood work has been reviewed, his white blood c ell, 0.2, hemoglobin is 7.4, and he remains on filgrastim. Kidney function has improved from admission, BUN is 35 and creatinine is 1.1 on today's labs, remains on stress doses of hydrocortisone, and we can switch him back to his home dose dexamethasone. Did have a low-grade fevers last night, with a temp of 100.9F. Afebrile this morning. Yesterday's chest x-ray has been reviewed showing some improvement in the appearance of the bilateral airspace disease. On 09/13/2019 patient seen in follow-up in intensive care unit, he is up in the recliner, FiO2 is down to 10 L per high flow nasal cannula, and his pulse ox is 96-99%, patient states he is feeling better today, today we added down a dose of IV Lasix, due to generalized edema, and patient diuresed over 4 L, is in -2267 mL fluid balance over the last 24 hours. The appearance of generalized edema has improved, still has some residual pitting edema in his lower extremities, and mild edema in his upper extremities, lung sounds are positive for some scattered crackles, no wheezes on today's exam. Still had some low-grade fevers last night, with a T-max of 100.8F, afebrile this morning. Culture data including urine and blood and stool cultures are negative. Today's labs have been reviewed, showing white blood cell count of 0.8, hemoglobin of 8.1, sodium is 141, potassium 3.7, chloride is 111, CO2 is 25, B1 is 36 and creatinine is 1.2. Chest x-ray today. No nausea, vomiting no diarrhea, patient is tolerating oral intake, appetite is improving. He continues on a combination of cefepime, vancomycin and Valtrex. On 09/14/2019 patient seen in follow-up in the intensive care unit, he is awake and alert, is currently on 6 L per high flow nasal cannula, pulse ox is 94-97%, denies any difficulty breathing, lung sounds are positive for scattered rales at bilateral bases, patient continues to diurese, he is an 2100 negative fluid balance over the last 24 hours, on today's labs his white blood cell count is up to 3.1, hemoglobin is 7.8, sodium is 140, potassium 3.9, cortisone 09, BUN 33 creatinine is 1.13. No culture data including urine and blood and stool cultures remain negative, diarrhea has resolved, patient is tolerating oral intake, no nausea, vomiting. Marleen on examination of cefepime and vancomycin. Did have one episode of low-grade fever last night at 8:00 in the evening, with the temp of 100.8F. ID service is following, clinical patient is improving, he has been up out of bed, sitting up in the chair, increase activity as tolerated. Wean FiO2. On 09/15/2019 patient seen in follow-up in the intensive care unit, he has been waiting for a bed on medical surgical oncology floor for last 48 hours, he has been stable, currently on 4 L of oxygen and his pulse ox is 98%, low-grade fever last night with a temp of 100.8F. O2 data remains negative thus far, including urine, blood and stool culture. She remains on cefepime and vancomycin, ID service is following, today's lab 7 reviewed, with blood cell count is 8.9, hemoglobin is 7.9, electrolytes within normal limits, BUN is 32 and creatinine is 1.14. Hemodynamically stable, patient is diuresing, maintaining negative fluid balance, -2195 ML over last 24 hours, the appearance of generalized edema in his upper and lower extremities is improving, no new chest x-rays, denies any shortness of breath, denies any chest pain, his appetite is improving, no nausea, vomiting or diarrhea. No acute events overnight On 09/16/2019 patient seen in follow-up in the intensive care unit, he is awake and alert, in no acute distress. Currently on 4 L of oxygen with a pulse ox of 94-95%, afebrile this morning, however did have low-grade fever with a temp of 100.4F yesterday in the afternoon. O2 data remains negative thus far, today's labs have been reviewed, white blood cell chronic 11.9, hemoglobin is 7.7, electrolytes within normal limits, BUN is 31 creatinine is 1.03. Antibiotic coverage is with cefepime, vancomycin has been discontinued, ID service is following, breathing is stable, patient continues to diurese, -1205 ML fluid balance, edema in his upper extremities has improved, however patient still has significant edema in his lower extremities. No nausea, vomiting or diarrhea, tolerating oral intake, he has been up in the chair, the plans for discharge possibly today to [facility]. Objective - Vital Signs Vital signs: Vital Signs Temp 98.8 F 09/15/19 23:00 Pulse 78 09/16/19 08:00 Resp 24 09/16/19 04:00 BP 126/67 09/16/19 04:00 Pulse Ox 95 09/16/19 07:51 Intake & Output 09/15/19 09/16/19 09/16/19 18:59 06:59 18:59 Intake Total 350 30 Output Total 800 Balance 350 -770 Intake: IV 100 30 Cefepime 2 gm In Sodium 100 Chloride 0.9% 100 ml @ 200 mls/hr IVPB Q12H [facility] Rx#:[id number] Normal Saline Pressure 30 Bag Intake, IV Titration 250 Amount Vancomycin 1,500 mg In 250 Sodium Chloride 0.9% 250 ml @ 125 mls/hr IVPB Q18H [facility] Rx#:[id number] Output: Urine 800 Other: Voiding Method Indwelling Catheter Indwelling Catheter - Exam GENERAL EXAM: Alert, pleasant, dyspneic, 68-year-old white male, on 4 L per high flow nasal cannula, with pulse ox of 95% HEAD: Normocephalic/atraumatic. EYES: Normal reaction of pupils, equal size. Conjunctiva pink, sclera white. NOSE: Clear with pink turbinates. THROAT: No erythema or exudates. MOUTH: Reveals a nonhealing ulcer on the side of the tongue on the right NECK: No masses, no JVD, no thyroid enlargement, no adenopathy. CHEST: No chest wall deformity. Symmetrical expansion. LUNGS: Equal air entry with scattered crackles CVS: Regular rate and rhythm, normal S1 and S2, no gallops, no murmurs, no rubs ABDOMEN: Soft, nontender. No hepatosplenomegaly, normal bowel sounds, no guarding or rigidity. EXTREMITIES: No clubbing, 1+ plus nonpitting edema in upper and lower extremities, no cyanosis, 2+ pulses and upper and lower extremities. MUSCULOSKELETAL: Muscle strength and tone normal. SPINE: No scoliosis or deformity SKIN: No rashes CENTRAL NERVOUS SYSTEM: Alert and oriented -3. No focal deficits, tone is normal in all 4 extremities. PSYCHIATRIC: Alert and oriented -3. Appropriate affect. Intact judgment and insight. - Labs CBC & Chem 7: 09/16/19 05:11 09/16/19 05:11 Labs: Abnormal Lab Results - Last 24 Hours (Table) 09/15/19 09/15/19 09/15/19 Range/Units 11:49 16:54 20:21 WBC (3.8-10.6) k/uL RBC (4.30-5.90) m/uL Hgb (13.0-17.5) gm/dL Hct (39.0-53.0) % MCV (80.0-100.0) fL RDW (11.5-15.5) % Neutrophils # (Manual) (1.3-7.7) k/uL Lymphocytes # (Manual) (1.0-4.8) k/uL Metamyelocytes # (Man) (0) k/uL BUN (9-20) mg/dL Glucose (74-99) mg/dL POC Glucose (mg/dL) 115 H 129 H 145 H (75-99) mg/dL 09/16/19 09/16/19 09/16/19 Range/Units 05:11 05:11 06:51 WBC 11.9 H (3.8-10.6) k/uL RBC 2.42 L (4.30-5.90) m/uL Hgb 7.7 L (13.0-17.5) gm/dL Hct 24.5 L (39.0-53.0) % MCV 101.1 H (80.0-100.0) fL RDW 18.8 H (11.5-15.5) % Neutrophils # (Manual) 11.30 H (1.3-7.7) k/uL Lymphocytes # (Manual) 0.36 L (1.0-4.8) k/uL Metamyelocytes # (Man) 0.24 H (0) k/uL BUN 31 H (9-20) mg/dL Glucose 107 H (74-99) mg/dL POC Glucose (mg/dL) 109 H (75-99) mg/dL Assessment and Plan Plan: Assessment: #1. Septic shock, related to bilateral pneumonia, in immunosuppressed host, likely gram-negative, chest x-ray shows bilateral airspace disease, resolved #2. Neutropenia, on filgrastim, being followed by oncology/hematology, improving #3. Mild anion gap and non-anion gap metabolic acidosis, related to lactic acidosis and acute kidney injury, resolved #4. Acute kidney injury, resolved #5. Chronic anemia #6. Elevated d-dimer, nonspecific #7. Elevated troponin is likely related to sepsis and septic shock, EKG without acute ischemic changes #8. Recent neutropenic colitis #9. Frequent episodes of watery diarrhea, ruled out C. diff #10. 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 History of non-Hodgkin's/Mantle cell lymphoma, status post Rituxan, in remission, most recent PET scan on 08/22/2019 showed no new areas of suspicious hypermetabolic uptake #12. Previous history of GI bleeding #13. Hyperlipidemia #14. History of pneumonia #15. Hard of hearing #16. Hypogammaglobulinemia Plan: Continue current treatment, breathing is stable, still continues to have intermittent episodes of low-grade fever, culture data remains negative thus far, vancomycin has been discontinued, patient continues on cefepime, his midline catheter in his left upper arm is malfunctioning good, and it was found that the catheter was just kinked at the skin under the Biopatch, midline was repositioned, good blood return is obtained, line was flushed, new Biopatch was applied. Hemodynamically stable, increase activity as tolerated, stable for discharge to [facility] today. I performed a history & physical examination of the patient and discussed their management with my nurse practitioner, Myla Adrian. I reviewed the nurse practitioner's note and agree with the documented findings and plan of care. Lung sounds are positive for diffuse rhonchi throughout the lung garnica. The findings and the impression was discussed with the patient. I attest to the documentation by the nurse practitioner. Time with Patient: Less than 30
[2019-09-16] MEDS: DEXAMETHASONE 0.5 MG TAB PO SCH (08:42)
[2019-09-16] MEDS: ASCORBIC ACID 500 MG TAB PO SCH (08:42)
[2019-09-16] MEDS: valACYclovir 500 MG TAB PO SCH (08:43)
[2019-09-16] MEDS: PANTOPRAZOLE 40 MG TABLET PO SCH (08:43)
[2019-09-16] MEDS: MULTIVITAMINS, THERA 1 EACH TAB PO SCH (08:43)
[2019-09-16 11:29] LABS: Glucose,Whole Blood 97 mg/dL (75-99)
--- NOTE | 2019-09-16 12:31 | P.DS ---
Providers Date of admission: 09/08/19 19:46 Expected date of discharge: 09/16/19 Attending physician: Deangelo Chance Consults: 09/08/19 20:28 Consult Physician Stat Consulting Provider: Elizabeth Clifford Consult Reason/Comments: pneumonia sepsis, neutropenia Do you want consulting provider notified?: Yes 09/09/19 08:36 Consult Physician Routine Consulting Provider: Adebayo White Consult Reason/Comments: sepsis, pneumonia, neutropenia Do you want consulting provider notified?: Yes 09/09/19 09:24 Consult Physician Routine Consulting Provider: Tomy Lawson Consult Reason/Comments: Non-Hodgkin's lymphoma/ neutropenia Do you want consulting provider notified?: Yes Primary care physician: [facility] Course: Chief Complaint: Fever or cough Hospital course: This is a pleasant 68-year-old gentleman with long history of mantle cell non- Hodgkin's lymphoma. Initially it was low-grade then progressed to progressive disease. Patient was treated with course of to [address] Saucedo. Later treatment course was complicated by ulcers and her mucous membrane including the mouth with fever. Patient did get treated with Diflucan and Valtrex. Recently's had some fever off and on. Today clinical course of antibiotic. As a beginning of this month patient's symptoms of infection resolved as per his oncologist notes. PET scan was negative. Rather good documentation in Dr. Lawson's notes. Patient for 3 days presented with increasing cough fever. Decreased white count. Found to have pneumonia. Admitted to the ICU with septic shock, Neutropenic colitis, acute hypoxic respiratory failure, pancytopenia, acute kidney injury, oral ulcers. Patient was treated with IV vancomycin and IV cefepime. Initially was requiring very high flow oxygen. Responded well. Vancomycin was discontinued. Oral ulcers are disappeared. Starting a diet. Had a bowel movement. Walking around much better. On 3 L of nasal cannula now. Patient is to continue on Neupogen, as he is quite prone to dropping that white count suddenly. Care was discussed length with the patient and his today. Questions answered Discussion and discharge planning more than 35 minutes Physical examination: VITAL SIGNS: 99, 75, 16, 110/68, 96% on 3 L GENERAL: Sitting up in the bed, comfortable EYES: Pupils equal. Conjunctiva normal. HEENT: External appearance of nose and ears normal, oral cavity grossly normal. NECK: JVD unable to assess; masses not palpable. HEART: First and second heart sounds are normal; mild edema. LUNGS: Respiratory rate increased, decreased breath sounds ABDOMEN: Soft, nontender, liver spleen not palpable, no masses palpable. PSYCH: Alert and oriented x3; mood and affect normal. INVESTIGATIONS, reviewed in the clinical context: White count 11.9 hemoglobin 7.7 potassium 3.7 platelets 187 creatinine 1.03 Previous testing White count 0.2 hemoglobin 9.8 platelets 181 potassium 4.2 bun 27 creatinine 2. 34 lactic acid 5 troponin 0.035 albumin 2.9 Labs from August 22 show. Bun 15, creatinine 0.9 EKG tracing personally reviewed by me-normal sinus rhythm Chest x-ray film personally reviewed by me-bilateral infiltrates Blood, Urine culture negative Assessment: -Acute bilateral pneumonia in a patient's who is neutropenic immunosuppressed, improved on IV cefepime and vancomycin -Acute hypoxic respiratory failure on high flow oxygen, from pneumonia, improved -Mantle cell type non-Hodgkin's lymphoma currently in remission since December of this year -Neutropenic with pancytopenia -Severe sepsis from pneumonia, improved -Lactic acidosis from sepsis -Acute renal failure possibly ATN from underlying sepsis, improved -Troponin leak likely from sepsis from hemodynamic instability, not in acute coronary syndrome -Hypoalbuminemia has an acute phase reactant -Metabolic acidosis -Septic shock requiring at least 6 L of fluid and also on levo fed, resolved Plan: Discharged to [facility]. Labs: CBC BMP weekly. Patient Condition at Discharge: Undetermined Plan - Discharge Summary Discharge Rx Participant: Yes New Discharge Prescriptions: New Ipratropium-Albuterol Nebulize [Duoneb 0.5 mg-3 mg/3 ml Soln] 3 ml INHALATION TID ampul.neb Continue Destin-3 Fatty Acids/Fish Oil [Fish Oil 1,000 mg Softgel] 1 tab PO DAILY Multivitamins, Thera [Multivitamin (formulary)] 1 tab PO DAILY Ascorbic Acid [Vitamin C] 1,000 mg PO DAILY Omeprazole [PriLOSEC] 20 mg PO HS Acetaminophen Tab [Tylenol] 650 mg PO Q4H PRN PRN Reason: Fever valACYclovir HCL [Valtrex] 1,000 mg PO BID Filgrastim Sndz [Neupogen] 480 mcg SQ SUWE Changed Dexamethasone [Decadron Oral Soln] 0.75 mg PO TID #0 Discontinued diphenhydrAMINE [Benadryl] 25 mg PO DAILY PRN PRN Reason: Itching Acetaminophen/Diphenhydramine [Tylenol PM 500-25mg] 1 tab PO HS PRN PRN Reason: Insomnia Guaifen/Phenyleph/Acetaminophn [Tylenol Sinus Severe Caplet] 1 tab PO Q6H PRN PRN Reason: Cold Symptoms Sulfamethox-Tmp 800-160Mg [Bactrim DS 800-160 mg] 1 tab PO BID Discharge Medication List Ascorbic Acid [Vitamin C] 1,000 mg PO DAILY 01/18/18 [History] Multivitamins, Thera [Multivitamin (formulary)] 1 tab PO DAILY 01/18/18 [History] Destin-3 Fatty Acids/Fish Oil [Fish Oil 1,000 mg Softgel] 1 tab PO DAILY 01/18/18 [History] Omeprazole [PriLOSEC] 20 mg PO HS 01/04/19 [History] Acetaminophen Tab [Tylenol] 650 mg PO Q4H PRN 09/08/19 [History] Filgrastim Sndz [Neupogen] 480 mcg SQ SUWE 09/08/19 [History] valACYclovir HCL [Valtrex] 1,000 mg PO BID 09/08/19 [History] Dexamethasone [Decadron Oral Soln] 0.75 mg PO TID #0 09/16/19 [Rx] Ipratropium-Albuterol Nebulize [Duoneb 0.5 mg-3 mg/3 ml Soln] 3 ml INHALATION TID ampul.neb 09/16/19 [Rx] Follow up Appointment(s)/Referral(s): Tomy Lawson MD [STAFF PHYSICIAN] - 1 Week Edward Dodd MD [Primary Care Provider] - 1-2 days Activity/Diet/Wound Care/Special Instructions: IV antibiotic for 10 more days CBC/BMP weekly
[2019-09-16 14:49] VITALS: BP 118/70; PULSE 89; RESP 15; TEMP 98.9
[2019-09-18] MEDS ORDERED: FILGRASTIM-SNDZ 480 MCG/0.8 ML SYRINGE SQ SCH (09:00)
== END 2019-09-16 14:57 | disposition short-term general hospital (02) | DRG 871 ==
LOC: EC 18:14 → 2SICU 19:46
PROVIDERS: ADMIT Hospitalist; ATTEND Hospitalist
PROC: 05HC33Z Insertion of Infusion Device into Left Basilic Vein, Percutaneous Approach (ICD-10-PCS; 2019-09-08)
PROC: 02HV33Z Insertion of Infusion Device into Superior Vena Cava, Percutaneous Approach (ICD-10-PCS; principal; 2019-09-13 14:55)
DX: A41.50 Gram-negative sepsis, unspecified (principal); R65.21 Severe sepsis with septic shock; N17.0 Acute kidney failure with tubular necrosis; J96.01 Acute respiratory failure with hypoxia; J15.6 Pneumonia due to other Gram-negative bacteria; C83.10 Mantle cell lymphoma, unspecified site; D61.818 Other pancytopenia; D80.1 Nonfamilial hypogammaglobulinemia; E87.2 Acidosis; J98.11 Atelectasis; E78.5 Hyperlipidemia, unspecified; H91.92 Unspecified hearing loss, left ear; K12.1 Other forms of stomatitis; K14.9 Disease of tongue, unspecified; K52.89 Other specified noninfective gastroenteritis and colitis; L73.9 Follicular disorder, unspecified; Z87.01 Personal history of pneumonia (recurrent); T45.1X5A Adverse effect of antineoplastic and immunosuppressive drugs, initial encounter; Z79.899 Other long term (current) drug therapy; R60.1 Generalized edema; K44.9 Diaphragmatic hernia without obstruction or gangrene; Z87.19 Personal history of other diseases of the digestive system; B00.1 Herpesviral vesicular dermatitis
CPT/HCPCS: 36410; 36415; 36556; 36600; 70450; 71045; 76937; 80048; 80053; 80202; 81001; 82533; 82784; 82805; 83605; 83630; 84132; 84484; 85025; 85027; 85379; 85610; 85730; 87040; 87045; 87046; 87086; 87324; 87497; 87502; 93005; 94640; 96360; 96361; 96365; 96366; 96367; 96368; 96375; 99291

== ENCOUNTER 2019-09-20 12:32 | Inpatient (IN) | payer MEDICARE ==
[2019-09-20] MEDS ORDERED: PANTOPRAZOLE 40 MG/10 ML VIAL IVP STA (13:38)
--- NOTE | 2019-09-20 13:42 | ED ---
General Adult HPI - General Chief complaint: Recheck/Abnormal Lab/Rx Stated complaint: GI Bleed Time Seen by Provider: 09/20/19 13:10 Source: patient, family, EMS, RN notes reviewed, old records reviewed (Review of records from [facility]) Mode of arrival: EMS Limitations: no limitations - History of Present Illness Initial comments: Patient is a pleasant 68-year-old male presenting to the emergency Department with concerns for GI hemorrhage. Patient was in the hospital here several weeks ago with pneumonia. Patient was transferred to rehab. Patient left rehab secondary to GI bleeding and went emergency department. Patient received 2 un its of blood which just finished several hours ago and patient was transferred here. Patient complains of feeling fatigued. Patient has occasional pepper cramping, none at this time. Patient did have similar symptoms approximately 6- 8 months ago. No nausea vomiting. - Related Data Home Medications Medication Instructions Recorded Confirmed Ascorbic Acid [Vitamin C] 1,000 mg PO DAILY 01/18/18 09/08/19 Multivitamins, Thera [Multivitamin 1 tab PO DAILY 01/18/18 09/08/19 (formulary)] [place]-3 Fatty Acids/Fish Oil [Fish 1 tab PO DAILY 01/18/18 09/08/19 Oil 1,000 mg Softgel] Omeprazole [PriLOSEC] 20 mg PO HS 01/04/19 09/08/19 Acetaminophen Tab [Tylenol] 650 mg PO Q4H PRN 09/08/19 09/08/19 Filgrastim Sndz [Neupogen] 480 mcg SQ SUWE 09/08/19 09/08/19 valACYclovir HCL [Valtrex] 1,000 mg PO BID 09/08/19 09/08/19 Previous Rx's Medication Instructions Recorded Dexamethasone [Decadron Oral Soln] 0.75 mg PO TID #0 09/16/19 Ipratropium-Albuterol Nebulize 3 ml INHALATION TID ampul.neb 09/16/19 [Duoneb 0.5 mg-3 mg/3 ml Soln] Allergies Allergy/AdvReac Type Severity Reaction Status Date / Time cephalexin [From Keflex] Allergy Rash/Hives Verified 09/08/19 18:33 Review of Systems ROS Statement: Those systems with pertinent positive or pertinent negative responses have been documented in the HPI. ROS Other: All systems not noted in ROS Statement are negative. Constitutional: Denies: fever Eyes: Denies: eye pain ENT: Denies: ear pain Respiratory: Denies: cough Cardiovascular: Denies: chest pain Endocrine: Reports: fatigue Gastrointestinal: Reports: hematochezia Genitourinary: Denies: dysuria Musculoskeletal: Denies: back pain Skin: Denies: rash Neurological: Denies: weakness Past Medical History Past Medical History: Cancer, GI Bleed, Hearing Disorder / Deafness, Hyperlip idemia, Pneumonia Additional Past Medical History / Comment(s): CURRENT: N & V. LYMPHOMA, PAST CHEMO, last chemo 2016. 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 cystoscopy History of Any Multi-Drug Resistant Organisms: None Reported Past Surgical History: Orthopedic Surgery Additional Past Surgical History / Comment(s): RIGHT ROTATOR CUFF. VEIN STRIPPING LEFT. spot on tongue removed, sinus surgery Past Anesthesia/Blood Transfusion Reactions: No Reported Reaction Past Psychological History: No Psychological Hx Reported Smoking Status: Never smoker Past Alcohol Use History: Rare Past Drug Use History: None Reported - Past Family History Mother Family Medical History: Myocardial Infarction ([place]) Additional Family Medical History / Comment(s): Moms 2 sisters have had [place]. Brother had heart defect at Brother(s) Additional Family Medical History / Comment(s): 2 out of 3 brothers have had [place] General Exam Limitations: no limitations General appearance: alert, in no apparent distress Head exam: Present: normocephalic Eye exam: Present: normal appearance, PERRL ENT exam: Present: normal oropharynx Neck exam: Present: normal inspection Respiratory exam: Present: normal lung sounds bilaterally Cardiovascular Exam: Present: regular rate, normal rhythm GI/Abdominal exam: Present: soft. Absent: distended, tenderness, guarding, rebound, rigid Extremities exam: Present: normal inspection Neurological exam: Present: alert Psychiatric exam: Present: normal affect, normal mood Skin exam: Present: normal color Course Vital Signs 09/20/19 14:28 Pulse Rate 67 Respiratory 16 Rate Blood Pressure 114/73 O2 Sat by Pulse 99 Oximetry Medical Decision Making - Medical Decision Making Patient family are aware of plan. Case was discussed in detail with Dr. Chance, who will admit coming for Dr. Dodd. - Lab Data Result diagrams: 09/20/19 14:25 09/20/19 14:25 Lab Results 09/20/19 09/20/19 09/20/19 Range/Units 14:25 14:25 14:25 WBC 8.9 (3.8-10.6) k/uL RBC 2.80 L (4.30-5.90) m/uL Hgb 8.7 L (13.0-17.5) gm/dL Hct 26.4 L (39.0-53.0) % MCV 94.5 D (80.0-100.0) fL MCH 31.1 (25.0-35.0) pg MCHC 32.9 (31.0-37.0) g/dL RDW 18.9 H (11.5-15.5) % Plt Count 195 (150-450) k/uL Neutrophils % 94 % Lymphocytes % 1 % Monocytes % 2 % Eosinophils % 1 % Basophils % 1 % Neutrophils # 8.4 H (1.3-7.7) k/uL Lymphocytes # 0.1 L (1.0-4.8) k/uL Monocytes # 0.2 (0-1.0) k/uL Eosinophils # 0.1 (0-0.7) k/uL Basophils # 0.1 (0-0.2) k/uL Poikilocytosis Slight Anisocytosis Slight Macrocytosis Slight PT 11.2 (9.0-12.0) sec INR 1.1 (<1.2) APTT 23.7 (22.0-30.0) sec Sodium 140 (137-145) mmol/L Potassium 3.4 L (3.5-5.1) mmol/L Chloride 102 (98-107) mmol/L Carbon Dioxide 34 H (22-30) mmol/L Anion Gap 4 mmol/L BUN 27 H (9-20) mg/dL Creatinine 1.10 (0.66-1.25) mg/dL Est GFR (CKD-EPI)AfAm 81 (>60 ml/min/1.73 sqM) Est GFR (CKD-EPI)NonAf 70 (>60 ml/min/1.73 sqM) Glucose 92 (74-99) mg/dL Calcium 8.4 (8.4-10.2) mg/dL Total Bilirubin 0.3 (0.2-1.3) mg/dL AST 27 (17-59) U/L ALT 26 (21-72) U/L Alkaline Phosphatase 90 (38-126) U/L Total Protein 4.7 L (6.3-8.2) g/dL Albumin 2.3 L (3.5-5.0) g/dL Disposition Clinical Impression: Lower GI hemorrhage Disposition: ADMITTED IP TO THIS HOSP Is patient prescribed a controlled substance at d/c from ED?: No Referrals: Edward Dodd MD [Primary Care Provider] - 1-2 days Decision Time: 15:02
[2019-09-20 14:37] LABS: Anisocytosis Slight; Basophils # (A) 0.1 k/uL (0-0.2); Basophils % (A) 1 %; Eosinophils # (A) 0.1 k/uL (0-0.7); Eosinophils % (A) 1 %; HCT 26.4 % (39.0-53.0); HGB 8.7 gm/dL (13.0-17.5); Lymphocytes # (A) 0.1 k/uL (1.0-4.8); Lymphocytes % (A) 1 %; MCH 31.1 pg (25.0-35.0); MCHC 32.9 g/dL (31.0-37.0); Macrocytosis Slight; Mean Platelet Volume 7.2; Monocytes # (A) 0.2 k/uL (0-1.0); Monocytes % (A) 2 %; Neutrophils # (A) 8.4 k/uL (1.3-7.7); Neutrophils % (A) 94 %; Platelet Count 195 k/uL (150-450); Poikilocytosis Slight; RDW 18.9 % (11.5-15.5); WBC 8.9 k/uL (3.8-10.6)
[2019-09-20 14:47] LABS: Albumin 2.3 g/dL (3.5-5.0); Calcium 8.4 mg/dL (8.4-10.2); Potassium 3.4 mmol/L (3.5-5.1); Total Bilirubin 0.3 mg/dL (0.2-1.3); Total Protein 4.7 g/dL (6.3-8.2)
[2019-09-20 14:58] LABS: MCV 94.5 fL (80.0-100.0)
[2019-09-20 14:59] LABS: INR 1.1 (<1.2); Partial Thromboplastin Time 23.7 sec (22.0-30.0); Prothrombin Time 11.2 sec (9.0-12.0)
[2019-09-20] MEDS ORDERED: NALOXONE 0.4 MG/ML 1 ML VIAL IV PRN (15:02)
[2019-09-20] MEDS: SODIUM CHLORIDE 0.9% 1,000 ML IV SCH (16:39)
[2019-09-20] MEDS: PANTOPRAZOLE 40 MG/10 ML VIAL IV SCH (16:42)
[2019-09-20 17:55] VITALS: BMI 26.4
[2019-09-20 18:50] LABS: Anisocytosis Slight; Basophils # (A) 0.1 k/uL (0-0.2); Basophils % (A) 1 %; Eosinophils # (A) 0.1 k/uL (0-0.7); Eosinophils % (A) 1 %; HGB 9.3 gm/dL (13.0-17.5); Hypochromasia Slight; Lymphocytes # (A) 0.1 k/uL (1.0-4.8); Lymphocytes % (A) 1 %; MCH 30.7 pg (25.0-35.0); MCHC 32.1 g/dL (31.0-37.0); MCV 95.5 fL (80.0-100.0); Macrocytosis Slight; Mean Platelet Volume 6.9; Monocytes # (A) 0.2 k/uL (0-1.0); Monocytes % (A) 3 %; Neutrophils # (A) 7.7 k/uL (1.3-7.7); Neutrophils % (A) 94 %; Platelet Count 204 k/uL (150-450); Poikilocytosis Slight; RBC 3.04 m/uL (4.30-5.90); RDW 18.9 % (11.5-15.5); WBC 8.2 k/uL (3.8-10.6)
[2019-09-21] MEDS: SODIUM CHLORIDE 0.9% 1,000 ML IV SCH ×4 (00:49→21:35)
[2019-09-21 09:07] LABS: Anisocytosis Slight; Basophils # (A) 0.1 k/uL (0-0.2); Basophils % (A) 1 %; Eosinophils # (A) 0.1 k/uL (0-0.7); Eosinophils % (A) 2 %; HCT 26.3 % (39.0-53.0); HGB 8.6 gm/dL (13.0-17.5); Hypochromasia Slight; Lymphocytes # (A) 0.2 k/uL (1.0-4.8); Lymphocytes % (A) 2 %; MCH 31.6 pg (25.0-35.0); MCHC 32.7 g/dL (31.0-37.0); MCV 96.7 fL (80.0-100.0); Macrocytosis Slight; Mean Platelet Volume 6.2; Monocytes # (A) 0.2 k/uL (0-1.0); Monocytes % (A) 3 %; Neutrophils # (A) 6.2 k/uL (1.3-7.7); Neutrophils % (A) 92 %; Platelet Count 205 k/uL (150-450); RBC 2.72 m/uL (4.30-5.90); RDW 18.2 % (11.5-15.5); WBC 6.8 k/uL (3.8-10.6)
[2019-09-21] MEDS ORDERED: diphenhydrAMINE 25 MG CAP PO PRN (10:46)
[2019-09-21] MEDS ORDERED: ACETAMINOPHEN TAB 325 MG TAB PO PRN (10:46)
[2019-09-21] MEDS ORDERED: FILGRASTIM-SNDZ 480 MCG/0.8 ML SYRINGE SQ SCH (11:00)
[2019-09-21] MEDS: MULTIVITAMINS, THERA 1 EACH TAB PO SCH (12:37)
[2019-09-21] MEDS: ASCORBIC ACID 500 MG TAB PO SCH (12:37)
[2019-09-21] MEDS: ZINC SULFATE 220 MG CAP PO SCH (12:37)
[2019-09-21] MEDS: PANTOPRAZOLE 40 MG/10 ML VIAL IV SCH (12:37)
--- NOTE | 2019-09-21 16:14 | NM ---
EXAMINATION TYPE: NM GI bleeding DATE OF EXAM: 09/21/2019 HISTORY: GI bleed, EGD/colonoscopy negative in 01/04 COMPARISON: NONE Following administration of 3 ml PYP 26.6 mCi Tc 99m Sodium Pertechnete. Immediate images post inject ion. FINDINGS: Normal tracer activity is seen in the blood pool of the abdominal aorta, common iliac arteries, femor al arteries, liver, and spleen on all of the interval images. Later images show accumulation of trace r in the urinary bladder, which is consistent with excreted tracer. No abnormal tracer uptake is pres ent outside the blood pool that would be consistent with an active GI bleed. IMPRESSION: Negative examination. No evidence of active gastrointestinal bleeding during the initial 1 hr observa tion period.
[2019-09-21] MEDS: DEXAMETHASONE 0.5 MG TAB PO SCH ×2 (17:24→21:35)
[2019-09-21 17:56] LABS: Anisocytosis Slight; HCT 27.6 % (39.0-53.0); HGB 9.1 gm/dL (13.0-17.5); Hypochromasia Slight; MCH 31.9 pg (25.0-35.0); MCHC 32.9 g/dL (31.0-37.0); MCV 96.9 fL (80.0-100.0); Macrocytosis Slight; Mean Platelet Volume 6.2; Platelet Count 232 k/uL (150-450); RBC 2.85 m/uL (4.30-5.90); RDW 18.2 % (11.5-15.5); WBC 14.5 k/uL (3.8-10.6)
[2019-09-21] MEDS ORDERED: MAGNESIUM CITRATE 296 ML BOTTLE PO ONE (18:00)
--- NOTE | 2019-09-21 18:20 | P.PN ---
Progress Note - Text Progress Note Date: 09/21/19 Patient was off unit for tagged RBC procedure. I did speak with his . I have placed patient's recent history and past malignancy history here in this note. Patient will be seen in formal consult in the a.m. Mister Hilton is a very pleasant male patient of Dr. rico singh who has been followed for many years. Patient was initially diagnosed with mantle cell lymphoma in 2010. Patient did his follow-up as prescribed and remained on observation for quite some time. He started having night sweats that were progressively worsening, unintentional weight loss and lymphadenopathy in 2012. Patient was started on single agent Rituxan with good tolerance, PET October 2013 showed everything improved, all symptoms resolved. Over the next few years patient would have symptoms and be treated with Rituxan weekly 4 doses. With resolution of symptoms and PET scan findings. In 2016 Rituxan alone was not producing the results had in the past so bendamustine was added. Patient completed 6 cycles. He had Rituxan in early and late 2017. Starting in November 2018 though, patient has had recurrent infections being treated with abx, antifungals and chronic antiviral medications and decreased WBC counts requiring G-CSF twice a week. His states, pt has just very poor bentley and QOL since Nov. He had a GI bleed and January 2019. He has not had any evidence on imaging of recurrent lymphoma. Bone marrow 04/03 neg for lymphoma. He was worked up autoimmune/connective tissue disease-all neg. He is pending appt at [facility] lymphoma clinic for eval and recommendations. Patient's states that he was in the hospital last week and treated for pneumonia. He was DC'd on Thursday. IV antibiotics were being administered at a "swing bed "facility at [facility]. He had 2 episodes of bright red stool, very concerning to staff so patient was sent to hospital. Hemoglobin 8.6. WBC 6.8, platelet count 205,000. BUN and creatinine indicative of mild dehydration, potassium is 3.4. Agree with tagged RBC scan Cont GCSF as prescribed twice a week Irradiated blood products Transfuse for Hgb <7 or if symptomatic blood products
--- NOTE | 2019-09-21 18:51 | P.HPIM ---
History of Present Illness H&P Date: 09/21/19 Chief Complaint: Bleeding per rectum History of presenting complaint: This is a pleasant 68-year-old gentleman with long history of mantle cell non- Hodgkin's lymphoma. Initially it was low-grade then progressed . Patient was treated with course of to 3 years including Retuxan. Later treatment course was complicated by ulcers and mucous membrane including the mouth with fever. Recently in the hospital from September 09 through September 16. Admitted to the ICU with septic shock, Neutropenic colitis, acute hypoxic respiratory failure, pancytopenia, acute kidney injury, oral ulcers . Treated with IV vancomycin and cefepime. Doing better by discharge. Was discharged to [facility]. On Thursday evening patient had fresh blood per rectum also the following day that is yesterday morning. Hemoglobin dropped. Did give 2 units of blood. Also abdominal cramping. Feeling weak and tired. No fever and chills. Appetite is okay. Has a bit of a congested cough. Had been using a walker. In December of this year patient was similar episode of bleeding per rectum. EGD was unremarkable showed mild gastritis. Colonoscopy was unremarkable. This was done by Dr. Cornell. Review of systems: GEN.: Weak tired EYES: None HEENT: Recent oral ulcers NECK: None RESPIRATORY: Cough without sputum CARDIOVASCULAR: None GASTROINTESTINAL: As above GENITOURINARY: None MUSCULOSKELETAL: None LYMPHATICS: None HEMATOLOGICAL: None PSYCHIATRY: None NEUROLOGICAL: None Past medical history: Mantle cell non-Hodgkin's lymphoma, hyperlipidemia, , myelosuppression Social history: Does not smoke. Alcohol rarely. . Currently at [facility]. Family history: Reviewed, noncontributory to presentation Physical examination: VITAL SIGNS: 98.5, 66, 16, 100/69, 99% on 2 L GENERAL: BMI 26.4, sitting up in bed awake. EYES: Pupils equal. Conjunctiva pale HEENT: External appearance of nose and ears normal, oral cavity grossly normal. NECK: JVD unable to assess; masses not palpable. HEART: First and second heart sounds are normal; no edema. LUNGS:[ Respiratory rate increased, decreased breath sounds ABDOMEN: Soft, nontender, liver spleen not palpable, no masses palpable. PSYCH: [Alert and oriented x3; mood and affect normal. NEUROLOGICAL: Cranial nerves grossly intact; no facial asymmetry, power and sensation grossly intact. LYMPHATICS: No lymph nodes palpable in the axilla and neck INVESTIGATIONS, reviewed in the clinical context: White count 8.9 hemoglobin 8.7 potassium 3.4 creatinine 1.10 Assessment: -Acute GI bleed with hematochezia, patient received 2 units of blood prior to getting to this hospital. Patient did have a similar episode in December of this year and EGD in colonoscopy at that was unremarkable. -Acute blood loss anemia, symptomatic -Mantle cell type non-Hodgkin's lymphoma currently in remission since December of this year -Hypoalbuminemia from mild protein calorie malnutrition -deaf left ear Plan: GI was consulted. Patient has been nothing by mouth this morning. Home medications resumed. H&H will be followed. Care was discussed the patient and . Past Medical History Past Medical History: Cancer, GI Bleed, Hearing Disorder / Deafness, Hyperlipi demia, Pneumonia Additional Past Medical History / Comment(s): LYMPHOMA, PAST CHEMO, last chemo 2016. 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 cystoscopy History of Any Multi-Drug Resistant Organisms: None Reported Past Surgical History: Orthopedic Surgery Additional Past Surgical History / Comment(s): RIGHT ROTATOR CUFF. VEIN STRIPPING LEFT. spot on tongue removed, sinus surgery, colitis Past Anesthesia/Blood Transfusion Reactions: No Reported Reaction Past Psychological History: No Psychological Hx Reported Smoking Status: Never smoker Past Alcohol Use History: Rare Past Drug Use History: None Reported - Past Family History Mother Family Medical History: Myocardial Infarction ([place]) Additional Family Medical History / Comment(s): Moms 2 sisters have had [place]. Brother had heart defect at Brother(s) Additional Family Medical History / Comment(s): 2 out of 3 brothers have had [place] Medications and Allergies Home Medications Medication Instructions Recorded Confirmed Type Ascorbic Acid [Vitamin C] 1,000 mg PO DAILY 01/18/18 09/20/19 History Multivitamins, Thera [Multivitamin 1 tab PO DAILY 01/18/18 09/20/19 History (formulary)] [place]-3 Fatty Acids/Fish Oil [Fish 1 tab PO DAILY 01/18/18 09/20/19 History Oil 1,000 mg Softgel] Omeprazole [PriLOSEC] 20 mg PO HS 01/04/19 09/20/19 History Acetaminophen Tab [Tylenol] 650 mg PO Q4H PRN 09/08/19 09/20/19 History Filgrastim Sndz [Neupogen] 480 mcg SQ SUWE 09/08/19 09/20/19 History Zinc 50 mg PO DAILY 09/20/19 09/20/19 History diphenhydrAMINE HCL [Benadryl] 25 mg PO HS PRN 09/20/19 09/20/19 History Dexamethasone [Decadron Oral Soln] 1 mg PO PCHS 09/21/19 09/21/19 History valACYclovir HCL [Valacyclovir] 1,000 mg PO BID 09/21/19 09/21/19 History Allergies Allergy/AdvReac Type Severity Reaction Status Date / Time cephalexin [From Keflex] Allergy Rash/Hives Verified 09/20/19 15:47 Physical Exam Vitals: Vital Signs Temp Pulse Pulse Resp BP BP Pulse Ox 09/21/19 05:00 97.4 F L 74 16 126/73 96 09/21/19 00:00 18 09/20/19 20:25 98.0 F 77 18 108/62 96 09/20/19 16:44 98.5 F 66 16 100/69 99 09/20/19 14:28 67 16 114/73 99 Intake and Output 09/20/19 09/21/19 09/21/19 22:59 06:59 14:59 Intake Total 500 1000 Output Total 250 1500 Balance 250 -500 Intake: Intake, IV Titration 500 1000 Amount Sodium Chloride 0.9% 1, 500 1000 000 ml @ 125 mls/hr IV . Q8H [facility] Rx#:[id number] Oral 0 0 Output: Urine 250 1500 Stool 0 Results CBC & Chem 7: 09/21/19 17:29 09/20/19 14:25 Labs: Abnormal Lab Results - Last 24 Hours (Table) 09/20/19 09/20/19 09/20/19 Range/Units 14:25 14:25 18:24 RBC 2.80 L 3.04 L (4.30-5.90) m/uL Hgb 8.7 L 9.3 L (13.0-17.5) gm/dL Hct 26.4 L 29.0 L (39.0-53.0) % RDW 18.9 H 18.9 H (11.5-15.5) % Neutrophils # 8.4 H (1.3-7.7) k/uL Lymphocytes # 0.1 L 0.1 L (1.0-4.8) k/uL Potassium 3.4 L (3.5-5.1) mmol/L Carbon Dioxide 34 H (22-30) mmol/L BUN 27 H (9-20) mg/dL Total Protein 4.7 L (6.3-8.2) g/dL Albumin 2.3 L (3.5-5.0) g/dL 09/21/19 Range/Units 07:31 RBC 2.72 L (4.30-5.90) m/uL Hgb 8.6 L (13.0-17.5) gm/dL Hct 26.3 L (39.0-53.0) % RDW 18.2 H (11.5-15.5) % Neutrophils # (1.3-7.7) k/uL Lymphocytes # 0.2 L (1.0-4.8) k/uL Potassium (3.5-5.1) mmol/L Carbon Dioxide (22-30) mmol/L BUN (9-20) mg/dL Total Protein (6.3-8.2) g/dL Albumin (3.5-5.0) g/dL Thrombosis Risk Factor Assmnt - Choose All That Apply Any of the Below Risk Factors Present?: Yes Each Factor Represents 1 point: Swollen legs (current) Other Risk Factors: Yes Each Risk Factor Represents 2 Points: Central venous access Other congenital or acquired thrombophilia - If yes, enter type in comment: No Thrombosis Risk Factor Assessment Total Risk Factor Score: 3 Thrombosis Risk Factor Assessment Level: Moderate Risk
[2019-09-21] MEDS ORDERED: PANTOPRAZOLE 40 MG TABLET PO SCH (21:00)
[2019-09-21] MEDS: valACYclovir HCL 1,000 MG TABLET PO SCH (21:35)
[2019-09-22 00:43] LABS: Anisocytosis Slight; HCT 24.8 % (39.0-53.0); HGB 8.1 gm/dL (13.0-17.5); Hypochromasia Slight; MCH 31.6 pg (25.0-35.0); MCHC 32.6 g/dL (31.0-37.0); Macrocytosis Slight; Mean Platelet Volume 6.1; Platelet Count 214 k/uL (150-450); RBC 2.56 m/uL (4.30-5.90); RDW 18.1 % (11.5-15.5); WBC 24.5 k/uL (3.8-10.6)
[2019-09-22 09:01] LABS: African American GFR (CKD) >90 (>60 ml/min/1.73 sqM); Anion Gap 4 mmol/L; Blood Urea Nitrogen 21 mg/dL (9-20); Calcium 7.8 mg/dL (8.4-10.2); Carbon Dioxide 29 mmol/L (22-30); Chloride 109 mmol/L (98-107); Glucose 82 mg/dL (74-99); Sodium 142 mmol/L (137-145)
--- NOTE | 2019-09-22 09:28 | P.CONS ---
History of Present Illness - Reason for Consult Consult date: 09/21/19 Blood per rectum Requesting physician: Deangelo Chance - Chief Complaint Blood per rectum - History of Present Illness 68-year-old male with a medical history significant for antral cell non- Hodgkin's lymphoma, pancytopenia, kidney disease who presented to the hospital due to complaints of cramping abdominal pain with dark stool mixed with bright red blood. The patient reports passing both dark-colored stool as well as bright red blood with associated lower abdominal cramping. Cramping occurs prior to bowel movements and is relieved with the bowel movement. He had similar presentation earlier in the year in December when EGD and colonoscopy were performed with findings of a small hiatal hernia, gastritis, mild internal hemorrhoids with no source of bleeding noted at that time. Hemoglobin has been relatively stable after transfusion currently at 8.6 from 1.3 previously, INR 1.1, total bilirubin 0.3, alk phos 390, AST 27 and and ALT 26. Review of Systems REVIEW OF SYSTEMS: CONSTITUTIONAL: Denies any fevers, chills, weight change or fatigue. CARDIOVASCULAR: Denies any chest pain, palpitations high or low blood pressures RESPIRATORY: Denies any shortness of breath, hemoptysis or cough. GENITOURINARY: No dysuria or hematuria. MUSCULOSKELETAL: No weakness reported. SKIN: Denies any new rashes or lesions, jaundice or pallor. PSYCHIATRIC: Denies any depression or anxiety. NEUROLOGY: Denies headache, denies any new focal deficits. EARS/NOSE/THROAT: No recent hearing change, congestion, nasal discharge or sore throat. EYES: No pain in eyes, discharge or change in vision. GASTROINTESTINAL: As per HPI. Past Medical History Past Medical History: Cancer, GI Bleed, Hearing Disorder / Deafness, Hyperlipidemia, Pneumonia Additional Past Medical History / Comment(s): LYMPHOMA, PAST CHEMO, last chemo 2016. 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 cystoscopy History of Any Multi-Drug Resistant Organisms: None Reported Past Surgical History: Orthopedic Surgery Additional Past Surgical History / Comment(s): RIGHT ROTATOR CUFF. VEIN STRIPPING LEFT. spot on tongue removed, sinus surgery, colitis Past Anesthesia/Blood Transfusion Reactions: No Reported Reaction Past Psychological History: No Psychological Hx Reported Smoking Status: Never smoker Past Alcohol Use History: Rare Past Drug Use History: None Reported - Past Family History Mother Family Medical History: Myocardial Infarction ([place]) Additional Family Medical History / Comment(s): Moms 2 sisters have had [place]. Brother had heart defect at Brother(s) Additional Family Medical History / Comment(s): 2 out of 3 brothers have had [place] Medications and Allergies Home Medications Medication Instructions Recorded Confirmed Type Ascorbic Acid [Vitamin C] 1,000 mg PO DAILY 01/18/18 09/20/19 History Multivitamins, Thera [Multivitamin 1 tab PO DAILY 01/18/18 09/20/19 History (formulary)] [place]-3 Fatty Acids/Fish Oil [Fish 1 tab PO DAILY 01/18/18 09/20/19 History Oil 1,000 mg Softgel] Omeprazole [PriLOSEC] 20 mg PO HS 01/04/19 09/20/19 History Acetaminophen Tab [Tylenol] 650 mg PO Q4H PRN 09/08/19 09/20/19 History Filgrastim Sndz [Neupogen] 480 mcg SQ SUWE 09/08/19 09/20/19 History Zinc 50 mg PO DAILY 09/20/19 09/20/19 History diphenhydrAMINE HCL [Benadryl] 25 mg PO HS PRN 09/20/19 09/20/19 History Dexamethasone [Decadron Oral Soln] 1 mg PO PCHS 09/21/19 09/21/19 History valACYclovir HCL [Valacyclovir] 1,000 mg PO BID 09/21/19 09/21/19 History Allergies Allergy/AdvReac Type Severity Reaction Status Date / Time cephalexin [From Keflex] Allergy Rash/Hives Verified 09/20/19 15:47 Physical Exam Vitals: Vital Signs Temp Pulse Pulse Resp BP BP Pulse Ox 09/21/19 13:59 93 L 09/21/19 13:13 18 09/21/19 12:59 98.1 F 83 18 130/76 95 09/21/19 05:00 97.4 F L 74 16 126/73 96 09/21/19 00:00 18 09/20/19 20:25 98.0 F 77 18 108/62 96 09/20/19 16:44 98.5 F 66 16 100/69 99 09/20/19 14:28 67 16 114/73 99 Intake and Output 09/20/19 09/21/19 09/21/19 22:59 06:59 14:59 Intake Total 500 1000 1000 Output Total 250 1500 500 Balance 250 -500 500 Intake: Intake, IV Titration 500 1000 1000 Amount Sodium Chloride 0.9% 1, 500 1000 1000 000 ml @ 125 mls/hr IV . Q8H [facility] Rx#:[id number] Oral 0 0 Output: Urine 250 1500 500 Stool 0 Other: Voiding Method Toilet Urinal # Voids 1 # Bowel Movements 1 On physical examination, patient appears comfortable in no apparent distress. HEAD: Normocephalic, atraumatic. EYES: No scleral icterus. No conjunctival injection. MOUTH: No lesions, tongue midline. NECK: Trachea midline, no gross abnormalities. CHEST: Clear to auscultation with no wheezing or rhonchi appreciated. HEART: Regular rate and rhythm. ABDOMEN: Soft. Bowel sounds are positive. No organomegaly. No guarding or rigidity. EXTREMITIES: No pedal edema. SKIN: No rashes, no jaundice. NEUROLOGIC: Alert and oriented x3. No focal deficits. Results CBC & Chem 7: 09/22/19 00:13 09/20/19 14:25 Labs: Abnormal Lab Results - Last 24 Hours (Table) 09/20/19 09/20/19 09/20/19 Range/Units 14:25 14:25 18:24 RBC 2.80 L 3.04 L (4.30-5.90) m/uL Hgb 8.7 L 9.3 L (13.0-17.5) gm/dL Hct 26.4 L 29.0 L (39.0-53.0) % RDW 18.9 H 18.9 H (11.5-15.5) % Neutrophils # 8.4 H (1.3-7.7) k/uL Lymphocytes # 0.1 L 0.1 L (1.0-4.8) k/uL Potassium 3.4 L (3.5-5.1) mmol/L Carbon Dioxide 34 H (22-30) mmol/L BUN 27 H (9-20) mg/dL Total Protein 4.7 L (6.3-8.2) g/dL Albumin 2.3 L (3.5-5.0) g/dL 09/21/19 Range/Units 07:31 RBC 2.72 L (4.30-5.90) m/uL Hgb 8.6 L (13.0-17.5) gm/dL Hct 26.3 L (39.0-53.0) % RDW 18.2 H (11.5-15.5) % Neutrophils # (1.3-7.7) k/uL Lymphocytes # 0.2 L (1.0-4.8) k/uL Potassium (3.5-5.1) mmol/L Carbon Dioxide (22-30) mmol/L BUN (9-20) mg/dL Total Protein (6.3-8.2) g/dL Albumin (3.5-5.0) g/dL Comments: Tagged red blood cell scan performed with no localization of bleeding. Assessment and Plan (1) Acute blood loss anemia Narrative/Plan: 68-year-old male with multiple medical comorbidities who presents back to the hospital due to complaints of dark stool with bright red blood mixed in. He had a similar presentation in December at which time EGD and colonoscopy were performed and significant only for a small hiatal hernia, gastritis and mild internal hemorrhoids with no source of bleeding noted. Since admission hemoglobin has been stable after transfusion currently at 8.6. The patient underwent a tagged red blood cell scan with no localization of bleed. Plan is for video capsule endoscopy for further evaluation. Current Visit: No Status: Acute Code(s): D62 - ACUTE POSTHEMORRHAGIC ANEMIA SNOMED Code(s): 798954828 (2) GI bleed Current Visit: No Status: Acute Code(s): K92.2 - GASTROINTESTINAL HEMORRHAGE, UNSPECIFIED SNOMED Code(s): 19618479 Plan: Supportive care Clear liquid diet Nothing by mouth after midnight Continue Protonix therapy Continue to monitor hemoglobin and hematocrit and transfuse as needed Results of tagged red blood cell scan reviewed Plan for video capsule endoscopy for further evaluation tomorrow and will decide if any further endoscopic evaluation is needed based on the results of that study Thank you for allowing us to participate in the care of this patient we will continue
[2019-09-22 09:32] LABS: Anisocytosis Slight; HCT 25.1 % (39.0-53.0); HGB 7.9 gm/dL (13.0-17.5); Hypochromasia Slight; MCH 30.4 pg (25.0-35.0); MCHC 31.6 g/dL (31.0-37.0); MCV 96.1 fL (80.0-100.0); Macrocytosis Slight; Mean Platelet Volume 6.8; Platelet Count 198 k/uL (150-450); RBC 2.62 m/uL (4.30-5.90); RDW 18.2 % (11.5-15.5); WBC 20.4 k/uL (3.8-10.6)
[2019-09-22] MEDS ORDERED: SIMETHICONE 40 MG/0.6 ML DROPS 2,000 MG/30 ML BOTTLE PO ONE (10:22)
[2019-09-22] MEDS: PIPERACILLIN-TAZOBACTAM 3.375 GM in SODIUM CHLORIDE 0.9% 100 ML IVPB SCH ×2 (13:18→20:25)
[2019-09-22] MEDS: DEXAMETHASONE 0.5 MG TAB PO SCH ×4 (13:19→20:27)
[2019-09-22] MEDS: ZINC SULFATE 220 MG CAP PO SCH (13:19)
[2019-09-22] MEDS: PANTOPRAZOLE 40 MG/10 ML VIAL IV SCH (13:19)
[2019-09-22] MEDS: ASCORBIC ACID 500 MG TAB PO SCH (13:19)
[2019-09-22] MEDS: valACYclovir HCL 1,000 MG TABLET PO SCH ×2 (13:19→20:27)
[2019-09-22] MEDS: MULTIVITAMINS, THERA 1 EACH TAB PO SCH (13:19)
[2019-09-22] MEDS: SODIUM CHLORIDE 0.9% 1,000 ML IV SCH ×2 (13:20→15:38)
[2019-09-22] MEDS ORDERED: POTASSIUM CHLORIDE ER 20 MEQ TAB.ER PO STA (14:43)
[2019-09-22 14:56] LABS: Anisocytosis Slight; Basophils # (A) 0.1 k/uL (0-0.2); Basophils % (A) 1 %; Eosinophils # (A) 0.1 k/uL (0-0.7); Eosinophils % (A) 0 %; HCT 26.7 % (39.0-53.0); HGB 8.7 gm/dL (13.0-17.5); Hypochromasia Moderate; Lymphocytes % (A) 0 %; MCH 32.2 pg (25.0-35.0); MCHC 32.7 g/dL (31.0-37.0); MCV 98.4 fL (80.0-100.0); Macrocytosis Slight; Mean Platelet Volume 6.1; Monocytes # (A) 0.2 k/uL (0-1.0); Monocytes % (A) 1 %; Neutrophils # (A) 13.7 k/uL (1.3-7.7); Neutrophils % (A) 97 %; Platelet Count 208 k/uL (150-450); RBC 2.71 m/uL (4.30-5.90); RDW 17.9 % (11.5-15.5); WBC 14.2 k/uL (3.8-10.6)
--- NOTE | 2019-09-22 15:44 | P.CONS ---
History of Present Illness - Reason for Consult Consult date: 09/22/19 Non-Hodgkin's lymphoma Requesting physician: Deangelo Chance - Chief Complaint GI bleed - History of Present Illness Please see the text no from yesterday for patient's background. In follow-up today patient has had the takedown RBC scan, no evidence of bleeding. He is being prepped at the time of examination for capsule endoscopy. Patient states a partially dark stool this morning, no other bleeding to report, nausea, hematemesis, difficulty in breathing, abdominal pain or cramping, hematuria, dysuria, he is weak, speech is slightly slurred. Review of Systems 14 point review of systems is negative except as stated in HPI Past Medical History Past Medical History: Cancer, GI Bleed, Hearing Disorder / Deafness, Hyperlipidemia, Pneumonia Additional Past Medical History / Comment(s): LYMPHOMA, PAST CHEMO, last chemo 2016. 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 cystoscopy History of Any Multi-Drug Resistant Organisms: None Reported Past Surgical History: Orthopedic Surgery Additional Past Surgical History / Comment(s): RIGHT ROTATOR CUFF. VEIN STRIPPING LEFT. spot on tongue removed, sinus surgery, colitis Past Anesthesia/Blood Transfusion Reactions: No Reported Reaction Past Psychological History: No Psychological Hx Reported Smoking Status: Never smoker Past Alcohol Use History: Rare Past Drug Use History: None Reported - Past Family History Mother Family Medical History: Myocardial Infarction (NE) Additional Family Medical History / Comment(s): Moms 2 sisters have had NE. Brother had heart defect at Brother(s) Additional Family Medical History / Comment(s): 2 out of 3 brothers have had NE Medications and Allergies Home Medications Medication Instructions Recorded Confirmed Type Ascorbic Acid [Vitamin C] 1,000 mg PO DAILY 01/18/18 09/20/19 History Multivitamins, Thera [Multivitamin 1 tab PO DAILY 01/18/18 09/20/19 History (formulary)] [place]-3 Fatty Acids/Fish Oil [Fish 1 tab PO DAILY 01/18/18 09/20/19 History Oil 1,000 mg Softgel] Omeprazole [PriLOSEC] 20 mg PO HS 01/04/19 09/20/19 History Acetaminophen Tab [Tylenol] 650 mg PO Q4H PRN 09/08/19 09/20/19 History Filgrastim Sndz [Neupogen] 480 mcg SQ SUWE 09/08/19 09/20/19 History Zinc 50 mg PO DAILY 09/20/19 09/20/19 History diphenhydrAMINE HCL [Benadryl] 25 mg PO HS PRN 09/20/19 09/20/19 History Dexamethasone [Decadron Oral Soln] 1 mg PO PCHS 09/21/19 09/21/19 History valACYclovir HCL [Valacyclovir] 1,000 mg PO BID 09/21/19 09/21/19 History Allergies Allergy/AdvReac Type Severity Reaction Status Date / Time cephalexin [From Keflex] Allergy Rash/Hives Verified 09/20/19 15:47 Physical Exam Vitals: Vital Signs Temp Pulse Resp BP Pulse Ox 09/22/19 13:00 98 F 83 16 149/79 96 09/22/19 04:47 97.3 F L 77 16 104/65 93 L 09/21/19 22:19 28 H 09/21/19 20:13 98 F 108 H 22 105/60 95 Intake and Output 09/22/19 09/22/19 09/22/19 06:59 14:59 22:59 Intake Total 975 1100 Balance 975 1100 Intake: Intake, IV Titration 975 1100 Amount Piperacillin-Tazobactam 3 100 .375 gm In Sodium Chloride 0.9% 100 ml @ 25 mls/hr IVPB Q8H [facility] Rx#: [id number] Sodium Chloride 0.9% 1, 975 1000 000 ml @ 125 mls/hr IV . Q8H [facility] Rx#:[id number] Other: # Voids 2 # Bowel Movements 1 - Constitutional General appearance: average body habitus, cooperative, no acute distress - EENT Slightly slurred speech, patient and so this is normal for him Eyes: anicteric sclerae, EOMI ENT: hearing grossly normal, normal oropharynx - Neck Neck: no lymphadenopathy - Respiratory Respiratory: bilateral: rhonchi (Posterior) - Cardiovascular Rhythm: regular Heart sounds: normal: S1, S2 Abnormal Heart Sounds: no systolic murmur, no diastolic murmur, no rub, no S3 Gallop, no S4 Gallop, no click, no other leg Peripheral Edema: bilateral: None - Gastrointestinal General gastrointestinal: no absent bowel sounds, no decreased bowel sounds, no distended, no hepatomegaly, no hyperactive bowel sounds, normal bowel sounds, no organomegaly, no rigid, no scaphoid, soft, no splenomegaly, no tenderness, no umbilical hernia, no ventral hernia - Neurologic Neurologic: CNII-XII intact - Musculoskeletal Musculoskeletal: generalized weakness, strength equal bilaterally - Psychiatric Psychiatric: A&O x's 3, appropriate affect, intact judgment & insight Results CBC & Chem 7: 09/22/19 14:32 09/22/19 07:49 Labs: Abnormal Lab Results - Last 24 Hours (Table) 09/21/19 09/22/19 09/22/19 Range/Units 17:29 00:13 07:49 WBC 14.5 H 24.5 H 20.4 H (3.8-10.6) k/uL RBC 2.85 L 2.56 L 2.62 L (4.30-5.90) m/uL Hgb 9.1 L 8.1 L 7.9 L (13.0-17.5) gm/dL Hct 27.6 L 24.8 L 25.1 L (39.0-53.0) % RDW 18.2 H 18.1 H 18.2 H (11.5-15.5) % Neutrophils # (1.3-7.7) k/uL Lymphocytes # (1.0-4.8) k/uL Potassium (3.5-5.1) mmol/L Chloride (98-107) mmol/L BUN (9-20) mg/dL Calcium (8.4-10.2) mg/dL 09/22/19 09/22/19 Range/Units 07:49 14:32 WBC 14.2 H (3.8-10.6) k/uL RBC 2.71 L (4.30-5.90) m/uL Hgb 8.7 L (13.0-17.5) gm/dL Hct 26.7 L (39.0-53.0) % RDW 17.9 H (11.5-15.5) % Neutrophils # 13.7 H (1.3-7.7) k/uL Lymphocytes # 0.0 L (1.0-4.8) k/uL Potassium 3.0 L (3.5-5.1) mmol/L Chloride 109 H (98-107) mmol/L BUN 21 H (9-20) mg/dL Calcium 7.8 L (8.4-10.2) mg/dL Assessment and Plan (1) GI bleed Narrative/Plan: Status post tagged RBC scan with no source of blood loss found. Capsule endoscopy pending. Transfuse for hemoglobin less than 7 or symptomatic. No transfusion needed today Current Visit: Yes Status: Acute Priority: High Code(s): K92.2 - GASTROINTESTINAL HEMORRHAGE, UNSPECIFIED SNOMED Code(s): 56360135 (2) Acute blood loss anemia Current Visit: Yes Status: Acute Priority: High Code(s): D62 - ACUTE POSTHEMORRHAGIC ANEMIA SNOMED Code(s): 724505707 (3) Mantle cell lymphoma Narrative/Plan: Since November of this year patient has been doing recurrent infections and low white blood cell counts if he is not chronically on G-CSF. Continue G-CSF as prescribed. Patient has been worked up with imaging as well as a another bone marrow biopsy and aspirate, no evidence of lymphoma. Referral was made and after close to a month, Patient's and got a phone call from [facility] lymphoma clinic but, no appointment available until November. We'll review this with Dr. Bryant to see if he wants something different. Current Visit: No Status: Chronic Priority: High Code(s): C83.10 - MANTLE CELL LYMPHOMA, UNSPECIFIED SITE SNOMED Code(s): 876456486
[2019-09-22] MEDS ORDERED: POTASSIUM CHLORIDE ER 20 MEQ TAB.ER PO ONE (18:00)
--- NOTE | 2019-09-22 22:06 | P.PN ---
Progress Note - Text Progress Note Date: 09/22/19 Chief Complaint: Bleeding per rectum Interval history: This is a pleasant 68-year-old gentleman with long history of mantle cell non- Hodgkin's lymphoma. Initially it was low-grade then progressed . Patient was treated with course of to 3 years including Retuxan. Later treatment course was complicated by ulcers and mucous membrane including the mouth with fever. Recently in the hospital from September 09 through September 16. Admitted to the ICU with septic shock, Neutropenic colitis, acute hypoxic respiratory failure, pancytopenia, acute kidney injury, oral ulcers . Treated with IV vancomycin and cefepime. Doing better by discharge. Was discharged to [facility], [place]. On Thursday evening patient had fresh blood per rectum also the following day that is yesterday morning. Hemoglobin dropped. Did give 2 units of blood. Also abdominal cramping. Feeling weak and tired. No fever and chills. Appetite is okay. Has a bit of a congested cough. Had been using a walker. In December of this year patient was similar episode of bleeding per rectum. EGD was unremarkable showed mild gastritis. Colonoscopy was unremarkable. This was done by Dr. Cornell. Admitted with-hematochezia. Today-patient had some more bleeding loss. This morning. Getting small bowel capsule endoscopy today. at the bedside. Tired. Review of systems: Was done for constitutional, cardiovascular, GI, pulmonary. relevant finding as above Active Medications Acetaminophen (Tylenol Tab) 650 mg PO Q4H PRN PRN Reason: Fever Ascorbic Acid (Vitamin C) 1,000 mg PO DAILY [facility] Last Admin: 09/22/19 13:19 Dose: 1,000 mg Documented by: Dexamethasone (Hexadrol) 1 mg PO [facility] Last Admin: 09/22/19 20:27 Dose: 1 mg Documented by: Diphenhydramine HCl (Benadryl) 25 mg PO HS PRN PRN Reason: Allergy Symptoms Filgrastim (Zarxio) 480 mcg SQ SUWE [facility] Last Admin: 09/21/19 13:30 Dose: 480 mcg Documented by: Sodium Chloride (Saline 0.9%) 1,000 mls @ 125 mls/hr IV .Q8H [facility] Last Admin: 09/22/19 15:38 Dose: Not Given Documented by: Piperacillin Sod/Tazobactam (Sod 3.375 gm/ Sodium Chloride) 100 mls @ 25 mls/hr IVPB Q8H [facility] Last Admin: 09/22/19 20:25 Dose: 25 mls/hr Documented by: Multivitamins (Theragran) 1 each PO DAILY [facility] Last Admin: 09/22/19 13:19 Dose: 1 each Documented by: Naloxone HCl (Narcan) 0.2 mg IV Q2M PRN PRN Reason: Opioid Reversal Pantoprazole Sodium (Protonix) 40 mg IV DAILY [facility] Last Admin: 09/22/19 13:19 Dose: 40 mg Documented by: Valacyclovir HCl (Valtrex) 1,000 mg PO BID [facility] Last Admin: 09/22/19 20:27 Dose: 1,000 mg Documented by: Zinc Sulfate (Orazinc) 220 mg PO DAILY [facility] Last Admin: 09/22/19 13:19 Dose: 220 mg Documented by: Physical examination: VITAL SIGNS: 97.3, 77, 16, 104/65, 93% on 2 L GENERAL: BMI 26.4, propped up in bed, awake EYES: Pupils equal. Conjunctiva pale HEENT: External appearance of nose and ears normal, oral cavity grossly normal. NECK: JVD unable to assess; masses not palpable. HEART: First and second heart sounds are normal; no edema. LUNGS:[ Respiratory rate increased, decreased breath sounds ABDOMEN: Soft, nontender, liver spleen not palpable, no masses palpable. PSYCH: [Alert and oriented x3; mood and affect normal. INVESTIGATIONS, reviewed in the clinical context: Hemoglobin 7.9 Previous testing White count 8.9 hemoglobin 8.7 potassium 3.4 creatinine 1.10 Assessment: -Acute GI bleed with hematochezia, patient received 2 units of blood prior to getting to this hospital. Patient did have a similar episode in December of this year and EGD in colonoscopy at that was unremarkable. Uncontrolled more bleeding last better this morning. -Acute blood loss anemia, symptomatic -Mantle cell type non-Hodgkin's lymphoma currently in remission since December of this year -Hypoalbuminemia from mild protein calorie malnutrition -deaf left ear Plan: Patient can use to have GI bleed. Getting small bowel capsule endoscopy. Repeat H&H later this afternoon. Care was discussed with the patient and .
[2019-09-23] MEDS: PIPERACILLIN-TAZOBACTAM 3.375 GM in SODIUM CHLORIDE 0.9% 100 ML IVPB SCH ×2 (04:04→14:01)
[2019-09-23] MEDS: SODIUM CHLORIDE 0.9% 1,000 ML IV SCH ×3 (04:04→14:04)
[2019-09-23 04:54] VITALS: RESP 16
--- NOTE | 2019-09-23 06:52 | P.PN ---
Subjective Progress Note Date: 09/22/19 Principal diagnosis: GI bleed Patient seen lying in bed, still reporting some dark stool with blood mixed in. Hasn't eaten today. No abdominal pain. Objective - Vital Signs Vital signs: Vital Signs Temp 98 F 09/22/19 13:00 Pulse 83 09/22/19 13:00 Resp 16 09/22/19 13:00 BP 149/79 09/22/19 13:00 Pulse Ox 96 09/22/19 13:00 Intake & Output 09/21/19 09/22/19 09/22/19 18:59 06:59 18:59 Intake Total 1000 1925 1100 Output Total 500 0 Balance 500 1925 1100 Intake: Intake, IV Titration 1000 1375 1100 Amount Piperacillin-Tazobactam 3 100 .375 gm In Sodium Chloride 0.9% 100 ml @ 25 mls/hr IVPB Q8H [facility] Rx#: [id number] Sodium Chloride 0.9% 1, 1000 1375 1000 000 ml @ 125 mls/hr IV . Q8H [facility] Rx#:[id number] Oral 550 Output: Urine 500 Stool 0 Other: Voiding Method Toilet Toilet Urinal Urinal # Voids 1 2 # Bowel Movements 1 1 - Exam On physical examination, patient appears comfortable in no apparent distress. HEAD: Normocephalic, atraumatic. EYES: No scleral icterus. No conjunctival injection. MOUTH: No lesions, tongue midline. NECK: Trachea midline, no gross abnormalities. CHEST: Clear to auscultation with no wheezing or rhonchi appreciated. ABDOMEN: Soft, obese. Bowel sounds are positive. No organomegaly. No guarding or rigidity. EXTREMITIES: No pedal edema. SKIN: No rashes, no jaundice. NEUROLOGIC: Alert and oriented x3. - Labs CBC & Chem 7: 09/22/19 14:32 09/22/19 21:16 Labs: Abnormal Lab Results - Last 24 Hours (Table) 09/21/19 09/22/19 09/22/19 Range/Units 17:29 00:13 07:49 WBC 14.5 H 24.5 H 20.4 H (3.8-10.6) k/uL RBC 2.85 L 2.56 L 2.62 L (4.30-5.90) m/uL Hgb 9.1 L 8.1 L 7.9 L (13.0-17.5) gm/dL Hct 27.6 L 24.8 L 25.1 L (39.0-53.0) % RDW 18.2 H 18.1 H 18.2 H (11.5-15.5) % Neutrophils # (1.3-7.7) k/uL Lymphocytes # (1.0-4.8) k/uL Potassium (3.5-5.1) mmol/L Chloride (98-107) mmol/L BUN (9-20) mg/dL Calcium (8.4-10.2) mg/dL 09/22/19 09/22/19 Range/Units 07:49 14:32 WBC 14.2 H (3.8-10.6) k/uL RBC 2.71 L (4.30-5.90) m/uL Hgb 8.7 L (13.0-17.5) gm/dL Hct 26.7 L (39.0-53.0) % RDW 17.9 H (11.5-15.5) % Neutrophils # 13.7 H (1.3-7.7) k/uL Lymphocytes # 0.0 L (1.0-4.8) k/uL Potassium 3.0 L (3.5-5.1) mmol/L Chloride 109 H (98-107) mmol/L BUN 21 H (9-20) mg/dL Calcium 7.8 L (8.4-10.2) mg/dL Assessment and Plan (1) Acute blood loss anemia Narrative/Plan: 68-year-old male with multiple medical comorbidities who presents back to the hospital due to complaints of dark stool with bright red blood mixed in. He had a similar presentation in December at which time EGD and colonoscopy were performed and significant only for a small hiatal hernia, gastritis and mild internal hemorrhoids with no source of bleeding noted. Since admission hemoglobin has been stable after transfusion currently at 8.6. The patient underwent a tagged red blood cell scan with no localization of bleed. Current Visit: Yes Status: Acute Priority: High Code(s): D62 - ACUTE POSTHEMORRHAGIC ANEMIA SNOMED Code(s): 597856547 (2) GI bleed Current Visit: Yes Status: Acute Priority: High Code(s): K92.2 - GASTROINTESTINAL HEMORRHAGE, UNSPECIFIED SNOMED Code(s): 46779703 Plan: Supportive care Regular diet tonight Nothing by mouth after midnight Continue Protonix therapy Continue to monitor hemoglobin and hematocrit and transfuse as needed Results of tagged red blood cell scan reviewed Video capsule endoscopy currently being performed Thank you for allowing us to participate in the care of this patient we will continue
[2019-09-23 07:27] LABS: Anisocytosis Slight; HCT 23.2 % (39.0-53.0); HGB 7.5 gm/dL (13.0-17.5); Hypochromasia Slight; MCHC 32.2 g/dL (31.0-37.0); MCV 96.3 fL (80.0-100.0); Macrocytosis Slight; Mean Platelet Volume 6.5; Platelet Count 156 k/uL (150-450); RBC 2.41 m/uL (4.30-5.90); RDW 17.9 % (11.5-15.5); WBC 7.5 k/uL (3.8-10.6)
[2019-09-23] MEDS: PANTOPRAZOLE 40 MG/10 ML VIAL IV SCH (10:07)
[2019-09-23] MEDS: DEXAMETHASONE 0.5 MG TAB PO SCH ×3 (10:08→17:16)
[2019-09-23] MEDS: ASCORBIC ACID 500 MG TAB PO SCH (10:09)
[2019-09-23] MEDS: MULTIVITAMINS, THERA 1 EACH TAB PO SCH (10:10)
[2019-09-23] MEDS: ZINC SULFATE 220 MG CAP PO SCH (10:10)
[2019-09-23] MEDS: valACYclovir HCL 1,000 MG TABLET PO SCH (10:10)
[2019-09-23 13:31] VITALS: BP 137/70; PULSE 62; TEMP 97.9
--- NOTE | 2019-09-23 19:00 | P.DS ---
Providers Date of admission: 09/22/19 15:33 Expected date of discharge: 09/23/19 Attending physician: Deangelo Chance Consults: 09/20/19 15:04 Consult Physician Urgent Consulting Provider: Jet Horan Consult Reason/Comments: GI hemorrhage Do you want consulting provider notified?: Yes 09/21/19 10:45 Consult Physician Routine Consulting Provider: Tomy Lawson Consult Reason/Comments: NHL Do you want consulting provider notified?: Yes Primary care physician: Edward Dodd [facility] Course: Chief Complaint: Bleeding per rectum Hospital course: This is a pleasant 68-year-old gentleman with long history of mantle cell non- Hodgkin's lymphoma. Initially it was low-grade then progressed . Patient was treated with course of to 3 years including Retuxan. Later treatment course was complicated by ulcers and mucous membrane including the mouth with fever. Recently in the hospital from September 09 through September 16. Admitted to the ICU with septic shock, Neutropenic colitis, acute hypoxic respiratory failure, pancytopenia, acute kidney injury, oral ulcers . Treated with IV vancomycin and cefepime. Doing better by discharge. Was discharged to [facility]. On Thursday evening patient had fresh blood per rectum also the following day that is yesterday morning. Hemoglobin dropped. Did give 2 units of blood. Also abdominal cramping. Feeling weak and tired. No fever and chills. Appetite is okay. Has a bit of a congested cough. Had been using a walker. In December of this year patient was similar episode of bleeding per rectum. EGD was unremarkable showed mild gastritis. Colonoscopy was unremarkable. This was done by Dr. Cornell. Admitted with-hematochezia. Patient did undergo small bowel capsule study. I could've overall reports that was negative. Patient was cleared by Dr. Cornell to be discharged. Hemoglobin was stable at 7.5 upon discharge. Patient did ambulate in the hallway. Patient will complete 3 days of IV antibiotics at home. Consultation: Dr. Cornell from GI Procedure: Small bowel capsule endoscopy Physical examination: VITAL SIGNS: 97.9, 62, 16, 137/70, 94% room air GENERAL: BMI 26.4, propped up in bed, awake EYES: Pupils equal. Conjunctiva pale HEENT: External appearance of nose and ears normal, oral cavity grossly normal. NECK: JVD unable to assess; masses not palpable. HEART: First and second heart sounds are normal; no edema. LUNGS:[ Respiratory rate increased, decreased breath sounds ABDOMEN: Soft, nontender, liver spleen not palpable, no masses palpable. PSYCH: [Alert and oriented x3; mood and affect normal. INVESTIGATIONS, reviewed in the clinical context: Hemoglobin 7.5 Previous testing White count 8.9 hemoglobin 8.7 potassium 3.4 creatinine 1.10 Assessment: -Acute GI bleed with hematochezia, patient received 2 units of blood prior to getting to this hospital. Patient did have a similar episode in December of this year and EGD in colonoscopy at that was unremarkable. Small bowel capsule endoscopy was reported negative. -Acute blood loss anemia, symptomatic -Mantle cell type non-Hodgkin's lymphoma currently in remission since December of this year -Hypoalbuminemia from mild protein calorie malnutrition -deaf left ear Disposition: Home Patient Condition at Discharge: Stable Plan - Discharge Summary New Discharge Prescriptions: New Melatonin 3 mg PO HS #30 tablet Piperacillin-Tazobactam [Zosyn] 3.375 gm IVPB Q8H #9 vial Continue [place]-3 Fatty Acids/Fish Oil [Fish Oil 1,000 mg Softgel] 1 tab PO DAILY Multivitamins, Thera [Multivitamin (formulary)] 1 tab PO DAILY Ascorbic Acid [Vitamin C] 1,000 mg PO DAILY Omeprazole [PriLOSEC] 20 mg PO HS Acetaminophen Tab [Tylenol] 650 mg PO Q4H PRN PRN Reason: Fever Filgrastim Sndz [Neupogen] 480 mcg SQ SUWE diphenhydrAMINE HCL [Benadryl] 25 mg PO HS PRN PRN Reason: Allergy Symptoms Zinc 50 mg PO DAILY Dexamethasone [Decadron Oral Soln] 1 mg PO PCHS valACYclovir HCL [Valacyclovir] 1,000 mg PO BID Discharge Medication List Ascorbic Acid [Vitamin C] 1,000 mg PO DAILY 01/18/18 [History] Multivitamins, Thera [Multivitamin (formulary)] 1 tab PO DAILY 01/18/18 [History] [place]-3 Fatty Acids/Fish Oil [Fish Oil 1,000 mg Softgel] 1 tab PO DAILY 01/18/18 [History] Omeprazole [PriLOSEC] 20 mg PO HS 01/04/19 [History] Acetaminophen Tab [Tylenol] 650 mg PO Q4H PRN 09/08/19 [History] Filgrastim Sndz [Neupogen] 480 mcg SQ SUWE 09/08/19 [History] Zinc 50 mg PO DAILY 09/20/19 [History] diphenhydrAMINE HCL [Benadryl] 25 mg PO HS PRN 09/20/19 [History] Dexamethasone [Decadron Oral Soln] 1 mg PO PCHS 09/21/19 [History] valACYclovir HCL [Valacyclovir] 1,000 mg PO BID 09/21/19 [History] Melatonin 3 mg PO HS #30 tablet 09/23/19 [Rx] Piperacillin-Tazobactam [Zosyn] 3.375 gm IVPB Q8H #9 vial 09/23/19 [Rx] Follow up Appointment(s)/Referral(s): [facility], [NON-STAFF] - 1 Week Edward Dodd MD [Primary Care Provider] - 09/28/19 9:00 am [facility], [REFERRING] - 1 Week Navneet Bryant MD [STAFF PHYSICIAN] - 09/29/19 9:00 am Jet Horan MD [STAFF PHYSICIAN] - 10 Days Patient Instructions/Handouts: Piperacillin/Tazobactam (By injection), Gastrointestinal Bleeding (DC), Weakness (DC)
[2019-09-23] MEDS ORDERED: MELATONIN 3 MG TABLET PO SCH (21:00)
== END 2019-09-23 19:30 | disposition home health service (06) | DRG 378 ==
LOC: EC 12:32 → 3NMEDONC 15:02 → OBSVTOIN 09-22 15:33 → 3NMEDONC 09-23 18:44
PROVIDERS: ADMIT Hospitalist; ATTEND Hospitalist
DX: K92.2 Gastrointestinal hemorrhage, unspecified (principal); D62 Acute posthemorrhagic anemia; E44.1 Mild protein-calorie malnutrition; C85.80 Other specified types of non-Hodgkin lymphoma, unspecified site; E78.5 Hyperlipidemia, unspecified; E86.0 Dehydration; H91.92 Unspecified hearing loss, left ear; K29.70 Gastritis, unspecified, without bleeding; Z82.49 Family history of ischemic heart disease and other diseases of the circulatory system; Z88.1 Allergy status to other antibiotic agents; Z79.899 Other long term (current) drug therapy
CPT/HCPCS: 36415; 78278; 80048; 80053; 84132; 85025; 85027; 85610; 85730; 86850; 86900; 86901; 91110; 96374; 96376; 99284

== ENCOUNTER 2019-09-29 09:24 | Inpatient (IN) | payer MEDICARE ==
--- NOTE | 2019-09-29 10:15 | ED ---
General Adult HPI - General Chief complaint: Recheck/Abnormal Lab/Rx Stated complaint: Weakness, needs blood transfusion Time Seen by Provider: 09/29/19 09:38 Source: patient Mode of arrival: ambulatory Limitations: no limitations - History of Present Illness Initial comments: Dictation was produced using [employer] dictation software. please excuse any grammatical, word or spelling errors. Chief Complaint: 68-year-old male with past medical history of lymphoma currently in remission presents with abnormal outpatient labs. History of Present Illness: 68-year-old male presents with abnormal outpatient labs. 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 Patient was found have a hemoglobin of 6.9. He was told to come to the emergency department for evaluation. Patient has remote history of lymphoma that they report is currently in remission. He is a history of pancytopenia and GI bleed. The last 3 days he's been having nosebleeds intermittently. He placed packing in the left naris to alleviate the bleeding. Patient also complains of GI bleed. He's been evaluated in hospital for GI bleed recently. CT negative endoscopies. Patient's last bloody bowel movement was 3 days. Patient on a blood thinner medications. Treated with Zosyn for pneumonia that is administered by his significant other 3 a midline in his left upper extremity. reports the patient looks more pale than usual. The ROS documented in this emergency department record has been reviewed and confirmed by me. Those systems with pertinent positive or negative responses have been documented in the HPI. All other systems are other negative and/or noncontributory. PHYSICAL EXAM: General Impression: Alert and oriented x3, not in acute distress, pale HEENT: Normocephalic atraumatic, extra-ocular movements intact, pupils equal and reactive to light bilaterally, mucous membranes moist, gauze packing left naris, dried blood without hemorrhage noted in the posterior oropharynx Cardiovascular: Heart regular rate and rhythm, S1&S2 audible, no murmurs, rubs or gallops Chest: Lungs clear to auscultation bilaterally, no rhonchi, no wheeze, no rales Abdomen: Bowel sounds present, abdomen soft, non-tender, non-distended, no orga nomegaly Musculoskeletal: Pulses present and equal in all extremities, no peripheral edema Motor: no focal deficits noted Neurological: CN II-XII grossly intact, no focal motor or sensory deficits noted Skin: Intact with no visualized rashes Psych: Normal affect and mood Rectal exam: No gross blood ED course: 68 yo male with abnormal outpatient labs. Labs were reviewed showing hemoglobin of 6.9. Patient has been having intermittent nosebleeds and GI bleed recently. Vital signs upon arrival are within acceptable limits. Gauze was removed from left naris without any active hemorrhage. Gauze was replaced with Merocel packing. Lab evaluation obtained. Leukopenia 1.2, hemoglobin 7.0 platelets 147. Coag panel unremarkable. Potassium is 2.5 stool occult blood positive. Patient ordered for transfusion of red blood cells. Patient also given IV and by mouth potassium. He is also given Protonix for GI bleed. Patient will be admitted to Dr. Chance with hematology, GI and ENT on consult. EKG interpretation: Ventricular rate 71, normal sinus rhythm,. 184, QS 102, QTC 478. No NE prolongation, no QTC prolongation, no ST or T-wave changes noted. Overall, this EKG is unremarkable - Related Data Home Medications Medication Instructions Recorded Confirmed Ascorbic Acid [Vitamin C] 1,000 mg PO DAILY 01/18/18 09/29/19 Multivitamins, Thera [Multivitamin 1 tab PO DAILY 01/18/18 09/29/19 (formulary)] [place]-3 Fatty Acids/Fish Oil [Fish 1 tab PO DAILY 01/18/18 09/29/19 Oil 1,000 mg Softgel] Omeprazole [PriLOSEC] 20 mg PO DAILY 01/04/19 09/29/19 Filgrastim Sndz [Neupogen] 480 mcg SQ SUWE 09/08/19 09/29/19 Zinc 50 mg PO DAILY 09/20/19 09/29/19 diphenhydrAMINE HCL [Benadryl] 25 mg PO HS PRN 09/20/19 09/29/19 Acetaminophen/Diphenhydramine 1 tab PO HS PRN 09/29/19 09/29/19 [Tylenol PM 500-25mg] Guaifen/Phenyleph/Acetaminophn 1 tab PO DAILY PRN 09/29/19 09/29/19 [Tylenol Sinus Severe Caplet] Previous Rx's Medication Instructions Recorded Piperacillin-Tazobactam [Zosyn] 3.375 gm IVPB Q8H #9 vial 09/23/19 Allergies Allergy/AdvReac Type Severity Reaction Status Date / Time cephalexin [From Keflex] Allergy Rash/Hives Verified 09/29/19 10:38 Review of Systems ROS Statement: Those systems with pertinent positive or pertinent negative responses have been documented in the HPI. ROS Other: All systems not noted in ROS Statement are negative. Past Medical History Past Medical History: Cancer, GI Bleed, Hearing Disorder / Deafness, Hyperlipidemia, Pneumonia Additional Past Medical History / Comment(s): LYMPHOMA, PAST CHEMO, last chemo 2016. 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 cystoscopy History of Any Multi-Drug Resistant Organisms: None Reported Past Surgical History: Orthopedic Surgery Additional Past Surgical History / Comment(s): RIGHT ROTATOR CUFF. VEIN STRIPPING LEFT. spot on tongue removed, sinus surgery, colitis Past Anesthesia/Blood Transfusion Reactions: No Reported Reaction Past Psychological History: No Psychological Hx Reported Smoking Status: Never smoker Past Alcohol Use History: Rare Past Drug Use History: None Reported - Past Family History Mother Family Medical History: Myocardial Infarction (CA) Additional Family Medical History / Comment(s): Moms 2 sisters have had CA. Brother had heart defect at Brother(s) Additional Family Medical History / Comment(s): 2 out of 3 brothers have had CA General Exam Limitations: no limitations Course Vital Signs 09/29/19 09/29/19 09/29/19 09:32 09:56 10:30 Temperature 97.4 F L Pulse Rate 81 75 74 Respiratory 18 16 Rate Blood Pressure 109/75 107/69 O2 Sat by Pulse 100 96 Oximetry 09/29/19 09/29/19 09/29/19 11:00 11:12 11:46 Temperature 97.9 F Pulse Rate 73 80 73 Respiratory 16 16 18 Rate Blood Pressure 107/68 115/77 122/90 O2 Sat by Pulse 96 97 96 Oximetry Medical Decision Making - Lab Data Result diagrams: 09/29/19 10:01 09/29/19 10:01 Lab Results 09/29/19 09/29/19 09/29/19 Range/Units 10:01 10:01 10:01 WBC 1.2 L* (3.8-10.6) k/uL RBC 2.27 L (4.30-5.90) m/uL Hgb 7.0 L (13.0-17.5) gm/dL Hct 21.7 L (39.0-53.0) % MCV 95.5 (80.0-100.0) fL MCH 30.7 (25.0-35.0) pg MCHC 32.1 (31.0-37.0) g/dL RDW 18.1 H (11.5-15.5) % Plt Count 147 L (150-450) k/uL Neutrophils % (Manual) 56 % Band Neutrophils % 3 % Lymphocytes % (Manual) 21 % Monocytes % (Manual) 9 % Eosinophils % (Manual) 7 % Metamyelocytes % 4 % Myelocytes % 2 % Neutrophils # (Manual) 0.70 L (1.3-7.7) k/uL Lymphocytes # (Manual) 0.25 L (1.0-4.8) k/uL Monocytes # (Manual) 0.11 (0-1.0) k/uL Eosinophils # (Manual) 0.08 (0-0.7) k/uL Metamyelocytes # (Man) 0.05 H (0) k/uL Myelocytes # (Manual) 0.02 H (0) k/uL Nucleated RBCs 0 (0-0) /100 WBC Manual Slide Review Performed Hypochromasia Slight Poikilocytosis Slight Anisocytosis Slight Macrocytosis Slight PT (9.0-12.0) sec INR (<1.2) APTT (22.0-30.0) sec Sodium 142 (137-145) mmol/L Potassium 2.5 L* (3.5-5.1) mmol/L Chloride 107 (98-107) mmol/L Carbon Dioxide 29 (22-30) mmol/L Anion Gap 6 mmol/L BUN 12 (9-20) mg/dL Creatinine 1.05 (0.66-1.25) mg/dL Est GFR (CKD-EPI)AfAm 86 (>60 ml/min/1.73 sqM) Est GFR (CKD-EPI)NonAf 74 (>60 ml/min/1.73 sqM) Glucose 83 (74-99) mg/dL Calcium 8.2 L (8.4-10.2) mg/dL Magnesium 1.7 (1.6-2.3) mg/dL Stool Occult Blood (Negative) Blood Type O Positive Blood Type Recheck O Pos Bld Type Recheck Status No Antibody Screen NEGATIVE Crossmatch See Detail Spec Expiration Date 10/02/2019 - 230009/29/19 09/29/19 Range/Units 10:01 10:01 WBC (3.8-10.6) k/uL RBC (4.30-5.90) m/uL Hgb (13.0-17.5) gm/dL Hct (39.0-53.0) % MCV (80.0-100.0) fL MCH (25.0-35.0) pg MCHC (31.0-37.0) g/dL RDW (11.5-15.5) % Plt Count (150-450) k/uL Neutrophils % (Manual) % Band Neutrophils % % Lymphocytes % (Manual) % Monocytes % (Manual) % Eosinophils % (Manual) % Metamyelocytes % % Myelocytes % % Neutrophils # (Manual) (1.3-7.7) k/uL Lymphocytes # (Manual) (1.0-4.8) k/uL Monocytes # (Manual) (0-1.0) k/uL Eosinophils # (Manual) (0-0.7) k/uL Metamyelocytes # (Man) (0) k/uL Myelocytes # (Manual) (0) k/uL Nucleated RBCs (0-0) /100 WBC Manual Slide Review Hypochromasia Poikilocytosis Anisocytosis Macrocytosis PT 10.2 (9.0-12.0) sec INR 0.9 (<1.2) APTT 23.2 (22.0-30.0) sec Sodium (137-145) mmol/L Potassium (3.5-5.1) mmol/L Chloride (98-107) mmol/L Carbon Dioxide (22-30) mmol/L Anion Gap mmol/L BUN (9-20) mg/dL Creatinine (0.66-1.25) mg/dL Est GFR (CKD-EPI)AfAm (>60 ml/min/1.73 sqM) Est GFR (CKD-EPI)NonAf (>60 ml/min/1.73 sqM) Glucose (74-99) mg/dL Calcium (8.4-10.2) mg/dL Magnesium (1.6-2.3) mg/dL Stool Occult Blood Positive (Negative) Blood Type Blood Type Recheck Bld Type Recheck Status Antibody Screen Crossmatch Spec Expiration Date Disposition Clinical Impression: Symptomatic anemia Disposition: ADMITTED IP TO THIS [facility] Condition: Fair Referrals: Edward Dodd MD [Primary Care Provider] - 1-2 days Decision Time: 12:00
[2019-09-29 10:24] LABS: Anisocytosis Slight; HCT 21.7 % (39.0-53.0); Hypochromasia Slight; MCH 30.7 pg (25.0-35.0); MCHC 32.1 g/dL (31.0-37.0); MCV 95.5 fL (80.0-100.0); Macrocytosis Slight; Mean Platelet Volume 7.6; Platelet Count 147 k/uL (150-450); Poikilocytosis Slight; RBC 2.27 m/uL (4.30-5.90); RDW 18.1 % (11.5-15.5)
[2019-09-29 10:29] LABS: WBC 1.2 k/uL (3.8-10.6)
[2019-09-29 10:31] LABS: Calcium 8.2 mg/dL (8.4-10.2); Magnesium 1.7 mg/dL (1.6-2.3)
[2019-09-29 10:36] LABS: INR 0.9 (<1.2); Partial Thromboplastin Time 23.2 sec (22.0-30.0); Prothrombin Time 10.2 sec (9.0-12.0)
[2019-09-29 10:46] LABS: Potassium 2.5 mmol/L (3.5-5.1)
[2019-09-29 11:41] LABS: Band Neutrophils % 3 %; Eosinophils # (M) 0.08 k/uL (0-0.7); Lymphocytes # (M) 0.25 k/uL (1.0-4.8); Metamyelocytes # (M) 0.05 k/uL (0); Metamyelocytes % 4 %; Monocytes # (M) 0.11 k/uL (0-1.0); Myelocytes # (M) 0.02 k/uL (0); Myelocytes % 2 %; Neutrophils % (M) 56 %; Nucleated Red Blood Cells 0 /100 WBC (0-0); Total Cells Counted 200
[2019-09-29] MEDS ORDERED: PANTOPRAZOLE 40 MG/10 ML VIAL IVP ONE (11:42)
[2019-09-29] MEDS ORDERED: CLINDAMYCIN 600 MG in DEXTROSE 5% IN WATER 50 ML IVPB STA ×2 (11:44)
[2019-09-29] MEDS ORDERED: POTASSIUM CHLORIDE ER 20 MEQ TAB.ER PO STA (11:49)
[2019-09-29] MEDS ORDERED: NALOXONE 0.4 MG/ML 1 ML VIAL IV PRN (11:56)
[2019-09-29] MEDS ORDERED: PIPERACILLIN-TAZOBACTAM 3.375 GM VIAL IVPB SCH (12:00)
[2019-09-29] MEDS: POTASSIUM CHLORIDE 20 MEQ in WATER FOR INJECTION 1 100ML.BAG IVPB SCH ×3 (12:17→19:50)
[2019-09-29] MEDS ORDERED: diphenhydrAMINE 25 MG CAP PO PRN ×2 (14:56→15:00)
[2019-09-29] MEDS ORDERED: NON FORMULARY DRUG (Acetaminophen/Diphenhydramine [Tylenol Pm 500-25mg] 1 TAB) PO PRN (14:56)
[2019-09-29] MEDS ORDERED: ACETAMINOPHEN TAB 500 MG TAB PO PRN (15:01)
[2019-09-29] MEDS ORDERED: PIPERACILLIN-TAZOBACTAM 3.375 GM in SODIUM CHLORIDE 0.9% 100 ML IVPB SCH (16:00)
--- NOTE | 2019-09-29 16:26 | P.HPIM ---
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 Initially it was low-grade then progressed . Patient was treated with course of to 3 years including Retuxan. Later treatment course was complicated by ulcers and mucous membrane including the mouth with fever. Recently in the hospital from September 09 through September 16. Admitted to the ICU with septic shock, Neutropenic colitis, acute hypoxic respiratory failure, pancytopenia, acute kidney injury, oral ulcers . Treated with IV vancomycin and cefepime. Doing better by discharge. Was discharged to [facility]. Admitted again to the hospital from September 20 through September 23. Head fresh bleeding per rectum. Had a small bowel capsule study done. It was supposedly negative In December of this year patient was similar episode of bleeding per rectum. EGD was unremarkable showed mild gastritis. Colonoscopy was unremarkable. This was done by Dr. Cornell. He has also been completing course of IV Zosyn. With subcu heparin. Patient presents with a large amount of epistaxis. Weak tired rundown. Dizzy lightheaded. Had 2 episodes has the described this is a very large amount. 2 days ago also patient had some dark stool with little bit of fresh blood in it. In the ER nasal packing was carried out. Review of systems: GEN.: Weak tired EYES: None HEENT: Decreased hearing, as above NECK: None RESPIRATORY: None CARDIOVASCULAR: None GASTROINTESTINAL: As above GENITOURINARY: None MUSCULOSKELETAL: None LYMPHATICS: None HEMATOLOGICAL: As above PSYCHIATRY: None NEUROLOGICAL: None Past medical history: Mantle cell non-Hodgkin's lymphoma, hyperlipidemia, , myelosuppression Social history: Does not smoke. Alcohol rarely. . At home Family history: Reviewed, noncontributory to presentation Physical examination: VITAL SIGNS: 98.3, 77, 19, 118-73, 97% GENERAL: BMI 25.8, propped up in bed. EYES: Pupils equal. Conjunctiva pale HEENT: External appearance of nose and ears normal, oral cavity grossly normal. Hearing aid. Nasal packing NECK: JVD unable to assess; masses not palpable. HEART: First and second heart sounds are normal; no edema. LUNGS: Respiratory rate increased, decreased breath sounds ABDOMEN: Soft, nontender, liver spleen not palpable, no masses palpable. : Alert and oriented x3; mood and affect normal. NEUROLOGICAL: Cranial nerves grossly intact; no facial asymmetry, power and sensation grossly intact. LYMPHATICS: No lymph nodes palpable in the axilla and neck INVESTIGATIONS, reviewed in the clinical context: White count 1.2 hemoglobin 7 platelet 147 Assessment: -Acute severe epistaxis, possibly complicated by malfunctioning platelets and patient getting subcu heparin -Pancytopenia -Acute blood loss anemia, symptomatic, secondary to severe epistaxis -Mantle cell type non-Hodgkin's lymphoma currently in remission since December of this year -Hypoalbuminemia from mild protein calorie malnutrition -deaf left ear Plan: Patient Zosyn will be stopped. Patient has completed the course. Subcu heparin of course has been discontinued. Blood is being transfused. Repeat H&H. Oncology be consulted. We'll also get a GI opinion. Care was discussed with the patient and . Past Medical History Past Medical History: Cancer, GI Bleed, Hearing Disorder / Deafness, Hyperlipidemia, Pneumonia Additional Past Medical History / Comment(s): Pt admitted 09/09/19 [facility] with septic shock d/t pneumonia/acute respiratory failure/acute kidney injury then admitted again to [facility] on 09/22/19 with acute FI bleed/acute blood loss anemia. Other hx: 2010 Mantle cell nonhodgkins lymphoma treated with chemo/retuxin and has been in remission since December 2018, pancytopenia/neutropenia, lower GI bleeds, pneumonias and chemical pneumonia, recent bilateral leg/feet edema, deaf in L ear, occasional back pain, DDD, PVD, past difficulty emptying bladder but no longer an issue, pt has been on a statin for mild elevated cholesterol but no longer taking. History of Any Multi-Drug Resistant Organisms: None Reported Past Surgical History: Orthopedic Surgery Additional Past Surgical History / Comment(s): R supraclavicular lymph node biopsy,bone marrow biopsies, L upper arm midline for home antibiotic infusions, benign spot removed from tongue, cystoscopy, sinus surgery, r rotator cuff repair, L vein stripping twice, EGDs, colonoscopies, small bowel capsule endoscopy Past Anesthesia/Blood Transfusion Reactions: No Reported Reaction Smoking Status: Never smoker - Past Family History Mother Family Medical History: Dementia, Musculoskeletal Disorder, Neurologic Disorder Additional Family Medical History / Comment(s): Parkinsons Brother(s) Additional Family Medical History / Comment(s): 2 out of 3 brothers have had [place] Father Family Medical History: CVA/TIA Additional Family Medical History / Comment(s): Father had a brain bleed. Medications and Allergies Home Medications Medication Instructions Recorded Confirmed Type Ascorbic Acid [Vitamin C] 1,000 mg PO DAILY 01/18/18 09/29/19 History Multivitamins, Thera [Multivitamin 1 tab PO DAILY 01/18/18 09/29/19 History (formulary)] [place]-3 Fatty Acids/Fish Oil [Fish 1 tab PO DAILY 01/18/18 09/29/19 History Oil 1,000 mg Softgel] Omeprazole [PriLOSEC] 20 mg PO DAILY 01/04/19 09/29/19 History Filgrastim Sndz [Neupogen] 480 mcg SQ SUWE 09/08/19 09/29/19 History Zinc 50 mg PO DAILY 09/20/19 09/29/19 History diphenhydrAMINE HCL [Benadryl] 25 mg PO HS PRN 09/20/19 09/29/19 History Piperacillin-Tazobactam [Zosyn] 3.375 gm IVPB Q8H #9 vial 09/23/19 09/29/19 Rx Acetaminophen/Diphenhydramine 1 tab PO HS PRN 09/29/19 09/29/19 History [Tylenol PM 500-25mg] Guaifen/Phenyleph/Acetaminophn 1 tab PO DAILY PRN 09/29/19 09/29/19 History [Tylenol Sinus Severe Caplet] Allergies Allergy/AdvReac Type Severity Reaction Status Date / Time cephalexin [From Keflex] Allergy Rash/Hives Verified 09/29/19 10:38 Physical Exam Vitals: Vital Signs Temp Pulse Resp BP Pulse Ox 09/29/19 15:42 98.3 F 77 19 118/73 09/29/19 12:26 97.4 F L 77 18 137/87 97 09/29/19 12:25 98 F 89 18 140/85 99 09/29/19 12:24 98 F 89 18 140/85 09/29/19 11:56 98 F 75 18 140/85 99 09/29/19 11:46 97.9 F 73 18 122/90 96 09/29/19 11:12 80 16 115/77 97 09/29/19 11:00 73 16 107/68 96 09/29/19 10:30 74 16 107/69 96 09/29/19 09:56 75 09/29/19 09:32 97.4 F L 81 18 109/75 100 Intake and Output 09/29/19 09/29/19 09/29/19 06:59 14:59 22:59 Intake Total 0 310 Balance 0 310 Intake: Blood Product 0 310 Rc As-1 Unit 0 310 [id number] Other: Weight 86.183 kg Results CBC & Chem 7: 09/29/19 10:01 09/29/19 10:01 Labs: Abnormal Lab Results - Last 24 Hours (Table) 09/29/19 09/29/19 09/29/19 Range/Units 10:01 10:01 10:01 WBC 1.2 L* (3.8-10.6) k/uL RBC 2.27 L (4.30-5.90) m/uL Hgb 7.0 L (13.0-17.5) gm/dL Hct 21.7 L (39.0-53.0) % RDW 18.1 H (11.5-15.5) % Plt Count 147 L (150-450) k/uL Neutrophils # (Manual) 0.70 L (1.3-7.7) k/uL Lymphocytes # (Manual) 0.25 L (1.0-4.8) k/uL Metamyelocytes # (Man) 0.05 H (0) k/uL Myelocytes # (Manual) 0.02 H (0) k/uL Potassium 2.5 L* (3.5-5.1) mmol/L Calcium 8.2 L (8.4-10.2) mg/dL Crossmatch See Detail Thrombosis Risk Factor Assmnt - Choose All That Apply Any of the Below Risk Factors Present?: Yes Each Factor Represents 1 point: Serious lung disease incl. pneumonia (< 1month) Other Risk Factors: Yes Each Risk Factor Represents 2 Points: Age 61-74 years, Malignancy Other congenital or acquired thrombophilia - If yes, enter type in comment: No Thrombosis Risk Factor Assessment Total Risk Factor Score: 5 Thrombosis Risk Factor Assessment Level: High Risk
[2019-09-29 17:19] LABS: Reticulocyte % 1.6 % (0.5-2.0)
[2019-09-29] MEDS: FILGRASTIM-SNDZ 480 MCG/0.8 ML SYRINGE SQ SCH (18:43)
[2019-09-29] MEDS: PANTOPRAZOLE 40 MG/10 ML VIAL IVP SCH (20:07)
--- NOTE | 2019-09-29 23:41 | CONS ---
CONSULTATION DATE OF DICTATION: 09/29/2019 REASON FOR CONSULTATION: Severe anemia. HISTORY OF PRESENT ILLNESS: The patient is a 68-year-old pleasant white male with longstanding history of mantle- cell non-Hodgkin's lymphoma initially diagnosed in 2010. The patient was treated with chemotherapy approximately 3 years ago. He was recently admitted to the hospital 2 weeks ago for severe anemia as well as febrile neutropenia. He was treated with antibiotics at that time. He was also noted to have anemia, and as part of workup he did have a small bowel capsule endoscopy done by Dr. Horan which was completely normal. He also had an EGD and colonoscopy done by Dr. Horan in December of this year which showed mild gastritis and small internal hemorrhoids. The patient denies any GI symptoms. He reports no abdominal pain. No nausea, vomiting. He does complain of occasional epistaxis. He was diagnosed with pancytopenia since December of this year. He had bone marrow biopsy done at [facility], and according to the patient it was within normal limits. He follows with Dr. Bryant on an outpatient basis. PAST MEDICAL HISTORY: His past medical history is significant for mantle-cell non-Hodgkin's lymphoma diagnosed in 2010, status post chemotherapy, ongoing chemotherapy until early part of this year, hypertension, hyperlipidemia, anemia requiring blood transfusions/pancytopenia. SOCIAL HISTORY: No smoking. No alcohol use. FAMILY HISTORY: Mother had some neurological disorder. Father had CVA and TIA. MEDICATIONS: Medications at home include: 1. Vitamin C. 2. Multivitamin. 3. Prilosec. 4. Neupogen. 5. Benadryl. 6. Tylenol. 7. [place]-3 fish oil. ALLERGIES: KEFLEX. REVIEW OF SYSTEMS: CARDIOPULMONARY: He denies any chest pain or shortness of breath. GENITOURINARY: No dysuria hematuria. MUSCULOSKELETAL: Unremarkable. SKIN: Unremarkable. ENDOCRINE: Unremarkable. PSYCHIATRIC: Unremarkable. NEUROLOGY: Unremarkable. ENT/VISION: Unremarkable. CONSTITUTIONAL: No recent weight loss. No fever, chills, night sweats. PHYSICAL EXAMINATION: He appears comfortable. No apparent distress. VITAL SIGNS: Stable. Blood pressure is 118/73, pulse rate 77, temperature 98.3. HEENT examination unremarkable. Conjunctivae pink. Sclerae anicteric. Oral cavity no lesions. NECK: No JVD or lymph node enlargement. CHEST: Clear to auscultation. HEART: Regular rate and rhythm. ABDOMEN: Soft. Bowel sounds are positive. No organomegaly. EXTREMITIES: No pedal edema. SKIN: No rashes. NEUROLOGIC: He is alert and oriented x3. No focal deficits. LABS: WBC 1.2, hemoglobin 7, platelets 147. AST, ALT, T-bilirubin and alkaline phosphatase are within normal limits. Stool occult blood was positive. IMPRESSION: 1. Pancytopenia, for which he follows with Dr. Bryant on a close basis. 2. Mantle-cell non-Hodgkin's lymphoma diagnosed several years ago. Underwent chemotherapy until early part of this year. 3. Symptomatic anemia with intermittent gastrointestinal bleed and Hemoccult-positive stool. He had extensive evaluation by Dr. Horan, including EGD and colonoscopy in December of this year that showed gastritis and small internal hemorrhoids. A small bowel capsule endoscopy done 2 weeks ago was unremarkable. Most likely anemia is multifactorial in etiology, partly related to bone marrow pathology. Clinically no evidence of active ongoing bleeding. RECOMMENDATIONS: 1. No plans for any endoscopic intervention at the present time. 2. Repeat CBC in the morning and transfuse if needed. 3. Will follow with you closely during his hospital stay. Thank you for this consultation. MMODL / IJN: [id number] /
[2019-09-30 01:14] LABS: % Iron Saturation 24.55 (15.00-50.00); Iron 55 ug/dL (65-175); Total Iron Binding Capacity 224 ug/dL (228-460)
[2019-09-30 01:50] LABS: Ferritin 534.8 ng/mL (22.0-322.0); Folate, Serum >24.0 ng/mL
[2019-09-30 06:13] LABS: Anisocytosis Slight; HCT 23.2 % (39.0-53.0); HGB 7.6 gm/dL (13.0-17.5); Hypochromasia Slight; MCH 30.7 pg (25.0-35.0); MCHC 32.9 g/dL (31.0-37.0); MCV 93.4 fL (80.0-100.0); Macrocytosis Slight; Mean Platelet Volume 7.3; Platelet Count 137 k/uL (150-450); Poikilocytosis Moderate; RBC 2.49 m/uL (4.30-5.90); RDW 18.8 % (11.5-15.5); WBC 1.7 k/uL (3.8-10.6)
[2019-09-30] MEDS: PANTOPRAZOLE 40 MG/10 ML VIAL IVP SCH (08:48)
[2019-09-30] MEDS: FILGRASTIM-SNDZ 480 MCG/0.8 ML SYRINGE SQ SCH (08:48)
[2019-09-30] MEDS ORDERED: Potassium Replacement Protocol 1 EACH MISC MISCELLANE PRN (08:51)
[2019-09-30] MEDS ORDERED: NON FORMULARY DRUG (Omeprazole 20 MG) PO SCH (09:00)
[2019-09-30] MEDS ORDERED: ASCORBIC ACID 500 MG TAB PO SCH (09:00)
[2019-09-30] MEDS ORDERED: ZINC SULFATE 220 MG CAP PO SCH (09:00)
[2019-09-30] MEDS ORDERED: MULTIVITAMINS, THERA 1 EACH TAB PO SCH (09:00)
[2019-09-30] MEDS ORDERED: POTASSIUM CHLORIDE 20 MEQ in WATER FOR INJECTION 1 100ML.BAG IVPB SCH (09:00)
[2019-09-30] MEDS: POTASSIUM CHLORIDE ER 20 MEQ TAB.ER PO SCH ×2 (10:43→12:16)
[2019-09-30] MEDS ORDERED: POTASSIUM CHLORIDE ER 20 MEQ TAB.ER PO STA ×2 (13:12→15:52)
[2019-09-30 13:59] VITALS: BP 117/70; PULSE 92; RESP 16; TEMP 97.5
[2019-09-30 14:02] VITALS: BMI 24.8
--- NOTE | 2019-09-30 16:51 | P.CONS ---
History of Present Illness - Reason for Consult Consult date: 09/30/19 pancytopenia Requesting physician: Tony Olivera - Chief Complaint intractable epistaxis - History of Present Illness Seeing Mr. Hilton today for pancytopenia-see below for history-he is currently waiting to be evaluated at [facility] for persistent pancytopenia with unremarkable bone marrow biopsy. He requires twice a week GCSF for his WBC, he is now having progressive decline in his Hgb requiring transfusion. He came to hospital because of intractable epistaxies, his nose is packed, still having occasional dark stool, no other bleeding to report, no fever, vomiting, hemoptysis, unusual cough. History: Mr. Hilton is a very pleasant patient of Dr. Bryant, been followed for many years, initially diagnosed with mantle cell lymphoma in 2010, did his follow-up as prescribed and remained on observation for quite some time. Started having night sweats that were progressively worsening, unintentional weight loss and lymphadenopathy in 2012, treated with single agent Rituxan with good tolerance, PET October 2013 showed everything improved, all symptoms resolved. Over the next few years patient would have symptoms and be treated with Rituxan weekly 4 doses. With resolution of symptoms and negative PET scan findings. In 2016 Rituxan alone was not producing the results it had in the past so bendamustine was added. Patient completed 6 cycles. He had Rituxan in early and late 2017. Starting in November 2018 though, patient has had recurrent infections been treated with abx, antifungals and chronic antiviral medications and decreased WBC counts requiring G-CSF twice a week. Had a GI bleed and January 2019. He has not had any evidence on imaging of recurrent lymphoma. Bone marrow 04/03 neg for lymphoma. He was worked up autoimmune/connective tissue disease-all neg. Several hosptializations recently, treated for pneumonia, GI bleed with capsule endo negative. Review of Systems 14 point review of systems is as stated in HPI Past Medical History Past Medical History: Cancer, GI Bleed, Hearing Disorder / Deafness, Hyperlipidemia, Pneumonia Additional Past Medical History / Comment(s): Pt admitted 09/09/19 [facility] with septic shock d/t pneumonia/acute respiratory failure/acute kidney injury then admitted again to [facility] on 09/22/19 with acute FI bleed/acute blood loss anemia. Other hx: 2010 Mantle cell nonhodgkins lymphoma treated with chemo/retuxin and has been in remission since December 2018, pancytopenia/neutropenia, lower GI bleeds, pneumonias and chemical pneumonia, recent bilateral leg/feet edema, deaf in L ear, occasional back pain, DDD, PVD, past difficulty emptying bladder but no longer an issue, pt has been on a statin for mild elevated cholesterol but no longer taking. History of Any Multi-Drug Resistant Organisms: None Reported Past Surgical History: Orthopedic Surgery Additional Past Surgical History / Comment(s): R supraclavicular lymph node biopsy,bone marrow biopsies, L upper arm midline for home antibiotic infusions, benign spot removed from tongue, cystoscopy, sinus surgery, r rotator cuff repair, L vein stripping twice, EGDs, colonoscopies, small bowel capsule endoscopy Past Anesthesia/Blood Transfusion Reactions: No Reported Reaction Smoking Status: Never smoker - Past Family History Mother Family Medical History: Dementia, Musculoskeletal Disorder, Neurologic Disorder Additional Family Medical History / Comment(s): Parkinsons Brother(s) Additional Family Medical History / Comment(s): 2 out of 3 brothers have had CT Father Family Medical History: CVA/TIA Additional Family Medical History / Comment(s): Father had a brain bleed. Medications and Allergies Home Medications Medication Instructions Recorded Confirmed Type Ascorbic Acid [Vitamin C] 1,000 mg PO DAILY 01/18/18 09/29/19 History Multivitamins, Thera [Multivitamin 1 tab PO DAILY 01/18/18 09/29/19 History (formulary)] [place]-3 Fatty Acids/Fish Oil [Fish 1 tab PO DAILY 01/18/18 09/29/19 History Oil 1,000 mg Softgel] Omeprazole [PriLOSEC] 20 mg PO DAILY 01/04/19 09/29/19 History Zinc 50 mg PO DAILY 09/20/19 09/29/19 History diphenhydrAMINE HCL [Benadryl] 25 mg PO HS PRN 09/20/19 09/29/19 History Acetaminophen/Diphenhydramine 1 tab PO HS PRN 09/29/19 09/29/19 History [Tylenol PM 500-25mg] Guaifen/Phenyleph/Acetaminophn 1 tab PO DAILY PRN 09/29/19 09/29/19 History [Tylenol Sinus Severe Caplet] Azithromycin [Zithromax Tri-Agustin] 500 mg PO DAILY 3 Days #3 tab 09/30/19 Rx Filgrastim Sndz [Neupogen] 480 mcg SQ MOWEFR #0 09/30/19 09/29/19 Rx Allergies Allergy/AdvReac Type Severity Reaction Status Date / Time cephalexin [From Keflex] Allergy Rash/Hives Verified 09/29/19 10:38 Physical Exam Vitals: Vital Signs Temp Pulse Pulse Resp BP BP Pulse Ox 09/30/19 08:00 98.2 F 96 22 119/75 93 L 09/30/19 04:00 98.2 F 92 18 126/67 96 09/29/19 23:23 90 18 125/64 95 09/29/19 20:00 97 F L 18 132/72 09/29/19 16:00 96.7 F L 16 134/75 93 L 09/29/19 15:42 98.3 F 77 19 118/73 Intake and Output 09/29/19 09/30/19 09/30/19 22:59 06:59 14:59 Intake Total 610 360 Output Total 325 1500 Balance 285 -1500 360 Intake: Intake, IV Titration 300 Amount Potassium Chloride 20 meq 300 In Water For Injection 1 100ml.bag @ 50 mls/hr IVPB Q2H [facility] Rx#: [id number] Oral 360 Blood Product 310 Rc As-1 Unit 310 [id number] Output: Urine 325 1500 Other: Weight 83.2 kg - Constitutional General appearance: average body habitus, cooperative, no acute distress - EENT Eyes: anicteric sclerae, EOMI ENT: hearing grossly normal, normal oropharynx - Neck Neck: no lymphadenopathy - Respiratory Respiratory: bilateral: CTA - Cardiovascular Rhythm: regular Heart sounds: normal: S1, S2 Abnormal Heart Sounds: no systolic murmur, no diastolic murmur, no rub, no S3 Gallop, no S4 Gallop, no click, no other leg Peripheral Edema: bilateral: Trace - Gastrointestinal General gastrointestinal: no absent bowel sounds, no decreased bowel sounds, no distended, no hepatomegaly, no hyperactive bowel sounds, normal bowel sounds, no organomegaly, no rigid, no scaphoid, soft, no splenomegaly, no tenderness, no umbilical hernia, no ventral hernia - Integumentary Integumentary: pale - Neurologic Neurologic: CNII-XII intact - Musculoskeletal Musculoskeletal: generalized weakness - Psychiatric Psychiatric: A&O x's 3, appropriate affect, intact judgment & insight Results CBC & Chem 7: 09/30/19 05:07 09/30/19 14:51 Labs: Abnormal Lab Results - Last 24 Hours (Table) 09/29/19 09/29/19 09/30/19 Range/Units 10:01 10:01 05:07 WBC 1.7 L (3.8-10.6) k/uL RBC 2.49 L (4.30-5.90) m/uL Hgb 7.6 L (13.0-17.5) gm/dL Hct 23.2 L (39.0-53.0) % RDW 18.8 H (11.5-15.5) % Plt Count 137 L (150-450) k/uL Potassium (3.5-5.1) mmol/L Iron 55 L (65-175) ug/dL TIBC 224 L (228-460) ug/dL Ferritin 534.8 H (22.0-322.0) ng/mL Vitamin B12 2936.0 H (200.0-944.0) pg/mL Crossmatch See Detail 09/30/19 Range/Units 05:07 WBC (3.8-10.6) k/uL RBC (4.30-5.90) m/uL Hgb (13.0-17.5) gm/dL Hct (39.0-53.0) % RDW (11.5-15.5) % Plt Count (150-450) k/uL Potassium 2.9 L (3.5-5.1) mmol/L Iron (65-175) ug/dL TIBC (228-460) ug/dL Ferritin (22.0-322.0) ng/mL Vitamin B12 (200.0-944.0) pg/mL Crossmatch Assessment and Plan (1) Acute blood loss anemia Narrative/Plan: Pt was transfused. Feel there is also a component of marrow failure contribut ing to anemia. Current Visit: No Status: Acute Priority: High Code(s): D62 - ACUTE POSTHEMORRHAGIC ANEMIA SNOMED Code(s): 480662156 (2) History of non-Hodgkin's lymphoma Current Visit: No Status: Acute Code(s): Z85.72 - PERSONAL HISTORY OF NON- HODGKIN LYMPHOMAS SNOMED Code(s): 459880266 (3) Pancytopenia Narrative/Plan: Increase GCSF to QOD-new Rx sent from office Transfuse with PRBCs for Hgb<7 Plt adequate at this time Current Visit: No Status: Acute Code(s): D61.818 - OTHER PANCYTOPENIA SNOMED Code(s): 611210650 Plan: Message sent to Dr. Bryant, office staff informed of needing CBC next Thursday and GCSF frequency change with new Rx being sent. Office will call pt attests: I have performed H&P, developed impression adn plan of care, discussed with dictator, agree with documentation, documented as a scribe
--- NOTE | 2019-09-30 17:08 | CONS ---
CONSULTATION DATE OF CONSULTATION: 09/30/2019 REASON FOR CONSULTATION: Epistaxis. HISTORY OF PRESENT ILLNESS: The patient is a very pleasant 68-year-old male who was admitted via [facility] Room for evaluation of an extremely low hemoglobin of 6.9. The patient has a history of non-Hodgkin's lymphoma and is currently noted to be in remission. Lab tests which were done in his oncologist's office revealed a low hemoglobin and the patient was sent over to the emergency room. The patient has a history of previous hospitalizations for rectal bleed/GI bleeds. The source of his low hemoglobin has not been fully explained and is currently under investigation. Three days prior to his presenting to the emergency room, the patient's and the patient state that he had experienced intermittent nosebleeds which at times were quite severe, and they were not able to stop them easily by the usual methods at home. The bleeding started on the left side, but at times came out both sides of the patient's nose and even his mouth. The patient tried packing his nose with gauze at home unsuccessfully. At the time that he was seen in the emergency room, the emergency room physician placed a Merocel nasal tampon in the left naris. The patient has not had any significant bleeding since that time. While at home, the patient was apparently receiving intravenous Zosyn through a heparin lock which was flushed several times daily with heparin. Most likely this is the reason why the bleeding was not able to be stopped. The heparin has been discontinued. The patient was receiving the antibiotic Zosyn for a recent bout of pneumonia. PAST MEDICAL HISTORY: Past medical history reveals the patient has a known ALLERGY to KEFLEX. His current home medications include Benadryl, Neupogen, Prilosec, zinc, multiple vitamins and fish oil capsules. The patient does not have a history of hypertension, asthma or diabetes mellitus. REVIEW OF SYSTEMS: Review of systems is positive with respect to the patient's known non-Hodgkin's lymphoma which is currently in remission. Also, the patient has a history of GERD, gastroesophageal reflux disorder. Otherwise review of systems is noncontributory. PHYSICAL EXAMINATION: This patient is a very pleasant 68-year-old male who was alert, cooperative and well oriented to time and place. HEENT EXAMINATION: The patient is normocephalic. Tympanic membranes are normal. Middle ear spaces are free of any fluid or infection. Pupils are equal, round and reactive to light and accommodation. Conjunctivae are clear bilaterally. Examination of the nose is limited because the patient has a nasal tampon in the left nostril, which at this time appears to not show any evidence of active bleeding. Examination of the right naris reveals no evidence any bleeding in the right nasal chamber. (It is to be noted that the patient has had previous endoscopic sinus surgery). The nasal septum is still slightly deviated despite septal surgery. Examination of the oropharynx does not reveal any evidence of any bleeding down the posterior pharyngeal wall and otherwise examination of the oropharynx is unremarkable. Palpation of the neck, cranial nerves 2 through 12 and the remainder of the head and neck exam is unremarkable. CHEST/CARDIOVASCULAR: Lung garnica are clear. The patient is in regular sinus rhythm. S1 and S2 are present without evidence of any murmurs, S3s or S4. Peripheral pulses are bilaterally symmetrical. ABDOMEN: There is no evidence of any masses, megaly or tenderness. Abdomen is soft. Remainder of physical exam is essentially unremarkable. IMPRESSION: Left anterior posterior epistaxis, currently well controlled with a Merocel nasal tampon. PLAN: I generally like to leave these nasal tampons in place for at least 5 to 6 days to allow the offending blood vessels to thrombose. If these packings are removed prematurely, that is to say within 2 or 3 days, the bleeding will probably resume and another nasal tampon or a nasal balloon will have to be inserted. These procedures are quite painful, and in addition to this they tend to open up additional bleeding sites. Therefore, this is the reasoning behind leaving the packing in for 5 to 6 days. This was discussed with the patient. He is accepting of this, as is his . I have advised him to call my office on Thursday10/03/2019 and advise my office of his nasal packing. I have also advised him to request that he be seen on Thursday in my office, and at that time I will remove the packing and then begin treatment for any bleeding areas. If possible, we try to avoid cauterizing the area because again this tends to just traumatize the nasal mucosa and create potential bleeding sites. At the time of discharge I have written a prescription for the patient to have for Zithromax Tri-Agustin 500 mg tablets. The purpose of this antibiotic is to prevent any sinus infection that may result from blood that has most likely drained into the left maxillary sinus, because of the packing and because of his bleeding episodes. At the present time, the patient does not feel the packing is uncomfortable. At the time of the patient's office visit, I will also discuss ways that he can prevent possible future nosebleeds during the winter months, during which time nosebleeds tend to be very common because of the low humidity. All of the patient's questions as well as his 's questions were answered. I want to take this opportunity to thank you for allowing me to assist you in the care of your patient. If I could be of any further assistance, please feel free to call my office. CANDY / SOFIA: [id number] / SIMONA
--- NOTE | 2019-09-30 19:25 | P.DS ---
Providers Date of admission: 09/29/19 11:56 Expected date of discharge: 09/30/19 Attending physician: Deangelo Chance Consults: 09/29/19 11:41 Consult Physician Routine Consulting Provider: Tomy Lawson Consult Reason/Comments: pancytopenia Do you want consulting provider notified?: Yes 09/29/19 11:42 Consult Physician Routine Consulting Provider: Jet Horan Consult Reason/Comments: gi bleed Do you want consulting provider notified?: Yes 09/29/19 11:43 Consult Physician Routine Consulting Provider: Jairo Farfan Consult Reason/Comments: nose bleed Do you want consulting provider notified?: Yes Primary care physician: [facility] Course: Chief Complaint: low hemoglobin History of presenting complaint: This is a pleasant 68-year-old gentleman with long history of mantle cell non- Hodgkin's lymphoma. Initially it was low-grade then progressed . Patient was treated with course of to 3 years including Retuxan. Later treatment course was complicated by ulcers and mucous membrane including the mouth with fever. Recently in the hospital from September 09 through September 16. Admitted to the ICU with septic shock, Neutropenic colitis, acute hypoxic respiratory failure, pancytopenia, acute kidney injury, oral ulcers . Treated with IV vancomycin and cefepime. Doing better by discharge. Was discharged to [facility]. Admitted again to the hospital from September 20 through September 23. Head fresh bleeding per rectum. Had a small bowel capsule study done. It was supposedly negative In December of this year patient was similar episode of bleeding per rectum. EGD was unremarkable showed mild gastritis. Colonoscopy was unremarkable. This was done by Dr. Cornell. He has also been completing co urse of IV Zosyn. With subcu heparin. Patient presents with a large amount of epistaxis. Weak tired rundown. Dizzy lightheaded. Had 2 episodes has the described this is a very large amount. 2 days ago also patient had some dark stool with little bit of fresh blood in it. In the ER nasal packing was carried out. admission hemoglobin was 7. Did receive a unit of blood. Did come up to 7.6. Seen by ENT. Dr. Farfan. Follow up in the outpatient. Today care was discussed patient and the . Questions were answered. Patient overall feeling better. Discussion and discharge planning more than 35 minutes consultation: Dr. Jairo Farfan from ENT Dr. Lawson from oncology Dr. Nitin Chao from GI Physical examination: VITAL SIGNS: 97.5, 92, 16, 11 7/70, 93% room air GENERAL: laying in bed, comfortable EYES: Pupils equal. Conjunctiva pale HEENT: External appearance of nose and ears normal, oral cavity grossly normal. Hearing aid. Nasal packing NECK: JVD unable to assess; masses not palpable. HEART: First and second heart sounds are normal; no edema. LUNGS: Respiratory rate increased, decreased breath sounds ABDOMEN: Soft, nontender, liver spleen not palpable, no masses palpable. : Alert and oriented x3; mood and affect normal. INVESTIGATIONS, reviewed in the clinical context: White count 1.7 hemoglobin 7.6 platelets 137 potassium 3.1 Previous testing White count 1.2 hemoglobin 7 platelet 147 Assessment: -Acute severe epistaxis, possibly complicated by malfunctioning platelets and patient getting subcu heparin -Pancytopenia -Acute blood loss anemia, symptomatic, secondary to severe epistaxis -Mantle cell type non-Hodgkin's lymphoma currently in remission since December of this year -Hypoalbuminemia from mild protein calorie malnutrition -deaf left ear -Severe hypokalemia disposition: Home Patient Condition at Discharge: Stable Plan - Discharge Summary Discharge Rx Participant: No New Discharge Prescriptions: New Azithromycin [Zithromax Tri-Agustin] 500 mg PO DAILY 3 Days #3 tab Continue Multivitamins, Thera [Multivitamin (formulary)] 1 tab PO DAILY Ascorbic Acid [Vitamin C] 1,000 mg PO DAILY Omeprazole [PriLOSEC] 20 mg PO DAILY diphenhydrAMINE HCL [Benadryl] 25 mg PO HS PRN PRN Reason: Allergy Symptoms Zinc 50 mg PO DAILY Acetaminophen/Diphenhydramine [Tylenol PM 500-25mg] 1 tab PO HS PRN PRN Reason: Pain Guaifen/Phenyleph/Acetaminophn [Tylenol Sinus Severe Caplet] 1 tab PO DAILY PRN PRN Reason: Sinus Symptoms Changed Filgrastim Sndz [Neupogen] 480 mcg SQ MOWEFR #0 Discontinued Piperacillin-Tazobactam [Zosyn] 3.375 gm IVPB Q8H #9 vial No Action [place]-3 Fatty Acids/Fish Oil [Fish Oil 1,000 mg Softgel] 1 tab PO DAILY Discharge Medication List Ascorbic Acid [Vitamin C] 1,000 mg PO DAILY 01/18/18 [History] Multivitamins, Thera [Multivitamin (formulary)] 1 tab PO DAILY 01/18/18 [History] [place]-3 Fatty Acids/Fish Oil [Fish Oil 1,000 mg Softgel] 1 tab PO DAILY 01/18/18 [History] Omeprazole [PriLOSEC] 20 mg PO DAILY 01/04/19 [History] Zinc 50 mg PO DAILY 09/20/19 [History] diphenhydrAMINE HCL [Benadryl] 25 mg PO HS PRN 09/20/19 [History] Acetaminophen/Diphenhydramine [Tylenol PM 500-25mg] 1 tab PO HS PRN 09/29/19 [History] Guaifen/Phenyleph/Acetaminophn [Tylenol Sinus Severe Caplet] 1 tab PO DAILY PRN 09/29/19 [History] Azithromycin [Zithromax Tri-Agustin] 500 mg PO DAILY 3 Days #3 tab 09/30/19 [Rx] Filgrastim Sndz [Neupogen] 480 mcg SQ MOWEFR #0 09/30/19 [Rx] Follow up Appointment(s)/Referral(s): Radha Chao MD [STAFF PHYSICIAN] - Edward Dodd MD [Primary Care Provider] - 3 Days () Jairo Farfan MD [STAFF PHYSICIAN] - 1 Week (ENT: Please make appointment for Thursday for nose packing removal. Office closed on Fridays, please call Thursday to schedule your nasal packing removal. Do not remove on your own. ) Navneet Bryant MD [STAFF PHYSICIAN] - 11/01/19 9:45 am Ambulatory/Diagnostic Orders: Basic Metabolic Panel [LAB.AMB] Time Frame: 4 Days, Location: None Selected Complete Blood Count w/diff [LAB.AMB] Time Frame: 4 Days, Location: None Selected Patient Instructions/Handouts: Nosebleed (ED), Diet for Stomach Ulcers and Gastritis (ED), Anemia (DC) Activity/Diet/Wound Care/Special Instructions: GI BLEED 1. Take all new medication as directed. 2. Avoid foods that can be irritating to your intestines (See dietary teaching). 3. Avoid motrin (ibuprofen) and aleve (naproxen). These medications can increase your risk of internal bleeding. Tylenol (acetaminophen) is safe to take as long as you do not have any liver disease. 4. Avoid drinking alcohol and smoking, these can also irritate your intestines and increase risk of internal bleeding. 5. Increase activity gradually, do not overexert yourself. Your blood count is lower and your body will need time to recover. Discharge Disposition: HOME SELF-CARE
[2019-10-02] MEDS ORDERED: FILGRASTIM-SNDZ 480 MCG/0.8 ML SYRINGE SQ SCH (09:00)
== END 2019-09-30 16:17 | disposition home or self-care (01) | DRG 150 ==
LOC: EC 09:24 → 3SCARD 11:56
PROVIDERS: ADMIT Hospitalist; ATTEND Hospitalist
PROC: 30233N1 Transfusion of Nonautologous Red Blood Cells into Peripheral Vein, Percutaneous Approach (ICD-10-PCS; principal; 2019-09-29)
DX: R04.0 Epistaxis (principal); J18.9 Pneumonia, unspecified organism; D62 Acute posthemorrhagic anemia; E44.1 Mild protein-calorie malnutrition; D61.818 Other pancytopenia; E87.6 Hypokalemia; I10 Essential (primary) hypertension; K29.70 Gastritis, unspecified, without bleeding; E78.5 Hyperlipidemia, unspecified; K64.8 Other hemorrhoids; M54.9 Dorsalgia, unspecified; I73.9 Peripheral vascular disease, unspecified; H91.92 Unspecified hearing loss, left ear; Z68.24 Body mass index [BMI] 24.0-24.9, adult; Z79.2 Long term (current) use of antibiotics; Z79.899 Other long term (current) drug therapy; Z85.72 Personal history of non-Hodgkin lymphomas; Z92.21 Personal history of antineoplastic chemotherapy; Z98.890 Other specified postprocedural states; Z88.1 Allergy status to other antibiotic agents; Z82.0 Family history of epilepsy and other diseases of the nervous system; Z81.8 Family history of other mental and behavioral disorders; Z82.49 Family history of ischemic heart disease and other diseases of the circulatory system; Z82.3 Family history of stroke; Z82.79 Family history of other congenital malformations, deformations and chromosomal abnormalities
CPT/HCPCS: 36415; 80048; 82272; 82607; 82728; 82746; 83540; 83550; 83735; 84132; 85025; 85027; 85045; 85610; 85730; 86850; 86900; 86901; 86920; 93005; 99285

== ENCOUNTER 2019-10-12 05:54 | Day surgery (SDC) | payer MEDICARE ==
[2019-10-12] MEDS ORDERED: LACTATED RINGERS 1,000 ML IV SCH (06:13)
[2019-10-12] MEDS ORDERED: LIDOCAINE 1% 20 ML VIAL (10MG/ML) FOR IV START INTRADERMA ONE (06:36)
[2019-10-12 06:39] VITALS: TEMP 96.9
[2019-10-12] MEDS ORDERED: MIDAZOLAM 2 MG/2 ML VIAL ONE (07:02)
[2019-10-12] MEDS ORDERED: PROPOFOL 10 MG/ML 20 ML VIAL IV ONE (07:02)
[2019-10-12] MEDS ORDERED: LIDOCAINE 2% INJ 20 MG/ML SQ ONE (07:12)
[2019-10-12 07:43] LABS: Anisocytosis Slight; Basophils # (A) 0.1 k/uL (0-0.2); Basophils % (A) 2 %; Eosinophils # (A) 0.1 k/uL (0-0.7); Eosinophils % (A) 3 %; HCT 25.6 % (39.0-53.0); HGB 8.3 gm/dL (13.0-17.5); Hypochromasia Slight; Lymphocytes # (A) 0.3 k/uL (1.0-4.8); Lymphocytes % (A) 13 %; MCH 30.6 pg (25.0-35.0); MCHC 32.3 g/dL (31.0-37.0); Macrocytosis Slight; Mean Platelet Volume 5.7; Monocytes # (A) 0.2 k/uL (0-1.0); Monocytes % (A) 9 %; Neutrophils # (A) 1.8 k/uL (1.3-7.7); Neutrophils % (A) 71 %; Platelet Count 338 k/uL (150-450); Poikilocytosis Slight; RDW 18.6 % (11.5-15.5); Reticulocyte % 2.1 % (0.5-2.0); WBC 2.6 k/uL (3.8-10.6)
[2019-10-12 07:46] VITALS: BP 130/83; PULSE 74; RESP 18
--- NOTE | 2019-10-12 09:26 | PCN ---
PROCEDURE NOTE DATE OF SERVICE: 10/12/2019 PROCEDURE: Bone marrow aspirate and biopsy. SITE: Right iliac crest. PREOPERATIVE DIAGNOSES: Lymphoma and pancytopenia. POSTOPERATIVE DIAGNOSES: Lymphoma and pancytopenia. ANESTHESIA: Local with IV systemic sedation. DETAILS: Utilizing sterile technique, the skin overlying the right iliac crest was prepared with Betadine and alcohol. After adequate sterile draping, local anesthesia with 1% lidocaine and systemic sedation, A size 11, 4-inch Jamshidi needle was utilized to access the periosteum with ease. A total of 12 mL of aspirate and 4 cm bone core biopsies were obtained. The patient tolerated the procedure very well. There was no immediate procedure related complications. Total blood loss less than 1 mL. RESULTS: Pending. MMODL / IJN: [id number] /
== END 2019-10-12 08:02 | disposition home or self-care (01) ==
LOC: OR 05:54
PROVIDERS: ATTEND Internal Medicine Hematology & Oncology
DX: D64.9 Anemia, unspecified (principal); D72.819 Decreased white blood cell count, unspecified; D72.810 Lymphocytopenia; C85.98 Non-Hodgkin lymphoma, unspecified, lymph nodes of multiple sites; C83.17 Mantle cell lymphoma, spleen; D61.818 Other pancytopenia; H53.9 Unspecified visual disturbance; R53.83 Other fatigue; K92.2 Gastrointestinal hemorrhage, unspecified; R50.9 Fever, unspecified; R63.0 Anorexia; R63.4 Abnormal weight loss; R53.1 Weakness; R51 Headache; E78.5 Hyperlipidemia, unspecified; I10 Essential (primary) hypertension; M15.9 Polyosteoarthritis, unspecified; M54.5 Low back pain; I73.9 Peripheral vascular disease, unspecified; R53.81 Other malaise; K08.89 Other specified disorders of teeth and supporting structures; Z88.1 Allergy status to other antibiotic agents; Z79.899 Other long term (current) drug therapy; Z98.890 Other specified postprocedural states; Z86.19 Personal history of other infectious and parasitic diseases; Z87.09 Personal history of other diseases of the respiratory system
CPT/HCPCS: 85025; 85045; 38222; J2001; J2250; J2704

== ENCOUNTER → 2019-10-27 | Outpatient (CLI) | payer MEDICARE ==
[2019-10-27 14:20] LABS: African American GFR (CKD) >90 (>60 ml/min/1.73 sqM); Blood Urea Nitrogen 15 mg/dL (9-20); Non-African American GFR(CKD) 84 (>60 ml/min/1.73 sqM)
--- NOTE | 2019-10-27 16:57 | CT ---
EXAMINATION TYPE: CT ChestAbdPelvis w con DATE OF EXAM: 10/27/2019 COMPARISON: Prior PET/CT 08/20/2019 HISTORY: Lymphoma, observe for mets. CT DLP: 1813 mGycm Automated exposure control for dose reduction was used. CONTRAST: CT scan of the chest, abdomen and pelvis is performed with Oral Contrast and with IV Contrast, patien t injected with 100 mL of Isovue 300. FINDINGS: LUNGS: The lungs are remarkable for some ill-defined areas of increased attenuation bilaterally, like ly some groundglass opacity, no pleural or pericardial effusion. Some thickening of parenchymal bands within the lungs also noted. Calcified granuloma present at the right lower lobe. There is no pleura l effusion or pneumothorax seen. The tracheobronchial tree is patent. MEDIASTINUM: There are no greater than 1 cm hilar or mediastinal lymph nodes. No pericardial effusi on is seen. Calcified right hilar nodes are present. AORTA: Descending aorta border and aneurysmal as noted on prior exam, proximal descending aorta also borderline ectatic.. OTHER: No additional significant abnormality is seen. LIVER/GB: No significant abnormality is appreciated. PANCREAS: No significant abnormality is seen. SPLEEN: No significant abnormality is seen. ADRENALS: No significant abnormality is seen. KIDNEYS: No significant abnormality is seen. REPRODUCTIVE ORGANS: No gross abnormality seen. BOWEL: No significant abnormality is seen. FREE AIR: No Free Air visible. ASCITES: None seen. RETROPERITONEAL ADENOPATHY: No retroperitoneal adenopathy is seen. LYMPH NODES: No greater than 1 cm abdominal or pelvic lymph nodes are appreciated. URINARY BLADDER: No significant abnormality is seen. PELVIC ADENOPATHY: None visualized. OSSEOUS STRUCTURES: Degenerative disc changes noted in the lower lumbar spine.. IMPRESSION: No evident recurrence. There is some ill-defined increased attenuation, groundglass opaci ty suggesting nonspecific interstitial pneumonitis, correlate for possible hypersensitivity pneumonit is, consider opportunistic infections, chronic interstitial processes, lymphocytic interstitial pneum onitis, respiratory bronchiolitis interstitial lung disease, follow-up suggested.
== END | disposition home or self-care (01) ==
LOC: RADCTMAIN 13:28
PROVIDERS: ATTEND Internal Medicine Hematology & Oncology
DX: C85.98 Non-Hodgkin lymphoma, unspecified, lymph nodes of multiple sites (principal); C83.17 Mantle cell lymphoma, spleen; Z88.1 Allergy status to other antibiotic agents
CPT/HCPCS: 36415; 71260; 74177; 82565; 84520

== ENCOUNTER → 2020-12-11 | Outpatient (CLI) | payer MEDICARE ==
--- NOTE | 2020-12-11 13:31 | CT ---
EXAMINATION TYPE: CT ChestAbdPelvis w con DATE OF EXAM: 12/11/2020 COMPARISON: 12/28/2018 and 08/20/2019 HISTORY: 69-year-old male C83.17, Mantle Cell Lymphoma TECHNIQUE: Contiguous axial scanning of the chest, abdomen, and pelvis performed with IV Contrast, pa tient injected with 100 ml mL of Isovue 300. Delayed images through the kidneys were obtained. Nettles l/sagittal reconstructions performed. CT DLP: 1806 mGycm Automated exposure control for dose reduction was used. FINDINGS: CHEST: Heart normal size without pericardial effusion. Ectatic aortic root at 3.9 cm. Mildly aneurysmal asce nding aorta 4.2 cm. Conventional branching anatomy. Upper descending thoracic aorta ectatic 3.4 cm. Borderline to mildly enlarged caliber to the main right and left pulmonary arteries measuring up to 2 .8 cm may reflect pulmonary arterial hypertension. Nonenlarged right hilar lymph node measuring 7 mm. Stable nonenlarged mediastinal lymph nodes measuri ng up to 7 mm. No increasing thoracic lymphadenopathy. Biapical pleural parenchymal scarring. Some strandy atelectasis at the posterior left base. No consol idation or pleural effusion. The previous groundglass infiltrates have resolved. ABDOMEN: No focal liver lesion or biliary ductal dilatation. Portal venous system is patent. Gallbladder, adrenal glands, left kidney, spleen, and pancreas appear within normal limits. Tiny 5 mm cortical hypodensity anterior mid to lower pole right kidney to small for accurate CT michael cterization, likely tiny cortical cyst. Numerous nonenlarged retroperitoneal left para-aortic lymph nodes are redemonstrated, largest just be low the level of the aortic bifurcation measuring borderline in size at 1.0 cm, axial image 97, uncha nged. A few small right lower quadrant mesenteric lymph nodes are measuring up to 7 mm are nonspecific, pro bably reactive/post inflammatory. Small fatty umbilical hernia. Moderate stool burden. No pericolonic inflammatory change. PELVIS: Bladder is urine distended. There is a left lateral bladder wall diverticulum measuring 1.6 cm redemo nstrated. Prostate gland measures 2.8 cm wide. No abnormal fluid collection in the pelvis or pelvic l ymphadenopathy. BONES: Stable sclerotic focus posterior left iliac bone likely bone island. Advanced degenerative disc disea se lower lumbar spine. Facet arthropathy lower lumbar spine. No osseous destructive process. IMPRESSION: 1. NUMEROUS NONENLARGED RETROPERITONEAL LYMPH NODES IN THE LEFT PARA-AORTIC REGION REMAIN UNCHANGED. THE LARGEST IS BORDERLINE IN SIZE AT 1 CM. NO NEW OR PROGRESSIVE LYMPHADENOPATHY TO SUGGEST PROGRESSI ON. 2. MILD ANEURYSM ASCENDING AORTA 4.2 CM. POSSIBLE UNDERLYING PULMONARY ARTERIAL HYPERTENSION. 3. THE PREVIOUS GROUNDGLASS INFILTRATES SEEN ON 10/27/2019 HAVE RESOLVED.
== END | disposition home or self-care (01) ==
LOC: RADCTMAIN 10:26
PROVIDERS: ATTEND Internal Medicine Hematology & Oncology
DX: C83.17 Mantle cell lymphoma, spleen (principal); C85.90 Non-Hodgkin lymphoma, unspecified, unspecified site; I71.2 Thoracic aortic aneurysm, without rupture; Z88.1 Allergy status to other antibiotic agents; C85.98 Non-Hodgkin lymphoma, unspecified, lymph nodes of multiple sites
CPT/HCPCS: 82565; 84520; 71260; 74177; 36415; Q9967

== ENCOUNTER → 2021-05-07 | Outpatient (CLI) | payer MEDICARE ==
[2021-05-07 15:20] LABS: Basophils # (A) 0.05 X 10*3/uL (0.00-0.10); Eosinophils % (A) 1.9 %; HCT 46.6 % (39.6-50.0); HGB 15.1 g/dL (13.0-17.0); Lymphocytes # (A) 1.47 X 10*3/uL (0.90-5.00); MCH 32.1 pg (27.0-32.0); MCHC 32.4 g/dL (32.0-37.0); MCV 99.1 fL (80.0-97.0); Mean Platelet Volume 8.7 fL (9.5-12.2); Monocytes # (A) 0.49 X 10*3/uL (0.20-1.00); Monocytes % (A) 9.3 %; Neutrophils # (A) 3.13 X 10*3/uL (1.80-7.70); Neutrophils % (A) 59.6 %; Platelet Count 211 X 10*3/uL (140-440); RDW 12.6 % (11.5-14.5); WBC 5.25 X 10*3/uL (4.50-10.00)
[2021-05-07 18:55] LABS: African American GFR (CKD) 79.5 (60.0-200.0); Albumin 4.5 g/dL (3.80-4.90); Albumin/Globulin Ratio 1.73 (1.60-3.17); Anion Gap 10.9 mmol/L (4.00-12.00); BUN/Creat Ratio 16.36 Ratio (12.00-20.00); Calcium 9.3 mg/dL (8.7-10.3); Carbon Dioxide 27.1 mmol/L (21.6-31.8); Chol/HDL Ratio 5.93; Globulin 2.6 g/dL (1.6-3.3); LDL Cholesterol,Calculated 184.4 mg/dL (0.0-131.0); Non-African American GFR(CKD) 68.6 (60.0-200.0); Potassium 4.6 mmol/L (3.5-5.5); Total Bilirubin 0.9 mg/dL (0.3-1.2); Total Protein 7.1 g/dL (6.2-8.2); VLDL Calculation 27.6 mg/dL (5.00-40.00)
== END | disposition home or self-care (01) ==
LOC: LABWHC1 09:27
PROVIDERS: ATTEND Pediatrics
DX: Z00.00 Encounter for general adult medical examination without abnormal findings (principal); E78.5 Hyperlipidemia, unspecified
CPT/HCPCS: 36415; 80053; 80061; 85025

== ENCOUNTER → 2021-12-13 | Outpatient (CLI) | payer MEDICARE ==
--- NOTE | 2021-12-13 15:42 | CT ---
EXAMINATION TYPE: CT ChestAbdPelvis w con DATE OF EXAM: 12/13/2021 COMPARISON: 12/11/2020 HISTORY: 70-year-old male C85.98 Lymphoma, Z03.89 suspect mets Lymphoma, mantle cell. Originally foun d on neck. TECHNIQUE: Contiguous axial scanning of the chest, abdomen, and pelvis performed with IV Contrast, pa tient injected with 100 mL of Isovue M300. Delayed images through the kidneys were obtained. Coronal/ sagittal reconstructions performed. CT DLP: 1016.8 mGycm Automated exposure control for dose reduction was used. FINDINGS: CHEST: Heart normal size without pericardial effusion. LAD coronary artery calcifications are present. Mild aneurysm ascending aorta at 4.2 cm, unchanged from prior. Mild metastatic arch calcifications. C onventional arch vessel branching anatomy. Mildly enlarged caliber to the main right and left pulmonary arteries measuring up to 2.7 and 2.9 cm, respectively, suggesting underlying pulmonary hypertension. Some calcified right hilar lymph nodes suggest sequela of prior granulomatous Scattered prominent but nonenlarged mediastinal lymph nodes measuring up to 8 mm. 7 mm at the right h ilum. However, we note a couple left periaortic lymph nodes now. A new lymph node measuring 5 mm, axial image 45. Just posteriorly measuring 9 mm versus 7 mm, previously. In addition, just below this level, there is no 3.4 x 1.0 cm soft tissue thickening in the posteromed ial left subpleural region, axial image 49. Minimal biapical pleural-parenchymal scarring. No consolidation or pleural effusion. ABDOMEN: Low-attenuation hepatic parenchyma likely fatty infiltration. Portal venous system is patent. No bili chase ductal dilatation. There is breathing motion artifact. Gallbladder, adrenal glands, kidneys, spleen, and pancreas within normal limits. Left para-aortic retroperitoneal nodes measure up to 7 mm. Just below the bifurcation, it measures 1 cm, unchanged. Numerous scattered prominent but nonenlarged mesenteric lymph nodes are relatively unchanged. Small fatty umbilical hernia. No dilated small bowel, free fluid, or free air. Tgao-oi-evdkbddd stool burden particularly in the right side of the abdomen. PELVIS: A 2.0 cm diverticulum along the left lateral aspect of the bladder redemonstrated. Bladder is urine d istended. Prostate gland measures 3.7 cm wide. No abnormal fluid collection or pelvic lymphadenopathy . BONES: Mild degenerative change of the hips and right SI joint. Moderately advanced degenerative disc diseas e L5-S1. Mild degenerative disc disease and anterior endplate spondylosis mid to lower thoracic spine . IMPRESSION: 1. A COUPLE LOWER LEFT PARA-AORTIC LYMPH NODES IN THE THORAX ARE NOW NOTED. A 5 MM NODE HERE IS NEW A ND A 9 MM NODE PREVIOUSLY MEASURED 7 MM. IN ADDITION, THERE IS ADJACENT 3.4 X 1.0 CM SUBPLEURAL SOFT TISSUE THICKENING ALONG THE POSTEROMEDIAL LEFT LUNG WHICH IS NEW. EARLY RECURRENCE IS NOT EXCLUDED. C LOSE FOLLOW-UP RECOMMENDED. 2. THE PREVIOUS LEFT PERIAORTIC LYMPH NODES IN THE RETROPERITONEUM MEASURING UP TO 1 CM ARE UNCHANGED .
== END | disposition home or self-care (01) ==
LOC: RADCTMAIN 11:03
PROVIDERS: ATTEND Internal Medicine Hematology & Oncology
DX: C85.98 Non-Hodgkin lymphoma, unspecified, lymph nodes of multiple sites (principal); R91.8 Other nonspecific abnormal finding of lung field
CPT/HCPCS: 82565; 84520; 71260; 74177; 36415; Q9967 ×2

== ENCOUNTER → 2022-03-28 | Outpatient (CLI) | payer MEDICARE ==
--- NOTE | 2022-03-28 10:32 | CT ---
EXAMINATION TYPE: CT chest w con DATE OF EXAM: 03/28/2022 COMPARISON: 12/13/2021, 12/11/2020 HISTORY: Lymphoma CT DLP: 362.9 mGycm Automated exposure control for dose reduction was used. TECHNIQUE: CT scan of the chest is performed with IV Contrast, patient injected with 100 mL of Isovue 300. MIP Images are created on CT scanner and reviewed. 3D reconstructed images are created on an independent workstation and reviewed. FINDINGS: LUNGS: The lungs are grossly clear, there is no concerning parenchymal mass or nodule identified. T here is no pleural effusion or pneumothorax seen. The tracheobronchial tree is patent. Calcified gra nuloma right lower lobe biapical pleural thickening subcentimeter apical nodularity stable MEDIASTINUM: There are no greater than 1 cm hilar or mediastinal lymph nodes. No pericardial effusi on is seen. Shotty lymphadenopathy within the hilum and mediastinum stable. Coronary artery calcific ation noted. Atherosclerotic change aorta. Aorta measures 4.2 cm in greatest dimension compatible wit h mildly. OTHER: Thyroid nodules are incidentally noted. Hypertrophic and degenerative changes spine. Remains soft tissue thickening along the posterior medial margin subpleural left lower lobe now measuring 3.8 x 1.4 cm and previously measuring 3.4 x 1.0 cm. There is a short axis pathologic lymph node measurin g 1.1 cm in the right celiac chain. Previously measured subcentimeter. IMPRESSION: 1. Stable shotty mediastinal and hilar lymphadenopathy. 2. Subpleural soft tissue thickening or nodule posterior medial left lung base measures 3.8 x 1.4 cm and previously measured 3.4 x 1.0 cm. This was not present on the CT scan of 12/11/2020 Recurrent fabi opathy or mass in the differential diagnosis. 3. There is a mesenteric celiac chain lymph node now measuring short axis of 1.1 cm and previously me asuring subcentimeter short axis. 4 bilateral thyroid nodules. 5. Aneurysmal dilation ascending aorta measuring 4.2 cm in stable.
== END | disposition home or self-care (01) ==
LOC: RADCTMAIN 08:38
PROVIDERS: ATTEND Internal Medicine Hematology & Oncology
DX: C85.98 Non-Hodgkin lymphoma, unspecified, lymph nodes of multiple sites (principal); R91.1 Solitary pulmonary nodule; E04.2 Nontoxic multinodular goiter; I71.2 Thoracic aortic aneurysm, without rupture
CPT/HCPCS: 82565; 84520; 71260; 36415; Q9967

== ENCOUNTER → 2022-09-23 | Outpatient (CLI) | payer MEDICARE ==
--- NOTE | 2022-09-23 12:29 | CT ---
EXAMINATION TYPE: CT chest w con CT DLP: 499 mGycm, Automated exposure control for dose reduction was used. DATE OF EXAM: 09/23/2022 12:13 PM COMPARISON: CT chest 03/28/2022, PET/CT 08/20/2019, chest abdomen pelvis CT 12/05/2021 CLINICAL INDICATION:Male, 71 years old with history of C85.98; , Follow up for lymphoma. TECHNIQUE: Multiple axial images were obtained through the chest. Sagittal and coronal reformats were created for review. Contrast used:100ml mL of Isovue 300 with IV Contrast Oral contrast used: none. FINDINGS: LUNGS/ PLEURA: The lung parenchyma appears unremarkable. AIRWAY: Patent and unremarkable. HEART: Size within normal limits. MEDIASTINUM: Progression of lymphadenopathy compared to most immediate prior. There is enlarging medi astinal lymph nodes. Example includes right low paratracheal measuring 15 mm in short axis, previousl y 8 mm. Prevascular conglomerate lymphadenopathy, previously not enlarged small lymph nodes. Epicardi al fat lymph nodes on the left measuring up to 14 mm and on the right measuring up to 16 mm. Large so ft tissue conglomerate lymphadenopathy in the low mediastinum anterior to the heart measuring 10.8 x 1.6 x 4.1 cm. Conglomerate lymphadenopathy extends along the aorta. VASCULATURE: No aortic aneurysm. MUSCULOSKELETAL: No acute osseous abnormalities SOFT TISSUES/LYMPH NODES: Bilateral thyroid nodules as seen on prior's. There is enlarged left neck s upraclavicular region lymph nodes measure up to 15 mm in short axis. LOWER NECK: No significant findi ngs. UPPER ABDOMEN: Enlarging upper abdominal lymph nodes including multiple near the left adrenal gland m easuring up tor 15 mm in short axis. The spleen is enlarged measuring up to 618.7 cm which is increased from prior. As a slightly lower ce ntral attenuation with peripheral high attenuation. IMPRESSION: 1. Progression of disease with diffuse mediastinal, upper abdominal, along the thoracic aorta and le ft lower neck new enlarged lymph nodes. Findings have worsened since 03/28/2022. 2. New splenomegaly concerning for splenic involvement of patient's known lymphoma.
== END | disposition home or self-care (01) ==
LOC: RADCTMAIN 10:49
PROVIDERS: ATTEND Internal Medicine Hematology & Oncology
DX: C85.98 Non-Hodgkin lymphoma, unspecified, lymph nodes of multiple sites (principal)
CPT/HCPCS: 82565; 84520; 71260; 36415; Q9967

== ENCOUNTER 2022-11-25 09:50 | Day surgery (SDC) | payer MEDICARE ==
[~2022-11-25 09:50] MED LIST changes: +ACETAMINOPHEN TAB 500 MG TAB PO PRN; +DEXAMETHASONE SOD PHOSPHATE 4 MG/ML 1 ML VIAL IV ONE; +HEPARIN SODIUM,PORCINE/PF 5,000 UNIT/0.5 ML SYRINGE SQ PRN; +HYDROmorphone 0.5 MG/0.5 ML SYRINGE IVP PRN; +LIDOCAINE 1% (10MG/ML) FOR IV START INTRADERMA PRN; +MIDAZOLAM 2 MG/2 ML VIAL IV PRN; +ONDANSETRON 4 MG/2 ML VIAL IVP ONE; +Pre Op ABX Message 1 EACH MISC MISCELLANE ONE
[2022-11-25] MEDS ORDERED: SUCCINYLCHOLINE CHLORIDE 200 MG/10 ML VIAL IV ONE (12:21)
[2022-11-25] MEDS ORDERED: SODIUM CHLORIDE 0.9% 100 ML BAG ONE (12:21)
[2022-11-25] MEDS ORDERED: PHENYLEPHRINE-0.9% NACL SYG 1,000 MCG/10 ML SYRINGE ONE (12:21)
[2022-11-25] MEDS ORDERED: LIDOCAINE 4% LTA KIT (4 ML) TOPICAL ONE (12:21)
[2022-11-25] MEDS ORDERED: ceFAZolin 1,000 MG VIAL ONE (12:21)
[2022-11-25] MEDS ORDERED: LIDOCAINE 2% INJ 20 MG/ML (2 ML VIAL) ONE (12:21)
[2022-11-25] MEDS ORDERED: MIDAZOLAM 2 MG/2 ML VIAL ONE (12:21)
[2022-11-25] MEDS ORDERED: PROPOFOL 10 MG/ML 20 ML VIAL IV ONE (12:21)
[2022-11-25] MEDS ORDERED: fentaNYL (PF) 50 MCG/ML 2 ML AMP ONE (12:21)
[2022-11-25] MEDS ORDERED: BUPIVACAIN-EPI 0.25%-1:200,000 30 ML VIAL SQ ONE (12:26)
[2022-11-25] MEDS ORDERED: ceFAZolin 1,000 MG VIAL IVPB ONE (12:45)
[2022-11-25] MEDS ORDERED: traMADol 50 MG TAB PO PRN (13:01)
[2022-11-25] MEDS ORDERED: NALOXONE 0.4 MG/ML 1 ML VIAL IV PRN (13:01)
--- NOTE | 2022-11-25 13:07 | P.OP ---
Date of Procedure: 11/25/22 Procedure(s) Performed: PREOPERATIVE DIAGNOSIS: Right axillary lymphadenopathy POSTOPERATIVE DIAGNOSIS: Same PROCEDURE: Right axillary lymph node biopsy SURGEON: Esthela EBL: 5 mL ANESTHESIA: Gen. COMPLICATIONS: None OPERATIVE PROCEDURE: Patient placed in the supine position. The right axilla was prepped and draped sterilely. A small curvilinear incision was made using the scalpel. The subcutaneous tissues were divided using electrocautery. Small vessels and lymphatics were clipped. The palpable node measuring 27 m in size was excised and sent to pathology as a fresh specimen. No bleeding was seen. The subcutaneous tissues were closed using 3-0 Vicryl sutures. The skin was closed using a running 4-0 Monocryl suture. Skin glue was then applied. DISPOSITION: Stable to recovery room
[2022-11-25 13:18] VITALS: TEMP 97.6
[2022-11-25 13:35] VITALS: RESP 16
[2022-11-25 15:12] VITALS: BP 119/77; PULSE 67
== END 2022-11-25 15:18 | disposition home or self-care (01) ==
LOC: OR 09:50
PROVIDERS: ATTEND Surgery
DX: R59.1 Generalized enlarged lymph nodes (principal); I10 Essential (primary) hypertension; E78.5 Hyperlipidemia, unspecified; M19.90 Unspecified osteoarthritis, unspecified site; F32.A Depression, unspecified; K21.9 Gastro-esophageal reflux disease without esophagitis; Z88.1 Allergy status to other antibiotic agents; Z79.899 Other long term (current) drug therapy
CPT/HCPCS: 38500; 88305; 88184; 88185; 88342; 88341; J2250; J0330; J1100; J2405; J0690; J3010; J2370; J2704; J1170; J2001

== ENCOUNTER → 2023-02-18 | Outpatient (CLI) | payer MEDICARE ==
--- NOTE | 2023-02-18 15:09 | CT ---
EXAMINATION TYPE: CT iac wo con DATE OF EXAM: 02/18/2023 COMPARISON: CT brain 01/06/2023 HISTORY: Cholesteatoma, mastoiditis, L > R hearing loss CT DLP: 236 mGycm Automated exposure control for dose reduction was used. Contrast: None Technique: Axial images 1 mm thick sections. Reconstructed images in the coronal plane. FINDINGS: Bilateral acute mastoiditis is present with fluid within the bilateral mastoid air cells. This is gre ater on the right than the left. There is some mucosal thickening within ethmoid air cells. Petrous ridges are preserved. Semicircular canals are normal. Cochlea are normal. Internal auditory c anals appear normal without expansion or erosion. Middle ears appear clear. Incus and malleus have normal orientation bilaterally. Scutum appears normal. Prior soft tissue on th e right petrous ridge not currently evident Cerebellar pontine angle is clear. No discrete abnormality within the cerebellar pontine angle. Tempo ral bones appear within normal limits. COMPARISON: Prior soft tissue at the level of the tympanic membrane is not identified on current exam ination. IMPRESSION: 1. NO SUSPICIOUS ABNORMALITY TO SUGGEST CHOLESTEATOMA WITHIN THE EAR CANAL.
== END | disposition home or self-care (01) ==
LOC: RADCTMAIN 10:35
PROVIDERS: ATTEND Otolaryngology
DX: H71.91 Unspecified cholesteatoma, right ear (principal); H70.91 Unspecified mastoiditis, right ear
CPT/HCPCS: 70480

== ENCOUNTER → 2023-05-04 | Outpatient (CLI) | payer MEDICARE ==
--- NOTE | 2023-05-05 10:21 | MR ---
EXAMINATION TYPE: MR brain and iac wo/w con DATE OF EXAM: 05/04/2023 COMPARISON: CT IACs 02/18/2023, CT brain 01/06/2023 HISTORY: LT SIDED HEARING LOSS CONTRAST: Performed utilizing 8.5ML mL intravenous Gadavist gadolinium contrast. TECHNIQUE: Multiplanar, multiecho imaging on a 3.0 Susana magnet is performed through the brain. Atte ntion is paid to the internal auditory canals with thin section imaging. Postcontrast imaging is per formed through the internal auditory canals. FINDINGS:Craniovertebral junction is normal. The pituitary is normal. Diffusion-weighted imaging is performed. No suspicious hyperintensity is present to suggest an acute intracranial infarct or acute ischemic area. There is some periventricular white matter hyperintensity on T2-weighted sequences. This is slightly perpendicular to the right lateral ventricle. Consider multiple sclerosis within the differential. No nspecific chronic white matter ischemic change could be considered. Additional white matter changes a re within the trilobar regions bilaterally and diffusely through the periventricular white matter. Thin section imaging is performed through the internal auditory canals and cerebellar pontine angles. No cerebellar pontine angle masses are evident. The internal auditory canals appear normal without expansion or erosion. Postcontrast imaging was performed. No suspicious enhancement is evident within the internal audito ry canals or the included portions of the brain. Cerebellar pontine angles appear clear. Note is made of mild fluid bilateral mastoid air cells. Air-fluid level is within the right maxillary sinus. Small amount maxillary mucosal thickening is within the left maxillary sinus. Mucosal thicken ing within ethmoid air cells. IMPRESSIONS: 1. Internal auditory canals appear normal. 2. Periventricular white matter ischemic type changes. Differential diagnosis should include multiple sclerosis. 3. Bilateral mastoiditis greater on the left. Right-sided mastoiditis may have improved over the inte rval.
== END | disposition home or self-care (01) ==
LOC: RADMRIMAIN 14:11
PROVIDERS: ATTEND Otolaryngology
DX: H90.A22 Sensorineural hearing loss, unilateral, left ear, with restricted hearing on the contralateral side (principal); I67.82 Cerebral ischemia
CPT/HCPCS: 70553; A9585

== ENCOUNTER → 2023-06-26 | Outpatient (CLI) | payer MEDICARE ==
--- NOTE | 2023-06-28 18:03 | US ---
EXAMINATION TYPE: US arterial LE single level DATE OF EXAM: 06/26/2023 1:23 PM CLINICAL INDICATION: Male, 72 years old with history of I73.9 PVD; Peripheral vascular disease. *Pat ient's legs feel cold. History of: Smoker: No Hypertension: No Diabetic: No Hyperlipidemia: Yes TIA/CVA: No Previous Vascular Surgery: Hx vein stripping left leg, no arterial surgeries CAD: No ME: No Vascular Ulcers: No Claudication: Bilateral Gangrene: No Doppler Waveforms: Right: Multiphasic Left: Multiphasic Right Brachial Pressure: 121 Left Brachial Pressure: 116 Ankle-Brachial Indices: Right: 1.20 Left: 1.22 Toe Brachial Indices: Right: 0.83 Left: 0.88 IMPRESSION: Normal brachial ankle indices bilaterally.
== END | disposition home or self-care (01) ==
LOC: RADUSWWP 12:40
PROVIDERS: ATTEND Pediatrics
DX: I73.9 Peripheral vascular disease, unspecified (principal)
CPT/HCPCS: 93922

== ENCOUNTER → 2023-07-25 | Outpatient (CLI) | payer MEDICARE ==
--- NOTE | 2023-07-27 11:29 | PE ---
EXAMINATION TYPE: PET CT fusion skull to thigh DATE OF EXAM: 07/25/2023 CLINICAL INDICATION:Male, 72 years old with history of C83.17 TECHNIQUE: Following the intravenous administration of 12.6 mCi of F-18 FDG, whole body images are performed from the skull base to the midthigh. Images are reviewed on the computer in the coronal, a xial, and sagittal planes. Reconstructed rotating images are created on independent workstation and reviewed on the computer. A non-contrast CT is performed in conjunction with the PET scan. Glucose level 94 mg/dL CT DLP: 508.3 mGycm, Automated exposure control for dose reduction was used. COMPARISON: CT 09/23/2022, 03/28/2022, PET/CT None, FINDINGS: Mediastinal SUV mean is 1.8. Hepatic parenchyma SUV mean is 2.21. SKULL BASE AND NECK: No suspicious radiotracer activity. CHEST, MEDIASTINUM, AND HILAR REGION: Interval decrease in enlarged lymph nodes throughout the medias tinum, lower neck and abdomen compared to prior on 09/23/2022. No suspicious radiotracer activity. Spl een is within normal limits for size. No abnormal splenic uptake. ABDOMEN AND PELVIS: No suspicious radiotracer activity. MUSCULOSKELETAL STRUCTURES: No suspicious radiotracer activity. OTHER CT: Bilateral aphakia. Atherosclerosis of the coronary arteries. Moderate stool burden througho ut right colon. Small bowel feces. Left inguinal hernia. Mild pulmonary vascular congestion. The hear t is mildly enlarged for size. IMPRESSION: 1. Positive response to therapy with decrease in lymphadenopathy throughout the chest and abdomen an d pelvis. No suspicious FDG activity identified. 2. Cardiomegaly with pulmonary vascular congestion correlate serum BNP for congestive heart failure.
== END | disposition home or self-care (01) ==
LOC: RADPETMAIN 08:47
PROVIDERS: ATTEND Internal Medicine Hematology & Oncology
DX: C83.17 Mantle cell lymphoma, spleen (principal); J81.1 Chronic pulmonary edema; I51.7 Cardiomegaly; R59.1 Generalized enlarged lymph nodes
CPT/HCPCS: 78815; A9552

== ENCOUNTER → 2024-02-04 | Outpatient (CLI) | payer MEDICARE ==
--- NOTE | 2024-02-05 23:10 | PE ---
EXAMINATION TYPE: PET CT fusion skull to thigh DATE OF EXAM: 02/04/2024 CLINICAL INDICATION:Male, 73 years old with history of C85.98 Lymphoma; TECHNIQUE: Following the intravenous administration of 9.33 mCi of F-18 FDG, whole body images are performed from the skull base to the midthigh. Images are reviewed on the computer in the coronal, a xial, and sagittal planes. Reconstructed rotating images are created on independent workstation and reviewed on the computer. A non-contrast CT is performed in conjunction with the PET scan. Glucose level 91 mg/dL CT DLP: 509 mGycm, Automated exposure control for dose reduction was used. COMPARISON: CT None, PET/CT 07/25/2023, FINDINGS: Mediastinal SUV mean is 2.45. Hepatic parenchyma SUV mean is 3.1 SKULL BASE AND NECK: No suspicious radiotracer activity. CHEST, MEDIASTINUM, AND HILAR REGION: No suspicious radiotracer activity ABDOMEN AND PELVIS: No suspicious radiotracer activity.Spleen is within normal limits for size. No ab normal splenic uptake. MUSCULOSKELETAL STRUCTURES: No suspicious radiotracer activity. OTHER CT: Bilateral aphakia. Atherosclerosis of the coronary arteries. The heart is mildly enlarged f or size. Moderate stool burden throughout right colon. Small bowel feces. Left inguinal hernia. Mild pulmonary vascular congestion. The heart is mildly enlarged for size. IMPRESSION: No suspicious FDG activity identified.
== END | disposition home or self-care (01) ==
LOC: RADPETMAIN 10:41
PROVIDERS: ATTEND Internal Medicine Hematology & Oncology
DX: C85.98 Non-Hodgkin lymphoma, unspecified, lymph nodes of multiple sites (principal)
CPT/HCPCS: 78815; A9552

== ENCOUNTER → 2024-07-28 | Outpatient (CLI) | payer MEDICARE ==
--- NOTE | 2024-07-28 16:50 | PE ---
EXAMINATION TYPE: PET CT fusion skull to thigh DATE OF EXAM: 07/28/2024 CLINICAL INDICATION:Male, 73 years old with history of C85.98 NON-HODGKIN LYMPHOMA, UNSP, LYMPH NODES OF; TECHNIQUE: Following the intravenous administration of 14 mCi of F-18 FDG, whole body images are pe rformed from the skull base to the midthigh. Images are reviewed on the computer in the coronal, axi al, and sagittal planes. Reconstructed rotating images are created on independent workstation and re viewed on the computer. A non-contrast CT is performed in conjunction with the PET scan. Glucose le sinai 99 mg/dL CT DLP: 760.82 mGycm, Automated exposure control for dose reduction was used. COMPARISON: CT None, PET/CT None, MRI: None FINDINGS: Mediastinal SUV mean is 2.37. Hepatic parenchyma SUV mean is 2.9. SKULL BASE AND NECK: No suspicious radiotracer activity. Physiologic uptake within the vocal cords. Similar diffuse low-level uptake within the thyroid gland. CHEST, MEDIASTINUM, AND HILAR REGION: No suspicious radiotracer activity. ABDOMEN AND PELVIS: No suspicious radiotracer activity. MUSCULOSKELETAL STRUCTURES: No suspicious radiotracer activity. OTHER CT: Bilateral aphakia. Moderate mucosal thickening in the right maxillary sinus. Atherosclerosi s of the coronary arteries. The heart is mildly enlarged for size. Ascending aortic aneurysm measurin g up to 4.3 cm. Aortic root aneurysmal dilatation measuring up to 4.4 cm. Multilevel degenerative dis c disease. Prominent osteophytes of the lower lumbar spine. Left lateral urinary bladder wall diverti culum. Calcified right hilar lymph nodes. Bibasilar dependent subsegmental atelectasis. IMPRESSION: No suspicious radiotracer activity to suggest recurrence.
== END | disposition home or self-care (01) ==
LOC: RADPETMAIN 12:07
PROVIDERS: ATTEND Internal Medicine Hematology & Oncology
DX: C85.98 Non-Hodgkin lymphoma, unspecified, lymph nodes of multiple sites
CPT/HCPCS: 78815